=== PATIENT | male | born 1945 | race Caucasian/White ===

== ENCOUNTER 2025-02-17 20:10 | Outpatient (REF) | payer MEDICARE, SELFPAY ==
--- OUTSIDE RECORDS SUMMARY | 2025-02-03 06:12 | XMS_ITS | Encounter Summary ---
Author Organization [facility] [employer] [facility] tem Address [id number] [address] [place] [address] Care Team Providers Care Packer Name Role Phone Alejandrina Rivera MD Primary Care Provider [phone] Reason for Visit * Auth/Cert Specialty Diagnoses / Procedures Referred By Leif graham Referred To Contact Diagnoses Osteomyelitis of right foot, unspecified type ([facility]) Raysa Mann MD [address] , [facility] [address] [place] [address] Phone: tel: fax: Referral ID Status Reason Start Date Expiration Date Visits Re quested Visits Authorized [id number] 1 1 Encounter Details Date Type Department Care Team (Latest Contact Info) Description 02/03/2025 6:12 AM EDT - 02/03/2025 6:30 AM EDT Hospital Encounter [facility] - Surgery [address] [place] [phone] Diego Daniels, [address] [place] [address] Discharge Disposition: Still a Patient Social History Tobacco Use Types Packs/Day Years Used Date Smoking Tobacco: Former Smokeless Tobacco: Never Alcohol Use Standard Drinks/Week Comments No 0 (1 standard drink = 0.6 oz pur e alcohol) [facility] Utilities Answer Date Recorded In the past 12 months has th e electric, gas, oil, or water company threatened to shut off services in your home? No 02/03/2025 PHQ-2 Answer Date Recorded Total Score 0 05/20/2022 PRAPARE - Transportation Answer Date Re corded In the past 12 months, has l ack of transportation kept you from medical appointments or from getting medications? No 01/21 In the past 12 months, has l ack of transportation kept you from meetings, work, or from getting things needed for daily living? No 02/03/2025 Housing Instability Answer Date Recorde d Are you worried or concerned that in the next two months you may not have stable housing that you own, rent or stay in as a part of a household? No 02/03/2025 Childcare Answer Date Recorded Childcare Unknown 12/02/2018 Employment Answer Date Recorded Employment Unknown 12/02/2018 Hunger Screening Answer Date Recorded Within the past 12 months we worried whether our food would run out before we got money to buy more. Never True 02/03/2025 Within the past 12 months th e food we bought just didn't last and we didn't have money to get more. Never True 02/03/2025 Purpose - Life Answer Date Recorded Purpose and direction in life Unknown Sex and Gender Information Value Date Recorded Sex Assigned at Not on file Legal Sex Male 11:54 AM EDT Gender Identity Not on file Sexual Orientation Not on file documented as of this encounter Medications at Time of Discharge allopurinol (ZYLOPRIM) 100 mg tablet Take 1 tablet (100 mg total) by mouth in the morning. aspirin 81 mg chewable tablet Chew 1 tablet (81 mg total) and swallow in the morning. 90 tablet 11/29/2024 atorvastatin (LIPITOR) 20 mg tablet Take 1 tablet (20 mg total) by mouth in the morning. ciprofloxacin HCl (CIPRO) 500 mg tablet Take 1.5 tablets (750 mg total) by mouth every 12 (twelve) hours for 42 days. 126 tablet 02/08/2025 clopidogreL (PLAVIX) 75 mg tablet Take 1 tablet (75 mg total) by mouth in the morning. 90 tablet 11/29/2024 cyanocobalamin (vitamin B-12) 100 MCG tablet Take 10 tablets (1,000 mcg total) by mouth in the morning. docusate sodium (COLACE) 100 mg capsule Take 1 capsule (100 mg total) by mouth in the morning and 1 capsule (100 mg total) before bedtime. doxazosin (CARDURA) 8 mg tablet Take 0.5 tablets (4 mg total) by mouth nightly. finasteride (PROSCAR) 5 mg tablet Take 1 tablet (5 mg total) by mouth in the morning. folic acid (FOLVITE) 1 mg tablet Take 1 tablet (1 mg total) by mouth in the morning. heparin lock flush, porcine, 10 unit/mL injection Infuse 1-5 mL (10-50 Units total) into a venous catheter as needed (line care per nursing agency protocol.). 1 mL 02/08/2025 heparin lock flush, porcine, injection 100 unit/mL solution Infuse 1-5 mL (100-500 Units total) into a venous catheter as needed (line care per nursing agency protocol.). 1 mL 02/08/2025 insulin glargine (LANTUS) 100 unit/mL injectionIndicat ions:type 2 diabetes mellitus Inject 0.1 mL (10 Units total) under the skin in the morning and 0.1 mL (10 Units total) before bedtime. Indications: type 2 diabetes mellitus. 02/08/2025 levothyroxine sodium (TIROSINT) 112 mcg capsule Take 1 capsule (112 mcg total) by mouth in the morning. OZEMPIC 0.25 mg or 0.5 mg(2 mg/1.5 mL) pen injector Inject under the skin once a week. wednesdays sodium chloride injection Infuse 10-20 mL into a venous catheter as needed for line care (line care per nursing agency protocol.). 1 mL 02/08/2025 vancomycin (VANCOCIN) 97184 mg recon soln Infuse 750 mg into a venous catheter daily for 38 days. End Date 03/18/2025 1 each 02/08/2025 insulin glargine (LANTUS) 100 unit/mL injectionIndicat ions:type 2 diabetes mellitus Inject 0.35 mL (35 Units total) under the skin in the morning. Indications: type 2 diabetes mellitus. 10/28/2022 documented as of this encounter Plan of Treatment Upcoming Encounters Date Type Department Care Team (Late st Contact Info) Description 03/08/2025 3:20 PM EDT [facility] [address] [place] [phone] Delfino Lake MD [address] [place] [address] documented as of this encounter Goals Goal Patient Goal Type Associated Problems Recent Progress Patient-Stated? Author SNF General Yes Desire Wilhelm LSW Note: Evaluation of progress towards goal: await surgery, possibly tomorrow documented as of this encounter Procedures Procedure Name Priority Date/Time Associated Diagnosis Comments BEDSIDE GLUCOSE Routine 02/03/2025 6:36 AM EDT BEDSIDE GLUCOSE Routine 02/03/2025 6:24 AM EDT documented in this encounter Results * (ABNORMAL) Bedside Glucose *Place/Obtain serum glucose if >500 per glucometer. (02/03/2025 6:36 AM EDT) Bedside Glucose (POC) 52(LL) 65 - 99 mg/dL 02/03/2025 6:37 AM EDT [facility] arterial/capilla ry 02/03/2025 6:36 AM EDT 02/03/2025 6:37 AM EDT us Diego Daniels DPM POINT OF CARE TEST ORDERABL ES Final Result [facility] [address] [place] [address], * (ABNORMAL) Bedside Glucose *Place/Obtain serum glucose if >500 per glucometer. (02/03/2025 6:24 AM EDT) Bedside Glucose (POC) 50(LL) 65 - 99 mg/dL 02/03/2025 6:26 AM EDT [facility] arterial/capilla ry 02/03/2025 6:24 AM EDT 02/03/2025 6:26 AM EDT us Diego Daniels DPM POINT OF CARE TEST ORDERABL ES Final Result Performing Organization Address City/State/[facility] Co de Phone Number [facility] [address] [place] [address], documented in this encounter Visit Diagnoses Not on filedocumented in this encounter Additional Health Concerns Assessment Noted Time PHQ-9 Depression Total Score: 0 05/20/20 22 9:00 AM EST documented as of this encounter Care Teams Packer Relationship Specialty Start Date End Date Alejandrina Rivera MD [address] [facility] [place] [address] PCP - General Internal Medicine 09/27/24 documented as of this encounter
--- OUTSIDE RECORDS SUMMARY | 2025-02-03 06:45 | XMS_ITS | Encounter Summary ---
Author Organization [employer] tem Address [id number] [address] [place] [address] Care Team Providers Care [employer] Name Role Phone Alejandrina Rivera MD Primary Care Provider [phone] Reason for Referral * Consultation (Routine) - Pending Review Specialty Diagnoses / Procedures Referred By Leif graham Referred To Contact Podiatry Diagnoses Osteomyelitis of right foot, unspecified type ([facility]) Poonam Hobson APRN-CNP [address] [place] [address] Phone: tel: fax: Diego Daniels, DPM [address] [place] [address] Phone: tel: fax: Referral ID Status Reason Start Date Expiration Date Visits Requested Visits Authorized [id number] Pending Review Specialty Services Required 02/08/2025 02/08/2026 1 1 * Misc (Routine) - Pending Review Specialty Diagnoses / Procedures Referred By Leif graham Referred To Contact Procedures Discharge Follow-Up Poonam Hobson APRN-CNP [address] [place] [address] Phone: tel: fax: Referral ID Status Reason Start Date Expiration Date V isits Requested Visits Authorized [id number] Pending Review 02/08/2025 02/08/2026 1 1 * Misc (Routine) - Pending Review Specialty Diagnoses / Procedures Referred By Leif graham Referred To Contact Diagnoses Osteomyelitis of right foot, unspecified type ([facility]) Procedures Follow-up with primary care provider Poonam Hobson APRN-CNP [address] [place] [address] Phone: tel: fax: Referral ID Status Reason Start Date Expiration Date V isits Requested Visits Authorized [id number] Pending Review 02/08/2025 02/08/2026 1 1 Reason for Visit * Reason Comments Low Blood Sugar - No Symptoms Pt reports to ER today with c/o hypoglycemia. Pt was down in pre-op with plans for surgery today. Pt blood sugar was assessed and read as 50. Pt admits to being NPO overnight but still taking his full dose of insulin. * Auth/Cert Specialty Diagnoses / Procedures Referred By Leif graham Referred To Contact Diagnoses Osteomyelitis of right foot, unspecified type ([facility]) Raysa Mann MD [address] , [facility] [address] [place] [address] Phone: tel: fax: Referral ID Status Reason Start Date Expiration Date Visits Re quested Visits Authorized [id number] 1 1 Encounter Details Date Type Department Care Team (Latest Contact Info) Description 02/03/2025 6:45 AM EDT - 02/08/2025 9:00 PM EDT Hospital Encounter [facility] - Acute Care [address] [place] [address] Jerald Pineda T, DO [address] [place] [address] Raysa Mann MD [address] , [address] [place] [address] Sirena Batres MD [address] [facility] , [address] [place], [place] [id number] Osteomyelitis of right foot, unspecified type ([facility]) (Primary Dx); Hypoglycemia; Chronic kidney disease, unspecified CKD stage; Type 2 diabetes mellitus with diabetic polyneuropathy, with long-term current use of insulin ([facility]) Discharge Disposition: [facility] Facility-Medicare Cert Social History Tobacco Use Types Packs/Day Years Used Date Smoking Tobacco: Former Smokeless Tobacco: Never Alcohol Use Standard Drinks/Week Comments No 0 (1 standard drink = 0.6 oz pur e alcohol) [facility] Utilities Answer Date Recorded In the past 12 months has th e [employer], gas, oil, or water [employer] threatened to shut off services in your [...] on file documented as of this encounter Last Filed Vital Signs Vital Sign Reading Time Taken Comments Blood Pressure 124/60 02/08/2025 3:43 PM EDT Pulse 77 02/08/2025 3:43 PM EDT Temperature 36.4 C (97.6 F) 02/08/2025 3:43 PM EDT Respiratory Rate 17 02/08/2025 3:43 PM EDT Oxygen Saturation 98% 02/08/2025 3:43 PM EDT Inhaled Oxygen Concentration - - Weight 64.5 kg (142 lb 4.8 oz) 02/08/2025 5:00 A M EDT Height 172.7 cm (5' 8 ) 02/04/2025 11:13 AM EDT Body Mass Index 21.64 02/04/2025 11:13 AM EDT documented in this encounter Functional Status documented as of this encounter Mental Status * Question Answer Entry Date Author Overall Cognitive Status WFL 02/05/2025 7:37 AM EDT Tanisha Olmos, PT documented in this encounter Discharge Summaries * Sirena Batres MD - 02/08/2025 1:53 PM EDT Images from the original note were not included. [facility] [address] [place] [phone] Hospital Medicine Discharge Summary Patient: Babar Barriga Date of : 1945 Room: [facility] Encounter date: 02/08/25 Hospital Day: 6 DATE OF ADMISSION: 02/03/2025 DATE OF DISCHARGE:02/08/2025 DISCHARGE DIAGNOSES Principal Problem: Osteomyelitis of right foot, unspecified type ([facility]) Active Problems: Peripheral vascular disease ([facility]) Hyperlipidemia Diabetic peripheral neuropathy associated with type 2 diabetes mellitus ([facility]) S/P amputation of foot, left ([facility]) Hypertension CKD (chronic kidney disease) stage 4, GFR 15-29 ml/min (CMS-HCC) Hypoglycemia Anemia of chronic disease Hypothyroidism Iron deficiency anemia [facility] Pod[facility] ID PCP: Alejandrina Rivera MD PROCEDURES none HOSPITAL COURSE SUMMARY Babar Barriga is a 80 y.o. male who presented with hypoglycemia. Scheduled for outpatient right calcanectomy with podiatry this morning, found to be hypoglycemic and sent to the ER. Known osteomyelitis, confirmed on MRI earlier this month. ER workup was relatively noncontributory. Started on cefepime and vancomycin. Podiatry consulted. And admission requested. Hospital course: Right calcaneal osteomyelitis/ right foot wound with exposure of achilles tendon. S/p partial calcanectomy right foot, achilles tendon resection and VAC placement 02/04. Continue vancomycin. VAC. Cultures final. ID following-atb ordered at d/c, PICC line ordered. T2DM, 6.2%, sliding scale insulin and glargine. -hypoglycemic, adjusted lantus Peripheral vascular disease, aspirin and clopidogrel. Hypertension, normotensive, hytrin. Anemia of chronic disease, hemoglobin stable/baseline. Venofer Dyslipidemia, statin. Hypothyroidism, levothyroxine. CKD 4, creatinine stable/baseline, avoid nephrotoxic agents. Monitor daily weight, output. VTE chemoprophylaxis when cleared by podiatry. Pt instructed to follow up with PCP/podiatry in one week. Instructed to seek medical attention if symptoms persist or worsen or if you develop chest pain or shortness of breath. Sepsis suspected, no-not clinically evident at this time. Discharge Day Progress Note 02/08/25 No overnight events and remains hemodynamically stable. Review of Systems Constitutional: Negative for chills, fatigue and fever. Respiratory: Negative for cough, shortness of breath and wheezing. Cardiovascular: Negative for chest pain and leg swelling. Gastrointestinal: Negative for abdominal pain, blood in stool, constipation, diarrhea, nausea and vomiting. Genitourinary: Negative for difficulty urinating. Skin: Positive for wound. Negative for rash. Neurological: Negative for dizziness, weakness and headaches. Psychiatric/Behavioral: Negative for sleep disturbance. BP 108/54 Pulse 82 Temp 37.4 ??C (99.3 ??F) (Oral) Resp 17 Ht 172.7 cm (5' 8 ) Wt 64.5 kg(142 lb 4.8 oz) SpO2 100% BMI 21.64 kg/m?? Temp: [36.6 ??C (97.9 ??F)-37.4 ??C (99.3 ??F)] 37.4 ??C (99.3 ??F) Pulse: [75-82] 82 Resp: [16-18] 17 BP: (106-144)/(48-76) 108/54 SpO2: [99 %-100 %] 100 % O2 Device: None (Room air) Intake/Output Summary (Last 24 hours) at 02/08/2025 1353 Last data filed at 02/08/2025 1110 Gross per 24 hour Intake 989.88 ml Output 850 ml Net 139.88 ml Physical Exam Constitutional: General: He is not in acute distress. Cardiovascular: Rate and Rhythm: Normal rate and regular rhythm. Heart sounds: Heart sounds are distant. Pulmonary: Effort: Pulmonary effort is normal. Breath sounds: Normal breath sounds. No decreased breath sounds, wheezing, rhonchi or rales. Abdominal: General: Abdomen is flat. Palpations: Abdomen is soft. Tenderness: There is no abdominal tenderness. Musculoskeletal: Right lower leg: No edema. Left lower leg: No edema. Skin: General: Skin is warm and dry. Capillary Refill: Capillary refill takes less than 2 seconds. Coloration: Skin is pale. Findings: Wound present. No rash. Neurological: General: No focal deficit present. Mental Status: Mental status is at baseline. Psychiatric: Behavior: Behavior is cooperative. Code Status: Full Code Labs Recent Results (from the past 48 hours) ABO Rh Repeat Collection Time: 02/06/25 1:56 PM Result Value Ref Range ABO B RH Negative Bedside Glucose *Place/Obtain serum glucose if >500 per glucometer. Collection Time: 02/06/25 4:02 PM Result Value Ref Range Bedside Glucose (POC) 190 (H) 65 - 99 mg/dL Bedside Glucose *Place/Obtain serum glucose if >500 per glucometer. Collection Time: 02/06/25 8:36 PM Result Value Ref Range Bedside Glucose (POC) 170 (H) 65 - 99 mg/dL Hemoglobin and hematocrit, blood Collection Time: 02/06/25 8:45 PM Result Value Ref Range Hemoglobin 7.4 (L) 13 - 17 g/dL Hematocrit 22.4 (L) 39 - 50 % Occult blood x 1, stool Collection Time: 02/07/25 2:46 AM Result Value Ref Range FECAL OCCULT BLOOD Negative Negative Comprehensive metabolic panel Collection Time: 02/07/25 4:31 AM Result Value Ref Range SODIUM 134 134 - 146 mmol/L POTASSIUM 4.4 3.5 - 5.0 mmol/L CHLORIDE 104 98 - 109 mmol/L CARBON DIOXIDE 24 22 - 32 mmol/L ANION GAP 6 5 - 15 mmol/L BLOOD UREA NITROGEN 37 (H) 5 - 27 mg/dL CREATININE 1.31 (H) 0.70 - 1.20 mg/dL GLUCOSE 95 65 - 99 mg/dL CALCIUM 8.5 8.5 - 10.5 mg/dL TOTAL PROTEIN 5.7 (L) 6.0 - 8.0 g/dL ALBUMIN 2.1 (L) 3.2 - 5.3 g/dL ALKALINE PHOSPHATASE 69 39 - 130 U/L AST 13 <=41 U/L ALT 13 <=40 U/L BILIRUBIN,TOTAL 0.5 0.3 - 1.2 mg/dL EGFR Non-Race Dependent 55 (L) >=60 ml/min/1.73sq.m Magnesium Collection Time: 02/07/25 4:31 AM Result Value Ref Range MAGNESIUM 1.8 1.8 - 2.6 mg/dL CBC auto differential Collection Time: 02/07/25 4:31 AM Result Value Ref Range WBC 8.8 4 - 11 x10E9/L RBC Count 2.70 (L) 4.1 - 5.7 X10E12/L Hemoglobin 7.0 (L) 13 - 17 g/dL Hematocrit 21.3 (L) 39 - 50 % MCV 79 (L) 80 - 100 fL MCH 26.0 (L) 27 - 34 pg MCHC 32.8 32 - 36 g/dL RDW 19.2 (H) 11.5 - 15 % Platelet Count 232 150 - 450 X10E9/L MPV 7.1 7 - 12 fL Neutrophils % 70.3 % Lymphocytes % 18.6 % Monocytes % 9.1 % Eosinophils % 1.4 % Basophils % 0.6 % Neutrophils Absolute (A) 6.2 1.5 - 6.6 10*3/uL Lymphocytes Absolute 1.6 1.0 - 3.5 10*3/uL Monocytes Absolute 0.8 0.0 - 0.9 10*3/uL Eosinophils Absolute 0.1 0.0 - 0.4 10*3/uL Basophils Absolute 0.1 0.0 - 0.2 10*3/uL Differential Type AUTOMATED DIFFERENTIAL Extra Tubes Collection Time: 02/07/25 4:31 AM Narrative The following orders were created for panel order Extra Tubes. Procedure Abnormality Status --------- ------ Light Blue Top[[id number]] Final result Please view results for these tests on the individual orders. Light Blue Top Collection Time: 02/07/25 4:31 AM Result Value Ref Range Extra Tube Auto Resulted Bedside Glucose *Place/Obtain serum glucose if >500 per glucometer. Collection Time: 02/07/25 11:14 AM Result Value Ref Range Bedside Glucose (POC) 250 (H) 65 - 99 mg/dL Hemoglobin and hematocrit, blood Collection Time: 02/07/25 1:15 PM Result Value Ref Range Hemoglobin 7.0 (L) 13 - 17 g/dL Hematocrit 21.7 (L) 39 - 50 % Bedside Glucose *Place/Obtain serum glucose if >500 per glucometer. Collection Time: 02/07/25 5:07 PM Result Value Ref Range Bedside Glucose (POC) 201 (H) 65 - 99 mg/dL Hemoglobin Collection Time: 02/07/25 6:50 PM Result Value Ref Range Hemoglobin 8.1 (L) 13 - 17 g/dL Hematocrit Collection Time: 02/07/25 6:50 PM Result Value Ref Range Hematocrit 24.9 (L) 39 - 50 % Bedside Glucose *Place/Obtain serum glucose if >500 per glucometer. Collection Time: 02/07/25 8:42 PM Result Value Ref Range Bedside Glucose (POC) 246 (H) 65 - 99 mg/dL Comprehensive metabolic panel Collection Time: 02/08/25 5:44 AM Result Value Ref Range SODIUM 135 134 - 146 mmol/L POTASSIUM 4.5 3.5 - 5.0 mmol/L CHLORIDE 104 98 - 109 mmol/L CARBON DIOXIDE 25 22 - 32 mmol/L ANION GAP 6 5 - 15 mmol/L BLOOD UREA NITROGEN 33 (H) 5 - 27 mg/dL CREATININE 1.16 0.70 - 1.20 mg/dL GLUCOSE 63 (L) 65 - 99 mg/dL CALCIUM 8.8 8.5 - 10.5 mg/dL TOTAL PROTEIN 6.2 6.0 - 8.0 g/dL ALBUMIN 2.4 (L) 3.2 - 5.3 g/dL ALKALINE PHOSPHATASE 78 39 - 130 U/L AST 17 <=41 U/L ALT 16 <=40 U/L BILIRUBIN,TOTAL 0.6 0.3 - 1.2 mg/dL EGFR Non-Race Dependent 64 >=60 ml/min/1.73sq.m Magnesium Collection Time: 02/08/25 5:44 AM Result Value Ref Range MAGNESIUM 1.8 1.8 - 2.6 mg/dL CBC auto differential Collection Time: 02/08/25 5:44 AM Result Value Ref Range WBC 10.6 4 - 11 x10E9/L RBC Count 3.29 (L) 4.1 - 5.7 X10E12/L Hemoglobin 8.8 (L) 13 - 17 g/dL Hematocrit 26.2 (L) 39 - 50 % MCV 80 80 - 100 fL MCH 26.6 (L) 27 - 34 pg MCHC 33.4 32 - 36 g/dL RDW 18.9 (H) 11.5 - 15 % Platelet Count 250 150 - 450 X10E9/L MPV 7.0 7 - 12 fL Neutrophils % 69.0 % Lymphocytes % 22.7 % Monocytes % 7.1 % Eosinophils % 1.0 % Basophils % 0.2 % Neutrophils Absolute (A) 7.3 (H) 1.5 - 6.6 10*3/uL Lymphocytes Absolute 2.4 1.0 - 3.5 10*3/uL Monocytes Absolute 0.7 0.0 - 0.9 10*3/uL Eosinophils Absolute 0.1 0.0 - 0.4 10*3/uL Basophils Absolute 0.0 0.0 - 0.2 10*3/uL Differential Type AUTOMATED DIFFERENTIAL Bedside Glucose *Place/Obtain serum glucose if >500 per glucometer. Collection Time: 02/08/25 7:31 AM Result Value Ref Range Bedside Glucose (POC) 54 (L) 65 - 99 mg/dL Hemoglobin and hematocrit, blood Collection Time: 02/08/25 12:42 PM Result Value Ref Range Hemoglobin 8.0 (L) 13 - 17 g/dL Hematocrit 24.2 (L) 39 - 50 % Radiology X-ray calcaneus right minimum 2 views Result Date: 02/04/2025 Narrative: XR CALCANEOUS RT MIN 2 VWS Clinical history:sugery pain Comparison: None. Impression: Surgical fluoroscopic guidance provided for calcaneal fixation with fluoroscopic guidance. Reference air kerma was 0.3 mGy. Finalized by Edy Valdovinos MD on 02/04/2025 1:57 PM X-ray foot right 2 views Result Date: 02/03/2025 Narrative: EXAM: XR FOOT RT 2 VWS CLINICAL INFORMATION: evaluate for osteomyelitis of calcaneus. COMPARISON: None. FINDINGS: There is osteopenia. There is dorsal soft tissue irregularity and suspected ulceration overlying the calcaneus. There are focal lytic destructive changes of the dorsal calcaneus, compatible with osteomyelitis. There is subtotal absence of the first proximal phalanx, suspected postsurgical. IMPRESSION: 1. Dorsal soft tissue irregularity and ulceration with underlying lyticdestructive changes of osteomyelitis involving the dorsal calcaneus. Finalizedby Asher Jovel MD on 02/03/2025 8:46 PM X-ray foot left minimum 3 views Result Date: 01/25/2025 Narrative: Imaging Result: AP, medial oblique, lateral views are nonweightbearing. Reveals [id number] metatarsal resection. There is a bone fragment consistent with possible remnant of the 5th metatarsal. There has been complete destruction of the naviculocuneiform joint as well as the tarsometata rsal joints. I do not see any significant collapse of the midfoot. There is also significant erosion of the navicular with a almost complete destruction of the lateral and intermediate cuneiforms consistent with Charcot neuroarthropathy. Decreased bone mineralization. Significant degenerative changes of the 1st MTP, interphalangeal joint. Enthesophyte at the insertion of the plantar fascia. MR foot right without contrast Result Date: 01/24/2025 Narrative: EXAM: MR FOOT RIGHT WO IV CONTRAST HISTORY: Chronic ulceration right calcaneus. Exposed bone and Achilles tendon. Osteomyelitis COMPARISON : Foot radiographs October 16, 2022 TECHNIQUE: Multiplanar multisequence MRI of the foot was performed without contrast. FINDINGS: Soft tissue ulcer along the posterior margin of the calcaneus measures approximately 3 cm. Full-thickness tear of distallateral and mid fibers of the Achilles tendon at the level of the attachment of the calcaneus with medial fibers remaining intact (in total full- thickness tear of approximately three fourths of the Achilles tendon). Patchy hyperintense T2 signal is present within the posterior calcaneus to the level of the anterior margin of the posterior subtalar joint with corresponding hypointense T1 signal. The plantar fascia appears intact. Flexor and extensor tendons appear intact. Full-thickness tear of the anterior talofibular ligament hyperintense T2 signal of the musculature of the foot is most likely secondary to chronic denervation. Diffuse subcutaneous soft tissue edema. No soft tissue fluid collection to suggest abscess. Impression: Signal abnormality of the posterior two thirds of the calcaneus most compatible with osteomyelitis. Tear of the distal Achilles tendon as detailed. ELECTRONICALLY SIGNED BY: Sean Frias DO Vascular Invasive Result Date: 01/24/2025 Narrative: Patent SFA stents with a patent posterior tibial artery with adequate right heel wound blush Recommendations: Continue medical therapy. Recommendations per limb preservation board Vas art doppler lwr bilat mult lev/PVR Result Date: 01/20/2025 Narrative: Previous: Previous lower extremity arterial physiological exam performed: 12/23/2024; Highest VALE: Right: VALE is falsely elevated suggesting medial calcinosis; TBI is consistent with mild to moderate arterial disease. Left VALE is falsely elevated suggesting medial calcinosis; TBI is consistent with mild to moderate arterial disease. History of left REMI angioplasty on 10/30/2022. Historyof right SFA angioplasty and stent on 11/29/2024. Right: Mildly abnormal PVR waveform contour at all cuff levels. Calf waveform augmentation noted. PT VALE is CNO DP VALE is CNO. TBI is 0.42. Multiphasicwith diastolic flow reversal common femoral, hyperemic DP and monophasic PT CW Doppler waveforms. Le ft: Mildly abnormal PVR waveform contour at all cuff levels. Calf waveform augmentation noted. PT VALE is CNO DP VALE is CNO. TBI is 0.61. Multiphasic with diastolic flow reversal common femoral, DP and hyperemic PT CW Doppler waveforms. Conclusions: BILATERAL: VALE is falsely elevated suggesting medial calcinosis and non-compressible vessels; TBI is consistent with mild to moderate arterial disease.When compared to previous report no significant changes were noted. Recommendations: Any questions prior to finalization, please call the reading physician during normal business hours at the phone number beside their name. Vas art duplex lwr single right Result Date: 01/20/2025 Narrative: Previous: Previous lower extremity arterial duplex exam performed 12/23/2024 Right No hemodynamically significant stenosis (<50%), lower extremity superficial femoral artery stent. Arterial plaque with no hemodynamically significant stenosis of the lower extremity. History of left ATAangioplasty on 10/30/2022. History of right SFA angioplasty and stenting on 11/29/2024. Right: Plaque and spectral waveforms with diastolic flow reversal noted in the external iliac, common femoral, deep femoral, popliteal anterior tibial, hyperemic posterior tibial and peroneal artery without significant color flow disturbance. Spectral waveforms with diastolic flow reversal noted in the superficial femoral artery stent without significant color flow disturbance. Conclusions: RIGHT: Arterial plaque with no hemodynamically significant stenosis of the lower extremity. No hemodynamically significant stenosis (<50%), lower extremity arterial stent.When compared to previous report no significant changes were noted. Recommendations: Any questions prior to finalization, please call the reading physician during normal business hours at the phone number beside their name. DISCHARGE INSTRUCTION Disposition: group home facility Condition: Stable Activity: activity as tolerated Diet: Adult diet Regular Texture; Consistent Carb 255 grams (2000 kcal); Cardiac Adult nutrition supplements Follow up: Alejandrina Rivera MD within 7-14 days. Podiatry Labs/Imaging/Pathology: bmp weekly while on atb Discharge Medications: Medication List START taking these medications Instructions Last Dose Given Next Dose Due ciprofloxacin HCl 500 mg tablet Commonly known as: CIPRO Take 1.5 tablets (750 mg total) by mouth every 12 (twelve) hours for 42 days. * heparin lock flush (porcine) 10 unit/mL injection Infuse 1-5 mL (10-50 Units total) into a venous catheter as needed (line care per nursing agency protocol.). * heparin lock flush (porcine) injection 100 unit/mL solution Infuse 1-5 mL (100-500 Units total) into a venous catheter as needed (line care per nursing agency protocol.). sodium chloride injection Infuse 10-20 mL into a venous catheter as needed for line care (line care per nursing agency protocol.). vancomycin 36433 mg recon soln Commonly known as: VANCOCIN Infuse 750 mg into a venous catheter daily for 38 days. End Date 03/18/2025 * This list has 2 medication(s) that are the same as other medications prescribed for you. Read thedirections carefully, and ask your doctor or other care provider to review them with you. CHANGE how you take these medications Instructions Last Dose Given Next Dose Due insulin glargine 100 unit/mL injection Commonly known as: LANTUS What changed: how much to take when to take this Inject 0.1 mL (10 Units total) under the skin in the morning and 0.1 mL (10 Units total) before bedtime. Indications: type 2 diabetes mellitus. CONTINUE taking these medications Instructions Last Dose Given Next Dose Due allopurinoL 100 mg tablet Commonly known as: ZYLOPRIM Take 1 tablet (100 mg total) by mouth in the morning. aspirin 81 mg chewable tablet Chew 1 tablet (81 mg total) and swallow in the morning. atorvastatin 20 mg tablet Commonly known as: LIPITOR Take 1 tablet (20 mg total) by mouth in the morning. clopidogreL 75 mg tablet Commonly known as: PLAVIX Take 1 tablet (75 mg total) by mouth in the morning. docusate sodium 100 mg capsule Commonly known as: COLACE Take 1 capsule (100 mg total) by mouth in the morning and 1 capsule (100 mg total) before bedtime. doxazosin 8 mg tablet Commonly known as: CARDURA Take 0.5 tablets (4 mg total) by mouth nightly. finasteride 5 mg tablet Commonly known as: PROSCAR Take 1 tablet (5 mg total) by mouth in the morning. folic acid 1 mg tablet Commonly known as: FOLVITE Take 1 tablet (1 mg total) by mouth in the morning. levothyroxine sodium 112 mcg capsule Commonly known as: TIROSINT Take 1 capsule (112 mcg total) by mouth in the morning. OZEMPIC 0.25 mg or 0.5 mg(2 mg/1.5 mL) pen injector Generic drug: semaglutide Inject under the skin once a week. wednesdays vitamin B-12 100 MCG tablet Generic drug: cyanocobalamin Take 10 tablets (1,000 mcg total) by mouth in the morning. Where to Get Your Medications These medications were sent to [facility] - [place], [place] - [address] [facility] [id number] ciprofloxacin HCl 500 mg tablet heparin lock flush (porcine) 10 unit/mL injection heparin lock flush (porcine) injection 100 unit/mL solution sodium chloride injection You can get these medications from any pharmacy Bring a paper prescription for each of these medications vancomycin 74988 mg recon soln Information about where to get these medications is not yet available Ask your nurse or doctor about these medications insulin glargine 100 unit/mL injection >30 minutes were spent on discharging this patient. MONET Carpenter 02/08/2025 1:53 PM [facility] 7AM-7PM & 7PM-7AM: EpicChat or page through On-[employer]. MONET Carpenter 02/08/25 7017 Physician Attestation I, SIRENA BATRES MD, personally performed a face to face diagnostic evaluation on this patient. I have reviewed the note authored by the advance practice provider including history, review of systems,physical examination,medical decision making and agree with the assessment and plan as written. I have seen and evaluated the patient, I have repeated the zelaya portions of the physical exam and concur with the RHETT findings. I have reviewed all laboratory findings and imaging reports/films. I agree with the plan as noted. documented in this encounter Medications at Time of Discharge [...] agency protocol.). 1 mL 02/08/2025 vancomycin (VANCOCIN) 88373 mg recon soln Infuse 750 mg into a venous catheter daily for 38 days. End Date 03/18/2025 1 each 02/08/2025 documented as of this encounter Progress Notes * Phoenix Blanco RPH - 02/08/2025 1:14 PM EDT [facility] Department of Pharmacy Pharmacist to Physician Communication The dose of Cipro has been changed to 500 mg every 12 hours per the [facility] approved renal dosing guidelines, based on an estimated creatinine clearance is 46.3 mL/min (by C-G formula based on SCr of 1.16 mg/dL). Thank you, Phoenix Blanco RPH * Phoenix Blanco RPH - 02/08/2025 9:12 AM EDT [facility] Department of Pharmacy Pharmacist to Physician Communication The dose of cefepime for Osteoarticular infection has been changed to a 2 gram loading dose infusedover 30 minutes followed by 2 grams infused every 12 hours by extended infusion over 4 hours per the [facility] approved extended-infusion beta- lactam dosing policy, based on an estimated creatinine clearance is 46.3 mL/min (by C-G formula based on SCr of 1.16 mg/dL). Thank you, Phoenix Blanco RPH * Sirena Batres MD - 02/07/2025 1:26 PM EDT Images from the original note were not included. [facility] [address] [id number] Hospital Medicine Progress Note Patient: Babar Barriga Date of : 1945 Room: [facility] PCP: Alejandrina Rivera MD Admission date: 02/03/2025 6:45 AM Encounter date: 02/07/25 Hospital Day: 5 SUBJECTIVE Interval History: Status: stable. POD#3, partial calcanectomy right foot, achilles tendon resection and VAC placement. ID and Podiatry, no changes. pending cultures. Continue vanco. 1 unit prbc today Review of Systems Constitutional: Negative for chills, fatigue and fever. Respiratory: Negative for cough, shortness of breath and wheezing. Cardiovascular: Negative for chest pain and leg swelling. Gastrointestinal: Negative for abdominal pain, blood in stool, constipation, diarrhea, nausea and vomiting. Genitourinary: Negative for difficulty urinating. Skin: Positive for wound. Negative for rash. Neurological: Negative for dizziness, weakness and headaches. Psychiatric/Behavioral: Negative for sleep disturbance. OBJECTIVE BP 95/46 Pulse 98 Temp 36.8 ??C (98.2 ??F) Resp 18 Ht 172.7 cm (5' 8 ) Wt 60.3 kg (133 lb) SpO2 98% BMI 20.22 kg/m?? Temp: [36.7 ??C (98 ??F)-37.3 ??C (99.2 ??F)] 36.8 ??C (98.2 ??F) Pulse: [74-98] 98 Resp: [14-18] 18 BP: (95-111)/(46-52) 95/46 SpO2: [98 %-99 %] 98 % O2 Device: None (Room air) O2 Flow Rate (L/min): [0 L/min] 0 L/min Intake/Output Summary (Last 24 hours) at 02/07/2025 1326 Last data filed at 02/07/2025 1325 Gross per 24 hour Intake 1042.95 ml Output 1425 ml Net -382.05 ml Physical Exam Constitutional: General: He is not in acute distress. Cardiovascular: Rate and Rhythm: Normal rate and regular rhythm. Heart sounds: Heart sounds are distant. Pulmonary: Effort: Pulmonary effort is normal. Breath sounds: Normal breath sounds. No decreased breath sounds, wheezing, rhonchi or rales. Abdominal: General: Abdomen is flat. Palpations: Abdomen is soft. Tenderness: There is no abdominal tenderness. Musculoskeletal: Right lower leg: No edema. Left lower leg: No edema. Skin: General: Skin is warm and dry. Capillary Refill: Capillary refill takes less than 2 seconds. Coloration: Skin is pale. Findings: Wound present. No rash. Neurological: General: No focal deficit present. Mental Status: Mental status is at baseline. Psychiatric: Behavior: Behavior is cooperative. Medications Scheduled: allopurinoL, 100 mg, oral, Daily aspirin, 81 mg, oral, Daily atorvastatin, 20 mg, oral, Daily clopidogreL, 75 mg, oral, Daily docusate sodium, 100 mg, oral, BID finasteride, 5 mg, oral, Daily insulin glargine, 15 Units, subcutaneous, BID insulin lispro, 2-10 Units, subcutaneous, With meals and nightly iron sucrose, 200 mg, intravenous, Every Other Day levothyroxine, 112 mcg, oral, Daily terazosin, 5 mg, oral, Nightly vancomycin, 1,000 mg, intravenous, Q36H Infusions: sodium chloride 0.9 %, 20 mL/hr As Needed: acetaminophen acetaminophen dextrose dextrose 50 % in water (D50W) EPINEPHrine glucagon (human recombinant) magnesium sulfate methylPREDNISolone sod suc(PF) ondansetron oxyCODONE-acetaminophen potassium chloride OR potassium chloride OR potassium chloride IV (Adult) sennosides-docusate sodium sodium chloride sodium chloride sodium chloride 0.9 % Allergies: Penicillins and Lisinopril Code Status: Full Code Labs Recent Results (from the past 24 hours) Bedside Glucose *Place/Obtain serum glucose if >500 per glucometer. Collection Time: 02/06/25 4:02 PM Result Value Ref Range Bedside Glucose (POC) 190 (H) 65 - 99 mg/dL Bedside Glucose *Place/Obtain serum glucose if >500 per glucometer. Collection Time: 02/06/25 8:36 PM Result Value Ref Range Bedside Glucose (POC) 170 (H) 65 - 99 mg/dL Hemoglobin and hematocrit, blood Collection Time: 02/06/25 8:45 PM Result Value Ref Range Hemoglobin 7.4 (L) 13 - 17 g/dL Hematocrit 22.4 (L) 39 - 50 % Occult blood x 1, stool Collection Time: 02/07/25 2:46 AM Result Value Ref Range FECAL OCCULT BLOOD Negative Negative Comprehensive metabolic panel Collection Time: 02/07/25 4:31 AM Result Value Ref Range SODIUM 134 134 - 146 mmol/L POTASSIUM 4.4 3.5 - 5.0 mmol/L CHLORIDE 104 98 - 109 mmol/L CARBON DIOXIDE 24 22 - 32 mmol/L ANION GAP 6 5 - 15 mmol/L BLOOD UREA NITROGEN 37 (H) 5 - 27 mg/dL CREATININE 1.31 (H) 0.70 - 1.20 mg/dL GLUCOSE 95 65 - 99 mg/dL CALCIUM 8.5 8.5 - 10.5 mg/dL TOTAL PROTEIN 5.7 (L) 6.0 - 8.0 g/dL ALBUMIN 2.1 (L) 3.2 - 5.3 g/dL ALKALINE PHOSPHATASE 69 39 - 130 U/L AST 13 <=41 U/L ALT 13 <=40 U/L BILIRUBIN,TOTAL 0.5 0.3 - 1.2 mg/dL EGFR Non-Race Dependent 55 (L) >=60 ml/min/1.73sq.m Magnesium Collection Time: 02/07/25 4:31 AM Result Value Ref Range MAGNESIUM 1.8 1.8 - 2.6 mg/dL CBC auto differential Collection Time: 02/07/25 4:31 AM Result Value Ref Range WBC 8.8 4 - 11 x10E9/L RBC Count 2.70 (L) 4.1 - 5.7 X10E12/L Hemoglobin 7.0 (L) 13 - 17 g/dL Hematocrit 21.3 (L) 39 - 50 % MCV 79 (L) 80 - 100 fL MCH 26.0 (L) 27 - 34 pg MCHC 32.8 32 - 36 g/dL RDW 19.2 (H) 11.5 - 15 % Platelet Count 232 150 - 450 X10E9/L MPV 7.1 7 - 12 fL Neutrophils % 70.3 % Lymphocytes % 18.6 % Monocytes % 9.1 % Eosinophils % 1.4 % Basophils % 0.6 % Neutrophils Absolute (A) 6.2 1.5 - 6.6 10*3/uL Lymphocytes Absolute 1.6 1.0 - 3.5 10*3/uL Monocytes Absolute 0.8 0.0 - 0.9 10*3/uL Eosinophils Absolute 0.1 0.0 - 0.4 10*3/uL Basophils Absolute 0.1 0.0 - 0.2 10*3/uL Differential Type AUTOMATED DIFFERENTIAL Extra Tubes Collection Time: 02/07/25 4:31 AM Narrative The following orders were created for panel order Extra Tubes. Procedure Abnormality Status --------- ------ Light Blue Top[[id number]] Final result Please view results for these tests on the individual orders. Light Blue Top Collection Time: 02/07/25 4:31 AM Result Value Ref Range Extra Tube Auto Resulted Bedside Glucose *Place/Obtain serum glucose if >500 per glucometer. Collection Time: 02/07/25 11:14 AM Result Value Ref Range Bedside Glucose (POC) 250 (H) 65 - 99 mg/dL Radiology No results found. HOSPITAL PROBLEM LIST Principal Problem: Osteomyelitis of right foot, unspecified type ([facility]) Active Problems: Peripheral vascular disease ([facility]) Hyperlipidemia Diabetic peripheral neuropathy associated with type 2 diabetes mellitus ([facility]) S/P amputation of foot, left ([facility]) Hypertension CKD (chronic kidney disease) stage 4, GFR 15-29 ml/min ([facility]) Hypoglycemia Anemia of chronic disease Hypothyroidism Iron deficiency anemia ASSESSMENT & PLAN Right calcaneal osteomyelitis/ right foot wound with exposure of achilles tendon. S/p partial calcanectomy right foot, achilles tendon resection and VAC placement 02/04. Continue vancomycin. VAC. Cultures pending. ID following. T2DM, 6.2%, sliding scale insulin and glargine. Peripheral vascular disease, aspirin and clopidogrel. Hypertension, normotensive, hytrin. Anemia of chronic disease, hemoglobin stable/baseline. 1 unit prbc today. Venofer Dyslipidemia, statin. Hypothyroidism, levothyroxine. CKD 4, creatinine stable/baseline, avoid nephrotoxic agents. Monitor daily weight, output. VTE chemoprophylaxis when cleared by podiatry. DC planning: alf facility pending above and placement. Medically Ready for Discharge: Anticipated 24-48 hours MONET Carpenter 02/07/2025 1:26 PM [facility] 7AM-7PM & 7PM-7AM: EpicChat or page through [employer]. MONET Carpenter 02/07/25 7997 Physician Attestation I, SIRENA BATRES MD, personally performed a face to face diagnostic evaluation on this patient. I have reviewed the note authored by the advance practice provider including history, review of systems,physical examination,medical decision making and agree with the assessment and plan as written. I have seen and evaluated the patient, I have repeated the zelaya portions of the physical exam and concur with the RHETT findings. I have reviewed all laboratory findings and imaging reports/films. I agree with the plan as noted. * Diego Daniels DPM - 02/07/2025 11:53 AM EDT Podiatry Progress Note Code Status : Code Status Information Code Status Full Code Hospital Day: LOS: 4 days Patient is currently admitted for treatment of Osteomyelitis of right foot, unspecified type ([facility]) PCP: Alejandrina Rivera MD Assessment Principal Problem: Osteomyelitis of right foot, unspecified type ([facility]) Active Problems: Peripheral vascular disease ([facility]) Hyperlipidemia Diabetic peripheral neuropathy associated with type 2 diabetes mellitus ([facility]) S/P amputation of foot, left ([facility]) Hypertension CKD (chronic kidney disease) stage 4, GFR 15-29 ml/min ([facility]) Hypoglycemia Anemia of chronic disease Hypothyroidism Iron deficiency anemia Plan -patient 3 days status post partial calcanectomy with Achilles resection right lower extremity. Wound VAC is intact with adequate seal. He is to remain strict nonweightbearing on the right lower extremity at all times. He should continue to wear the Prevalon boot on the left lower extremity when inbed. Appreciate nursing assistance with dressing changes on the left lower extremity. Right foot dressing should remain clean, dry, intact. Closing cultures pending. I will follow up with him while he remains inpatient. Discussed with nursing. If you have any questions regarding my plan for this patient please do not hesitate to contact me at [phone]. Interim History The patient is a 80 y.o. male who is admitted for osteomyelitis. Doing well without any issues overnight. 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 ([facility]) 10/24/2022 Added automatically from request for surgery [id number] Chronic kidney disease Chronic osteomyelitis of left foot ([facility]) 09/27/2024 Dental disease Diabetes mellitus type 2, controlled ([facility]) Hyperlipidemia Hypertension MRSA bacteremia 09/28/2024 Osteomyelitis ([facility]) Shortness of breath Skin cancer melanoma Stage 3b chronic kidney disease ([facility]) 09/27/2024 Urinary incontinence Visual impairment Past Surgical History: Past Surgical History: Procedure Laterality Date AMPUTATION METATARSAL AND TOE Left 09/30/2024 Performed by Diego Daniels DPM at [facility] AMPUTATION METATARSAL AND TOE partial Ray Left 10/25/2022 Performed by Diego Daniels DPM at [facility] CIRCUMCISION LENGTHENING TENDON ACHILLES Left 09/30/2024 Performed by Diego Daniels DPM at [facility] Percutaneous angioplasty/stent femoral-popliteal right Right 11/29/2024 Performed by Delfino Lake MD at [facility] SKIN PLASTY TISSUE REARRANGEMENTn toe flap Left 10/25/2022 Performed by Diego Daniels DPM at [facility] TOE SURGERY Left Vascular Invasive 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 Authorizing Provider allopurinol (ZYLOPRIM) 100 mg tablet Take 1 tablet (100 mg total) by mouth in the morning. Yes Not In System Ref Prov aspirin 81 mg chewable tablet Chew 1 tablet (81 mg total) and swallow in the morning. 11/29/24 Yes Funmi Biswas MD atorvastatin (LIPITOR) 20 mg tablet Take 1 tablet (20 mg total) by mouth in the morning. Yes Not InSystem Ref Prov clopidogreL (PLAVIX) 75 mg tablet Take 1 tablet (75 mg total) by mouth in the morning. 11/29/24 Yes Funmi Biswas MD cyanocobalamin (vitamin B-12) 100 MCG tablet Take 10 tablets (1,000 mcg total) by mouth in the morning. Yes Not In System Ref Prov docusate sodium (COLACE) 100 mg capsule Take 1 capsule (100 mg total) by mouth in the morning and 1capsule (100 mg total) before bedtime. Yes Not In System Ref Prov doxazosin (CARDURA) 8 mg tablet Take 0.5 tablets (4 mg total) by mouth nightly. Yes Not In System Ref Prov doxycycline (VIBRAMYCIN) 100 mg capsule Take 1 capsule (100 mg total) by mouth in the morning and 1capsule (100 mg total) before bedtime. Yes Not In System Ref Prov finasteride (PROSCAR) 5 mg tablet Take 1 tablet (5 mg total) by mouth in the morning. Yes Not In System Ref Prov folic acid (FOLVITE) 1 mg tablet Take 1 tablet (1 mg total) by mouth in the morning. Yes Not In System Ref Prov insulin glargine (LANTUS) 100 unit/mL injection Inject 0.35 mL (35 Units total) under the skin in the morning. Indications: type 2 diabetes mellitus. Patient taking differently: Inject 0.3 mL (30 Units total) under the skin in the morning. Indications: type 2 diabetes mellitus. 10/28/22 Yes Bibi Francis MD levothyroxine sodium (TIROSINT) 112 mcg capsule Take 1 capsule (112 mcg total) by mouth in the morning. Yes Not In System Ref Prov OZEMPIC 0.25 mg or 0.5 mg(2 mg/1.5 mL) pen injector Inject under the skin once a week. wednesdays Not In System Ref Prov Allergies: Social History Socioeconomic History Marital status: Spouse name: Not on file Number of children: Not on file Years of education: Not on file Highest education level: Not on file Occupational History Not on file Tobacco Use Smoking status: Former Smokeless tobacco: Never Vaping Use Vaping status: Never Used Substance and Sexual Activity Alcohol use: No Drug use: No Sexual activity: Defer Other Topics Concern Caffeine Use No Social History Narrative Not on file Social Drivers of Health Financial Resource Strain: Not on file Food Insecurity: No Food Insecurity (02/03/2025) Hunger Screening Food Insecurity - Worry: Never True Food Insecurity - Inability: Never True Transportation Needs: No Transportation Needs (02/03/2025) PRAPARE - Transportation Lack of Transportation (Medical): No Lack of Transportation (Non-Medical): No Physical Activity: Not on file Stress: Not on file Social Connections: Not on file Interpersonal Safety: Not At Risk (02/03/2025) Humiliation, Afraid, Rape, and Kick questionnaire Fear of Current or Ex-Partner: No Emotionally Abused: No Physically Abused: No Sexually Abused: No Housing Instability: Low Risk (02/03/2025) Housing Instability Housing Instability: No Social History: Social History Socioeconomic History Marital status: Spouse name: Not on file Number of children: Not on file Years of education: Not on file Highest education level: Not on file Occupational History Not on file Tobacco Use Smoking status: Former Smokeless tobacco: Never Vaping Use Vaping status: Never Used Substance and Sexual Activity Alcohol use: No Drug use: No Sexual activity: Defer Other Topics Concern Caffeine Use No Social History Narrative Not on file Social Drivers of Health Financial Resource Strain: Not on file Food Insecurity: No Food Insecurity (02/03/2025) Hunger Screening Food Insecurity - Worry: Never True Food Insecurity - Inability: Never True Transportation Needs: No Transportation Needs (02/03/2025) PRAPARE - Transportation Lack of Transportation (Medical): No Lack of Transportation (Non-Medical): No Physical Activity: Not on file Stress: Not on file Social Connections: Not on file Interpersonal Safety: Not At Risk (02/03/2025) Humiliation, Afraid, Rape, and Kick questionnaire Fear of Current or Ex-Partner: No Emotionally Abused: No Physically Abused: No Sexually Abused: No Housing Instability: Low Risk (02/03/2025) Housing Instability Housing Instability: No Family History: Family History Problem Relation Age of Onset Ovarian cancer Mother Diabetes Father Review of Systems Review of Systems Constitutional: Positive for activity change. Respiratory: Negative for chest tightness and shortness of breath. Cardiovascular: Positive for leg swelling. Musculoskeletal: Positive for gait problem. Skin: Positive for color change and wound. Neurological: Positive for weakness and numbness. Hematological: Bruises/bleeds easily. Psychiatric/Behavioral: Negative for behavioral problems. Objective: BP 95/46 Pulse 98 Temp 36.8 ??C (98.2 ??F) Resp 18 Ht 172.7 cm (5' 8 ) Wt 60.3 kg (133 lb) SpO2 98% BMI 20.22 kg/m?? Intake/Output Summary (Last 24 hours) at 02/07/2025 1153 Last data filed at 02/07/2025 1100 Gross per 24 hour Intake 1062.95 ml Output 1425 ml Net -362.05 ml Physical Exam Constitutional: Comments: Chronically ill-appearing. HENT: Head: Atraumatic. Cardiovascular: Comments: DP and PT pulses nonpalpable. Pulmonary: Effort: Pulmonary effort is normal. No respiratory distress. Musculoskeletal: Comments: 5th ray amputation left foot with edema and hypertrophy across the midfoot consistent with Charcot neuroarthropathy. Partial calcanectomy right foot. Skin: Capillary Refill: Capillary refill takes 2 to 3 seconds. Comments: Right foot: Wound VAC in place with adequate seal. AO splint intact without strike through drainage. Left foot: Sinus tract over the lateral foot without surrounding cellulitis or purulence. Neurological: Comments: Absent protective sensation bilaterally. Psychiatric: Mood and Affect: Mood normal. Labs: CBC with Differential: Lab Results Component Value Date WBC 8.8 02/07/2025 HGB 7.0 (L) 02/07/2025 HCT 21.3 (L) 02/07/2025 PLT 232 02/07/2025 MCV 79 (L) 02/07/2025 MCH 26.0 (L) 02/07/2025 MCHC 32.8 02/07/2025 RDW 19.2 (H) 02/07/2025 RDW 13.7 10/01/2024 H/H: Lab Results Component Value Date HGB 7.0 (L) 02/07/2025 HCT 21.3 (L) 02/07/2025 CMP: Lab Results Component Value Date SODIUM 134 02/07/2025 K 4.4 02/07/2025 CL 104 02/07/2025 CL 108 10/01/2024 CO2 24 02/07/2025 BUN 37 (H) 02/07/2025 CREATININE 1.31 (H) 02/07/2025 CREATININE 2.25 (H) 10/01/2024 EGFR 55 (L) 02/07/2025 EGFR 29 (L) 10/01/2024 GLU 250 (H) 02/07/2025 GLU 241 (H) 10/01/2024 GLU 94 10/30/2022 CALCIUM 8.5 02/07/2025 HgBA1c: Lab Results Component Value Date HGBA1C 6.2 (H) 02/03/2025 Hematology:@[id number](WBC:3,HGB:3,HCT:3,MCV:3,PLT:3)@ Chemistry: Lab Results Component Value Date K 4.4 02/07/2025 CL 104 02/07/2025 CO2 24 02/07/2025 BUN 37 (H) 02/07/2025 CREATININE 1.31 (H) 02/07/2025 CALCIUM 8.5 02/07/2025 ALKPHOS 69 02/07/2025 AST 13 02/07/2025 ALT 13 02/07/2025 No results found for: LABPROT No components found for: LABA1C No components found for: EAG Lab Results Component Value Date TSH 0.96 02/03/2025 Magnesium: Lab Results Component Value Date MG 1.8 02/07/2025 Phosphorus: No results found for: PHOS Ionized Calcium: No results found for: CAION Last 3 Blood Glucose: @LABRCNT(GLUCOSE:3)@ PT/INR: Lab Results Component Value Date PROTIME 13.5 (H) 01/28/2025 PROTIME 11.8 10/21/2022 INR 1.2 01/28/2025 INR 1.0 10/21/2022 PTT: No results found for: APTT , PTT Micro: Microbiology Results Procedure Component Value Units Date/Time Anaerobic culture [[id number]] Collected: 02/04/251314 Specimen: Bone from Foot, Right Updated: 02/05/25 1412 CULTURE RESULTS Culture in progress Bone culture [[id number]] Collected: 02/04/251314 Specimen: Bone from Foot, Right Updated: 02/07/25 0954 CULTURE RESULTS Culture in progress Blood culture #1 [[id number]] Collected: 02/03/252024 Specimen: Blood, Venous Updated: 02/07/25 0301 CULTURE RESULTS NO GROWTH 3 DAYS Blood culture #2 [[id number]] Collected: 02/03/252024 Specimen: Blood, Venous Updated: 02/07/25 0301 CULTURE RESULTS NO GROWTH 3 DAYS Imaging: X-ray calcaneus right minimum 2 views XR CALCANEOUS RT MIN 2 VWS Clinical history:sugery pain Comparison: None. Impression: Surgical fluoroscopic guidance provided for calcaneal fixation with fluoroscopic guidance. Reference air kerma was 0.3 mGy. Finalized by Edy Valdovinos MD on 02/04/2025 1:57 PM Diego Daniels DPM 02/07/2025 * Diego Daniels DPM - 02/06/2025 11:56 AM EDT Podiatry Progress Note Code Status : Code Status Information Code Status Full Code Hospital Day: LOS: 3 days Patient is currently admitted for treatment of Osteomyelitis of right foot, unspecified type ([facility]) PCP: Alejandrina Rivera MD Assessment Principal Problem: Osteomyelitis of right foot, unspecified type ([facility]) Active Problems: Peripheral vascular disease ([facility]) Hyperlipidemia Diabetic peripheral neuropathy associated with type 2 diabetes mellitus ([facility]) S/P amputation of foot, left ([facility]) Hypertension CKD (chronic kidney disease) stage 4, GFR 15-29 ml/min ([facility]) Hypoglycemia Anemia of chronic disease Hypothyroidism Plan -patient 2 days status post partial calcanectomy with Achilles resection right lower extremity. Wound VAC is intact with adequate seal. He is to remain strict nonweightbearing on the right lower extremity at all times. He should continue to wear the Prevalon boot on the left lower extremity when inbed. Appreciate nursing assistance with dressing changes on the left lower extremity. Right foot dressing should remain clean, dry, intact. Closing cultures pending. I will follow up with him while he remains inpatient. Discussed with nursing. If you have any questions regarding my plan for this patient please do not hesitate to contact me at [phone]. Interim History The patient is a 80 y.o. male who is admitted for osteomyelitis. Doing well without any issues overnight. 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 ([facility]) 10/24/2022 Added automatically from request for surgery [id number] Chronic kidney disease Chronic osteomyelitis of left foot ([facility]) 09/27/2024 Dental disease Diabetes mellitus type 2, controlled ([facility]) Hyperlipidemia Hypertension MRSA bacteremia 09/28/2024 Osteomyelitis ([facility]) Shortness of breath Skin cancer melanoma Stage 3b chronic kidney disease ([facility]) 09/27/2024 Urinary incontinence Visual impairment Past Surgical History: Past Surgical History: Procedure Laterality Date AMPUTATION METATARSAL AND TOE Left 09/30/2024 Performed by Diego Daniels DPM at [facility] AMPUTATION METATARSAL AND TOE partial Ray Left 10/25/2022 Performed by Diego Daniels DPM at [facility] CIRCUMCISION LENGTHENING TENDON ACHILLES Left 09/30/2024 Performed by Diego Daniels DPM at [facility] Percutaneous angioplasty/stent femoral-popliteal right Right 11/29/2024 Performed by Delfino aLke MD at [facility] SKIN PLASTY TISSUE REARRANGEMENTn toe flap Left 10/25/2022 Performed by Diego Daniels DPM at [facility] TOE SURGERY Left Vascular Invasive 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 Authorizing Provider allopurinol (ZYLOPRIM) 100 mg tablet Take 1 tablet (100 mg total) by mouth in the morning. Yes Not In System Ref Prov aspirin 81 mg chewable tablet Chew 1 tablet (81 mg total) and swallow in the morning. 11/29/24 Yes Funmi Biswas MD atorvastatin (LIPITOR) 20 mg tablet Take 1 tablet (20 mg total) by mouth in the morning. Yes Not InSystem Ref Prov clopidogreL (PLAVIX) 75 mg tablet Take 1 tablet (75 mg total) by mouth in the morning. 11/29/24 Yes Funmi Biswas MD cyanocobalamin (vitamin B-12) 100 MCG tablet Take 10 tablets (1,000 mcg total) by mouth in the morning. Yes Not In System Ref Prov docusate sodium (COLACE) 100 mg capsule Take 1 capsule (100 mg total) by mouth in the morning and 1capsule (100 mg total) before bedtime. Yes Not In System Ref Prov doxazosin (CARDURA) 8 mg tablet Take 0.5 tablets (4 mg total) by mouth nightly. Yes Not In System Ref Prov doxycycline (VIBRAMYCIN) 100 mg capsule Take 1 capsule (100 mg total) by mouth in the morning and 1capsule (100 mg total) before bedtime. Yes Not In System Ref Prov finasteride (PROSCAR) 5 mg tablet Take 1 tablet (5 mg total) by mouth in the morning. Yes Not In System Ref Prov folic acid (FOLVITE) 1 mg tablet Take 1 tablet (1 mg total) by mouth in the morning. Yes Not In System Ref Prov insulin glargine (LANTUS) 100 unit/mL injection Inject 0.35 mL (35 Units total) under the skin in the morning. Indications: type 2 diabetes mellitus. Patient taking differently: Inject 0.3 mL (30 Units total) under the skin in the morning. Indications: type 2 diabetes mellitus. 10/28/22 Yes Bibi Francis MD levothyroxine sodium (TIROSINT) 112 mcg capsule Take 1 capsule (112 mcg total) by mouth in the morning. Yes Not In System Ref Prov OZEMPIC 0.25 mg or 0.5 mg(2 mg/1.5 mL) pen injector Inject under the skin once a week. wednesdays Not In System Ref Prov Allergies: Social History Socioeconomic History Marital status: Spouse name: Not on file Number of children: Not on file Years of education: Not on file Highest education level: Not on file Occupational History Not on file Tobacco Use Smoking status: Former Smokeless tobacco: Never Vaping Use Vaping status: Never Used Substance and Sexual Activity Alcohol use: No Drug use: No Sexual activity: Defer Other Topics Concern Caffeine Use No Social History Narrative Not on file Social Drivers of Health Financial Resource Strain: Not on file Food Insecurity: No Food Insecurity (02/03/2025) Hunger Screening Food Insecurity - Worry: Never True Food Insecurity - Inability: Never True Transportation Needs: No Transportation Needs (02/03/2025) PRAPARE - Transportation Lack of Transportation (Medical): No Lack of Transportation (Non-Medical): No Physical Activity: Not on file Stress: Not on file Social Connections: Not on file Interpersonal Safety: Not At Risk (02/03/2025) Humiliation, Afraid, Rape, and Kick questionnaire Fear of Current or Ex-Partner: No Emotionally Abused: No Physically Abused: No Sexually Abused: No Housing Instability: Low Risk (02/03/2025) Housing Instability Housing Instability: No Social History: Social History Socioeconomic History Marital status: Spouse name: Not on file Number of children: Not on file Years of education: Not on file Highest education level: Not on file Occupational History Not on file Tobacco Use Smoking status: Former Smokeless tobacco: Never Vaping Use Vaping status: Never Used Substance and Sexual Activity Alcohol use: No Drug use: No Sexual activity: Defer Other Topics Concern Caffeine Use No Social History Narrative Not on file Social Drivers of Health Financial Resource Strain: Not on file Food Insecurity: No Food Insecurity (02/03/2025) Hunger Screening Food Insecurity - Worry: Never True Food Insecurity - Inability: Never True Transportation Needs: No Transportation Needs (02/03/2025) PRAPARE - Transportation Lack of Transportation (Medical): No Lack of Transportation (Non-Medical): No Physical Activity: Not on file Stress: Not on file Social Connections: Not on file Interpersonal Safety: Not At Risk (02/03/2025) Humiliation, Afraid, Rape, and Kick questionnaire Fear of Current or Ex-Partner: No Emotionally Abused: No Physically Abused: No Sexually Abused: No Housing Instability: Low Risk (02/03/2025) Housing Instability Housing Instability: No Family History: Family History Problem Relation Age of Onset Ovarian cancer Mother Diabetes Father Review of Systems Review of Systems Constitutional: Positive for activity change. Respiratory: Negative for chest tightness and shortness of breath. Cardiovascular: Positive for leg swelling. Musculoskeletal: Positive for gait problem. Skin: Positive for color change and wound. Neurological: Positive for weakness and numbness. Hematological: Bruises/bleeds easily. Psychiatric/Behavioral: Negative for behavioral problems. Objective: BP (!) 88/47 Comment: woken up from sleep to take blood pressure Pulse 78 Temp 36.5 ??C (97.7 ??F) (Oral) Resp 12 Ht 172.7 cm (5' 8 ) Wt 60.3 kg (133 lb) SpO2 99% BMI 20.22 kg/m?? Intake/Output Summary (Last 24 hours) at 02/06/2025 1156 Last data filed at 02/06/2025 1000 Gross per 24 hour Intake 790.43 ml Output 1050 ml Net -259.57 ml Physical Exam Constitutional: Comments: Chronically ill-appearing. HENT: Head: Atraumatic. Cardiovascular: Comments: DP and PT pulses nonpalpable. Pulmonary: Effort: Pulmonary effort is normal. No respiratory distress. Musculoskeletal: Comments: 5th ray amputation left foot with edema and hypertrophy across the midfoot consistent with Charcot neuroarthropathy. Partial calcanectomy right foot. Skin: Capillary Refill: Capillary refill takes 2 to 3 seconds. Comments: Right foot: Wound VAC in place with adequate seal. AO splint intact without strike through drainage. Left foot: Sinus tract over the lateral foot without surrounding cellulitis or purulence. Neurological: Comments: Absent protective sensation bilaterally. Psychiatric: Mood and Affect: Mood normal. Labs: CBC with Differential: Lab Results Component Value Date WBC 10.0 02/06/2025 HGB 7.3 (L) 02/06/2025 HCT 22.2 (L) 02/06/2025 PLT 250 02/06/2025 MCV 80 02/06/2025 MCH 26.2 (L) 02/06/2025 MCHC 32.9 02/06/2025 RDW 18.7 (H) 02/06/2025 RDW 13.7 10/01/2024 H/H: Lab Results Component Value Date HGB 7.3 (L) 02/06/2025 HCT 22.2 (L) 02/06/2025 CMP: Lab Results Component Value Date SODIUM 133 (L) 02/06/2025 K 4.8 02/06/2025 CL 105 02/06/2025 CL 108 10/01/2024 CO2 25 02/06/2025 BUN 37 (H) 02/06/2025 CREATININE 1.27 (H) 02/06/2025 CREATININE 2.25 (H) 10/01/2024 EGFR 57 (L) 02/06/2025 EGFR 29 (L) 10/01/2024 GLU 156 (H) 02/06/2025 GLU 98 02/06/2025 GLU 241 (H) 10/01/2024 GLU 94 10/30/2022 CALCIUM 8.3 (L) 02/06/2025 HgBA1c: Lab Results Component Value Date HGBA1C 6.2 (H) 02/03/2025 Hematology:@[id number](WBC:3,HGB:3,HCT:3,MCV:3,PLT:3)@ Chemistry: Lab Results Component Value Date K 4.8 02/06/2025 CL 105 02/06/2025 CO2 25 02/06/2025 BUN 37 (H) 02/06/2025 CREATININE 1.27 (H) 02/06/2025 CALCIUM 8.3 (L) 02/06/2025 ALKPHOS 74 02/06/2025 AST 15 02/06/2025 ALT 12 02/06/2025 No results found for: LABPROT No components found for: LABA1C No components found for: EAG Lab Results Component Value Date TSH 0.96 02/03/2025 Magnesium: Lab Results Component Value Date MG 1.9 02/06/2025 Phosphorus: No results found for: PHOS Ionized Calcium: No results found for: CAION Last 3 Blood Glucose: @LABRCNT(GLUCOSE:3)@ PT/INR: Lab Results Component Value Date PROTIME 13.5 (H) 01/28/2025 PROTIME 11.8 10/21/2022 INR 1.2 01/28/2025 INR 1.0 10/21/2022 PTT: No results found for: APTT , PTT Micro: Microbiology Results Procedure Component Value Units Date/Time Anaerobic culture [[id number]] Collected: 02/04/251314 Specimen: Bone from Foot, Right Updated: 02/05/251411 CULTURE RESULTS Culture in progress Bone culture [[id number]] Collected: 02/04/251314 Specimen: Bone from Foot, Right Updated: 02/05/251411 CULTURE RESULTS Culture in progress Blood culture #1 [[id number]] Collected: 02/03/252024 Specimen: Blood, Venous Updated: 02/06/25 030 CULTURE RESULTS NO GROWTH 2 DAYS Blood culture #2 [[id number]] Collected: 02/03/252024 Specimen: Blood, Venous Updated: 02/06/25 030 CULTURE RESULTS NO GROWTH 2 DAYS Imaging: X-ray calcaneus right minimum 2 views XR CALCANEOUS RT MIN 2 VWS Clinical history:sugery pain Comparison: None. Impression: Surgical fluoroscopic guidance provided for calcaneal fixation with fluoroscopic guidance. Reference air kerma was 0.3 mGy. Finalized by Edy Valdovinos MD on 02/04/2025 1:57 PM Diego Daniels DPM 02/06/2025 * Raysa Mann MD - 02/06/2025 10:40 AM EDT Images from the original note were not included. [facility] [address] [facility] [id number] Hospital Medicine Progress Note Patient: Babar Barriga Date of : 1945 Room: [facility] PCP: Alejandrina Rivera MD Admission date: 02/03/2025 6:45 AM Encounter date: 02/06/25 Hospital Day: 4 SUBJECTIVE Interval History: Status: stable. POD#2, partial calcanectomy right foot, achilles tendon resection and VAC placement. Podiatry, no changes.pending cultures. Continue vanco. Review of Systems Constitutional: Negative for chills, fatigue and fever. Respiratory: Negative for cough, shortness of breath and wheezing. Cardiovascular: Negative for chest pain and leg swelling. Gastrointestinal: Negative for abdominal pain, blood in stool, constipation, diarrhea, nausea and vomiting. Genitourinary: Negative for difficulty urinating. Skin: Positive for wound. Negative for rash. Neurological: Negative for dizziness, weakness and headaches. Psychiatric/Behavioral: Negative for sleep disturbance. OBJECTIVE BP (!) 88/47 Comment: woken up from sleep to take blood pressure Pulse 78 Temp 36.5 ??C (97.7 ??F) (Oral) Resp 12 Ht 172.7 cm (5' 8 ) Wt 60.3 kg (133 lb) SpO2 99% BMI 20.22 kg/m?? Temp: [36.5 ??C (97.7 ??F)-37.2 ??C (98.9 ??F)] 36.5 ??C (97.7 ??F) Pulse: [78-83] 78 Resp: [12-18] 12 BP: (88-115)/(47-74) 88/47 SpO2: [98 %-99 %] 99 % O2 Device: Nasal cannula O2 Flow Rate (L/min): [0 L/min] 0 L/min Intake/Output Summary (Last 24 hours) at 02/06/2025 1313 Last data filed at 02/06/2025 1000 Gross per 24 hour Intake 790.43 ml Output 1050 ml Net -259.57 ml Physical Exam Constitutional: General: He is not in acute distress. Cardiovascular: Rate and Rhythm: Normal rate and regular rhythm. Heart sounds: Heart sounds are distant. Pulmonary: Effort: Pulmonary effort is normal. Breath sounds: Normal breath sounds. No decreased breath sounds, wheezing, rhonchi or rales. Abdominal: General: Abdomen is flat. Palpations: Abdomen is soft. Tenderness: There is no abdominal tenderness. Musculoskeletal: Right lower leg: No edema. Left lower leg: No edema. Skin: General: Skin is warm and dry. Capillary Refill: Capillary refill takes less than 2 seconds. Coloration: Skin is pale. Findings: Wound present. No rash. Neurological: General: No focal deficit present. Mental Status: Mental status is at baseline. Psychiatric: Behavior: Behavior is cooperative. Medications Scheduled: allopurinoL, 100 mg, oral, Daily aspirin, 81 mg, oral, Daily atorvastatin, 20 mg, oral, Daily clopidogreL, 75 mg, oral, Daily docusate sodium, 100 mg, oral, BID finasteride, 5 mg, oral, Daily insulin glargine, 15 Units, subcutaneous, BID insulin lispro, 2-10 Units, subcutaneous, With meals and nightly levothyroxine, 112 mcg, oral, Daily terazosin, 5 mg, oral, Nightly [START ON 02/07/2025] vancomycin, 1,000 mg, intravenous, Q36H Infusions: As Needed: acetaminophen acetaminophen dextrose dextrose 50 % in water (D50W) glucagon (human recombinant) magnesium sulfate ondansetron oxyCODONE-acetaminophen potassium chloride OR potassium chloride OR potassium chloride IV (Adult) sennosides-docusate sodium sodium chloride Allergies: Penicillins and Lisinopril Code Status: Full Code Labs Recent Results (from the past 24 hours) Bedside Glucose *Place/Obtain serum glucose if >500 per glucometer. Collection Time: 02/05/25 4:36 PM Result Value Ref Range Bedside Glucose (POC) 133 (H) 65 - 99 mg/dL Bedside Glucose *Place/Obtain serum glucose if >500 per glucometer. Collection Time: 02/05/25 9:34 PM Result Value Ref Range Bedside Glucose (POC) 201 (H) 65 - 99 mg/dL Comprehensive metabolic panel Collection Time: 02/06/25 7:08 AM Result Value Ref Range SODIUM 133 (L) 134 - 146 mmol/L POTASSIUM 4.8 3.5 - 5.0 mmol/L CHLORIDE 105 98 - 109 mmol/L CARBON DIOXIDE 25 22 - 32 mmol/L ANION GAP 3 (L) 5 - 15 mmol/L BLOOD UREA NITROGEN 37 (H) 5 - 27 mg/dL CREATININE 1.27 (H) 0.70 - 1.20 mg/dL GLUCOSE 98 65 - 99 mg/dL CALCIUM 8.3 (L) 8.5 - 10.5 mg/dL TOTAL PROTEIN 6.2 6.0 - 8.0 g/dL ALBUMIN 2.3 (L) 3.2 - 5.3 g/dL ALKALINE PHOSPHATASE 74 39 - 130 U/L AST 15 <=41 U/L ALT 12 <=40 U/L BILIRUBIN,TOTAL 0.3 0.3 - 1.2 mg/dL EGFR Non-Race Dependent 57 (L) >=60 ml/min/1.73sq.m Magnesium Collection Time: 02/06/25 7:08 AM Result Value Ref Range MAGNESIUM 1.9 1.8 - 2.6 mg/dL Vancomycin, trough To be drawn prior to the 4th dose Collection Time: 02/06/25 7:08 AM Result Value Ref Range VANCOMYCIN TROUGH 18.1 5.0 - 20.0 ug/mL CBC auto differential Collection Time: 02/06/25 7:09 AM Result Value Ref Range WBC 10.0 4 - 11 x10E9/L RBC Count 2.78 (L) 4.1 - 5.7 X10E12/L Hemoglobin 7.3 (L) 13 - 17 g/dL Hematocrit 22.2 (L) 39 - 50 % MCV 80 80 - 100 fL MCH 26.2 (L) 27 - 34 pg MCHC 32.9 32 - 36 g/dL RDW 18.7 (H) 11.5 - 15 % Platelet Count 250 150 - 450 X10E9/L MPV 7.1 7 - 12 fL Neutrophils % 67.9 % Lymphocytes % 22.6 % Monocytes % 7.6 % Eosinophils % 1.3 % Basophils % 0.6 % Neutrophils Absolute (A) 6.8 (H) 1.5 - 6.6 10*3/uL Lymphocytes Absolute 2.3 1.0 - 3.5 10*3/uL Monocytes Absolute 0.8 0.0 - 0.9 10*3/uL Eosinophils Absolute 0.1 0.0 - 0.4 10*3/uL Basophils Absolute 0.1 0.0 - 0.2 10*3/uL Differential Type AUTOMATED DIFFERENTIAL Vancomycin, peak Collection Time: 02/06/25 10:48 AM Result Value Ref Range VANCOMYCIN PEAK 30.6 30.0 - 40.0 ug/mL Bedside Glucose *Place/Obtain serum glucose if >500 per glucometer. Collection Time: 02/06/25 10:52 AM Result Value Ref Range Bedside Glucose (POC) 156 (H) 65 - 99 mg/dL Radiology No results found. HOSPITAL PROBLEM LIST Principal Problem: Osteomyelitis of right foot, unspecified type ([facility]) Active Problems: Peripheral vascular disease ([facility]) Hyperlipidemia Diabetic peripheral neuropathy associated with type 2 diabetes mellitus ([facility]) S/P amputation of foot, left ([facility]) Hypertension CKD (chronic kidney disease) stage 4, GFR 15-29 ml/min ([facility]) Hypoglycemia Anemia of chronic disease Hypothyroidism ASSESSMENT & PLAN Right calcaneal osteomyelitis/ right foot wound with exposure of achilles tendon. S/p partial calcanectomy right foot, achilles tendon resection and VAC placement 02/04. Continue vancomycin. VAC. Cultures pending. ID following. T2DM, 6.2%, sliding scale insulin and glargine. Peripheral vascular disease, aspirin and clopidogrel. Hypertension, normotensive, hytrin. Anemia of chronic disease, hemoglobin stable/baseline. Dyslipidemia, statin. Hypothyroidism, levothyroxine. CKD 4, creatinine stable/baseline, avoid nephrotoxic agents. Monitor daily weight, output. VTE chemoprophylaxis when cleared by podiatry. DC planning: alf facility pending above and placement. Medically Ready for Discharge: Anticipated 24-48 hours MONET Carpenter 02/06/2025 1:13 PM [facility] Medicine 7AM-7PM & 7PM-7AM: EpicChat or page through On-Call [employer]. MONET Carpenter 02/06/25 1043 Physician Attestation I, Raysa Mann MD, personally performed a face to face diagnostic evaluation on this patient. I have reviewed the note authored by the advance practice provider including history, review of systems,physical examination,medical decision making and agree with the assessment and plan as written. I have seen and evaluated the patient, I have repeated the zelaya portions of the physical exam and concur with the RHETT findings. I have reviewed all laboratory findings and imaging reports/films. I agree with the plan as noted. Patient is on IV antibiotics for right foot osteomyelitis wound VAC in place. Hemoglobin 7.3 creatinine 1.27. Blood sugars are stable. IV Venofer for iron deficiency anemia check FOBT monitor H&Hevery 8 hours. Patient is on aspirin and Plavix no pharmacological DVT prophylaxis. * Raysa Mann MD - 02/05/2025 10:18 AM EDT Images from the original note were not included. [facility] [address] [place] [id number] Hospital Medicine Progress Note Patient: Babar Barriga Date of : 1945 Room: [facility] PCP: Alejandrina Rivera MD Admission date: 02/03/2025 6:45 AM Encounter date: 02/05/25 Hospital Day: 3 SUBJECTIVE Interval History: Status: stable. POD#1, partial calcanectomy right foot, achilles tendon resection and VAC placement. Podiatry, no changes. Review of Systems Constitutional: Negative for chills, fatigue and fever. Respiratory: Negative for cough, shortness of breath and wheezing. Cardiovascular: Negative for chest pain and leg swelling. Gastrointestinal: Negative for abdominal pain, blood in stool, constipation, diarrhea, nausea and vomiting. Genitourinary: Negative for difficulty urinating. Skin: Positive for wound. Negative for rash. Neurological: Negative for dizziness, weakness and headaches. Psychiatric/Behavioral: Negative for sleep disturbance. OBJECTIVE BP 90/52 Pulse 80 Temp 36.7 ??C (98 ??F) (Oral) Resp 20 Ht 172.7 cm (5' 8 ) Wt 60.3 kg (133 lb) SpO2 98% BMI 20.22 kg/m?? Temp: [36.1 ??C (97 ??F)-36.7 ??C (98 ??F)] 36.7 ??C (98 ??F) Pulse: [67-82] 80 Resp: [10-20] 20 BP: (90-151)/(50-72) 90/52 SpO2: [97 %-100 %] 98 % O2 Device: None (Room air) Intake/Output Summary (Last 24 hours) at 02/05/2025 1401 Last data filed at 02/05/2025 1020 Gross per 24 hour Intake 978.82 ml Output 1000 ml Net -21.18 ml Physical Exam Constitutional: General: He is not in acute distress. Cardiovascular: Rate and Rhythm: Normal rate and regular rhythm. Heart sounds: Heart sounds are distant. Pulmonary: Effort: Pulmonary effort is normal. Breath sounds: Normal breath sounds. No decreased breath sounds, wheezing, rhonchi or rales. Abdominal: General: Abdomen is flat. Palpations: Abdomen is soft. Tenderness: There is no abdominal tenderness. Musculoskeletal: Right lower leg: No edema. Left lower leg: No edema. Skin: General: Skin is warm and dry. Capillary Refill: Capillary refill takes less than 2 seconds. Coloration: Skin is pale. Findings: Wound present. No rash. Neurological: General: No focal deficit present. Mental Status: Mental status is at baseline. Psychiatric: Behavior: Behavior is cooperative. Medications Scheduled: allopurinoL, 100 mg, oral, Daily [START ON 02/06/2025] aspirin, 81 mg, oral, Daily atorvastatin, 20 mg, oral, Daily [START ON 02/06/2025] clopidogreL, 75 mg, oral, Daily docusate sodium, 100 mg, oral, BID finasteride, 5 mg, oral, Daily insulin glargine, 15 Units, subcutaneous, BID insulin lispro, 2-10 Units, subcutaneous, With meals and nightly levothyroxine, 112 mcg, oral, Daily terazosin, 5 mg, oral, Nightly vancomycin, 750 mg, intravenous, Q24H Infusions: As Needed: acetaminophen acetaminophen dextrose dextrose 50 % in water (D50W) glucagon (human recombinant) magnesium sulfate ondansetron oxyCODONE-acetaminophen potassium chloride OR potassium chloride OR potassium chloride IV (Adult) sennosides-docusate sodium sodium chloride Allergies: Penicillins and Lisinopril Code Status: Full Code Labs Recent Results (from the past 24 hours) Bedside Glucose *Place/Obtain serum glucose if >500 per glucometer. Collection Time: 02/04/25 9:06 PM Result Value Ref Range Bedside Glucose (POC) 319 (H) 65 - 99 mg/dL Comprehensive metabolic panel Collection Time: 02/05/25 5:24 AM Result Value Ref Range SODIUM 135 134 - 146 mmol/L POTASSIUM 5.0 3.5 - 5.0 mmol/L CHLORIDE 103 98 - 109 mmol/L CARBON DIOXIDE 25 22 - 32 mmol/L ANION GAP 7 5 - 15 mmol/L BLOOD UREA NITROGEN 38 (H) 5 - 27 mg/dL CREATININE 1.56 (H) 0.70 - 1.20 mg/dL GLUCOSE 173 (H) 65 - 99 mg/dL CALCIUM 8.6 8.5 - 10.5 mg/dL TOTAL PROTEIN 6.3 6.0 - 8.0 g/dL ALBUMIN 2.3 (L) 3.2 - 5.3 g/dL ALKALINE PHOSPHATASE 85 39 - 130 U/L AST 15 <=41 U/L ALT 15 <=40 U/L BILIRUBIN,TOTAL 0.4 0.3 - 1.2 mg/dL EGFR Non-Race Dependent 45 (L) >=60 ml/min/1.73sq.m Magnesium Collection Time: 02/05/25 5:24 AM Result Value Ref Range MAGNESIUM 1.9 1.8 - 2.6 mg/dL CBC auto differential Collection Time: 02/05/25 5:24 AM Result Value Ref Range WBC 11.3 (H) 4 - 11 x10E9/L RBC Count 3.01 (L) 4.1 - 5.7 X10E12/L Hemoglobin 7.7 (L) 13 - 17 g/dL Hematocrit 24.1 (L) 39 - 50 % MCV 80 80 - 100 fL MCH 25.7 (L) 27 - 34 pg MCHC 32.1 32 - 36 g/dL RDW 18.6 (H) 11.5 - 15 % Platelet Count 295 150 - 450 X10E9/L MPV 7.0 7 - 12 fL Neutrophils % 71.7 % Lymphocytes % 20.2 % Monocytes % 7.1 % Eosinophils % 0.6 % Basophils % 0.4 % Neutrophils Absolute (A) 8.1 (H) 1.5 - 6.6 10*3/uL Lymphocytes Absolute 2.3 1.0 - 3.5 10*3/uL Monocytes Absolute 0.8 0.0 - 0.9 10*3/uL Eosinophils Absolute 0.1 0.0 - 0.4 10*3/uL Basophils Absolute 0.0 0.0 - 0.2 10*3/uL Differential Type AUTOMATED DIFFERENTIAL Extra Tubes Collection Time: 02/05/25 5:24 AM Narrative The following orders were created for panel order Extra Tubes. Procedure Abnormality Status --------- ------ Light Blue Top[[id number]] Final result SST TOP[[id number]] Final result Please view results for these tests on the individual orders. Light Blue Top Collection Time: 02/05/25 5:24 AM Result Value Ref Range Extra Tube Auto Resulted SST TOP Collection Time: 02/05/25 5:24 AM Result Value Ref Range Extra Tube Auto Resulted Bedside Glucose *Place/Obtain serum glucose if >500 per glucometer. Collection Time: 02/05/25 11:31 AM Result Value Ref Range Bedside Glucose (POC) 170 (H) 65 - 99 mg/dL Radiology No results found. HOSPITAL PROBLEM LIST Principal Problem: Osteomyelitis of right foot, unspecified type ([facility]) Active Problems: Peripheral vascular disease ([facility]) Hyperlipidemia Diabetic peripheral neuropathy associated with type 2 diabetes mellitus ([facility]) S/P amputation of foot, left ([facility]) Hypertension CKD (chronic kidney disease) stage 4, GFR 15-29 ml/min ([facility]) Hypoglycemia Anemia of chronic disease Hypothyroidism ASSESSMENT & PLAN Right calcaneal osteomyelitis/ right foot wound with exposure of achilles tendon. S/p partial calcanectomy right foot, achilles tendon resection and VAC placement 02/04. Continue vancomycin. VAC. T2DM, 6.2%, sliding scale insulin and glargine. Peripheral vascular disease, aspirin and clopidogrel. Hypertension, normotensive, hytrin. Anemia of chronic disease, hemoglobin stable/baseline. Dyslipidemia, statin. Hypothyroidism, levothyroxine. CKD 4, creatinine stable/baseline, 1.8-2. VTE chemoprophylaxis when cleared by podiatry. DC planning: alf facility pending above and placement. Medically Ready for Discharge: Anticipated 24-48 hours MONET WELCH 02/05/2025 2:01 PM [facility] Internal Medicine 7AM-7PM & 7PM-7AM: EpicChat or page through On[employer]. MONET Welch 02/05/25 1029 Physician Attestation I, Raysa Mann MD, personally performed a face to face diagnostic evaluation on this patient. I have reviewed the note authored by the advance practice provider including history, review of systems,physical examination,medical decision making and agree with the assessment and plan as written. I have seen and evaluated the patient, I have repeated the zelaya portions of the physical exam and concur with the RHETT findings. I have reviewed all laboratory findings and imaging reports/films. I agree with the plan as noted. Patient's foot pain is well controlled on IV vancomycin creatinine 1.73 blood sugar readings are stable on Lantus 15 units subQ twice daily. Monitor CBC, BMP * Diego Daniels DPM - 02/05/2025 7:41 AM EDT Podiatry Progress Note Code Status : Code Status Information Code Status Full Code Hospital Day: LOS: 2 days Patient is currently admitted for treatment of Osteomyelitis of right foot, unspecified type ([facility]) PCP: Alejandrina Rivera MD Assessment Principal Problem: Osteomyelitis of right foot, unspecified type ([facility]) Active Problems: Peripheral vascular disease ([facility]) Hyperlipidemia Diabetic peripheral neuropathy associated with type 2 diabetes mellitus ([facility]) S/P amputation of foot, left ([facility]) Hypertension CKD (chronic kidney disease) stage 4, GFR 15-29 ml/min ([facility]) Hypoglycemia Anemia of chronic disease Hypothyroidism Plan -patient 1 day status post partial calcanectomy with Achilles resection right lower extremity. Wound VAC is intact with adequate seal. He is to remain strict nonweightbearing on the right lower extremity at all times. He should continue to wear the Prevalon boot on the left lower extremity. Appreciate nursing assistance with dressing changes on the left lower extremity. Right foot dressing shouldremain clean, dry, intact. I will follow closing cultures of the calcaneus. I will follow up with him while he remains inpatient. If you have any questions regarding my plan for this patient please do not hesitate to contact me at [phone]. Interim History The patient is a 80 y.o. male who is admitted for osteomyelitis of the right calcaneus. Status postpartial calcanectomy and Achilles resection. Admits to some pain in the heel but otherwise doing well. 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 ([facility]) 10/24/2022 Added automatically from request for surgery [id number] Chronic kidney disease Chronic osteomyelitis of left foot ([facility]) 09/27/2024 Dental disease Diabetes mellitus type 2, controlled ([facility]) Hyperlipidemia Hypertension MRSA bacteremia 09/28/2024 Osteomyelitis ([facility]) Shortness of breath Skin cancer melanoma Stage 3b chronic kidney disease ([facility]) 09/27/2024 Urinary incontinence Visual impairment Past Surgical History: Past Surgical History: Procedure Laterality Date AMPUTATION METATARSAL AND TOE Left 09/30/2024 Performed by Diego Daniels DPM at [facility] AMPUTATION METATARSAL AND TOE partial Ray Left 10/25/2022 Performed by Diego Daniels DPM at [facility] CIRCUMCISION LENGTHENING TENDON ACHILLES Left 09/30/2024 Performed by Diego Daniels DPM at [facility] Percutaneous angioplasty/stent femoral-popliteal right Right 11/29/2024 Performed by Delfino Lake MD at [facility] SKIN PLASTY TISSUE REARRANGEMENTn toe flap Left 10/25/2022 Performed by Diego Daniels DPM at [facility] TOE SURGERY Left Vascular Invasive 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 Authorizing Provider allopurinol (ZYLOPRIM) 100 mg tablet Take 1 tablet (100 mg total) by mouth in the morning. Yes Not In System Ref Prov aspirin 81 mg chewable tablet Chew 1 tablet (81 mg total) and swallow in the morning. 11/29/24 Yes Funmi Biswas MD atorvastatin (LIPITOR) 20 mg tablet Take 1 tablet (20 mg total) by mouth in the morning. Yes Not InSystem Ref Prov clopidogreL (PLAVIX) 75 mg tablet Take 1 tablet (75 mg total) by mouth in the morning. 11/29/24 Yes Funmi Biswas MD cyanocobalamin (vitamin B-12) 100 MCG tablet Take 10 tablets (1,000 mcg total) by mouth in the morning. Yes Not In System Ref Prov docusate sodium (COLACE) 100 mg capsule Take 1 capsule (100 mg total) by mouth in the morning and 1capsule (100 mg total) before bedtime. Yes Not In System Ref Prov doxazosin (CARDURA) 8 mg tablet Take 0.5 tablets (4 mg total) by mouth nightly. Yes Not In System Ref Prov doxycycline (VIBRAMYCIN) 100 mg capsule Take 1 capsule (100 mg total) by mouth in the morning and 1capsule (100 mg total) before bedtime. Yes Not In System Ref Prov finasteride (PROSCAR) 5 mg tablet Take 1 tablet (5 mg total) by mouth in the morning. Yes Not In System Ref Prov folic acid (FOLVITE) 1 mg tablet Take 1 tablet (1 mg total) by mouth in the morning. Yes Not In System Ref Prov insulin glargine (LANTUS) 100 unit/mL injection Inject 0.35 mL (35 Units total) under the skin in the morning. Indications: type 2 diabetes mellitus. Patient taking differently: Inject 0.3 mL (30 Units total) under the skin in the morning. Indications: type 2 diabetes mellitus. 10/28/22 Yes Bibi Francis MD levothyroxine sodium (TIROSINT) 112 mcg capsule Take 1 capsule (112 mcg total) by mouth in the morning. Yes Not In System Ref Prov OZEMPIC 0.25 mg or 0.5 mg(2 mg/1.5 mL) pen injector Inject under the skin once a week. wednesdays Not In System Ref Prov Allergies: Social History Socioeconomic History Marital status: Spouse name: Not on file Number of children: Not on file Years of education: Not on file Highest education level: Not on file Occupational History Not on file Tobacco Use Smoking status: Former Smokeless tobacco: Never Vaping Use Vaping status: Never Used Substance and Sexual Activity Alcohol use: No Drug use: No Sexual activity: Defer Other Topics Concern Caffeine Use No Social History Narrative Not on file Social Drivers of Health Financial Resource Strain: Not on file Food Insecurity: No Food Insecurity (02/03/2025) Hunger Screening Food Insecurity - Worry: Never True Food Insecurity - Inability: Never True Transportation Needs: No Transportation Needs (02/03/2025) PRAPARE - Transportation Lack of Transportation (Medical): No Lack of Transportation (Non-Medical): No Physical Activity: Not on file Stress: Not on file Social Connections: Not on file Interpersonal Safety: Not At Risk (02/03/2025) Humiliation, Afraid, Rape, and Kick questionnaire Fear of Current or Ex-Partner: No Emotionally Abused: No Physically Abused: No Sexually Abused: No Housing Instability: Low Risk (02/03/2025) Housing Instability Housing Instability: No Social History: Social History Socioeconomic History Marital status: Spouse name: Not on file Number of children: Not on file Years of education: Not on file Highest education level: Not on file Occupational History Not on file Tobacco Use Smoking status: Former Smokeless tobacco: Never Vaping Use Vaping status: Never Used Substance and Sexual Activity Alcohol use: No Drug use: No Sexual activity: Defer Other Topics Concern Caffeine Use No Social History Narrative Not on file Social Drivers of Health Financial Resource Strain: Not on file Food Insecurity: No Food Insecurity (02/03/2025) Hunger Screening Food Insecurity - Worry: Never True Food Insecurity - Inability: Never True Transportation Needs: No Transportation Needs (02/03/2025) PRAPARE - Transportation Lack of Transportation (Medical): No Lack of Transportation (Non-Medical): No Physical Activity: Not on file Stress: Not on file Social Connections: Not on file Interpersonal Safety: Not At Risk (02/03/2025) Humiliation, Afraid, Rape, and Kick questionnaire Fear of Current or Ex-Partner: No Emotionally Abused: No Physically Abused: No Sexually Abused: No Housing Instability: Low Risk (02/03/2025) Housing Instability Housing Instability: No Family History: Family History Problem Relation Age of Onset Ovarian cancer Mother Diabetes Father Review of Systems Review of Systems Constitutional: Positive for activity change. Respiratory: Negative for chest tightness and shortness of breath. Cardiovascular: Positive for leg swelling. Musculoskeletal: Positive for gait problem. Skin: Positive for color change and wound. Neurological: Positive for weakness and numbness. Hematological: Bruises/bleeds easily. Psychiatric/Behavioral: Negative for behavioral problems. Objective: BP 101/63 Pulse 76 Temp 36.5 ??C (97.7 ??F) (Oral) Resp 18 Ht 172.7 cm (5' 8 ) Wt 60.3 kg(133 lb) SpO2 99% BMI 20.22 kg/m?? Intake/Output Summary (Last 24 hours) at 02/05/2025 0741 Last data filed at 02/05/2025 0422 Gross per 24 hour Intake 240 ml Output 800 ml Net -560 ml Physical Exam Constitutional: Comments: Chronically ill-appearing. HENT: Head: Atraumatic. Cardiovascular: Comments: DP and PT pulses nonpalpable. Pulmonary: Effort: Pulmonary effort is normal. No respiratory distress. Musculoskeletal: Comments: 5th ray amputation left foot with edema and hypertrophy across the midfoot consistent with Charcot neuroarthropathy. Partial calcanectomy right foot. Skin: Capillary Refill: Capillary refill takes 2 to 3 seconds. Comments: Right foot: Wound VAC in place with adequate seal. AO splint intact without strike through drainage. Left foot: Sinus tract over the lateral foot without surrounding cellulitis or purulence. Neurological: Comments: Absent protective sensation bilaterally. Psychiatric: Mood and Affect: Mood normal. Labs: CBC with Differential: Lab Results Component Value Date WBC 11.3 (H) 02/05/2025 HGB 7.7 (L) 02/05/2025 HCT 24.1 (L) 02/05/2025 PLT 295 02/05/2025 MCV 80 02/05/2025 MCH 25.7 (L) 02/05/2025 MCHC 32.1 02/05/2025 RDW 18.6 (H) 02/05/2025 RDW 13.7 10/01/2024 H/H: Lab Results Component Value Date HGB 7.7 (L) 02/05/2025 HCT 24.1 (L) 02/05/2025 CMP: Lab Results Component Value Date SODIUM 135 02/05/2025 K 5.0 02/05/2025 CL 103 02/05/2025 CL 108 10/01/2024 CO2 25 02/05/2025 BUN 38 (H) 02/05/2025 CREATININE 1.56 (H) 02/05/2025 CREATININE 2.25 (H) 10/01/2024 EGFR 45 (L) 02/05/2025 EGFR 29 (L) 10/01/2024 GLU 173 (H) 02/05/2025 GLU 319 (H) 02/04/2025 GLU 241 (H) 10/01/2024 GLU 94 10/30/2022 CALCIUM 8.6 02/05/2025 HgBA1c: Lab Results Component Value Date HGBA1C 6.2 (H) 02/03/2025 Hematology:@[id number](WBC:3,HGB:3,HCT:3,MCV:3,PLT:3)@ Chemistry: Lab Results Component Value Date K 5.0 02/05/2025 CL 103 02/05/2025 CO2 25 02/05/2025 BUN 38 (H) 02/05/2025 CREATININE 1.56 (H) 02/05/2025 CALCIUM 8.6 02/05/2025 ALKPHOS 85 02/05/2025 AST 15 02/05/2025 ALT 15 02/05/2025 No results found for: LABPROT No components found for: LABA1C No components found for: EAG Lab Results Component Value Date TSH 0.96 02/03/2025 Magnesium: Lab Results Component Value Date MG 1.9 02/05/2025 Phosphorus: No results found for: PHOS Ionized Calcium: No results found for: CAION Last 3 Blood Glucose: @LABRCNT(GLUCOSE:3)@ PT/INR: Lab Results Component Value Date PROTIME 13.5 (H) 01/28/2025 PROTIME 11.8 10/21/2022 INR 1.2 01/28/2025 INR 1.0 10/21/2022 PTT: No results found for: APTT , PTT Micro: Microbiology Results Procedure Component Value Units Date/Time Anaerobic culture [[id number]] Collected: 02/04/251314 Specimen: Bone from Foot, Right Updated: 02/04/251508 Bone culture [[id number]] Collected: 02/04/251314 Specimen: Bone from Foot, Right Updated: 02/04/251508 Blood culture #1 [[id number]] Collected: 02/03/252024 Specimen: Blood, Venous Updated: 02/05/25 030 CULTURE RESULTS NO GROWTH 1 DAY Blood culture #2 [[id number]] Collected: 02/03/252024 Specimen: Blood, Venous Updated: 02/05/25300 CULTURE RESULTS NO GROWTH 1 DAY Imaging: X-ray calcaneus right minimum 2 views XR CALCANEOUS RT MIN 2 VWS Clinical history:sugery pain Comparison: None. Impression: Surgical fluoroscopic guidance provided for calcaneal fixation with fluoroscopic guidance. Reference air kerma was 0.3 mGy. 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 Hospital Occurrences: Pt admitted with osteomyelitis of the right foot, hx of PVD, Type 2 diabetes,CKD stage 4, anemia,s/p amputation of foot Admit Diagnosis: Patient Active Problem List Diagnosis Peripheral vascular disease ([facility]) Diabetes mellitus ([facility]) Hyperlipidemia Diabetic peripheral neuropathy associated with type 2 diabetes mellitus ([facility]) Difficulty walking Neurologic disorder associated with diabetes mellitus ([facility]) Acquired hammer toe of right foot Constipation, unspecified constipation type S/P amputation of foot, left ([facility]) Hypertension CKD (chronic kidney disease) stage 4, GFR 15-29 ml/min ([facility]) Chronic ischemic heart disease Exposure to Agent Dickson Type 2 diabetes mellitus with mild nonproliferative diabetic retinopathy without macular edema, unspecified eye ([facility]) Sepsis ([facility]) Ulcer of left foot with bone involvement without evidence of necrosis ([facility]) Osteomyelitis of right foot, unspecified type ([facility]) Hypoglycemia Anemia of chronic disease Hypothyroidism 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 ([facility]) 10/24/2022 Added automatically from request for surgery [id number] Chronic kidney disease Chronic osteomyelitis of left foot ([facility]) 09/27/2024 Dental disease Diabetes mellitus type 2, controlled ([facility]) Hyperlipidemia Hypertension MRSA bacteremia 09/28/2024 Osteomyelitis ([facility]) Shortness of breath Skin cancer melanoma Stage 3b chronic kidney disease ([facility]) 09/27/2024 Urinary incontinence Visual impairment Past Surgical History: Past Surgical History: Procedure Laterality Date AMPUTATION METATARSAL AND TOE Left 09/30/2024 Performed by Diego Daniels DPM at [facility] AMPUTATION METATARSAL AND TOE partial Ray Left 10/25/2022 Performed by Diego Daniels DPM at [facility] CIRCUMCISION LENGTHENING TENDON ACHILLES Left 09/30/2024 Performed by Diego Daniels DPM at [facility] Percutaneous angioplasty/stent femoral-popliteal right Right 11/29/2024 Performed by Delfino Lake MD at [facility] SKIN PLASTY TISSUE REARRANGEMENTn toe flap Left 10/25/2022 Performed by Diego Daniels DPM at [facility] TOE SURGERY Left Vascular Invasive 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 10/30/2022 Performed by Delfino Lake MD at [facility] Vascular Invasive- lower extremity angiogram with possible intervention with CO2 Right 11/29/2024 Performed by Delfino Lake MD at [facility] Vascular Invasive- Right Lower Extremity Angiogram with possible intervention Right 01/24/2025 Performed by Delfino Lake MD at [facility] Diet History: pt reports a good appetite Allergies: Allergies Allergen Reactions Penicillins As a child Lisinopril Other (See Comments) Unsure of reaction Nutrition Focused Physical Findings-- No evidence of muscle wasting/malnutrition. As per nutrition flow sheet- Skin: Skin Color: Gerald (02/04/25 1428) Skin Temp: Warm, Dry (02/04/25 142) Wound: Wound 02/04/25 Incision Foot Right-Site Assessment: Unable to assess (02/04/25 142) Wound 02/03/25 Diabetic Ulcer Achilles Right-Site Assessment: Unable to assess (02/04/25 142) Wound 02/03/25 Foot Left;Lateral-Site Assessment: Dry, Pale, Yellow (02/04/25 0500) Gastrointestinal: Edema: Labs: Results from last 3 days Lab Units 02/04/25 0531 02/03/25 0703 SODIUM mmol/L 133* 133* POTASSIUM mmol/L 4.9 4.9 CHLORIDE mmol/L 102 105 CO2 mmol/L 24 22 BUN mg/dL 36* 50* CREATININE mg/dL 1.31* 1.67* CALCIUM mg/dL 8.5 8.9 ALBUMIN g/dL 2.3* -- ALK PHOS U/L 81 -- ALT U/L 14 -- AST U/L 16 -- Results from last 7 days Lab Units 02/04/25 0531 02/04/25 0206 02/04/25 0033 02/04/25 0014 02/04/25 0000 02/03/25 2142 02/03/25 1733 BEDSIDE GLUCOSE mg/dL -- 136* 193* 54* 51* 152* 156* GLUCOSE mg/dL 108* -- -- -- -- -- -- Results from last 3 days Lab Units 02/04/25 0531 MAGNESIUM mg/dL 1.9 No data from last 3 days. Results from last 3 days Lab Units 02/04/25 0531 02/03/25 0703 WBC x10E9/L 7.9 9.5 HEMOGLOBIN g/dL 7.5* 8.2* HEMATOCRIT % 22.9* 24.9* PLATELETS X10E9/L 283 317 MCV fL 80 80 No results found for: [id number] No results found for: FOLATE No results found for: IRON , TIBC , FERRITIN No results found for: IRONSAT Lab Results Component Value Date HGBA1C 6.2 (H) 02/03/2025 No results found for: CHOL No results found for: HDL , LDL No results found for: LIPIDPROF No results found for: VIDHYDROX Medications/ Parenteral: Medications Prior to Admission Medication Sig Dispense Refill Last Dose/Taking allopurinol (ZYLOPRIM) 100 mg tablet Take 1 tablet (100 mg total) by mouth in the morning. 02/02/2025 Morning aspirin 81 mg chewable tablet Chew 1 tablet (81 mg total) and swallow in the morning. 90 tablet 0 02/02/2025 Morning atorvastatin (LIPITOR) 20 mg tablet Take 1 tablet (20 mg total) by mouth in the morning. 02/02/2025 Bedtime clopidogreL (PLAVIX) 75 mg tablet Take 1 tablet (75 mg total) by mouth in the morning. 90 tablet 0 Past Week cyanocobalamin (vitamin B-12) 100 MCG tablet Take 10 tablets (1,000 mcg total) by mouth in the morning. 02/02/2025 Bedtime docusate sodium (COLACE) 100 mg capsule Take 1 capsule (100 mg total) by mouth in the morning and 1capsule (100 mg total) before bedtime. 02/02/2025 Morning doxazosin (CARDURA) 8 mg tablet Take 0.5 tablets (4 mg total) by mouth nightly. 02/02/2025 Bedtime doxycycline (VIBRAMYCIN) 100 mg capsule Take 1 capsule (100 mg total) by mouth in the morning and 1capsule (100 mg total) before bedtime. 02/03/2025 Morning finasteride (PROSCAR) 5 mg tablet Take 1 tablet (5 mg total) by mouth in the morning. 02/02/2025 Morning folic acid (FOLVITE) 1 mg tablet Take 1 tablet (1 mg total) by mouth in the morning. 02/02/2025 Morning insulin glargine (LANTUS) 100 unit/mL injection Inject 0.35 mL (35 Units total) under the skin in the morning. Indications: type 2 diabetes mellitus. (Patient taking differently: Inject 0.3 mL (30 Units total) under the skin in the morning. Indications: type 2 diabetes mellitus.) 02/02/2025 Morning levothyroxine sodium (TIROSINT) 112 mcg capsule Take 1 capsule (112 mcg total) by mouth in the morning. 02/02/2025 Morning OZEMPIC 0.25 mg or 0.5 mg(2 mg/1.5 mL) pen injector Inject under the skin once a week. wednesdays Current Facility-Administered Medications Medication Dose Route Frequency Provider Last Rate Last Admin acetaminophen (TYLENOL EXTRA STRENGTH) tablet 1,000 mg 1,000 mg oral Q6H PRMONET Boggs acetaminophen (TYLENOL EXTRA STRENGTH) tablet 500 mg 500 mg oral Q6H PRN MONET Welch dextrose (GLUTOSE) 40 % gel 15 g 15 g oral PRN MONET Welch dextrose 5 % (D5W) infusion 75 mL/hr intravenous Continuous Kaylee MONET Mckeon 75 mL/hrat 02/04/25 0040 75 mL/hr at 02/04/25 0040 dextrose 50 % in water (D50W) 50% solution 25 mL 25 mL intravenous PRN MONET Welch 25 mL at 02/04/25 0025 glucagon HCL injection 1 mg 1 mg intramuscular PRN MONET Welch insulin lispro (HumaLOG) injection 2-10 Units 2-10 Units subcutaneous With meals and nightly MONET Yarbrough 2 Units at 02/03/25 2144 magnesium sulfate IVPB 2000 mg/50 mL in iso-osmotic water (40 mg/mL premix) 2,000 mg intravenous PRN MONET Welch ondansetron (PF) (ZOFRAN) injection 4 mg 4 mg intravenous Q4H PRN MONET Welch oxyCODONE-acetaminophen (PERCOCET) 5-325 mg per tablet 1 tablet 1 tablet oral Q6H PRMONET Boggs potassium chloride (KLOR-CON M 20) CR tablet 20-40 mEq 20-40 mEq oral PRN MONET Welch Or potassium chloride (KAYCIEL) 20 mEq/15 mL solution 20-40 mEq 20-40 mEq oral PRMONET Boggs Or potassium chloride IVPB 10 mEq/100 mL in water (0.1 mEq/mL premix) 10 mEq intravenous PRN MONET Welch sennosides-docusate sodium (SENOKOT-S) 8.6-50 mg 1 tablet 1 tablet oral Q12H PRN Mukul Flores, EL TEACHER-NAVAL ARCHITECT SPECIALIST sodium chloride 0.9 % flush 3 mL 3 mL intravenous PRN Jerald Pineda DO vancomycin (VANCOCIN) 750 mg in sodium chloride 0.9 % 250 mL IVPB W/ADAPTER 750 mg intravenous [id number] Pineda DO Stopped at 02/04/25 0854 Facility-Administered Medications Ordered in Other Encounters Medication Dose Route Frequency Provider Last Rate Last Admin dexAMETHasone (DECADRON) injection intravenous PRN Miles S Drown, EL TEACHER-FLOATER OPERATOR 4 mg at 02/04/25 1235 fentaNYL (SUBLIMAZE) injection intravenous PRN Miles S Drown, EL TEACHER-FLOATER OPERATOR 100 mcg at 02/04/25 1212 lidocaine PF (XYLOCAINE) 20 mg/mL (2 %) injection intravenous PRN Miles S Drown, EL TEACHER-FLOATER OPERATOR 100 mgat 02/04/25 1215 midazolam (VERSED) injection intravenous PRN Miles S Drown, EL TEACHER-FLOATER OPERATOR 2 mg at 02/04/25 1204 ondansetron (PF) (ZOFRAN) injection intravenous PRN Miles S Drown, EL TEACHER-FLOATER OPERATOR 4 mg at 02/04/25 1235 propofoL (DIPRIVAN) infusion intravenous PRN Miles S Drown, EL TEACHER-FLOATER OPERATOR 120 mg at 02/04/25 1215 Nutrition Findings/Summary: noted some recent wt loss Anthropometrics: Ht Readings from Last 1 Encounters: 02/04/25 172.7 cm (5' 8 ) Wt Readings from Last 10 Encounters: 02/04/25 59.4 kg (131 lb) 02/02/25 63.5 kg (139 lb 15.9 oz) 01/28/25 63.5 kg (140 lb) 01/24/25 68 kg (150 lb) 01/18/25 74.8 kg (165 lb) 11/29/24 70.3 kg (155 lb) 11/09/24 73 kg (161 lb) 09/30/24 69 kg (152 lb 1.9 oz) 06/08/24 69.4 kg (153 lb) 12/16/23 70.8 kg (156 lb) [place] Body Weight: 69.6 kg Percent [place] Body Weight: 85 % Body Mass Index: Body mass index is 19.92 kg/m??. BMI Category: Normal range (18.50- 24.99) Diet/ Nutrition Order Review: Dietary Orders (From admission, onward) Start Ordered 02/04/25 1440 Adult diet Regular Texture; Consistent Carb 255 grams (2000 kcal); Cardiac Diet effective now Question Answer Comment Diet Type: Regular Texture Carbohydrate Modifiers: Consistent Carb 255 grams (2000 kcal) Other Modifiers: Cardiac 02/04/25 1439 Diet Intakes: Percent Meals Eaten (%): 100 (02/03/25 1900) 100 % [] 75-100% [] 50-75% [] 25-50% [] <25% [] NPO [] Unable to assess Intake/ Output Last 24 hrs: Intake/Output Summary (Last 24 hours) at 02/04/2025 1443 Last data filed at 02/04/2025 0538 Gross per 24 hour Intake 900.16 ml Output 400 ml Net 500.16 ml Oral Supplemental Intake/ Acceptance: just started [] 75-100% [] 50-75% [] 25-50% [] <25% [] NPO [] Unable to assess [place] Body Weight (69.6 kg) used to estimate nutrition needs Estimated Energy Needs: ~4445-4877 kcals daily. Method and weight used: 25-30 kcal/kg IBW Estimated Protein Needs: ~83-139 grams daily. Method and weight used: 1.2-2.0 gm/kg IBW Estimated Fluid Needs: ~4331-7572 ml daily. Method Used: 1 ml/kcal Malnutrition Status: Malnutrition Present: No NUTRITION DIAGNOSIS: Intake Diagnosis: Increased nutrient needs Protein (NI 5.1) related to healing as evidenced by delayed wound healing . NUTRITION INTERVENTIONS: Coordination of nutrition care: spoke with RN Supplements (medical food, vitamin or mineral): will send BID wound care supplement GOALS: Patient to meet calorie and protein needs to heal wounds RECOMMENDATIONS: Started David BID to provide for each packet/drink HMB, 90 calories, 7g L-Arginineand 7g L-Glutamine amino acids and 2.5g protein (collagen). NUTRITION MONITORING AND EVALUATION: Will monitor PO intakes, supplement acceptance, Weights, Nutrition Related Labs, POC & Follow. [x] Progressing toward goal [] Not progressing [] Progress toward goal declining [] Goal achieved Cyndy Chapa RD.,LD. Clinical Dietitian [facility] [phone] 02/04/25 * Raysa Mann MD - 02/04/2025 10:51 AM EDT Images from the original note were not included. [facility] INTERNAL MEDICINE [facility] - SURGERY [address] [facility] [phone] Hospital Medicine Progress Note Patient: Babar Barriga Date of : 1945 [place] PCP: Alejandrina Rivera MD Admission date: 02/03/2025 6:45 AM Encounter date: 02/04/25 Hospital Day: 2 SUBJECTIVE Interval History: Status: stable. ID, adjusted to vancomycin. Cardiology, perioperative risk high-non prohibitive. Review of Systems Constitutional: Negative for chills, fatigue and fever. Respiratory: Negative for cough, shortness of breath and wheezing. Cardiovascular: Negative for chest pain and leg swelling. Gastrointestinal: Negative for abdominal pain, blood in stool, constipation, diarrhea, nausea and vomiting. Genitourinary: Negative for difficulty urinating. Skin: Positive for wound. Negative for rash. Neurological: Negative for dizziness, weakness and headaches. Psychiatric/Behavioral: Negative for sleep disturbance. OBJECTIVE BP 143/68 Pulse 69 Temp 36.1 ??C (97 ??F) (Temporal) Resp 10 Ht 172.7 cm (5' 8 ) Wt 59.4 kg (131 lb) SpO2 99% BMI 19.92 kg/m?? Temp: [36.1 ??C (97 ??F)-36.6 ??C (97.9 ??F)] 36.1 ??C (97 ??F) Pulse: [67-82] 69 Resp: [10-18] 10 BP: (102-143)/(46-73) 143/68 SpO2: [98 %-100 %] 99 % O2 Device: None (Room air) O2 Flow Rate (L/min): [0 L/min] 0 L/min Intake/Output Summary (Last 24 hours) at 02/04/2025 1422 Last data filed at 02/04/2025 0538 Gross per 24 hour Intake 900.16 ml Output 400 ml Net 500.16 ml Physical Exam Constitutional: General: He is not in acute distress. Cardiovascular: Rate and Rhythm: Normal rate and regular rhythm. Heart sounds: Heart sounds are distant. Pulmonary: Effort: Pulmonary effort is normal. Breath sounds: Normal breath sounds. No decreased breath sounds, wheezing, rhonchi or rales. Abdominal: General: Abdomen is flat. Palpations: Abdomen is soft. Tenderness: There is no abdominal tenderness. Musculoskeletal: Right lower leg: No edema. Left lower leg: No edema. Skin: General: Skin is warm and dry. Capillary Refill: Capillary refill takes less than 2 seconds. Coloration: Skin is pale. Findings: Wound present. No rash. Neurological: General: No focal deficit present. Mental Status: Mental status is at baseline. Psychiatric: Behavior: Behavior is cooperative. Medications Scheduled: [Transfer Hold] insulin lispro, 2-10 Units, subcutaneous, With meals and nightly oxyCODONE, 5 mg, oral, Once OR oxyCODONE, 10 mg, oral, Once [Transfer Hold] vancomycin, 750 mg, intravenous, Q24H Infusions: [Transfer Hold] dextrose 5 % in water, 75 mL/hr, Last Rate: 75 mL/hr (02/04/25 0040) As Needed: [Transfer Hold] acetaminophen [Transfer Hold] acetaminophen [Transfer Hold] dextrose [Transfer Hold] dextrose 50 % in water (D50W) fentaNYL [Transfer Hold] glucagon (human recombinant) HYDROmorphone [Transfer Hold] magnesium sulfate meperidine naloxone [Transfer Hold] ondansetron ondansetron [Transfer Hold] oxyCODONE-acetaminophen [Transfer Hold] potassium chloride OR [Transfer Hold] potassium chloride OR [Transfer Hold]potassium chloride IV (Adult) [Transfer Hold] sennosides-docusate sodium [Transfer Hold] sodium chloride Allergies: Penicillins and Lisinopril Code Status: Full Code Labs Recent Results (from the past 24 hours) Bedside Glucose *Place/Obtain serum glucose if >500 per glucometer. Collection Time: 02/03/25 5:33 PM Result Value Ref Range Bedside Glucose (POC) 156 (H) 65 - 99 mg/dL Bedside Glucose *Place/Obtain serum glucose if >500 per glucometer. Collection Time: 02/03/25 9:42 PM Result Value Ref Range Bedside Glucose (POC) 152 (H) 65 - 99 mg/dL Bedside Glucose *Place/Obtain serum glucose if >500 per glucometer. Collection Time: 02/04/25 12:00 AM Result Value Ref Range Bedside Glucose (POC) 51 (LL) 65 - 99 mg/dL Bedside Glucose *Place/Obtain serum glucose if >500 per glucometer. Collection Time: 02/04/25 12:14 AM Result Value Ref Range Bedside Glucose (POC) 54 (L) 65 - 99 mg/dL Bedside Glucose *Place/Obtain serum glucose if >500 per glucometer. Collection Time: 02/04/25 12:33 AM Result Value Ref Range Bedside Glucose (POC) 193 (H) 65 - 99 mg/dL Bedside Glucose *Place/Obtain serum glucose if >500 per glucometer. Collection Time: 02/04/25 2:06 AM Result Value Ref Range Bedside Glucose (POC) 136 (H) 65 - 99 mg/dL Comprehensive metabolic panel Collection Time: 02/04/25 5:31 AM Result Value Ref Range SODIUM 133 (L) 134 - 146 mmol/L POTASSIUM 4.9 3.5 - 5.0 mmol/L CHLORIDE 102 98 - 109 mmol/L CARBON DIOXIDE 24 22 - 32 mmol/L ANION GAP 7 5 - 15 mmol/L BLOOD UREA NITROGEN 36 (H) 5 - 27 mg/dL CREATININE 1.31 (H) 0.70 - 1.20 mg/dL GLUCOSE 108 (H) 65 - 99 mg/dL CALCIUM 8.5 8.5 - 10.5 mg/dL TOTAL PROTEIN 6.1 6.0 - 8.0 g/dL ALBUMIN 2.3 (L) 3.2 - 5.3 g/dL ALKALINE PHOSPHATASE 81 39 - 130 U/L AST 16 <=41 U/L ALT 14 <=40 U/L BILIRUBIN,TOTAL 0.4 0.3 - 1.2 mg/dL EGFR Non-Race Dependent 55 (L) >=60 ml/min/1.73sq.m Magnesium Collection Time: 02/04/25 5:31 AM Result Value Ref Range MAGNESIUM 1.9 1.8 - 2.6 mg/dL CBC auto differential Collection Time: 02/04/25 5:31 AM Result Value Ref Range WBC 7.9 4 - 11 x10E9/L RBC Count 2.88 (L) 4.1 - 5.7 X10E12/L Hemoglobin 7.5 (L) 13 - 17 g/dL Hematocrit 22.9 (L) 39 - 50 % MCV 80 80 - 100 fL MCH 25.9 (L) 27 - 34 pg MCHC 32.6 32 - 36 g/dL RDW 18.6 (H) 11.5 - 15 % Platelet Count 283 150 - 450 X10E9/L MPV 7.0 7 - 12 fL Neutrophils % 67.0 % Lymphocytes % 23.1 % Monocytes % 7.1 % Eosinophils % 1.8 % Basophils % 1.0 % Neutrophils Absolute (A) 5.3 1.5 - 6.6 10*3/uL Lymphocytes Absolute 1.8 1.0 - 3.5 10*3/uL Monocytes Absolute 0.6 0.0 - 0.9 10*3/uL Eosinophils Absolute 0.1 0.0 - 0.4 10*3/uL Basophils Absolute 0.1 0.0 - 0.2 10*3/uL Differential Type AUTOMATED DIFFERENTIAL Extra Tubes Collection Time: 02/04/25 5:31 AM Narrative The following orders were created for panel order Extra Tubes. Procedure Abnormality Status --------- ------ Light Blue Top[[id number]] Final result Please view results for these tests on the individual orders. Light Blue Top Collection Time: 02/04/25 5:31 AM Result Value Ref Range Extra Tube Auto Resulted Radiology X-ray calcaneus right minimum 2 views Result Date: 02/04/2025 XR CALCANEOUS RT MIN 2 VWS Clinical history:sugery pain Comparison: None. Impression: Surgical fluoroscopic guidance provided for calcaneal fixation with fluoroscopic guidance. Reference air kerma was 0.3 mGy. Finalized by Edy Valdovinos MD on 02/04/2025 1:57 PM X-ray foot right 2 views Result Date: 02/03/2025 EXAM: XR FOOT RT 2 VWS CLINICAL INFORMATION: evaluate for osteomyelitis of calcaneus. COMPARISON: None. FINDINGS: There is osteopenia. There is dorsal soft tissue irregularity and suspected ulceration overlying the calcaneus. There are focal lytic destructive changes of the dorsal calcaneus, compatible with osteomyelitis. There is subtotal absence of the first proximal phalanx, suspected postsurgical. IMPRESSION: 1. Dorsal soft tissue irregularity and ulceration with underlying lytic destructive changes of osteomyelitis involving the dorsal calcaneus. Finalized by Asher Jovel MD on 02/03/2025 8:46 PM HOSPITAL PROBLEM LIST Principal Problem: Osteomyelitis of right foot, unspecified type ([facility]) Active Problems: Peripheral vascular disease ([facility]) Hyperlipidemia Diabetic peripheral neuropathy associated with type 2 diabetes mellitus ([facility]) S/P amputation of foot, left ([facility]) Hypertension CKD (chronic kidney disease) stage 4, GFR 15-29 ml/min ([facility]) Hypoglycemia Anemia of chronic disease Hypothyroidism ASSESSMENT & PLAN Right calcaneal osteomyelitis/ right foot wound with exposure of achilles tendon. Confirmed on MRI,01/24. No leukocytosis, however CRP and ESR are elevated. Afebrile and hemodynamically stable. Podiatry & ID. OR today. Continue vancomycin. Perioperative risk, 2.4%, moderate/high however nonprohibitive. T2DM, 6.2%, sliding scale insulin when taking po. Peripheral vascular disease, patent SFA stents, angiogram 01/24, holding aspirin and clopidogrel. Hypertension, normotensive. Anemia of chronic disease, hemoglobin stable/baseline. Dyslipidemia, statin. Hypothyroidism, levothyroxine. DC planning: alf facility pending above. Medically Ready for Discharge: Anticipated Tomorrow MUKUL FLORES APRN-JAMEL 02/04/2025 2:22 PM [facility] Internal Medicine 7AM-7PM & 7PM-7AM: EpicChat or page through On-Call Finder. Mukul Flores APRN-JAMEL 02/04/25 1053 Physician Attestation I, Raysa Mann MD, personally performed a face to face diagnostic evaluation on this patient. I have reviewed the note authored by the advance practice provider including history, review of systems,physical examination,medical decision making and agree with the assessment and plan as written. I have seen and evaluated the patient, I have repeated the zelaya portions of the physical exam and concur with the RHETT findings. I have reviewed all laboratory findings and imaging reports/films. I agree with the plan as noted. Patient is scheduled for right partial calcanectomy due to osteomyelitis per podiatry today ID on board patient has moderate risk for orthopedic surgery. * Hubert Pedro, [facility] - 02/03/2025 12:05 PM EDT Pharmacokinetic Consult - Vancomycin Dosing Babar Barriga is a 80 y.o. male for whom pharmacy has been consulted for vancomycin dosing for osteomyelitis. Today is day 1 of vancomycin therapy. Relevant clinical data and objective history reviewed: Allergies: Penicillins and Lisinopril Results from last 3 days Lab Units 02/03/25 0703 CREATININE mg/dL 1.67* BUN mg/dL 50* WBC x10E9/L 9.5 HEMOGLOBIN g/dL 8.2* HEMATOCRIT % 24.9* MCV fL 80 Temp Readings from Last 3 Encounters: 02/03/25 36.4 ??C (97.5 ??F) (Oral) 01/24/25 36.9 ??C (98.4 ??F) (Oral) 11/29/24 37.2 ??C (98.9 ??F) (Oral) Renal Parameters: No intake/output data recorded. Calculated CrCl (IBW): 29 ml/min Culture Data: Microbiology Results No results found for the last 168 hours. Concurrent Antibiotics: Anti-infectives (From admission, onward) Start Dose/Rate Route Frequency Ordered Stop 02/04/25 0800 vancomycin (VANCOCIN) 750 mg in sodium chloride 0.9 % 250 mL IVPB W/ADAPTER 750 mg 250 mL/hr over 60 Minutes intravenous Every 24 hours 02/03/25 1137 02/03/25 1900 cefEPime (MAXIPIME) IVPB 1000 mg/50 mL in dextrose 5% duplex (20 mg/mL premix) 1,000 mg 12.5 mL/hr over 4 Hours intravenous Every 12 hours 02/03/25 1108 Recent Vancomycin Serum Concentrations: Indication: osteomyelitis Goal Vancomycin Range: AUC 400-600 mcg*hr/mL Assessment . Patient is being initiated on vancomycin therapy ?? Renal function assessment: Chronic Kidney Disease ?? No vancomycin level as been collected for this patient ?? Patient-specific risk-factors for nephrotoxicity include: pre-existing renal impairment and advanced age. Plan ?? Patient received a vancomycin loading dose of 1250 mg x1 in the ER. Patient will start a 750 mg dose every 24 hours on 02/04/2025. A peak & trough level will be drawn prior to the 4th dose at 800 on 02/06/2025. ?? Pharmacy Dosing Service to follow serum concentrations and adjust as needed based on the patient's clinical status. Thank you for consulting. * Miriam Silver RPH - 02/03/2025 11:09 AM EDT [facility] Department of Pharmacy Pharmacist to Physician Communication The dose of cefepime for osteomyelitis has been changed to 1 gram infused every 12 hours by extended infusion over 4 hours per the [facility] approved extended- infusion beta-lactam dosing policy, based on an estimated creatinine clearance is 29 mL/min (A) (by C-G formula based on SCr of 1.67 mg/dL (H)). Thank you, Miriam Silver RPH documented in this encounter H&P Notes * Diego Daniels DPM - 02/04/2025 12:02 PM EDT HISTORY AND PHYSICAL INTERVAL NOTE: Babar Barriga 1945 [id number] H&P reviewed. The patient was examined and there are no changes to the H&P. Diego Daniels DPM Source Note - Diego Daniels DPM - 02/03/2025 9:11 AM EDT Podiatry Consultation Note Admit Date: 02/03/2025 Bed/Room No. @ROOMBEDREFRESH@ Admitting Physician : @ATTENDING@ Code Status :Full Code Hospital Day: LOS: 0 days Patient is currently admitted for treatment of Osteomyelitis of right foot, unspecified type ([facility]) Reason for Consult: Osteomyelitis right foot Requesting Physician: @ATTENDINGREFRESH@ PCP: Alejandrina Rivera MD HPI: The patient is a 80 y.o. male who is admitted for osteomyelitis of the right foot. This patient is well-known to me. I have performed multiple surgeries and amputations on him trying to prevent majorlimb loss. He was scheduled for partial calcanectomy of the right heel this morning. During admission he was noted to be hypoglycemic. He did take his full dose of insulin yesterday when he was supposed to only take half of his dose due to being NPO last night. He was transferred to the emergency department. He is being admitted for further management. 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 ([facility]) 10/24/2022 Added automatically from request for surgery [id number] Chronic kidney disease Chronic osteomyelitis of left foot ([facility]) 09/27/2024 Dental disease Diabetes mellitus type 2, controlled ([facility]) Hyperlipidemia Hypertension MRSA bacteremia 09/28/2024 Osteomyelitis ([facility]) Shortness of breath Skin cancer melanoma Stage 3b chronic kidney disease ([facility]) 09/27/2024 Urinary incontinence Visual impairment Past Surgical History: Past Surgical History: Procedure Laterality Date AMPUTATION METATARSAL AND TOE Left 09/30/2024 Performed by Diego Daniels DPM at [facility] AMPUTATION METATARSAL AND TOE partial Ray Left 10/25/2022 Performed by Diego Daniels DPM at [facility] CIRCUMCISION LENGTHENING TENDON ACHILLES Left 09/30/2024 Performed by Diego Daniels DPM at [facility] Percutaneous angioplasty/stent femoral-popliteal right Right 11/29/2024 Performed by Deflino Lake MD at [facility] SKIN PLASTY TISSUE REARRANGEMENTn toe flap Left 10/25/2022 Performed by Diego Daniels DPM at [facility] TOE SURGERY Left Vascular Invasive 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 Authorizing Provider allopurinol (ZYLOPRIM) 100 mg tablet Take 1 tablet (100 mg total) by mouth in the morning. Not In System Ref Prov aspirin 81 mg chewable tablet Chew 1 tablet (81 mg total) and swallow in the morning. 11/29/24 MD Tulio atorvastatin (LIPITOR) 20 mg tablet Take 1 tablet (20 mg total) by mouth in the morning. Not In System Ref Prov clopidogreL (PLAVIX) 75 mg tablet Take 1 tablet (75 mg total) by mouth in the morning. 11/29/24 Funmi Biswas MD cyanocobalamin (vitamin B-12) 100 MCG tablet Take 10 tablets (1,000 mcg total) by mouth in the morning. Not In System Ref Prov docusate sodium (COLACE) 100 mg capsule Take 1 capsule (100 mg total) by mouth in the morning and 1capsule (100 mg total) before bedtime. Not In System Ref Prov doxazosin (CARDURA) 8 mg tablet Take 0.5 tablets (4 mg total) by mouth nightly. Not In System Ref Prov finasteride (PROSCAR) 5 mg tablet Take 1 tablet (5 mg total) by mouth in the morning. Not In SystemRef Prov folic acid (FOLVITE) 1 mg tablet Take 1 tablet (1 mg total) by mouth in the morning. Not In System Ref Prov insulin glargine (LANTUS) 100 unit/mL injection Inject 0.35 mL (35 Units total) under the skin in the morning. Indications: type 2 diabetes mellitus. Patient taking differently: Inject 0.3 mL (30 Units total) under the skin in the morning. Indications: type 2 diabetes mellitus. 10/28/22 Bibi Francis MD levothyroxine sodium (TIROSINT) 112 mcg capsule Take 1 capsule (112 mcg total) by mouth in the morning. Not In System Ref Prov OZEMPIC 0.25 mg or 0.5 mg(2 mg/1.5 mL) pen injector Inject under the skin once a week. wednesdays Not In System Ref Prov Allergies: Penicillins Lisinopril Social History: Social History Socioeconomic History Marital status: Spouse name: Not on file Number of children: Not on file Years of education: Not on file Highest education level: Not on file Occupational History Not on file Tobacco Use Smoking status: Former Smokeless tobacco: Never Vaping Use Vaping status: Never Used Substance and Sexual Activity Alcohol use: No Drug use: No Sexual activity: Defer Other Topics Concern Caffeine Use No Social History Narrative Not on file Social Drivers of Health Financial Resource Strain: Not on file Food Insecurity: No Food Insecurity (02/03/2025) Hunger Screening Food Insecurity - Worry: Never True Food Insecurity - Inability: Never True Transportation Needs: No Transportation Needs (09/27/2024) PRAPARE - Transportation Lack of Transportation (Medical): No Lack of Transportation (Non-Medical): No Physical Activity: Not on file Stress: Not on file Social Connections: Not on file Interpersonal Safety: Not At Risk (09/27/2024) Humiliation, Afraid, Rape, and Kick questionnaire Fear of Current or Ex-Partner: No Emotionally Abused: No Physically Abused: No Sexually Abused: No Housing Instability: Low Risk (09/27/2024) Housing Instability Housing Instability: No Family History: Family History Problem Relation Age of Onset Ovarian cancer Mother Diabetes Father Review of Systems Constitutional: Positive for activity change. Respiratory: Negative for chest tightness and shortness of breath. Cardiovascular: Positive for leg swelling. Musculoskeletal: Positive for gait problem. Skin: Positive for color change and wound. Neurological: Positive for weakness and numbness. Hematological: Bruises/bleeds easily. Psychiatric/Behavioral: Negative for behavioral problems. Objective: BP 121/56 Pulse 88 Temp 36.4 ??C (97.5 ??F) (Oral) Resp 16 Ht 172.7 cm (5' 8 ) Wt 58.1 kg(128 lb) SpO2 100% BMI 19.46 kg/m?? Intake/Output Summary (Last 24 hours) at 02/03/2025 0912 Last data filed at 02/03/2025 0741 Gross per 24 hour Intake 44.49 ml Output -- Net 44.49 ml Physical Exam Constitutional: Comments: Chronically ill-appearing. HENT: Head: Atraumatic. Cardiovascular: Comments: DP and PT pulses nonpalpable. Pulmonary: Effort: Pulmonary effort is normal. No respiratory distress. Musculoskeletal: Comments: 5th ray amputation left foot with edema and hypertrophy across the midfoot consistent with Charcot neuroarthropathy. Skin: Capillary Refill: Capillary refill takes 2 to 3 seconds. Comments: Right foot: Large ulceration on the posterior calcaneus with exposed bone and Achilles tendon. Bone is probed very easily. Periwound erythema. No purulence. No foul odor. Left foot: Sinus tract over the lateral foot without surrounding cellulitis or purulence. Neurological: Comments: Absent protective sensation bilaterally. Psychiatric: Mood and Affect: Mood normal. Labs: CBC with Differential: Lab Results Component Value Date WBC 9.5 02/03/2025 HGB 8.2 (L) 02/03/2025 HCT 24.9 (L) 02/03/2025 PLT 317 02/03/2025 MCV 80 02/03/2025 MCH 26.3 (L) 02/03/2025 MCHC 33.1 02/03/2025 RDW 18.6 (H) 02/03/2025 RDW 13.7 10/01/2024 H/H: Lab Results Component Value Date HGB 8.2 (L) 02/03/2025 HCT 24.9 (L) 02/03/2025 Last 3 Troponin: No components found for: TROPONINI;3 U/A: Lab Results Component Value Date UROBILINOGEN 0.2 10/22/2022 HgBA1c: Lab Results Component Value Date HGBA1C 8.3 (H) 10/25/2022 Hematology:@[id number](WBC:3,HGB:3,HCT:3,MCV:3,PLT:3)@ Chemistry: Lab Results Component Value Date K 4.9 02/03/2025 CL 105 02/03/2025 CO2 22 02/03/2025 BUN 50 (H) 02/03/2025 CREATININE 1.67 (H) 02/03/2025 CALCIUM 8.9 02/03/2025 ALKPHOS 61 10/01/2024 AST 15 10/01/2024 ALT 19 10/01/2024 No results found for: LABPROT No components found for: LABA1C No components found for: EAG No results found for: TSH Magnesium: Lab Results Component Value Date MG 2.1 10/01/2024 Phosphorus: No results found for: PHOS Ionized Calcium: No results found for: CAION Last 3 Blood Glucose: @LABRCNT(GLUCOSE:3)@ PT/INR: Lab Results Component Value Date PROTIME 13.5 (H) 01/28/2025 PROTIME 11.8 10/21/2022 INR 1.2 01/28/2025 INR 1.0 10/21/2022 PTT: No results found for: APTT , PTT Micro: Microbiology Results No results found for the last 168 hours. Imaging: Vascular Invasive Patent SFA stents with a patent posterior tibial artery with adequate right heel wound blush Recommendations: Continue medical therapy. Recommendations per limb preservation board Assessment Principal Problem: Osteomyelitis of right foot, unspecified type ([facility]) Active Problems: Peripheral vascular disease ([facility]) Hyperlipidemia Diabetic peripheral neuropathy associated with type 2 diabetes mellitus ([facility]) S/P amputation of foot, left ([facility]) Hypertension CKD (chronic kidney disease) stage 4, GFR 15-29 ml/min ([facility]) Hypoglycemia Anemia of chronic disease Plan -patient examined and evaluated. He has known osteomyelitis of the right calcaneus with exposure ofthe Achilles tendon as well. He was scheduled for partial calcanectomy today. I will move his surgery to tomorrow anticipate surgery time 12:00 p.m. for partial calcanectomy and Achilles resection ofthe right lower extremity. He will likely require alf upon discharge as he may require a wound VAC as well. I discussed all of this with patient and his family at bedside today. -he also has a sinus tract on the left foot with known Charcot neuroarthropathy. We will continue wound care efforts on this side.. Appreciate nursing assistance with this. -I will follow-up with him while he remains inpatient. Thank you for allowing me to participate in care of this patient. If you have any questions regarding my plan for this patient please do not hesitate to contact me at [phone]. Diego Daniels DPM 02/03/2025 * Raysa Mann MD - 02/03/2025 10:59 AM EDT Images from the original note were not included. [facility] Jody S PATRICIA DASH [facility] [id number] Hospital Medicine History & Physical Patient: Babar Barriga Date of : 1945 Room: [facility] PCP: Alejandrina Rivera MD Admission date: 02/03/2025 6:45 AM Encounter date: 02/03/25 Hospital Day: 1 SUBJECTIVE Babar Barriga is a 80 y.o. male who presents with hypoglycemia. Scheduled for outpatient right calcanectomy with podiatry this morning, found to be hypoglycemic and sent to the ER. Known osteomyelitis, confirmed on MRI earlier this month. ER workup was relatively noncontributory. Started on cefepime and vancomycin. Podiatry consulted. And admission requested. Allergies: Penicillins and Lisinopril Prior to Admission medications Medication Sig Start Date End Date Taking? Authorizing Provider allopurinol (ZYLOPRIM) 100 mg tablet Take 1 tablet (100 mg total) by mouth in the morning. Not In System Ref Prov aspirin 81 mg chewable tablet Chew 1 tablet (81 mg total) and swallow in the morning. 11/29/24 MD Tulio atorvastatin (LIPITOR) 20 mg tablet Take 1 tablet (20 mg total) by mouth in the morning. Not In System Ref Prov clopidogreL (PLAVIX) 75 mg tablet Take 1 tablet (75 mg total) by mouth in the morning. 11/29/24 Funmi Biswas MD cyanocobalamin (vitamin B-12) 100 MCG tablet Take 10 tablets (1,000 mcg total) by mouth in the morning. Not In System Ref Prov docusate sodium (COLACE) 100 mg capsule Take 1 capsule (100 mg total) by mouth in the morning and 1capsule (100 mg total) before bedtime. Not In System Ref Prov doxazosin (CARDURA) 8 mg tablet Take 0.5 tablets (4 mg total) by mouth nightly. Not In System Ref Prov finasteride (PROSCAR) 5 mg tablet Take 1 tablet (5 mg total) by mouth in the morning. Not In SystemRef Prov folic acid (FOLVITE) 1 mg tablet Take 1 tablet (1 mg total) by mouth in the morning. Not In System Ref Prov insulin glargine (LANTUS) 100 unit/mL injection Inject 0.35 mL (35 Units total) under the skin in the morning. Indications: type 2 diabetes mellitus. Patient taking differently: Inject 0.3 mL (30 Units total) under the skin in the morning. Indications: type 2 diabetes mellitus. 10/28/22 Bibi Francis MD levothyroxine sodium (TIROSINT) 112 mcg capsule Take 1 capsule (112 mcg total) by mouth in the morning. Not In System Ref Prov OZEMPIC 0.25 mg or 0.5 mg(2 mg/1.5 mL) pen injector Inject under the skin once a week. 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 Past Surgical History: Patient has a past surgical history that includes Toe Surgery (Left); Circumcision; Foot surgery (Left, 10/25/2022); Foot surgery (Left, 10/25/2022); Achilles tendon surgery (Left, 09/30/2024); Foot surgery (Left, 09/30/2024); and Popliteal artery stent (Right, 11/29/2024). Family History: Patient's family history includes Diabetes in his father; Ovarian cancer in his mother. Social History: Patient reports that he has quit smoking. He has never used smokeless tobacco. He reports that he does not drink alcohol and does not use drugs. Review of Systems Constitutional: Negative for activity change, appetite change, chills, fatigue, fever and unexpected weight change. HENT: Negative for congestion, dental problem, hearing loss, rhinorrhea, sore throat, trouble swallowing and voice change. Eyes: Negative for visual disturbance. Respiratory: Negative for cough, shortness of breath and wheezing. Cardiovascular: Negative for chest pain, palpitations and leg swelling. Gastrointestinal: Negative for abdominal pain, blood in stool, constipation, diarrhea, nausea and vomiting. Genitourinary: Negative for difficulty urinating, dysuria, enuresis, frequency and hematuria. Musculoskeletal: Negative for arthralgias, joint swelling and myalgias. Skin: Positive for wound. Negative for color change and rash. Neurological: Negative for dizziness, seizures, syncope, speech difficulty, weakness, numbness and headaches. Hematological: Negative for adenopathy. Does not bruise/bleed easily. Psychiatric/Behavioral: Negative for dysphoric mood and sleep disturbance. The patient is not nervous/anxious. OBJECTIVE BP 135/49 Pulse 86 Temp 36.6 ??C (97.9 ??F) (Oral) Resp 16 Ht 172.7 cm (5' 8 ) Wt 59.1 kg(130 lb 6.4 oz) SpO2 100% BMI 19.83 kg/m?? Temp: [36.4 ??C (97.5 ??F)-36.6 ??C (97.9 ??F)] 36.6 ??C (97.9 ??F) Pulse: [78-88] 86 Resp: [16-18] 16 BP: (121-135)/(49-70) 135/49 SpO2: [100 %] 100 % O2 Device: None (Room air) Intake/Output Summary (Last 24 hours) at 02/03/2025 1414 Last data filed at 02/03/2025 0949 Gross per 24 hour Intake 294.9 ml Output -- Net 294.9 ml Physical Exam Constitutional: General: He is not in acute distress. Appearance: Normal appearance. He is well-developed. HENT: Head: Normocephalic and atraumatic. Right Ear: External ear normal. Left Ear: External ear normal. Nose: Nose normal. Mouth/Throat: Lips: Gerald. Mouth: Mucous membranes are moist. Pharynx: Oropharynx is clear. Eyes: General: No scleral icterus. Pupils: Pupils are equal, round, and reactive to light. Neck: Vascular: No JVD. Cardiovascular: Rate and Rhythm: Normal rate and regular rhythm. Pulses: Radial pulses are 2+ on the right side and 2+ on the left side. Heart sounds: S1 normal and S2 normal. Heart sounds are distant. No murmur heard. No friction rub. No gallop. Pulmonary: Effort: Pulmonary effort is normal. Breath sounds: Normal breath sounds. No decreased breath sounds, wheezing, rhonchi or rales. Abdominal: General: Bowel sounds are normal. Palpations: Abdomen is soft. Tenderness: There is no abdominal tenderness. Musculoskeletal: Right lower leg: No edema. Left lower leg: No edema. Comments: Right foot swelling with erythema with fat layer exposed ,see image Skin: General: Skin is warm and dry. Capillary Refill: Capillary refill takes less than 2 seconds. Coloration: Skin is pale. Findings: No erythema, rash or wound. Neurological: General: No focal deficit present. Mental Status: He is alert and oriented to person, place, and time. Psychiatric: Attention and Perception: Attention normal. Mood and Affect: Mood and affect normal. Behavior: Behavior normal. Behavior is cooperative. Medications Scheduled: cefepime (MAXIPIME) IV, 1,000 mg, intravenous, Q12H insulin lispro, 2-10 Units, subcutaneous, With meals and nightly [START ON 02/04/2025] vancomycin, 750 mg, intravenous, Q24H Infusions: dextrose 5 % in water, 100 mL/hr [START ON 02/04/2025] sodium chloride 0.9 %, 75 mL/hr As Needed: acetaminophen acetaminophen dextrose dextrose 5 % in water dextrose 50 % in water (D50W) glucagon (human recombinant) magnesium sulfate ondansetron oxyCODONE-acetaminophen potassium chloride OR potassium chloride OR potassium chloride IV (Adult) sennosides-docusate sodium sodium chloride Allergies: Penicillins and Lisinopril Labs Recent Results (from the past 24 hours) Bedside Glucose *Place/Obtain serum glucose if >500 per glucometer. Collection Time: 02/03/25 6:24 AM Result Value Ref Range Bedside Glucose (POC) 50 (LL) 65 - 99 mg/dL Bedside Glucose *Place/Obtain serum glucose if >500 per glucometer. Collection Time: 02/03/25 6:36 AM Result Value Ref Range Bedside Glucose (POC) 52 (LL) 65 - 99 mg/dL CBC auto differential Collection Time: 02/03/25 7:03 AM Result Value Ref Range WBC 9.5 4 - 11 x10E9/L RBC Count 3.13 (L) 4.1 - 5.7 X10E12/L Hemoglobin 8.2 (L) 13 - 17 g/dL Hematocrit 24.9 (L) 39 - 50 % MCV 80 80 - 100 fL MCH 26.3 (L) 27 - 34 pg MCHC 33.1 32 - 36 g/dL RDW 18.6 (H) 11.5 - 15 % Platelet Count 317 150 - 450 X10E9/L MPV 6.8 (L) 7 - 12 fL Neutrophils % 78.5 % Lymphocytes % 13.8 % Monocytes % 6.4 % Eosinophils % 0.7 % Basophils % 0.6 % Neutrophils Absolute (A) 7.5 (H) 1.5 - 6.6 10*3/uL Lymphocytes Absolute 1.3 1.0 - 3.5 10*3/uL Monocytes Absolute 0.6 0.0 - 0.9 10*3/uL Eosinophils Absolute 0.1 0.0 - 0.4 10*3/uL Basophils Absolute 0.1 0.0 - 0.2 10*3/uL Differential Type AUTOMATED DIFFERENTIAL Basic Metabolic Panel Collection Time: 02/03/25 7:03 AM Result Value Ref Range SODIUM 133 (L) 134 - 146 mmol/L POTASSIUM 4.9 3.5 - 5.0 mmol/L CHLORIDE 105 98 - 109 mmol/L CARBON DIOXIDE 22 22 - 32 mmol/L ANION GAP 6 5 - 15 mmol/L BLOOD UREA NITROGEN 50 (H) 5 - 27 mg/dL CREATININE 1.67 (H) 0.70 - 1.20 mg/dL GLUCOSE 92 65 - 99 mg/dL CALCIUM 8.9 8.5 - 10.5 mg/dL EGFR Non-Race Dependent 41 (L) >=60 ml/min/1.73sq.m C-reactive protein Collection Time: 02/03/25 7:03 AM Result Value Ref Range C REACTIVE PROTEIN 4.7 (H) <=0.7 mg/dL Erythrocyte Sedimentation Rate (ESR) Collection Time: 02/03/25 7:03 AM Result Value Ref Range ESR, Erythrocyte Sedimentation Rate 94 (H) 0 - 20 mm/h Extra Tubes Collection Time: 02/03/25 7:03 AM Narrative The following orders were created for panel order Extra Tubes. Procedure Abnormality Status --------- ------ Light Blue Top[[id number]] Final result Please view results for these tests on the individual orders. Light Blue Top Collection Time: 02/03/25 7:03 AM Result Value Ref Range Extra Tube Auto Resulted Bedside Glucose *Place/Obtain serum glucose if >500 per glucometer. Collection Time: 02/03/25 8:50 AM Result Value Ref Range Bedside Glucose (POC) 153 (H) 65 - 99 mg/dL Bedside Glucose *Place/Obtain serum glucose if >500 per glucometer. Collection Time: 02/03/25 12:30 PM Result Value Ref Range Bedside Glucose (POC) 237 (H) 65 - 99 mg/dL Radiology X-ray foot left minimum 3 views Result Date: 01/25/2025 Narrative: Imaging Result: AP, medial oblique, lateral views are nonweightbearing. Reveals [id number] metatarsal resection. There is a bone fragment consistent with possible remnant of the 5th metatarsal. There has been complete destruction of the naviculocuneiform joint as well as the tarsometata rsal joints. I do not see any significant collapse of the midfoot. There is also significant erosion of the navicular with a almost complete destruction of the lateral and intermediate cuneiforms consistent with Charcot neuroarthropathy. Decreased bone mineralization. Significant degenerative changes of the 1st MTP, interphalangeal joint. Enthesophyte at the insertion of the plantar fascia. MR foot right without contrast Result Date: 01/24/2025 Narrative: EXAM: MR FOOT RIGHT WO IV CONTRAST HISTORY: Chronic ulceration right calcaneus. Exposed bone and Achilles tendon. Osteomyelitis COMPARISON : Foot radiographs October 16, 2022 TECHNIQUE: Multiplanar multisequence MRI of the foot was performed without contrast. FINDINGS: Soft tissue ulcer along the posterior margin of the calcaneus measures approximately 3 cm. Full-thickness tear of distallateral and mid fibers of the Achilles tendon at the level of the attachment of the calcaneus with medial fibers remaining intact (in total full- thickness tear of approximately three fourths of the Achilles tendon). Patchy hyperintense T2 signal is present within the posterior calcaneus to the level of the anterior margin of the posterior subtalar joint with corresponding hypointense T1 signal. The plantar fascia appears intact. Flexor and extensor tendons appear intact. Full-thickness tear of the anterior talofibular ligament hyperintense T2 signal of the musculature of the foot is most likely secondary to chronic denervation. Diffuse subcutaneous soft tissue edema. No soft tissue fluid collection to suggest abscess. Impression: Signal abnormality of the posterior two thirds of the calcaneus most compatible with osteomyelitis. Tear of the distal Achilles tendon as detailed. ELECTRONICALLY SIGNED BY: Sean Frias DO Vascular Invasive Result Date: 01/24/2025 Narrative: Patent SFA stents with a patent posterior tibial artery with adequate right heel wound blush Recommendations: Continue medical therapy. Recommendations per limb preservation board Vas art doppler lwr bilat mult lev/PVR Result Date: 01/20/2025 Narrative: Previous: Previous lower extremity arterial physiological exam performed: 12/23/2024; Highest VALE: Right: VALE is falsely elevated suggesting medial calcinosis; TBI is consistent with mild to moderate arterial disease. Left VALE is falsely elevated suggesting medial calcinosis; TBI is consistent with mild to moderate arterial disease. History of left REMI angioplasty on 10/30/2022. Historyof right SFA angioplasty and stent on 11/29/2024. Right: Mildly abnormal PVR waveform contour at all cuff levels. Calf waveform augmentation noted. PT VALE is CNO DP VALE is CNO. TBI is 0.42. Multiphasicwith diastolic flow reversal common femoral, hyperemic DP and monophasic PT CW Doppler waveforms. Le ft: Mildly abnormal PVR waveform contour at all cuff levels. Calf waveform augmentation noted. PT VALE is CNO DP VALE is CNO. TBI is 0.61. Multiphasic with diastolic flow reversal common femoral, DP and hyperemic PT CW Doppler waveforms. Conclusions: BILATERAL: VALE is falsely elevated suggesting medial calcinosis and non-compressible vessels; TBI is consistent with mild to moderate arterial disease.When compared to previous report no significant changes were noted. Recommendations: Any questions prior to finalization, please call the reading physician during normal business hours at the phone number beside their name. Vas art duplex lwr single right Result Date: 01/20/2025 Narrative: Previous: Previous lower extremity arterial duplex exam performed 12/23/2024 Right No hemodynamically significant stenosis (<50%), lower extremity superficial femoral artery stent. Arterial plaque with no hemodynamically significant stenosis of the lower extremity. History of left ATAangioplasty on 10/30/2022. History of right SFA angioplasty and stenting on 11/29/2024. Right: Plaque and spectral waveforms with diastolic flow reversal noted in the external iliac, common femoral, deep femoral, popliteal anterior tibial, hyperemic posterior tibial and peroneal artery without significant color flow disturbance. Spectral waveforms with diastolic flow reversal noted in the superficial femoral artery stent without significant color flow disturbance. Conclusions: RIGHT: Arterial plaque with no hemodynamically significant stenosis of the lower extremity. No hemodynamically significant stenosis (<50%), lower extremity arterial stent.When compared to previous report no significant changes were noted. Recommendations: Any questions prior to finalization, please call the readingphysician during normal business hours at the phone number beside their name. HOSPITAL PROBLEM LIST Principal Problem: Osteomyelitis of right foot, unspecified type ([facility]) Active Problems: Peripheral vascular disease ([facility]) Hyperlipidemia Diabetic peripheral neuropathy associated with type 2 diabetes mellitus ([facility]) S/P amputation of foot, left ([facility]) Hypertension CKD (chronic kidney disease) stage 4, GFR 15-29 ml/min ([facility]) Hypoglycemia Anemia of chronic disease Hypothyroidism ASSESSMENT & PLAN Right calcaneal osteomyelitis/ right foot wound with exposure of achilles tendon. Confirmed on MRI,01/24. No leukocytosis, however CRP and ESR are elevated. Afebrile and hemodynamically stable. Podiatry, OR tomorrow. Consult ID and wound care. Continue empiric cefepime and vancomycin for now. Perioperative risk, 2.4%, moderate however nonprohibitive. T2DM, no recurrent hypoglycemia, A1C in process, last semaglutide 01/26-hold. Sliding scale insulin while admitted. Peripheral vascular disease, patent SFA stents, angiogram 01/24, holding aspirin and clopidogrel. Hypertension, normotensive. Anemia of chronic disease, hemoglobin stable/baseline. Dyslipidemia, statin. Hypothyroidism, levothyroxine. Sepsis suspected, no-not clinically evident at this time. Chart reviewed. Admission orders placed. Home medications pending verification. DVT/VTE prophylaxis: SCD and no pharmacologic prophylaxis due to pending surgery. GI prophylaxis: not indicated. PT/OT to evaluate and treat. DC planning: from home. Medically Ready for Discharge: Anticipated in 2-4 Days MUKULMONET GORMAN 02/03/2025 2:14 PM [facility] 7AM-7PM & 7PM-7AM: EpicChat or page through On-Call F[employer]. MONET Welch 02/03/25 1113 Physician Attestation I, Raysa Mann MD, personally performed a face to face diagnostic evaluation on this patient. I have reviewed the note authored by the advance practice provider including history, review of systems,physical examination,medical decision making and agree with the assessment and plan as written. I have seen and evaluated the patient, I have repeated the zelaya portions of the physical exam and concur with the RHETT findings. I have reviewed all laboratory findings and imaging reports/films. I agree with the plan as noted. Patient is being admitted with right foot osteomyelitis on IV vancomycin IV cefepime Podiatry and ID on board documented in this encounter Procedure Notes * Karli Hinojosa RN - 02/08/2025 4:16 PM EDT Images from the original note were not included. PICC line placement note: Dynamic senior software engineer: CALI Gu Prescribed IV therapy: dual therapy with vancomycin to ensure adequate coverage. End of therapy is March 22, 2025. History / Labs / Allergies were reviewed prior to insertion Any contraindications/considerations prior to placement: NA Approvals required before insertion: Jonh Cline MD with ID Bedside time out performed with nurse Soni utilizing two identifiers Consent completed by Patient and is located in the chart. PICC: Product type: 4 fr SL Bard PowerPICC inserted into the right brachial vein Ref: [id number] Lot: [id number] Exp: 12/20/2025 Trimmed at 36 cm with 1 cm external Number of attempts: 1 CVR: 15% Dressed per protocol with statlock and CHG tegaderm Lidocaine used during procedure: intradermal administration conc 1% approximately 1mL Lot #: [id number] Exp: 08/21/2026 Following successful completion of procedure, all PICC kit components including sharps were accounted for, intact, and disposed of properly. Nae LEIVA aware PICC placed with ECG technology and is confirmed in the distal 1/3 SVC. PICC is immediately released for use. RN aware new IV tubing is required. documented in this encounter Consult Notes * Marie Zarate [facility] - 02/06/2025 12:57 PM EDT Pharmacokinetic Consult - Vancomycin Dosing Babar Barriga is a 80 y.o. male for whom pharmacy has been consulted for vancomycin dosing for osteomyelitis. Today is day 4 of vancomycin therapy. Relevant clinical data and objective history reviewed: Allergies: Penicillins and Lisinopril Results from last 3 days Lab Units 02/06/25 0709 02/06/25 0708 02/05/25 0524 02/04/25 0531 CREATININE mg/dL -- 1.27* 1.56* 1.31* BUN mg/dL -- 37* 38* 36* WBC x10E9/L 10.0 -- 11.3* 7.9 HEMOGLOBIN g/dL 7.3* -- 7.7* 7.5* HEMATOCRIT % 22.2* -- 24.1* 22.9* MCV fL 80 -- 80 80 Calculated CrCl (TBW): 39.6 nl/min Culture Data: Microbiology Results Procedure Component Value Units Date/Time Anaerobic culture [[id number]] Collected: 02/04/25 131 Specimen: Bone from Foot, Right Updated: 02/05/25 1412 CULTURE RESULTS Culture in progress Bone culture [[id number]] Collected: 02/04/25 131 Specimen: Bone from Foot, Right Updated: 02/06/25 1207 CULTURE RESULTS Culture in progress Blood culture #1 [[id number]] Collected: 02/03/252024 Specimen: Blood, Venous Updated: 02/06/25 0301 CULTURE RESULTS NO GROWTH 2 DAYS Blood culture #2 [[id number]] Collected: 02/03/252024 Specimen: Blood, Venous Updated: 02/06/25 0301 CULTURE RESULTS NO GROWTH 2 DAYS Recent Vancomycin Serum Concentrations: Results from last 7 days Lab Units 02/06/25 1048 02/06/25 0708 VANCOMYCIN PEAK ug/mL 30.6 -- VANCOMYCIN TROUGH ug/mL -- 18.1 Indication: Osteomyelitis Goal Vancomycin Range: AUC 400-600 mcg*hr/mL Assessment Patient is currently ordered vancomycin 750 mg IV with a dosing interval of q24h. Today is day 4 oftherapy. Renal function assessment: Chronic Kidney Disease Per the above vancomycin levels, AUC is 568, but may not be to steady state. Patient-specific risk-factors for nephrotoxicity include: pre-existing renal impairment and advanced age. Plan Will adjust vancomycin to 1000mg Q36 hours, which calculates to an AUC of 505, therapeutic. The next vancomycin trough and peak for AUC monitoring will be ordered for 02/09, unless clinically indicated sooner. * Carlos Sinclair MD - 02/04/2025 7:33 AM EDTAssociated Order(s): IP CONSULT TO CARDIOLOGY Images from the original note were not included. [facility] [address] [place] [address] CONSULTATION PATIENT NAME: Babar Barriga : 1945 AGE: 80 y.o. Date of Admission: 02/03/2025 Date of Consultation: 02/04/2025 SUBJECTIVE REASON FOR CONSULT: Preoperative cardiovascular evaluation CHIEF COMPLAINT: Hypoglycemia HISTORY OF PRESENT ILLNESS: 80-year-old male scheduled for outpatient right calcanectomy with podiatry found to be hypoglycemic and sent to the ER he has known osteomyelitis confirmed on MRI. Started on broad pressor spectrum antibiotic and cardiology consulted for preoperative cardiovascular evaluation He has been on a wheelchair since September of this year. 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 ([facility]) 10/24/2022 Added automatically from request for surgery [id number] Chronic kidney disease Chronic osteomyelitis of left foot ([facility]) 09/27/2024 Dental disease Diabetes mellitus type 2, controlled ([facility]) Hyperlipidemia Hypertension MRSA bacteremia 09/28/2024 Osteomyelitis ([facility]) Shortness of breath Skin cancer melanoma Stage 3b chronic kidney disease ([facility]) 09/27/2024 Urinary incontinence Visual impairment SURGICAL HISTORY has a past surgical history that includes Toe Surgery (Left); Circumcision; Foot surgery (Left, 10/25/2022); Foot surgery (Left, 10/25/2022); Achilles tendon surgery (Left, 09/30/2024); Foot surgery (Left, 09/30/2024); and Popliteal artery stent (Right, 11/29/2024). SOCIAL HISTORY Social History Socioeconomic History Marital status: Spouse name: Not on file Number of children: Not on file Years of education: Not on file Highest education level: Not on file Occupational History Not on file Tobacco Use Smoking status: Former Smokeless tobacco: Never Vaping Use Vaping status: Never Used Substance and Sexual Activity Alcohol use: No Drug use: No Sexual activity: Defer Other Topics Concern Caffeine Use No Social History Narrative Not on file Social Drivers of Health Financial Resource Strain: Not on file Food Insecurity: No Food Insecurity (02/03/2025) Hunger Screening Food Insecurity - Worry: Never True Food Insecurity - Inability: Never True Transportation Needs: No Transportation Needs (02/03/2025) PRAPARE - Transportation Lack of Transportation (Medical): No Lack of Transportation (Non-Medical): No Physical Activity: Not on file Stress: Not on file Social Connections: Not on file Interpersonal Safety: Not At Risk (02/03/2025) Humiliation, Afraid, Rape, and Kick questionnaire Fear of Current or Ex-Partner: No Emotionally Abused: No Physically Abused: No Sexually Abused: No Housing Instability: Low Risk (02/03/2025) Housing Instability Housing Instability: No FAMILY HISTORY family history includes Diabetes in his father; Ovarian cancer in his mother. MEDICATIONS Prior to Admission medications Medication Sig Start Date End Date Taking? Authorizing Provider allopurinol (ZYLOPRIM) 100 mg tablet Take 1 tablet (100 mg total) by mouth in the morning. Yes Not In System Ref Prov aspirin 81 mg chewable tablet Chew 1 tablet (81 mg total) and swallow in the morning. 11/29/24 Yes Funmi Biswas MD atorvastatin (LIPITOR) 20 mg tablet Take 1 tablet (20 mg total) by mouth in the morning. Yes Not InSystem Ref Prov clopidogreL (PLAVIX) 75 mg tablet Take 1 tablet (75 mg total) by mouth in the morning. 11/29/24 Yes Funmi Biswas MD cyanocobalamin (vitamin B-12) 100 MCG tablet Take 10 tablets (1,000 mcg total) by mouth in the morning. Yes Not In System Ref Prov docusate sodium (COLACE) 100 mg capsule Take 1 capsule (100 mg total) by mouth in the morning and 1capsule (100 mg total) before bedtime. Yes Not In System Ref Prov doxazosin (CARDURA) 8 mg tablet Take 0.5 tablets (4 mg total) by mouth nightly. Yes Not In System Ref Prov doxycycline (VIBRAMYCIN) 100 mg capsule Take 1 capsule (100 mg total) by mouth in the morning and 1capsule (100 mg total) before bedtime. Yes Not In System Ref Prov finasteride (PROSCAR) 5 mg tablet Take 1 tablet (5 mg total) by mouth in the morning. Yes Not In System Ref Prov folic acid (FOLVITE) 1 mg tablet Take 1 tablet (1 mg total) by mouth in the morning. Yes Not In System Ref Prov insulin glargine (LANTUS) 100 unit/mL injection Inject 0.35 mL (35 Units total) under the skin in the morning. Indications: type 2 diabetes mellitus. Patient taking differently: Inject 0.3 mL (30 Units total) under the skin in the morning. Indications: type 2 diabetes mellitus. 10/28/22 Yes Bibi Francis MD levothyroxine sodium (TIROSINT) 112 mcg capsule Take 1 capsule (112 mcg total) by mouth in the morning. Yes Not In System Ref Prov OZEMPIC 0.25 mg or 0.5 mg(2 mg/1.5 mL) pen injector Inject under the skin once a week. wednesdays Not In System Ref Prov ALLERGIES Penicillins and Lisinopril REVIEW OF SYSTEMS Constitutional: No fevers or chills, no recent weight gain or weight loss or fatigue Eyes: No visual changes or diplopia ENT: No headaches, hearing loss or vertigo Cardiovascular: Per HPI Respiratory: No cough or wheezing, no sputum production, no hematemesis Gastrointestinal: No abdominal pain, no nausea, vomiting, constipation, diarrhea Genitourinary: No dysuria, or hematuria Musculoskeletal: No gait disturbance, weakness or joint complaints Integumentary: No rash or pruritis Neurological: No headache, no prior CVA/TIA Psychiatric: No anxiety, or depression Endocrine: No temperature intolerance Hematologic/Lymphatic: No abnormal bruising or bleeding OBJECTIVE VITAL SIGNS: BP 102/46 Pulse 82 Temp 36.5 ??C (97.7 ??F) (Oral) Resp 18 Ht 172.7 cm (5' 8 ) Wt 59.5 kg (131 lb 1.6 oz) SpO2 100% BMI 19.93 kg/m?? O2 Flow Rate (L/min): 0 L/min ADMIT WEIGHT: 58.1 kg (128 lb) BMI: Body mass index is 19.93 kg/m??. Admission Weight: 58.1 kg (128 lb) PHYSICAL EXAM General appearance: Awake, alert, cooperative Head: Normocephalic, without obvious abnormality, atraumatic Eyes: Conjunctivae/corneas clear, EOMs intact Neck: no adenopathy, no carotid bruit, no JVD, and thyroid: not enlarged Lungs: clear to auscultation bilaterally and no rhonchi or crackles , ' symmetric Heart: regular rate and rhythm, S1, S2 normal, no murmur, click, rub or gallop Abdomen: Soft, non-tender, bowel sounds normal, no organomegaly Extremities: edema decreased pulses bilaterally throughout and bilateral lower extremities wrapped Skin: Skin color, turgor normal, no rashes or lesions Neurologic: Grossly normal CBC: Results from last 7 days Lab Units 02/04/2553002/03/25 0701/28/25 1302 WBC x10E9/L 7.9 9.5 8.5 HEMOGLOBIN g/dL 7.5* 8.2* 8.2* HEMATOCRIT % 22.9* 24.9* 25.7* MCV fL 80 80 81 PLATELETS X10E9/L 283 317 351 BMP: Results from last 7 days Lab Units 02/04/25 0531 02/03/25 0703 01/28/25 1302 SODIUM mmol/L 133* 133* 138 POTASSIUM mmol/L 4.9 4.9 4.5 CHLORIDE mmol/L 102 105 104 CO2 mmol/L 24 22 26 BUN mg/dL 36* 50* 47* CREATININE mg/dL 1.31* 1.67* 1.66* CALCIUM mg/dL 8.5 8.9 9.8 MAGNESIUM mg/dL 1.9 -- -- PT/INR: Results from last 7 days Lab Units 01/28/25 1302 PROTIME sec 13.5* INR 1.2 APTT: MAG: Results from last 7 days Lab Units 02/04/25 0531 MAGNESIUM mg/dL 1.9 D Dimer: Troponin I ProBNP Lipid Panel: No results found for: CHOL , TRIG , HDL , CHOLHDLR CURRENT MEDICATIONS: insulin lispro, 2-10 Units, subcutaneous, With meals and nightly vancomycin, 750 mg, intravenous, Q24H CONTINUOUS INFUSIONS: dextrose 5 % in water, 75 mL/hr, Last Rate: 75 mL/hr (02/04/25 0040) sodium chloride 0.9 %, 75 mL/hr, Last Rate: Stopped (02/03/25 0198) CV HISTORY: ECHO: Echo complete W/ contrast Result Date: 09/30/2024 Left Ventricle: Left ventricle appears normal in size. Wall thickness is normal. Systolic function is normal with an ejection fraction of 55-60%. The quantitative EF by 2D [place] biplane is 58%. No significant valvular stenosis or regurgitation. No obvious valvular vegetations seen on this imagingmodality. STRESS: No results found. HOLTER: No results found. CARDIAC CATH: No results found. CAROTID: No results found. CXR: @CXR24@ EKG: None available prior EKG from September demonstrated anteroseptal infarct pattern TELEMETRY: Normal sinus rhythm ASSEMMENT Preoperative cardiovascular evaluation Abnormal EKG Essential hypertension Preserved LV ejection fraction Right foot osteomyelitis Severe peripheral vascular disease status post angioplasty of an tired lately occluded left anterior tibial artery 11/2024 Essential hypertension Diabetes mellitus type 2 with peripheral neuropathy Chronic kidney disease Anemia of chronic disease Hypothyroidism Debility wheelchair-bound PLAN Patient wheelchair-bound with severe peripheral vascular disease and significant coronary artery disease risk factors. He probably have stable multivessel coronary artery disease however despite his low functional capacity I do not think that stress testing is beneficial perioperatively. He has no symptoms at rest and he is well compensated h he has normal LVEF and no significant valvular disease He has high, non prohibitive cardiac preoperative risk and can proceed without further testing. Continue aspirin, Plavix, and increase Lipitor to 40 mg postoperatively CARLOS SINCLAIR MD This note was completed using a voice nephrologist system. Every effort was made to ensure accuracy. However, inadvertent computerized nephrologist errors may be present. * Diego Daniels DPM - 02/03/2025 9:11 AM EDTAssociated Order(s): IP CONSULT TO PODIATRY Podiatry Consultation Note Admit Date: 02/03/2025 Bed/Room No. @ROOMBEDREFRESH@ Admitting Physician : @ATTENDING@ Code Status :Full Code Hospital Day: LOS: 0 days Patient is currently admitted for treatment of Osteomyelitis of right foot, unspecified type ([facility]) Reason for Consult: Osteomyelitis right foot Requesting Physician: @ATTENDINGREFRESH@ PCP: Alejandrina Rivera MD HPI: The patient is a 80 y.o. male who is admitted for osteomyelitis of the right foot. This patient is well-known to me. I have performed multiple surgeries and amputations on him trying to prevent majorlimb loss. He was scheduled for partial calcanectomy of the right heel this morning. During admission he was noted to be hypoglycemic. He did take his full dose of insulin yesterday when he was supposed to only take half of his dose due to being NPO last night. He was transferred to the emergency department. He is being admitted for further management. 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 ([facility]) 10/24/2022 Added automatically from request for surgery [id number] Chronic kidney disease Chronic osteomyelitis of left foot ([facility]) 09/27/2024 Dental disease Diabetes mellitus type 2, controlled ([facility]) Hyperlipidemia Hypertension MRSA bacteremia 09/28/2024 Osteomyelitis ([facility]) Shortness of breath Skin cancer melanoma Stage 3b chronic kidney disease ([facility]) 09/27/2024 Urinary incontinence Visual impairment Past Surgical History: Past Surgical History: Procedure Laterality Date AMPUTATION METATARSAL AND TOE Left 09/30/2024 Performed by Diego Daniels DPM at [facility] AMPUTATION METATARSAL AND TOE partial Ray Left 10/25/2022 Performed by Diego Daniels DPM at [facility] CIRCUMCISION LENGTHENING TENDON ACHILLES Left 09/30/2024 Performed by Diego Daniels DPM at [facility] Percutaneous angioplasty/stent femoral-popliteal right Right 11/29/2024 Performed by Delfino Lake MD at [facility] SKIN PLASTY TISSUE REARRANGEMENTn toe flap Left 10/25/2022 Performed by Diego Daniels DPM at [facility] TOE SURGERY Left Vascular Invasive 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 Authorizing Provider allopurinol (ZYLOPRIM) 100 mg tablet Take 1 tablet (100 mg total) by mouth in the morning. Not In System Ref Prov aspirin 81 mg chewable tablet Chew 1 tablet (81 mg total) and swallow in the morning. 11/29/24 MD Tulio atorvastatin (LIPITOR) 20 mg tablet Take 1 tablet (20 mg total) by mouth in the morning. Not In System Ref Prov clopidogreL (PLAVIX) 75 mg tablet Take 1 tablet (75 mg total) by mouth in the morning. 11/29/24 Funmi Biswas MD cyanocobalamin (vitamin B-12) 100 MCG tablet Take 10 tablets (1,000 mcg total) by mouth in the morning. Not In System Ref Prov docusate sodium (COLACE) 100 mg capsule Take 1 capsule (100 mg total) by mouth in the morning and 1capsule (100 mg total) before bedtime. Not In System Ref Prov doxazosin (CARDURA) 8 mg tablet Take 0.5 tablets (4 mg total) by mouth nightly. Not In System Ref Prov finasteride (PROSCAR) 5 mg tablet Take 1 tablet (5 mg total) by mouth in the morning. Not In SystemRef Prov folic acid (FOLVITE) 1 mg tablet Take 1 tablet (1 mg total) by mouth in the morning. Not In System Ref Prov insulin glargine (LANTUS) 100 unit/mL injection Inject 0.35 mL (35 Units total) under the skin in the morning. Indications: type 2 diabetes mellitus. Patient taking differently: Inject 0.3 mL (30 Units total) under the skin in the morning. Indications: type 2 diabetes mellitus. 10/28/22 Bibi Francis MD levothyroxine sodium (TIROSINT) 112 mcg capsule Take 1 capsule (112 mcg total) by mouth in the morning. Not In System Ref Prov OZEMPIC 0.25 mg or 0.5 mg(2 mg/1.5 mL) pen injector Inject under the skin once a week. wednesdays Not In System Ref Prov Allergies: Penicillins Lisinopril Social History: Social History Socioeconomic History Marital status: Spouse name: Not on file Number of children: Not on file Years of education: Not on file Highest education level: Not on file Occupational History Not on file Tobacco Use Smoking status: Former Smokeless tobacco: Never Vaping Use Vaping status: Never Used Substance and Sexual Activity Alcohol use: No Drug use: No Sexual activity: Defer Other Topics Concern Caffeine Use No Social History Narrative Not on file Social Drivers of Health Financial Resource Strain: Not on file Food Insecurity: No Food Insecurity (02/03/2025) Hunger Screening Food Insecurity - Worry: Never True Food Insecurity - Inability: Never True Transportation Needs: No Transportation Needs (09/27/2024) PRAPARE - Transportation Lack of Transportation (Medical): No Lack of Transportation (Non-Medical): No Physical Activity: Not on file Stress: Not on file Social Connections: Not on file Interpersonal Safety: Not At Risk (09/27/2024) Humiliation, Afraid, Rape, and Kick questionnaire Fear of Current or Ex-Partner: No Emotionally Abused: No Physically Abused: No Sexually Abused: No Housing Instability: Low Risk (09/27/2024) Housing Instability Housing Instability: No Family History: Family History Problem Relation Age of Onset Ovarian cancer Mother Diabetes Father Review of Systems Constitutional: Positive for activity change. Respiratory: Negative for chest tightness and shortness of breath. Cardiovascular: Positive for leg swelling. Musculoskeletal: Positive for gait problem. Skin: Positive for color change and wound. Neurological: Positive for weakness and numbness. Hematological: Bruises/bleeds easily. Psychiatric/Behavioral: Negative for behavioral problems. Objective: BP 121/56 Pulse 88 Temp 36.4 ??C (97.5 ??F) (Oral) Resp 16 Ht 172.7 cm (5' 8 ) Wt 58.1 kg(128 lb) SpO2 100% BMI 19.46 kg/m?? Intake/Output Summary (Last 24 hours) at 02/03/2025 0912 Last data filed at 02/03/2025 0741 Gross per 24 hour Intake 44.49 ml Output -- Net 44.49 ml Physical Exam Constitutional: Comments: Chronically ill-appearing. HENT: Head: Atraumatic. Cardiovascular: Comments: DP and PT pulses nonpalpable. Pulmonary: Effort: Pulmonary effort is normal. No respiratory distress. Musculoskeletal: Comments: 5th ray amputation left foot with edema and hypertrophy across the midfoot consistent with Charcot neuroarthropathy. Skin: Capillary Refill: Capillary refill takes 2 to 3 seconds. Comments: Right foot: Large ulceration on the posterior calcaneus with exposed bone and Achilles tendon. Bone is probed very easily. Periwound erythema. No purulence. No foul odor. Left foot: Sinus tract over the lateral foot without surrounding cellulitis or purulence. Neurological: Comments: Absent protective sensation bilaterally. Psychiatric: Mood and Affect: Mood normal. Labs: CBC with Differential: Lab Results Component Value Date WBC 9.5 02/03/2025 HGB 8.2 (L) 02/03/2025 HCT 24.9 (L) 02/03/2025 PLT 317 02/03/2025 MCV 80 02/03/2025 MCH 26.3 (L) 02/03/2025 MCHC 33.1 02/03/2025 RDW 18.6 (H) 02/03/2025 RDW 13.7 10/01/2024 H/H: Lab Results Component Value Date HGB 8.2 (L) 02/03/2025 HCT 24.9 (L) 02/03/2025 Last 3 Troponin: No components found for: TROPONINI;3 U/A: Lab Results Component Value Date UROBILINOGEN 0.2 10/22/2022 HgBA1c: Lab Results Component Value Date HGBA1C 8.3 (H) 10/25/2022 Hematology:@[id number](WBC:3,HGB:3,HCT:3,MCV:3,PLT:3)@ Chemistry: Lab Results Component Value Date K 4.9 02/03/2025 CL 105 02/03/2025 CO2 22 02/03/2025 BUN 50 (H) 02/03/2025 CREATININE 1.67 (H) 02/03/2025 CALCIUM 8.9 02/03/2025 ALKPHOS 61 10/01/2024 AST 15 10/01/2024 ALT 19 10/01/2024 No results found for: LABPROT No components found for: LABA1C No components found for: EAG No results found for: TSH Magnesium: Lab Results Component Value Date MG 2.1 10/01/2024 Phosphorus: No results found for: PHOS Ionized Calcium: No results found for: CAION Last 3 Blood Glucose: @LABRCNT(GLUCOSE:3)@ PT/INR: Lab Results Component Value Date PROTIME 13.5 (H) 01/28/2025 PROTIME 11.8 10/21/2022 INR 1.2 01/28/2025 INR 1.0 10/21/2022 PTT: No results found for: APTT , PTT Micro: Microbiology Results No results found for the last 168 hours. Imaging: Vascular Invasive Patent SFA stents with a patent posterior tibial artery with adequate right heel wound blush Recommendations: Continue medical therapy. Recommendations per limb preservation board Assessment Principal Problem: Osteomyelitis of right foot, unspecified type ([facility]) Active Problems: Peripheral vascular disease ([facility]) Hyperlipidemia Diabetic peripheral neuropathy associated with type 2 diabetes mellitus ([facility]) S/P amputation of foot, left ([facility]) Hypertension CKD (chronic kidney disease) stage 4, GFR 15-29 ml/min ([facility]) Hypoglycemia Anemia of chronic disease Plan -patient examined and evaluated. He has known osteomyelitis of the right calcaneus with exposure ofthe Achilles tendon as well. He was scheduled for partial calcanectomy today. I will move his surgery to tomorrow anticipate surgery time 12:00 p.m. for partial calcanectomy and Achilles resection ofthe right lower extremity. He will likely require alf upon discharge as he may require a wound VAC as well. I discussed all of this with patient and his family at bedside today. -he also has a sinus tract on the left foot with known Charcot neuroarthropathy. We will continue wound care efforts on this side.. Appreciate nursing assistance with this. -I will follow-up with him while he remains inpatient. Thank you for allowing me to participate in care of this patient. If you have any questions regarding my plan for this patient please do not hesitate to contact me at [phone]. Diego Daniels DPM 02/03/2025 documented in this encounter Nursing Notes * Nae Najera RN - 02/08/2025 6:16 PM EDT Report called to [place], given to Leigh LEIVA. Updated on discharge time, at 2000 after dose ofVanco. All questions answered. documented in this encounter ED Notes * Jerald Pineda DO - 02/03/2025 6:47 AM EDT Images from the original note were not included. [facility] - EMERGENCY Pt Name: Babar Barriga Birthdate: 1945 Chief Complaint: Chief Complaint Patient presents with Low Blood Sugar - No Symptoms Pt reports to ER today with c/o hypoglycemia. Pt was down in pre-op with plans for surgery today. Pt blood sugar was assessed and read as 50. Pt admits to being NPO overnight but still taking his full dose of insulin. History of Present Illness: 80-year-old male with history of CKD, dental disease, diabetes, hypertension, hypertension, osteomyelitis, shortness of breath, melanoma, urinary incontinence presenting to the emergency department with reports of hypoglycemia. Patient was supposed to have surgery on his right foot for osteomyelitis, reports that he is not ate anything since about 2200 last night. Patient reports that he did takehis long-acting insulin yesterday morning. Patient currently is asymptomatic other than concerns about his right foot. Patient denies any chest pain, shortness of breath, lightheadedness/dizziness, vision/hearing change, or any other symptoms at this time. Past Medical History: Past Medical History: Diagnosis Date Chronic kidney disease Dental disease Diabetes mellitus type 2, controlled ([facility]) Hyperlipidemia Hypertension Osteomyelitis ([facility]) Shortness of breath Skin cancer melanoma Urinary incontinence Visual impairment Past Surgical History: Past Surgical History: Procedure Laterality Date AMPUTATION METATARSAL AND TOE Left 09/30/2024 Performed by Diego Daniels DPM at [facility] AMPUTATION METATARSAL AND TOE partial Ray Left 10/25/2022 Performed by Diego Daniels DPM at [facility] CIRCUMCISION LENGTHENING TENDON ACHILLES Left 09/30/2024 Performed by Diego Daniels DPM at [facility] Percutaneous angioplasty/stent femoral-popliteal right Right 11/29/2024 Performed by Delfino Lake MD at [facility] SKIN PLASTY TISSUE REARRANGEMENTn toe flap Left 10/25/2022 Performed by Diego Daniels DPM at [facility] TOE SURGERY Left Vascular Invasive 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 10/30/2022 Performed by Delfino Lake MD at [facility] Vascular Invasive- lower extremity angiogram with possible intervention with CO2 Right 11/29/2024 Performed by Delfino Lake MD at [facility] Vascular Invasive- Right Lower Extremity Angiogram with possible intervention Right 01/24/2025 Performed by Delfino Lake MD at [facility] Family History: Family History Problem Relation Age of Onset Ovarian cancer Mother Diabetes Father Social History: Social History Socioeconomic History Marital status: Tobacco Use Smoking status: Former Smokeless tobacco: Never Vaping Use Vaping status: Never Used Substance and Sexual Activity Alcohol use: No Drug use: No Sexual activity: Defer Other Topics Concern Caffeine Use No Social Drivers of Health Food Insecurity: No Food Insecurity (02/03/2025) Hunger Screening Food Insecurity - Worry: Never True Food Insecurity - Inability: Never True Transportation Needs: No Transportation Needs (09/27/2024) PRAPARE - Transportation Lack of Transportation (Medical): No Lack of Transportation (Non-Medical): No Interpersonal Safety: Not At Risk (09/27/2024) Humiliation, Afraid, Rape, and Kick questionnaire Fear of Current or Ex-Partner: No Emotionally Abused: No Physically Abused: No Sexually Abused: No Housing Instability: Low Risk (09/27/2024) Housing Instability Housing Instability: No Review of Systems: Review of Systems Physical Exam: ED Triage Vitals Temp Pulse Resp BP SpO2 -- -- -- -- -- Temp src Heart Rate Source Patient Position BP Location FiO2 (%) -- -- -- -- -- Vitals: 02/03/25 0701 BP: 121/56 Temp: 36.4 ??C (97.5 ??F) TempSrc: Oral Pulse: 88 Resp: 16 SpO2: 100% Height: 172.7 cm (5' 8 ) Weight: 58.1 kg (128 lb) Physical Exam Vitals and nursing note reviewed. Constitutional: General: He is not in acute distress. Appearance: Normal appearance. He is well-developed. He is ill-appearing (Chronically ill-appearing). He is not diaphoretic. HENT: Head: Normocephalic and atraumatic. Right Ear: External ear normal. Left Ear: External ear normal. Nose: Nose normal. No nasal deformity or rhinorrhea. Mouth/Throat: Pharynx: Uvula midline. No oropharyngeal exudate. Eyes: General: Lids are normal. No scleral icterus. Right eye: No discharge. Left eye: No discharge. Conjunctiva/sclera: Conjunctivae normal. Pupils: Pupils are equal, round, and reactive to light. Neck: Vascular: No JVD. Trachea: Trachea and phonation normal. No tracheal deviation. Cardiovascular: Rate and Rhythm: Normal rate and regular rhythm. Pulses: Normal pulses. Heart sounds: Normal heart sounds. No murmur heard. Pulmonary: Effort: Pulmonary effort is normal. No respiratory distress. Breath sounds: Normal breath sounds. No wheezing or rales. Chest: Chest wall: No tenderness. Abdominal: General: Bowel sounds are normal. There is no distension. Palpations: Abdomen is soft. There is no mass. Tenderness: There is no abdominal tenderness. There is no guarding. Musculoskeletal: General: No tenderness or deformity. Normal range of motion. Cervical back: Normal range of motion and neck supple. Feet: Right foot: Skin integrity: Skin breakdown and erythema present. Comments: Right foot pain, wrapped. Previous surgeries to left foot with amputations noted. Lymphadenopathy: Cervical: No cervical adenopathy. Skin: General: Skin is warm and dry. Findings: No erythema or rash. Neurological: Mental Status: He is alert and oriented to person, place, and time. Sensory: No sensory deficit. Coordination: Coordination normal. Deep Tendon Reflexes: Reflexes are normal and symmetric. Psychiatric: Speech: Speech normal. Behavior: Behavior normal. Behavior is cooperative. Thought Content: Thought content normal. Judgment: Judgment normal. Procedure: Procedures Re-evaluation: Re-Evaluation Medical Decision Making Problems Addressed: Chronic kidney disease, unspecified CKD stage: chronic illness or injury Hypoglycemia: complicated acute illness or injury Osteomyelitis of right foot, unspecified type ([facility] complicated acute illness or injury with systemic symptoms that poses a threat to life or bodily functions Details: 80-year-old male presenting to the emergency department with reports of hypoglycemia. Patient was supposed to have his surgery performed on his right foot for osteomyelitis, had to be canceled due to hypoglycemia. Patient reports that he took his long-acting insulin yesterday morning, did not eat after 2200 last night. Monitor shows sinus rhythm 80 beats per minute, respirations 16, [id number] on room air. Patient's white count is 9.5, CRP is 4.7. Sodium is 133. Potassium 4.9. BUN and creatinine show elevation of BUN at 50, creatinine 1.67. Patient's hemoglobin is chronically low at 8.2 normocytic anemia likely secondary to chronic kidney disease. Patient was started on cefepime andvanco for coverage of osteomyelitis. Patient was given food and blood sugar improved from 50s to 90. 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 Amount and/or Complexity of Data Reviewed Independent Historian: Details: Son at bedside External Data Reviewed: notes. Details: 01/25/2025 office visit podiatry ulcer of right heel and midfoot with necrosis of bone 01/24/2025 admission peripheral vascular disease 01/18/2025 office visit vascular surgery arthrosclerosis of belkofski artery of right lower extremity Labs: ordered. Decision-making details documented in ED Course. Details: See MDM Risk OTC drugs. Prescription drug management. Decision regarding hospitalization. ED Course: ED Course as of 02/03/25 0745 Darlene Feb 03, 2025 0733 Hemoglobin(!): 8.2 Chronic normocytic anemia, previous 8.2 [JW] 0740 Glucose: 92 [JW] ED Course User Index [JW] Jerald Pineda DO Clinical Impressions as of 02/03/25 0745 Osteomyelitis of right foot, unspecified type ([facility]) Hypoglycemia Chronic kidney disease, unspecified CKD stage . ED Disposition ED Disposition Admit Date/Time [facility] Feb 03, 2025 7:43 AM Comment At this time, the patient has objective evidence of an acute process that will likely require hospitalization for greater than 2 midnights. The patient will be admitted. . Please note that portions of this note were completed with a voice recognition program. Efforts were made to edit the dictations but occasionally words are mis-transcribed. Jerald Pineda DO 02/03/25 0746 documented in this encounter Miscellaneous Notes * Discharge Planning Note - My Varela RN - 02/08/2025 3:13 PM EDT DISCHARGE PLANNING NOTE Preadmission Screening & Resident Review (PASSR) PASSR completed via the [employer] Electronic Notification System) [employer] 2070 (short form) completed and submitted? yes Is a Level II Evaluation required? no SNF [facility]SR completion. yes CRF sent via [employer] yes Daughter is transporting patient (per private vehicle) after 2000 dose of IV Vancomycin. Claudia at [facility] notified via telephone. Picc line is to be placed around approximately 1615 per Ad Najera RN. Discharge Plan: Discharge to alf care at [facility] (accepted), and insurance authorization is received. Plan of Care: [facility] (SNF) [phone] Fax CRF at Discharge - My Varela RN 02/08/25 3:14 PM * PT/OT/RN IMMUNOLOGY - Mary Caro PT - 02/08/2025 11:40 AM EDT Physical Therapy Treatment Discharge Recommendations for Safe Patient Transition OT Discharge Disposition Recommendation: Post acute - moderate OT Post Acute Moderate Rehab Needs: Recommend moderate intensity rehab, Tolerate 1-2 hrs of therapy3-5 days/wk, Subacute or chronic functional impairment Current Impairments Informing Therapy Recommendation: Ambulation status/safety, Fall risk, ADL status, Endurance level Book Retailer Support for-: Mobility Deficits, ADL Deficits 6 Clicks: Basic Mobility Turning from your back to your side while in a flat bed without using bed rails?: A little Moving from lying on your back to sitting on side of flat bed without using bed rails?: A little Moving to and from bed to a chair (including w/c)?: A little Standing up from a chair using your arms (e.g. w/c or bedside chair)?: A little To walk in hospital room?: A lot Climbing 3-5 steps with a railing?: A lot Scoring 6 Clicks: Basic Mobility Raw Score: 16 CMS G Code Modifier: CK Therapy Plan Need for skilled Physical Therapy to address deficits in functional mobility due to a status decline resulting from osteomyelitis R foot; s/p R calcanectomy, wound vac. PT Treatment/Interventions: ADL retraining, Bed mobility, Functional transfer training, Functional activities, Gait training, Patient/family training, Equipment eval/education, Balance, LE strengthening/ROM PT Frequency: 5-6days/week PT Duration: 2 weeks Assessment Patient Assessment Therapy Problem List: Decreased LE strength, Decreased mobility, Decreased balance, Decreased self-care trans, Decreased ADL status, Decreased endurance, Decreased high-level ADLs, Decreased safe judgement during ADL, Decreased UE strength Patient Response to Treatment: Slow progress, medical status limitations Mood/Affect: Appropriate for circumstances Rehab Prognosis: Good, With continued PT status post acute discharge Visit RN Communication: Yes Medical Record Reviewed: Yes PT Type of Visit: Treatment Precautions Activity: early mobility pass, OK to treat per Nae LEIVA Equipment: nonskid sock, gait belt, walker, wheelchair, wound vac, off loading boots on bilteral LE Weight Bearing Status: NWB R LE Telemetry/Wire Brush Maker: No Other: fall risk, Bilteral LE wounds satus post partial calcanectomy with Achilles resection right lower extremity. Subjective Physical Therapy Comments: Pt asleep upon arrival to room. Woke easily and is agreeable to PT treatment but does not want to get up to wheelchair at this time. Pain Assessment Pain Assessment: No/denies pain Hearing / Speech / Vision Hearing: Within Functional Limits Speech: Within Functional Limits Current Vision: Wears glasses only for reading Cognition Orientation Level: Oriented X4 Bed Mobility Supine to Sit: Stand by assist Sit to Supine: Stand by assist Transfers Sit to Stand: Unable to assess (pt requests to not get OOB at this time) 02/08/25 1111 LE Supine LE supine exercises performed? No Gluteal sets 10x seated LE Seated LE seated exercises performed? Yes Ankle pumps x10 Long arc quads x20 Seated marching x20 Hip abduction/adduction x20 (pillow squeeze 3 hold) Other Pt completed BLE exercises seated at edge of bed for LE ROM and strengthening to increase ease with transfers. Balance Sitting Balance: Static: Good Sitting Balance: Dynamic: Good Activity Tolerance Endurance: Tolerates <30 minutes activity WITHOUT vital sign changes Plan Physical Therapy Care Plan Physical Therapy Care Plan (Active) Template: PT - Physical Therapy Problem: Bed Mobility Dates: Start: 02/05/25 Disciplines: PT Goal: Patient will perform bed mobility with Stand By Assist Dates: Start: 02/05/25 Expected End: 02/19/25 Disciplines: PT Outcomes Date/Time User Outcome 02/08/25 1137 Mary Caro, PT Progressing 02/07/25 1436 Latanya Aparicio, PT Progressing 02/06/25 0902 Tanisha Olmos, PT Progressing Goal Note filed on 02/08/25 1137 by Mary Caro, PT Evaluation of progress towards goal: SBA sup <>sit Problem: Gait Dates: Start: 02/05/25 Disciplines: PT Goal: Patient will perform gait with Minimum Assist Dates: Start: 02/05/25 Expected End: 02/19/25 Description: With use of walker and keeping NWB R LE for 5-10 feet safely on level surfaces Disciplines: PT Outcomes Date/Time User Outcome 02/06/25 0902 Tanisha Olmos, PT Progressing Goal Note filed on 02/06/25 09 by Tanisha Olmos, PT Evaluation of progress towards goal: pt was able to ambulate 3 steps keeping NWB R LE with walker to get to his wheelchair. Problem: Standing Balance Dates: Start: 02/05/25 Disciplines: PT Goal: Other sitting and standing balance goal (customize) Dates: Start: 02/05/25 Expected End: 02/19/25 Description: Goal Description:improve standing balance to fair plus for safety with transfers Disciplines: PT Problem: Strength Dates: Start: 02/05/25 Disciplines: PT Goal: Improve strength Dates: Start: 02/05/25 Expected End: 02/19/25 Description: Of extremity/ location:Improve strength to fair plus for safety of transfers Disciplines: PT Outcomes Date/Time User Outcome 02/08/25 1137 Mary Caro, PT Progressing Goal Note filed on 02/08/25 1137 by Mary Caro PT Evaluation of progress towards goal: Pt was able to increase repetitions of LE seated exercises forstrengthening Problem: Transfers Dates: Start: 02/05/25 Disciplines: PT Goal: Patient will perform transfers with Contact Guard Dates: Start: 02/05/25 Expected End: 02/19/25 Disciplines: PT Outcomes Date/Time User Outcome 02/07/25 1436 Latanya Aparicio, PT Progressing 02/06/25 0902 Tanisha Olmos, SAMMIE Progressing Goal Note filed on 02/07/25 1436 by Latanya Aparicio PT Evaluation of progress towards goal: MIN/CGA with use of RW. Physical Therapy Care Plan (Resolved) There are no resolved problems. Principal Problem: Osteomyelitis of right foot, unspecified type ([facility]) Active Problems: Peripheral vascular disease ([facility]) Hyperlipidemia Diabetic peripheral neuropathy associated with type 2 diabetes mellitus ([facility]) S/P amputation of foot, left ([facility]) Hypertension CKD (chronic kidney disease) stage 4, GFR 15-29 ml/min ([facility]) Hypoglycemia Anemia of chronic disease Hypothyroidism Iron deficiency anemia * Plan of Care - Nae Najera RN - 02/08/2025 10:02 AM EDT Problem: Knowledge Deficit Goal: Patient/patient in store representative demonstrates understanding of disease process, treatment plan,medications, and discharge instructions Description: INTERVENTIONS 1. Complete learning assessment and assess knowledge base 2. Provide teaching at level of understanding 3. Provide teaching via preferred learning method(s) Outcome: Progressing Note: Evaluation of progress towards goal: pt educated on the treatment plan, will continue to update pt prn. All questions answered at this time. * Telehealth Note - Jonh Cline MD - 02/08/2025 9:04 AM EDT Images from the original note were not included. Tele-Infectious DiseaseTelemedicine Consult Note Consent Statement: I discussed risks, benefits, and alternatives of a real-time synchronous audiovisual consultation with the patient (and any accompanying persons) including the risks that the patient's personal health details and medical records will be discussed over real-time, synchronous, interactive video/audio/telecommunication technology, the visit will not be recorded without the express consent of both the provider and the patient, and that there are some limitations compared to [id number] evaluations. We elected to proceed. [facility] Infectious Diseases - Progress Note [facility] - TeleMedicine During Business Hours: Please use N(i)² for communication. 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 Chronic infection confirmed by destructive lytic changes on imaging. The patient is status post partial calcanectomy and Achilles tendon resection on 02/04/2025. Bone biopsy cultures from 02/04/2025 grew both MRSA and Pseudomonas aeruginosa. Ivonne sol is currently receiving intravenous vancomycin with goal trough 15-20 mcg/mL for MRSA coverage. End of therapy is March 18, 2025. Given susceptibility results, Pseudomonas can be treated with oral ciprofloxacin 750 mg PO every 12hours for six weeks has been added for dual therapy with vancomycin to ensure adequate coverage. End of therapy is March 22, 2025. Monitor BMP and vancomycin trough as an outpatient. 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 Chronic ulceration previously associated with Charcot deformity, now healed. Ongoing offloading and preventive measures are necessary to reduce risk of recurrence. Type 2 diabetes mellitus. Glycemic control will be optimized in coordination with the primary team to support surgical recovery and reduce risk of further complications. Subjective Interval History:: Feels well. No fevers or chills. No nausea or vomiting. No chest pain or shortness of breath. No headache. No pain. Objective Physical Examination : BP 108/54 Pulse 82 Temp 37.4 ??C (99.3 ??F) (Oral) Resp 17 Ht 172.7 cm (5' 8 ) Wt 64.5 kg(142 lb 4.8 oz) SpO2 100% BMI 21.64 kg/m?? Temperature Range: Temp: 37.4 ??C (99.3 ??F) Temp Av.8 ??C (98.3 ??F) Min: 36.6 ??C (97.9 ??F)Max: 37.4 ??C (99.3 ??F) Visit was conducted via the [employer] of [employer]. My impressions are as follows: Constitutional: Awake, alert, and in no apparent distress. Eyes: Sclera anicteric, conjunctivae pink. ENT/Mouth: hearing is appropriate. No hearing aids. Neck: no limitations to range in motion. No bounding pulsations. Skin: no new bruises, rashes, lacerations, psoriasis plaques, or swelling. Neurologic: no pronator drift. No tremor. Psychiatric: Appropriate affect, alert and oriented to person, place and time. Laboratory data: I have independently reviewed the following labs: Results from last 7 days Lab Units 02/08/25 1242 02/08/25 0544 02/07/25 1850 02/07/25 1315 02/07/25 0431 02/06/25 2045 02/06/25 0709 WBC x10E9/L -- 10.6 -- -- 8.8 -- 10.0 HEMOGLOBIN g/dL 8.0* 8.8* 8.1* < > 7.0* < > 7.3* HEMATOCRIT % 24.2* 26.2* 24.9* < > 21.3* < > 22.2* MCV fL -- 80 -- -- 79* -- 80 PLATELETS X10E9/L -- 250 -- -- 232 -- 250 NEUTROS ABS 10*3/uL -- 7.3* -- -- 6.2 -- 6.8* LYMPHS ABS AUTO 10*3/uL -- 2.4 -- -- 1.6 -- 2.3 MONOS ABS AUTO 10*3/uL -- 0.7 -- -- 0.8 -- 0.8 EOS ABS AUTO 10*3/uL -- 0.1 -- -- 0.1 -- 0.1 BASOS ABS AUTO 10*3/uL -- 0.0 -- -- 0.1 -- 0.1 < > = values in this interval not displayed. Results from last 7 days Lab Units 02/08/25 0544 02/07/25 0431 02/06/25 0708 SODIUM mmol/L 135 134 133* POTASSIUM mmol/L 4.5 4.4 4.8 CHLORIDE mmol/L 104 104 105 CO2 mmol/L 25 24 25 BUN mg/dL 33* 37* 37* CREATININE mg/dL 1.16 1.31* 1.27* CALCIUM mg/dL 8.8 8.5 8.3* ALBUMIN g/dL 2.4* 2.1* 2.3* ALK PHOS U/L 78 69 74 ALT U/L 16 13 12 AST U/L 17 13 15 Results from last 7 days Lab Units 02/06/25 1326 02/03/25 0703 SED RATE mm/h -- 94* CRP mg/dL -- 4.7* FERRITIN ng/mL 204 -- Results from last 7 days Lab Units 02/03/25 0703 HEMOGLOBIN A1C % 6.2* Cultures: Microbiology Results Procedure Component Value Units Date/Time Anaerobic culture [[id number]] Collected: 02/04/251314 Specimen: Bone from Foot, Right Updated: 02/08/25 0818 CULTURE RESULTS NO ANAEROBES ISOLATED AT 48 HOURS Bone culture [[id number]] (Abnormal) (Susceptibility) Collected: 02/04/251314 Specimen: Bone from Foot, Right Updated: 02/08/25 1202 CULTURE RESULTS Pseudomonas aeruginosa Methicillin-Resistant Staphylococcus aureus Susceptibility Pseudomonas aeruginosa Not Specified Cefepime 2.0 Susceptible Ciprofloxacin =0.25 Susceptible Levofloxacin 1.0 Susceptible Meropenem <=0.25 Susceptible PIPERACIL/TAZOBACTAM 8.0 Susceptible Tobramycin <=1.0 Susceptible Susceptibility Methicillin-Resistant Staphylococcus aureus Not Specified Cefazolin Resistant (deduced) Clindamycin 0.25 Susceptible [1] Daptomycin 0.5 Susceptible Doxycycline 4.0 Susceptible Oxacillin >=4.0 Resistant Trimethoprim + Sulfamethoxazole <=0.5 Susceptible Vancomycin <=0.5 Susceptible [1] Inducible resistance to Clindamycin NOT detected Blood culture #1 [[id number]] Collected: 02/03/252024 Specimen: Blood, Venous Updated: 02/08/25301 CULTURE RESULTS NO GROWTH 4 DAYS Blood culture #2 [[id number]] Collected: 02/03/252024 Specimen: Blood, Venous Updated: 02/08/25301 CULTURE RESULTS NO GROWTH 4 DAYS Medications: allopurinoL, 100 mg, oral, Daily aspirin, 81 mg, oral, Daily atorvastatin, 20 mg, oral, Daily ciprofloxacin HCl, 750 mg, oral, Q12H REILLY clopidogreL, 75 mg, oral, Daily docusate sodium, 100 mg, oral, BID finasteride, 5 mg, oral, Daily insulin glargine, 10 Units, subcutaneous, BID insulin lispro, 2-10 Units, subcutaneous, With meals and nightly iron sucrose, 200 mg, intravenous, Every Other Day levothyroxine, 112 mcg, oral, Daily terazosin, 5 mg, oral, Nightly vancomycin, 1,000 mg, intravenous, Q36H Thank you for allowing us to participate in the care of this patient. Please call with questions. Jonh Cline MD, MPH, FACP, FIDSA During Business Hours: Please use N(i)² for communication. Pager (After Hours): General ID Clinic: Musculoskeletal ID Clinic: * PT/OT/RN IMMUNOLOGY - MARINA Sifuentes/Farhat - 02/08/2025 8:49 AM EDT Occupational Therapy Treatment Discharge Recommendations for Safe Patient Transition OT Discharge Disposition Recommendation: Post acute - moderate OT Post Acute Moderate Rehab Needs: Recommend moderate intensity rehab, Tolerate 1-2 hrs of therapy3-5 days/wk, Subacute or chronic functional impairment Current Impairments Informing Therapy Recommendation: Ambulation status/safety, Cognition, Fall risk, Endurance level Book Retailer Support for-: Mobility Deficits, ADL Deficits 6 Clicks: Daily Activity Putting on and taking off regular lower body clothing?: A lot Bathing (including washing, rinsing, drying)?: A lot Toileting, which includes using toilet, bedpan or urinal?: A lot Putting on and taking off regular upper body clothing?: A little Taking care of personal grooming such as brushing teeth?: A little Eating meals?: None Scoring Daily Activity Raw Score: 16 CMS G Code Modifier: CK Therapy Plan Need for skilled Occupational Therapy to address deficits in ADL independence and functional mobility due to a status decline resulting from rom osteomyelitis of R foot status post partial calcanectomy with Achilles resection right lower extremity . OT Treatment/Interventions: ADL retraining, Functional transfer training, UE strengthening/ROM, Endurance training, Patient/family training, Equipment eval/education, Balance, Home management, Compensatory technique education, Functional activities OT Frequency: 4-5days/week OT Duration: 10 days Assessment Patient Assessment Therapy Problem List: Decreased LE strength, Decreased mobility, Decreased balance, Decreased self-care trans, Decreased ADL status, Decreased endurance, Decreased high-level ADLs, Decreased safe judgement during ADL, Decreased UE strength Patient Response to Treatment: Slow progress, medical status limitations Mood/Affect: Appropriate for circumstances Rehab Prognosis: Good, With continued OT status post acute discharge Visit RN Communication: Yes Medical Record Reviewed: Yes OT Type of Visit: Treatment Precautions Activity: early mobility pass, OK to treat per Nae LEIVA Equipment: nonskid sock, gait belt, walker, wheelchair, wound vac, off loading boots on bilteral LE Weight Bearing Status: NWB R LE Telemetry/Wire Brush Maker: No Oxygen Used: room air Other: fall risk, Bilteral LE wounds satus post partial calcanectomy with Achilles resection right lower extremity. Subjective Occupational Therapy Comments: I am afarid to fall on this foot ( R foot), I don't want to get up Pain Assessment Pain Assessment: No/denies pain (reports that he recieved meds prior to arrival , does not rate) ADL / IADL Other: attempted to have patient to transfer to wheelchair to sit at sink in bathroom and complete sponge bath from wheelchair level. pt refuses reports that he is afarid to fall, ed provided on safety, stand pivot transfers, imoprtance of OOB. patient contnues to decline and requests sponge bath to completed at bed level. patient completes upper body sponge bath while long sitting in bed with SBA/setup, assist to wash back . min assist to clean don/dof gown. completes oral care with mouth washonly and SBA while long sitting in bed. pt declines further ADLs Home Management - IADL Other: attempted to have patient to transfer to wheelchair to sit at sink in bathroom and complete sponge bath from wheelchair level. pt refuses reports that he is afarid to fall, ed provided on safety, stand pivot transfers, imoprtance of OOB. patient contnues to decline and requests sponge bath to completed at bed level. patient completes upper body sponge bath while long sitting in bed with SBA/setup, assist to wash back . min assist to clean don/dof gown. completes oral care with mouth washonly and SBA while long sitting in bed. pt declines further ADLs Hearing / Speech / Vision Hearing: Within Functional Limits Speech: Within Functional Limits Current Vision: Wears glasses only for reading Cognition Orientation Level: Oriented X4 Bed Mobility Other: refuses OOB. long sitting in bed during ADL tasks supervision/ independent to achieve several times during session Transfers Sit to Stand: Unable to assess (refuses OOB) Balance Sitting Balance: Static: Good Sitting Balance: Dynamic: Good Activity Tolerance Endurance: Tolerates <30 minutes activity WITHOUT vital sign changes Plan Occupational Therapy Care Plan Occupational Therapy Care Plan (Active) Template: OT - Occupational Therapy Problem: Activity Tolerance Dates: Start: 02/07/25 Disciplines: OT Goal: Tolerate > 30 minutes of activity WITH rest breaks Dates: Start: 02/07/25 Expected End: 02/16/25 Description: Goal Description:patient to engage in activities of choice with out changes in vitals in order to promote return to prior level of function Disciplines: OT Outcomes Date/Time User Outcome 02/08/25847 Patrica Dunn OTR/L Not Progressing Goal Note filed on 02/08/25847 by Patrica Dunn OTR/L Evaluation of progress towards goal: refuses OOB Problem: Other (Customize) Dates: Start: 02/07/25 Disciplines: OT Goal: Improve Dates: Start: 02/07/25 Expected End: 02/16/25 Description: Goal Description:Patient to increase IND in ADls to supervision while adhering to WB status including toileting tasks in order to promote return to prior level of function Disciplines: OT Outcomes Date/Time User Outcome 02/08/25847 MARINA Sifuentes/Farhat Progressing Goal Note filed on 02/08/25847 by Patrica Dunn OTR/Farhat Evaluation of progress towards goal: refer to flow sheet Problem: Standing Balance Dates: Start: 02/07/25 Disciplines: OT Goal: Improve balance to good Dates: Start: 02/07/25 Expected End: 02/16/25 Description: Patient to increase standing balance to good in order to increase IND in ADLS and lower body dressing tasks Disciplines: OT Outcomes Date/Time User Outcome 02/08/25847 MARINA Sifuentes/Farhat Not Progressing Goal Note filed on 02/08/25847 by Patrica Dunn OTR/Farhat Evaluation of progress towards goal: refuses OOB Problem: Strength Dates: Start: 02/07/25 Disciplines: OT Goal: Improve strength Dates: Start: 02/07/25 Expected End: 02/16/25 Description: Of extremity/ location:pt to increase BUE strength to 4+/5 to assist with increased independence in ADL tasks and to assist with WB status To facilitate: Disciplines: OT Occupational Therapy Care Plan (Resolved) There are no resolved problems. Principal Problem: Osteomyelitis of right foot, unspecified type ([facility]) Active Problems: Peripheral vascular disease ([facility]) Hyperlipidemia Diabetic peripheral neuropathy associated with type 2 diabetes mellitus ([facility]) S/P amputation of foot, left ([facility]) Hypertension CKD (chronic kidney disease) stage 4, GFR 15-29 ml/min ([facility]) Hypoglycemia Anemia of chronic disease Hypothyroidism Iron deficiency anemia * Plan of Care - Mercedes Vieyra RN - 02/07/2025 8:20 PM EDT Problem: Pain Goal: Patient goal is pain score less than 4, able to rest, and participant in treatment plan as appropriate Description: INTERVENTIONS: 1. Encourage patient or legal in store representative to report early pain and ask for pain medicine when needed 2. Assess pain using appropriate pain scale and include the scale used when documenting 3. Administer analgesics based on type and severity of pain and evaluate response within appropriate time frame 4. Implement non-pharmacological measures as appropriate and evaluate response 5. Consider cultural and social influences on pain and pain management 6. Notify LIP if interventions ineffective or patient reports new pain 7. Monitor vital signs including pulse ox, end-tidal CO2 based on pain intervention 8. Reassess pain per policy 9. Teach patient or legal in store representative interventions for comforting Outcome: Progressing Note: Evaluation of progress towards goal: meds as needed, position for comfort Problem: Infection Goal: Absence of infection during hospitalization Description: INTERVENTIONS 1. Assess and monitor for signs and symptoms of infection. 2. Monitor lab/diagnostic results. 3. Monitor all insertion sites i.e., indwelling lines, tubes and drains. 4. Monitor endotracheal (as able) and nasal secretions for changes in amount and color. 5. Administer medications as ordered. 6. Instruct and encourage patient and family to use good hand hygiene technique. 7. Identify and instruct patient/patient in store representative in use of appropriate isolation precautionsfor identified infection/symptoms. 8. Provide and discuss with patient/patient in store representative on educational MDRO sheet. 9. Encourage and monitor nutritional status daily and consult naval engineer if indicated. 10. Implement neutropenic guidelines as needed. Outcome: Progressing Note: Evaluation of progress towards goal: monitor labs and vitals atb as ordered Problem: Discharge Planning Goal: Discharge to post-acute care, other facility, or home with appropriate resources Description: Patient's goal is: INTERVENTIONS 1. Conduct assessment to determine patient/family and health care team treatment goals, and need for post-acute services based on payer coverage, community resources, and patient preferences, and barriers to discharge 2. Coordinate with Social work, Care Navigation, and Utilization Review to arrange appropriate level of services according to patient's needs based on patient preference and payer coverage in collaboration with the physician and health care team 3. Address psychosocial, clinical, and financial barriers to discharge as identified in assessment in conjunction with the patient/family and health care team 4. Consult appropriate ancillary services (i.e.. PT/OT/ST, etc) as needed 5. Communicate with and update the patient/family, physician, and health care team regarding progress on the discharge plan 6. Identify discharge learning needs (meds, wound care, etc). 7. Arrange for needed discharge transportation as appropriate Outcome: Progressing Note: Evaluation of progress towards goal: plan to d/c to snf when accepted * Telehealth Note - Jonh Cline MD - 02/07/2025 12:19 PM EDT Tele-Infectious DiseaseTelemedicine Consult Note Consent Statement: I discussed risks, benefits, and alternatives of a real-time synchronous audiovisual consultation with the patient (and any accompanying persons) including the risks that the patient's personal health details and medical records will be discussed over real-time, synchronous, interactive video/audio/telecommunication technology, the visit will not be recorded without the express consent of both the provider and the patient, and that there are some limitations compared to [id number] evaluations. We elected to proceed. [facility] Infectious Diseases - Progress Note [facility] - TeleMedicine During Business Hours: Please use N(i)² for communication. 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 Chronic infection confirmed by radiographic destructive lytic changes. The patient is status post partial calcanectomy and Achilles tendon resection on 02/04/2025. Prior bone cultures from the left foot in September grew MRSA and Enterococcus faecalis, both susceptible to vancomycin, and while those cultures were from the contralateral side, these pathogens remain potential culprits in the current infection. He is receiving vancomycin with goal trough 15-20 mcg/mL. Bone biopsy cultures from 02/04/2025 are in progress and will guide definitive therapy. Blood cultures remain negative. Wound VAC is intact with adequate seal; right foot dressing should remain clean, dry, and intact. He is to remain strictly nonweightbearing on the right lower extremity, and nursing assistance with dressing changes is appreciated. Left foot sinus tract in the setting of Charcot neuroarthropathy. Chronic ulceration related to underlying deformity, with prior cultures yielding MRSA and Enterococcus faecalis. The site is overall healed with only a small draining spot at present. Continued monitoring and offloading with use of the Prevalon boot on the left lower extremity while in bed are recommended. Type 2 diabetes mellitus. Remains a major risk factor for recurrent infection and impaired wound healing. Glycemic optimization is critical to support postoperative recovery and reduce complications. Chronic kidney disease. Patient is at increased risk for nephrotoxicity with vancomycin therapy. Renal function will be monitored closely, with vancomycin dosing adjusted to maintain therapeutic trough levels while minimizing toxicity. Subjective Interval History:: Doing well overall. No fevers or chills. No nausea or vomiting. No chest pain or shortness of breath. Objective Physical Examination : BP 95/46 Pulse 98 Temp 36.8 ??C (98.2 ??F) Resp 18 Ht 172.7 cm (5' 8 ) Wt 60.3 kg (133 lb) SpO2 98% BMI 20.22 kg/m?? Temperature Range: Temp: 36.8 ??C (98.2 ??F) Temp Av.9 ??C (98.4 ??F) Min: 36.7 ??C (98 ??F) Max: 37.3 ??C (99.2 ??F) Visit was conducted via the [employer] of [employer]. My impressions are as follows: Constitutional: Awake, alert, and in no apparent distress. Eyes: Sclera anicteric, conjunctivae pink. ENT/Mouth: hearing is appropriate. No hearing aids. Neck: no limitations to range in motion. No bounding pulsations. Skin: no new bruises, rashes, lacerations, psoriasis plaques, or swelling. Neurologic: no pronator drift. No tremor. Psychiatric: Appropriate affect, alert and oriented to person, place and time. Laboratory data: I have independently reviewed the following labs: Results from last 7 days Lab Units 02/07/25 0431 02/06/25 2045 02/06/25 0709 02/05/25 0524 WBC x10E9/L 8.8 -- 10.0 11.3* HEMOGLOBIN g/dL 7.0* 7.4* 7.3* 7.7* HEMATOCRIT % 21.3* 22.4* 22.2* 24.1* MCV fL 79* -- 80 80 PLATELETS X10E9/L 232 -- 250 295 NEUTROS ABS 10*3/uL 6.2 -- 6.8* 8.1* LYMPHS ABS AUTO 10*3/uL 1.6 -- 2.3 2.3 MONOS ABS AUTO 10*3/uL 0.8 -- 0.8 0.8 EOS ABS AUTO 10*3/uL 0.1 -- 0.1 0.1 BASOS ABS AUTO 10*3/uL 0.1 -- 0.1 0.0 Results from last 7 days Lab Units 02/07/25 0431 02/06/25 0708 02/05/25 0524 SODIUM mmol/L 134 133* 135 POTASSIUM mmol/L 4.4 4.8 5.0 CHLORIDE mmol/L 104 105 103 CO2 mmol/L 24 25 BUN mg/dL 37* 37* 38* CREATININE mg/dL 1.31* 1.27* 1.56* CALCIUM mg/dL 8.5 8.3* 8.6 ALBUMIN g/dL 2.1* 2.3* 2.3* ALK PHOS U/L 69 74 85 ALT U/L 13 12 15 AST U/L 13 15 15 Results from last 7 days Lab Units 02/06/25 1326 02/03/25 0703 SED RATE mm/h -- 94* CRP mg/dL -- 4.7* FERRITIN ng/mL 204 -- Results from last 7 days Lab Units 02/03/25 0703 HEMOGLOBIN A1C % 6.2* Cultures: Microbiology Results Procedure Component Value Units Date/Time Anaerobic culture [[id number]] Collected: 02/04/251314 Specimen: Bone from Foot, Right Updated: 02/05/25 1412 CULTURE RESULTS Culture in progress Bone culture [[id number]] Collected: 02/04/251314 Specimen: Bone from Foot, Right Updated: 02/07/25 0954 CULTURE RESULTS Culture in progress Blood culture #1 [[id number]] Collected: 02/03/252024 Specimen: Blood, Venous Updated: 02/07/25 030 CULTURE RESULTS NO GROWTH 3 DAYS Blood culture #2 [[id number]] Collected: 02/03/252024 Specimen: Blood, Venous Updated: 02/07/25300 CULTURE RESULTS NO GROWTH 3 DAYS Medications: allopurinoL, 100 mg, oral, Daily aspirin, 81 mg, oral, Daily atorvastatin, 20 mg, oral, Daily clopidogreL, 75 mg, oral, Daily docusate sodium, 100 mg, oral, BID finasteride, 5 mg, oral, Daily insulin glargine, 15 Units, subcutaneous, BID insulin lispro, 2-10 Units, subcutaneous, With meals and nightly iron sucrose, 200 mg, intravenous, Every Other Day levothyroxine, 112 mcg, oral, Daily terazosin, 5 mg, oral, Nightly vancomycin, 1,000 mg, intravenous, Q36H Thank you for allowing us to participate in the care of this patient. Please call with questions. Jonh Cline MD, MPH, FACP, FIDSA During Business Hours: Please use N(i)² for communication. Pager (After Hours): General ID Clinic: Musculoskeletal ID Clinic: * PT/OT/RN IMMUNOLOGY - Latanya Apraicio, PT - 02/07/2025 11:31 AM EDT Physical Therapy Evaluation Discharge Recommendations for Safe Patient Transition PT Discharge Disposition Recommendation: Post acute - moderate PT Post Acute Moderate Rehab Needs: Recommend moderate intensity rehab, Tolerate 1-2 hrs of therapy3-5 days/wk, Subacute or chronic functional impairment Current Impairments Informing Therapy Recommendation: Ambulation status/safety, Fall risk, ADL status, Endurance level Book Retailer Support for-: Mobility Deficits, ADL Deficits 6 Clicks: Basic Mobility Turning from your back to your side while in a flat bed without using bed rails?: A little Moving from lying on your back to sitting on side of flat bed without using bed rails?: A little Moving to and from bed to a chair (including w/c)?: A little Standing up from a chair using your arms (e.g. w/c or bedside chair)?: A little To walk in hospital room?: A lot Climbing 3-5 steps with a railing?: A lot Scoring 6 Clicks: Basic Mobility Raw Score: 16 CMS G Code Modifier: CK Therapy Plan Need for skilled Physical Therapy to address deficits in functional mobility due to a status decline resulting from osteomyelitis of R. Foot requiring calcanectomy. NWB R. LE. Wound vac. PT Treatment/Interventions: ADL retraining, Bed mobility, Functional transfer training, Functional activities, Gait training, Patient/family training, Equipment eval/education, Balance, LE strengthening/ROM PT Frequency: 5-6days/week PT Duration: 2 weeks Assessment Patient Assessment Therapy Problem List: Decreased LE strength, Decreased mobility, Decreased balance, Decreased self-care trans, Decreased ADL status, Decreased endurance, Decreased high-level ADLs, Decreased safe judgement during ADL, Decreased UE strength Patient Response to Treatment: Slow progress, medical status limitations Mood/Affect: Appropriate for circumstances Rehab Prognosis: Good, With continued PT status post acute discharge, 24 hour supervision recommended Visit RN Communication: Yes Medical Record Reviewed: Yes PT Type of Visit: Evaluation Precautions Activity: early mobility pass, OK to eval per Lila LEIVA Equipment: nonskid sock, gait belt, walker, wheelchair, wound vac, off loading boots on bilteral LE Weight Bearing Status: NWB R LE Telemetry/Wire Brush Maker: No Oxygen Used: room air Other: fall risk, Bilteral LE wounds satus post partial calcanectomy with Achilles resection right lower extremity. Subjective Physical Therapy Comments: I'm doing pretty well. I guess the plan os for me to go to the [facility] for 20 more days. Pain Assessment Pain Assessment: 0-10 Pain Score: 4 Pain Location: Foot Pain Orientation: Right Pain Descriptors: (Reports the percocet helped. 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 Able to maintain NWB to R. foot throughout. Transfers Sit to Stand: Contact guard assist, Verbal cues Stand to Sit: Contact guard assist, Verbal cues Other: Cues for safe hand placement with walker and NWB R. foot with transfers. Good return demonstration. Gait Other: Patient able to maintain NWB R. LE and hop two steps forward, 2 steps backward. LOB with retro hopping requiring MOD A for eccentric control to sit back down on the bed. Balance Sitting Balance: Static: Good Sitting Balance: Dynamic: Good Standing Balance: Static: Fair Standing Balance: Dynamic: Fair 02/07/25 1131 LE Seated LE seated exercises performed? Yes Ankle pumps x 10 Long arc quads x 15 Seated marching x 15 Hip abduction/adduction x 15 with 3 hold for pillow squeeze. Other Performs bilateral LE ther ex at edge of bed to maintain joint ROM and to maintain strength for increased ease of transfers with maintenance of NWB R. LE. Activity Tolerance Endurance: Tolerates <30 minutes activity WITHOUT vital sign changes Plan Physical Therapy Care Plan Physical Therapy Care Plan (Active) Template: PT - Physical Therapy Problem: Bed Mobility Dates: Start: 02/05/25 Disciplines: PT Goal: Patient will perform bed mobility with Stand By Assist Dates: Start: 02/05/25 Expected End: 02/19/25 Disciplines: PT Outcomes Date/Time User Outcome 02/07/25 1436 Latanya Aparicio, PT Progressing 02/06/25901 Tanisha Olmos, PT Progressing Goal Note filed on 02/07/25 143 by Latanya Aparicio, PT Evaluation of progress towards goal: SBA with head of bed elevated 30 degrees. Problem: Gait Dates: Start: 02/05/25 Disciplines: PT Goal: Patient will perform gait with Minimum Assist Dates: Start: 02/05/25 Expected End: 02/19/25 Description: With use of walker and keeping NWB R LE for 5-10 feet safely on level surfaces Disciplines: PT Outcomes Date/Time User Outcome 02/06/25 09 Tanisha Olmos, PT Progressing Goal Note filed on 02/06/25901 by Tanisha Olmos, PT Evaluation of progress towards goal: pt was able to ambulate 3 steps keeping NWB R LE with walker to get to his wheelchair. Problem: Standing Balance Dates: Start: 02/05/25 Disciplines: PT Goal: Other sitting and standing balance goal (customize) Dates: Start: 02/05/25 Expected End: 02/19/25 Description: Goal Description:improve standing balance to fair plus for safety with transfers Disciplines: PT Problem: Strength Dates: Start: 02/05/25 Disciplines: PT Goal: Improve strength Dates: Start: 02/05/25 Expected End: 02/19/25 Description: Of extremity/ location:Improve strength to fair plus for safety of transfers Disciplines: PT Problem: Transfers Dates: Start: 02/05/25 Disciplines: PT Goal: Patient will perform transfers with Contact Guard Dates: Start: 02/05/25 Expected End: 02/19/25 Disciplines: PT Outcomes Date/Time User Outcome 02/07/25 1436 Latanya Aparicio, PT Progressing 02/06/25 0902 Tanisha Olmos, SAMMIE Progressing Goal Note filed on 02/07/25 1436 by Latanya Aparicio PT Evaluation of progress towards goal: MIN/CGA with use of RW. Physical Therapy Care Plan (Resolved) There are no resolved problems. Principal Problem: Osteomyelitis of right foot, unspecified type ([facility]) Active Problems: Peripheral vascular disease ([facility]) Hyperlipidemia Diabetic peripheral neuropathy associated with type 2 diabetes mellitus ([facility]) S/P amputation of foot, left ([facility]) Hypertension CKD (chronic kidney disease) stage 4, GFR 15-29 ml/min ([facility]) Hypoglycemia Anemia of chronic disease Hypothyroidism Iron deficiency anemia * Plan of Care - Hubert Pedro RPH - 02/07/2025 10:49 AM EDT Problem: Medication Description: If medication is necessary, use low-risk medication that does not interfere with what matters to the older adult patient, mobility, or mentation across settings of care. Goal: Patient will be screened for high-risk medications once per stay Description: Interventions: 1. Pharmacist to perform medication review to screen for high-risk medications 2. Pharmacist to identify high-risk medications in the Plan of Care note 3. Pharmacist to make recommendations for follow-up in the Plan of Care note, if warranted Outcome: Completed Note: Medications individually and in combination may interfere with What Matters, Mentation, and safe Mobility because of the increased risk of confusion, delirium, unsteadiness and falls. Profile review indicates this patients has active orders for no high risk medications. Chart review also shows no change in renal function. * Plan of Care - Lila Larson RN - 02/07/2025 9:27 AM EDT Problem: Pain Goal: Patient goal is pain score less than 4, able to rest, and participant in treatment plan as appropriate Description: INTERVENTIONS: 1. Encourage patient or legal in store representative to report early pain and ask for pain medicine when needed 2. Assess pain using appropriate pain scale and include the scale used when documenting 3. Administer analgesics based on type and severity of pain and evaluate response within appropriate time frame 4. Implement non-pharmacological measures as appropriate and evaluate response 5. Consider cultural and social influences on pain and pain management 6. Notify LIP if interventions ineffective or patient reports new pain 7. Monitor vital signs including pulse ox, end-tidal CO2 based on pain intervention 8. Reassess pain per policy 9. Teach patient or legal in store representative interventions for comforting Outcome: Progressing Note: Evaluation of progress towards goal: Continue to assess for pain and address accordingly * Discharge Planning Note - Rizwana Streeter - 02/07/2025 9:13 AM EDT DISCHARGE PLANNING NOTE Prior Auth approved for admission to : [facility]/ [place], [place] (P# ; F# ) Approval # [id number] Valid for Dates: 02/07/2025 - 02/14/2025 * Discharge Planning Note - My Varela RN - 02/07/2025 8:46 AM EDT DISCHARGE PLANNING NOTE Babar Barriga Per chart review, patient is anticipated discharge today or tomorrow. He has been accepted at [facility] and he is required insurance approval to discharge to SNF. Wound and bone cultures are pending. Tasked prior authorization team to submit for insurance authorization. Discharge Plan: Discharge to alf care at [facility] (accepted), he is pending insurance authorization. Plan of Care: [facility] (SNF) [phone] Fax CRF at Discharge My Varela RN 02/07/25 8:49 AM Insurance authorization received. Provider notified. Discharge Plan: Discharge to alf care at [facility] (accepted), and insurance authorization is received. Plan of Care: [facility] ([facility]) [phone] Fax CRF at Discharge - My Varela RN 02/07/25 9:19 AM * PT/OT/RN IMMUNOLOGY - Patrica Dunn OTR/Farhat - 02/07/2025 7:55 AM EDT Occupational Therapy Evaluation Discharge Recommendations for Safe Patient Transition OT Discharge Disposition Recommendation: Post acute - moderate OT Post Acute Moderate Rehab Needs: Recommend moderate intensity rehab, Tolerate 1-2 hrs of therapy3-5 days/wk, Subacute or chronic functional impairment Current Impairments Informing Therapy Recommendation: Ambulation status/safety, Fall risk, ADL status, Endurance level Book Retailer Support for-: Mobility Deficits, ADL Deficits 6 Clicks: Daily Activity Putting on and taking off regular lower body clothing?: A lot Bathing (including washing, rinsing, drying)?: A lot Toileting, which includes using toilet, bedpan or urinal?: A lot Putting on and taking off regular upper body clothing?: A little Taking care of personal grooming such as brushing teeth?: A little Eating meals?: None Scoring Daily Activity Raw Score: 16 CMS G Code Modifier: CK Therapy Plan/HPI/occupational profile throughout Need for skilled Occupational Therapy to address deficits in ADL independence and functional mobility due to a status decline resulting from osteomyelitis of R foot status post partial calcanectomy with Achilles resection right lower extremity. A moderate complex eval was completed. Past Surgical History: Procedure Laterality Date AMPUTATION METATARSAL AND TOE Left 09/30/2024 Performed by Diego Daniels DPM at [facility] AMPUTATION METATARSAL AND TOE partial Ray Left 10/25/2022 Performed by Diego Daniels DPM at [facility] CIRCUMCISION LENGTHENING TENDON ACHILLES Left 09/30/2024 Performed by Diego Daniels DPM at [facility] Percutaneous angioplasty/stent femoral-popliteal right Right 11/29/2024 Performed by Delfino Lake MD at [facility] SKIN PLASTY TISSUE REARRANGEMENTn toe flap Left 10/25/2022 Performed by Diego Daniels DPM at [facility] TOE SURGERY Left Vascular Invasive 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 10/30/2022 Performed by Delfino Lake MD at [facility] Vascular Invasive- lower extremity angiogram with possible intervention with CO2 Right 11/29/2024 Performed by Delfino Lake MD at [facility] Vascular Invasive- Right Lower Extremity Angiogram with possible intervention Right 01/24/2025 Performed by Delfino Lake MD at [facility] 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 ([facility]) 10/24/2022 Added automatically from request for surgery [id number] Chronic kidney disease Chronic osteomyelitis of left foot ([facility]) 09/27/2024 Dental disease Diabetes mellitus type 2, controlled ([facility]) Hyperlipidemia Hypertension MRSA bacteremia 09/28/2024 Osteomyelitis ([facility]) Shortness of breath Skin cancer melanoma Stage 3b chronic kidney disease ([facility]) 09/27/2024 Urinary incontinence Visual impairment OT Treatment/Interventions: ADL retraining, Functional transfer training, UE strengthening/ROM, Endurance training, Patient/family training, Equipment eval/education, Balance, Home management, Compensatory technique education, Functional activities OT Frequency: 4-5days/week OT Duration: 10 days Assessment Patient Assessment Therapy Problem List: Decreased LE strength, Decreased mobility, Decreased balance, Decreased self-care trans, Decreased ADL status, Decreased endurance, Decreased high-level ADLs, Decreased safe judgement during ADL, Decreased UE strength Patient Response to Treatment: Tolerated evaluation without adverse reaction Mood/Affect: Appropriate for circumstances Rehab Prognosis: Good, With continued OT status post acute discharge Visit RN Communication: Yes Medical Record Reviewed: Yes OT Type of Visit: Evaluation Precautions Activity: early mobility pass, OK to eval per Lila LEIVA Equipment: nonskid sock, gait belt, walker, wheelchair, wound vac, off loading boots on bilteral LE Weight Bearing Status: NWB R LE Telemetry/Wire Brush Maker: No Oxygen Used: room air Other: fall risk, Bilteral LE wounds satus post partial calcanectomy with Achilles resection right lower extremity. Subjective Occupational Therapy Comments: I am getting good care here Pain Assessment Pain Assessment: 0-10 Pain Score: 4 Pain Location: Foot Pain Orientation: Right Pain Descriptors: ( smahing it with a hammer ) Home Living Type of Home: House Home Layout: One level, Ramped entrance, Stairs to enter with rails (no basement) Stairs to Enter: 4 steps to enter with ZACHARY rais, but also has a ramp Bathroom Shower/Tub: Tub/shower unit Bathroom Toilet: Standard Bathroom Equipment: Shower chair, Grab bars around toilet Bathroom Accessibility: Accessible via wheelchair Home Equipment: Rolling walker, Standard walker, 4 Wheeled walker, Wheelchair- manual, Electric scooter, [employer], Sock aid, Long-handled shoehorn (sleeps in a recliner.) Prior Function Lives With: Alone Receives Help From: Family (son and daugther in law- all with 1/2 mile of patient. does not have 24/7 only PRN assist) Level of Mobility: Independent with ADLs and functional transfers or gait (using wheelchair prior to admit . could pivot independently) Homemaking Assistance: Needs assistance ( reports that he mangaes most of it . has not driven sinceapril 4- family provides transportation, and getting groceries.) ADL / IADL Hand Dominance: Left Eating Assistance: Independent Grooming Assistance: Setup (while seated) Bathing/Showering Assistance: Mod assist Bathing/Showering Deficit: Left lower leg including foot, Right lower leg including foot, Left upper leg, Right upper leg, Buttocks, Perineal area Toilet/Commode Assistance: Mod assist Toilet/Commode Deficit: Clothing management down, Clothing management up, Perineal hygiene, Steadying, Verbal cueing, Supervison/safety, Bedside commode UE Dressing Assistance: Standby assist LE Dressing Assistance: Mod assist LE Dressing Deficit: Thread RLE into pants, Thread LLE into pants, Pull up over right hip, Pull up over left hip, Increased time to complete, Supervision/safety, Requires assistive device for steadying, Steadying Footwear Assistance: Unable to assess (bilteral LE / feet wrapped, R LE in post op dressing. did not assess) Other: report writer introduced self role and goals. pt is agreeable to session. sponge bath completed while seated on eddge of bed. reports using wheelchair to go to the bathroom wiht stand pivot transfers. further ADL assessment is based on clinical judgement and observation of pt's ability to complete ROM, strength, and endurance, sit and stand balance and functional mobility status Home Management - IADL Other: report writer introduced self role and goals. pt is agreeable to session. sponge bath completed while seated on eddge of bed. reports using wheelchair to go to the bathroom wiht stand pivot transfers. further ADL assessment is based on clinical judgement and observation of pt's ability to complete ROM, strength, and endurance, sit and stand balance and functional mobility status Hearing / Speech / Vision Hearing: Within Functional Limits Speech: Within Functional Limits Current Vision: Wears glasses only for reading Cognition Orientation Level: Oriented X4 Bed Mobility Supine to Sit: Stand by assist (head of bed elevated, use of bed rail) Sit to Supine: Stand by assist (returne dto supine at end of session, declines to sit in chair) Transfers Sit to Stand: Contact guard assist, Verbal cues Stand to Sit: Contact guard assist, Verbal cues Other: cues for hand placeent and use of walker Balance Sitting Balance: Static: Good Sitting Balance: Dynamic: Good Standing Balance: Static: Fair Standing Balance: Dynamic: Fair RUE Assessment: (4-/5) LUE Assessment: (4-/5) Activity Tolerance Endurance: Tolerates <30 minutes activity WITHOUT vital sign changes Plan Occupational Therapy Care Plan Occupational Therapy Care Plan (Active) Template: OT - Occupational Therapy Problem: Activity Tolerance Dates: Start: 02/07/25 Disciplines: OT Goal: Tolerate > 30 minutes of activity WITH rest breaks Dates: Start: 02/07/25 Expected End: 02/16/25 Description: Goal Description:patient to engage in activities of choice with out changes in vitals in order to promote return to prior level of function Disciplines: OT Problem: Other (Customize) Dates: Start: 02/07/25 Disciplines: OT Goal: Improve Dates: Start: 02/07/25 Expected End: 02/16/25 Description: Goal Description:Patient to increase IND in ADls to supervision while adhering to WB status including toileting tasks in order to promote return to prior level of function Disciplines: OT Problem: Standing Balance Dates: Start: 02/07/25 Disciplines: OT Goal: Improve balance to good Dates: Start: 02/07/25 Expected End: 02/16/25 Description: Patient to increase standing balance to good in order to increase IND in ADLS and lower body dressing tasks Disciplines: OT Problem: Strength Dates: Start: 02/07/25 Disciplines: OT Goal: Improve strength Dates: Start: 02/07/25 Expected End: 02/16/25 Description: Of extremity/ location:pt to increase BUE strength to 4+/5 to assist with increased independence in ADL tasks and to assist with WB status To facilitate: Disciplines: OT Occupational Therapy Care Plan (Resolved) There are no resolved problems. Principal Problem: Osteomyelitis of right foot, unspecified type ([facility]) Active Problems: Peripheral vascular disease ([facility]) Hyperlipidemia Diabetic peripheral neuropathy associated with type 2 diabetes mellitus ([facility]) S/P amputation of foot, left ([facility]) Hypertension CKD (chronic kidney disease) stage 4, GFR 15-29 ml/min ([facility]) Hypoglycemia Anemia of chronic disease Hypothyroidism Iron deficiency anemia * Plan of Care - aJne Mohamud RN - 02/07/2025 3:04 AM EDT Problem: Pain Goal: Patient goal is pain score less than 4, able to rest, and participant in treatment plan as appropriate Description: INTERVENTIONS: 1. Encourage patient or legal in store representative to report early pain and ask for pain medicine when needed 2. Assess pain using appropriate pain scale and include the scale used when documenting 3. Administer analgesics based on type and severity of pain and evaluate response within appropriate time frame 4. Implement non-pharmacological measures as appropriate and evaluate response 5. Consider cultural and social influences on pain and pain management 6. Notify LIP if interventions ineffective or patient reports new pain 7. Monitor vital signs including pulse ox, end-tidal CO2 based on pain intervention 8. Reassess pain per policy 9. Teach patient or legal in store representative interventions for comforting Outcome: Progressing Note: Evaluation of progress towards goal: Pt able to report pain according to 0/10 pain scale. Medicating patient for pain per orders. * Plan of Care - Lennie Acosta RN - 02/06/2025 10:46 AM EDT Problem: Pain Goal: Patient goal is pain score less than 4, able to rest, and participant in treatment plan as appropriate Description: INTERVENTIONS: 1. Encourage patient or legal in store representative to report early pain and ask for pain medicine when needed 2. Assess pain using appropriate pain scale and include the scale used when documenting 3. Administer analgesics based on type and severity of pain and evaluate response within appropriate time frame 4. Implement non-pharmacological measures as appropriate and evaluate response 5. Consider cultural and social influences on pain and pain management 6. Notify LIP if interventions ineffective or patient reports new pain 7. Monitor vital signs including pulse ox, end-tidal CO2 based on pain intervention 8. Reassess pain per policy 9. Teach patient or legal in store representative interventions for comforting Outcome: Progressing Note: Evaluation of progress towards goal: Pt able to report pain according to 0/10 pain scale. Medicating patient for pain per orders. Problem: Safety Goal: Patient will be injury free during hospitalization Description: INTERVENTIONS: 1. Assess patient's risk for falls and implement fall prevention plan of care per policy 2. Provide and maintain a safe environment 3. Proper use of double Identifiers 4. Medication administration using the 5 rights 5. Hand hygiene 6. Specimens are labeled at the bedside 7. Instruct patient/ patient in store representative about use of safety devices 8. Include patient/ patient in store representative in decisions related to safety Outcome: Progressing Note: Evaluation of progress towards goal: Safety measures initiated/maintained. Pt remains safe from harm/injury/falls Problem: Infection Goal: Absence of infection during hospitalization Description: INTERVENTIONS 1. Assess and monitor for signs and symptoms of infection. 2. Monitor lab/diagnostic results. 3. Monitor all insertion sites i.e., indwelling lines, tubes and drains. 4. Monitor endotracheal (as able) and nasal secretions for changes in amount and color. 5. Administer medications as ordered. 6. Instruct and encourage patient and family to use good hand hygiene technique. 7. Identify and instruct patient/patient in store representative in use of appropriate isolation precautionsfor identified infection/symptoms. 8. Provide and discuss with patient/patient in store representative on educational MDRO sheet. 9. Encourage and monitor nutritional status daily and consult naval engineer if indicated. 10. Implement neutropenic guidelines as needed. Outcome: Progressing Note: Evaluation of progress towards goal: Pt afebrile at this time, continue to monitor for signs infection Problem: Knowledge Deficit Goal: Patient/patient in store representative demonstrates understanding of disease process, treatment plan,medications, and discharge instructions Description: INTERVENTIONS 1. Complete learning assessment and assess knowledge base 2. Provide teaching at level of understanding 3. Provide teaching via preferred learning method(s) Outcome: Progressing Note: Evaluation of progress towards goal: Evaluate, educate, reinforce learning needs and gaps t/oshift. Problem: Discharge Planning Goal: Discharge to post-acute care, other facility, or home with appropriate resources Description: Patient's goal is: INTERVENTIONS 1. Conduct assessment to determine patient/family and health care team treatment goals, and need for post-acute services based on payer coverage, community resources, and patient preferences, and barriers to discharge 2. Coordinate with Social work, Care Navigation, and Utilization Review to arrange appropriate level of services according to patient's needs based on patient preference and payer coverage in collaboration with the physician and health care team 3. Address psychosocial, clinical, and financial barriers to discharge as identified in assessment in conjunction with the patient/family and health care team 4. Consult appropriate ancillary services (i.e.. PT/OT/ST, etc) as needed 5. Communicate with and update the patient/family, physician, and health care team regarding progress on the discharge plan 6. Identify discharge learning needs (meds, wound care, etc). 7. Arrange for needed discharge transportation as appropriate Outcome: Progressing Note: Evaluation of progress towards goal: Continue to monitor t/o shift to assess for discharge needs. Problem: Moderate - High Risk Fall Score Description: Esquivel Fall Score of =/> 25 or indicated by [facility] Assessment Goal: Patient should be free from fall Description: Interventions: 1. [place] to environment 2. Hourly rounds addressing the 4 P's (Pain, Positioning, Possessions, Potty) 3. Clear area of hazards (spills, clutter, electrical cords, unnecessary equipment) 4. Place equipment (bed & TV controls, call light, phone, urinal) within reach 5. Encourage patient to wear glasses and hearing aides as appropriate 6. Maintain bed in lowest position 7. Lock wheels on bed/wheelchair 8. Provide adequate lighting, including night light 9. Assess need for additional bedding, food/fluids, pain med's prior to sleep/routinely 10. Provide gripper slippers or personal non-skid footwear 11. Teach patient and patient in store representative to maintain environment for safety and engage in all aspects of fall prevention program 12. Remind patient to call for help before getting out of bed 13. Initiate bed/chair/exit alarms supportive devices as appropriate, (chair wedge, no-skid floor mat, raised edge mattress, hip protectors) 14. Locate patient bed assignment for optimal visualization 15. Evaluate and identify Safe Patient Handling Equipment needs 16. Provide supervision when out of bed or chair 17. Utilize gait belt as needed to assist with ambulation 18. Place adaptive equipment (cane, walker) within reach 19. Request patient in store representative bring adaptive equipment/mobility aids from home or obtain and provide as needed 20. Consult pharmacy regarding effects of med's affecting mobility, cognition, and alternatives 21. Obtain physician order for PT if risk factors associated with mobility are present 22. Obtain physician order for OT as appropriate 23. Utilize diversional activities 24. Educate patient and patient in store representative how to maintain a safe environment during visitationtimes (notify nurse prior to leaving bedside) 25. Consider appropriateness of medical or non-medical photographer 26. Set up voiding schedule as appropriate (every 2 hours) Outcome: Progressing Note: Evaluation of progress towards goal: Pt remains free from falls or accidental injury during stay. Fall prevention measures in place. Hourly rounding per RN and maintained. Problem: Potential for Compromised Skin Integrity Goal: Skin integrity is maintained or improved Description: Patient's goal is: INTERVENTIONS 1. Perform initial skin assessment on admission and as needed 2. Turn patient every 2 hours and PRN 3. Relieve pressure to bony prominences 4. Avoid shearing 5. Keep skin clean and dry 6. Alternate a full bath with partial baths for elderly 7. Apply lotion/moisturizer on skin 8. Monitor patient's hygiene practices 9. Float heels 10. Collaborate with interdisciplinary team and initiate plans and interventions as needed Outcome: Progressing Note: Evaluation of progress towards goal: Maintain skin integrity and tissue integrity Goal: Patient's nutritional intake is adequate Description: Patient's goal is: INTERVENTIONS 1. Assess and monitor food intake and supplements, patient food preferences, nausea, vomiting, labs, oral cavity (gums, teeth, tongue, mucosa), proper denture fit, and cultural beliefs 2. Monitor for signs of hypoglycemia and hyperglycemia 3. Collaborate with interdisciplinary team and initiate plan and interventions as ordered 4. Monitor patient's weight 5. Assist patient with meals/food selection 6. Assist patient with eating 7. Allow adequate time for meals 8. Provide pleasant environment during mealtime 9. Increase social contact during mealtimes 10. Plan activities to conserve energy 11. Encourage/perform oral hygiene as appropriate 12. Encourage patient to take dietary supplement as ordered 13. Collaborate with clinical naval engineer 14. Include patient/ patient's in store representative in decisions related to nutrition Outcome: Progressing Note: Evaluation of progress towards goal: Patient understands the importance of proper nutrition to aid in healing. Problem: Urinary Incontinence Goal: Perineal skin integrity is maintained or improved Description: INTERVENTIONS 1. Assess genitourinary system, perineal skin, labs (urinalysis), and history of incontinence to include past management, aggravating, and alleviating factors 2. Keep skin clean and dry 3. Apply skin protectant 4. Develop skin care regimen 5. Provide privacy when changing patients incontinence device to maintain their dignity 6. Consider placing an indwelling catheter 7. Collaborate with interdisciplinary team and initiate plans and interventions as needed Outcome: Progressing Note: Evaluation of progress towards goal: Perineal skin kept clean and dry, privacy provided as needed, skin protectant applied as needed, labs monitored. * Plan of Care - Lennie Acosta RN - 02/06/2025 10:45 AM EDT Problem: Pain Goal: Patient goal is pain score less than 4, able to rest, and participant in treatment plan as appropriate Description: INTERVENTIONS: 1. Encourage patient or legal in store representative to report early pain and ask for pain medicine when needed 2. Assess pain using appropriate pain scale and include the scale used when documenting 3. Administer analgesics based on type and severity of pain and evaluate response within appropriate time frame 4. Implement non-pharmacological measures as appropriate and evaluate response 5. Consider cultural and social influences on pain and pain management 6. Notify LIP if interventions ineffective or patient reports new pain 7. Monitor vital signs including pulse ox, end-tidal CO2 based on pain intervention 8. Reassess pain per policy 9. Teach patient or legal in store representative interventions for comforting Outcome: Progressing Note: Evaluation of progress towards goal: Pt able to report pain according to 0/10 pain scale. Medicating patient for pain per orders. Problem: Safety Goal: Patient will be injury free during hospitalization Description: INTERVENTIONS: 1. Assess patient's risk for falls and implement fall prevention plan of care per policy 2. Provide and maintain a safe environment 3. Proper use of double Identifiers 4. Medication administration using the 5 rights 5. Hand hygiene 6. Specimens are labeled at the bedside 7. Instruct patient/ patient in store representative about use of safety devices 8. Include patient/ patient in store representative in decisions related to safety Outcome: Progressing Note: Evaluation of progress towards goal: Safety measures initiated/maintained. Pt remains safe from harm/injury/falls Problem: Infection Goal: Absence of infection during hospitalization Description: INTERVENTIONS 1. Assess and monitor for signs and symptoms of infection. 2. Monitor lab/diagnostic results. 3. Monitor all insertion sites i.e., indwelling lines, tubes and drains. 4. Monitor endotracheal (as able) and nasal secretions for changes in amount and color. 5. Administer medications as ordered. 6. Instruct and encourage patient and family to use good hand hygiene technique. 7. Identify and instruct patient/patient in store representative in use of appropriate isolation precautionsfor identified infection/symptoms. 8. Provide and discuss with patient/patient in store representative on educational MDRO sheet. 9. Encourage and monitor nutritional status daily and consult naval engineer if indicated. 10. Implement neutropenic guidelines as needed. Outcome: Progressing Note: Evaluation of progress towards goal: Pt afebrile at this time, continue to monitor for signs infection Problem: Knowledge Deficit Goal: Patient/patient in store representative demonstrates understanding of disease process, treatment plan,medications, and discharge instructions Description: INTERVENTIONS 1. Complete learning assessment and assess knowledge base 2. Provide teaching at level of understanding 3. Provide teaching via preferred learning method(s) Outcome: Progressing Note: Evaluation of progress towards goal: Evaluate, educate, reinforce learning needs and gaps t/oshift. Problem: Discharge Planning Goal: Discharge to post-acute care, other facility, or home with appropriate resources Description: Patient's goal is: INTERVENTIONS 1. Conduct assessment to determine patient/family and health care team treatment goals, and need for post-acute services based on payer coverage, community resources, and patient preferences, and barriers to discharge 2. Coordinate with Social work, Care Navigation, and Utilization Review to arrange appropriate level of services according to patient's needs based on patient preference and payer coverage in collaboration with the physician and health care team 3. Address psychosocial, clinical, and financial barriers to discharge as identified in assessment in conjunction with the patient/family and health care team 4. Consult appropriate ancillary services (i.e.. PT/OT/ST, etc) as needed 5. Communicate with and update the patient/family, physician, and health care team regarding progress on the discharge plan 6. Identify discharge learning needs (meds, wound care, etc). 7. Arrange for needed discharge transportation as appropriate Outcome: Progressing Note: Evaluation of progress towards goal: Continue to monitor t/o shift to assess for discharge needs. Problem: Moderate - High Risk Fall Score Description: Esquivel Fall Score of =/> 25 or indicated by [facility] Assessment Goal: Patient should be free from fall Description: Interventions: 1. [place] to environment 2. Hourly rounds addressing the 4 P's (Pain, Positioning, Possessions, Potty) 3. Clear area of hazards (spills, clutter, electrical cords, unnecessary equipment) 4. Place equipment (bed & TV controls, call light, phone, urinal) within reach 5. Encourage patient to wear glasses and hearing aides as appropriate 6. Maintain bed in lowest position 7. Lock wheels on bed/wheelchair 8. Provide adequate lighting, including night light 9. Assess need for additional bedding, food/fluids, pain med's prior to sleep/routinely 10. Provide gripper slippers or personal non-skid footwear 11. Teach patient and patient in store representative to maintain environment for safety and engage in all aspects of fall prevention program 12. Remind patient to call for help before getting out of bed 13. Initiate bed/chair/exit alarms supportive devices as appropriate, (chair wedge, no-skid floor mat, raised edge mattress, hip protectors) 14. Locate patient bed assignment for optimal visualization 15. Evaluate and identify Safe Patient Handling Equipment needs 16. Provide supervision when out of bed or chair 17. Utilize gait belt as needed to assist with ambulation 18. Place adaptive equipment (cane, walker) within reach 19. Request patient in store representative bring adaptive equipment/mobility aids from home or obtain and provide as needed 20. Consult pharmacy regarding effects of med's affecting mobility, cognition, and alternatives 21. Obtain physician order for PT if risk factors associated with mobility are present 22. Obtain physician order for OT as appropriate 23. Utilize diversional activities 24. Educate patient and patient in store representative how to maintain a safe environment during visitationtimes (notify nurse prior to leaving bedside) 25. Consider appropriateness of medical or non-medical photographer 26. Set up voiding schedule as appropriate (every 2 hours) Outcome: Progressing Note: Evaluation of progress towards goal: Pt remains free from falls or accidental injury during stay. Fall prevention measures in place. Hourly rounding per RN and maintained. Problem: Potential for Compromised Skin Integrity Goal: Skin integrity is maintained or improved Description: Patient's goal is: INTERVENTIONS 1. Perform initial skin assessment on admission and as needed 2. Turn patient every 2 hours and PRN 3. Relieve pressure to bony prominences 4. Avoid shearing 5. Keep skin clean and dry 6. Alternate a full bath with partial baths for elderly 7. Apply lotion/moisturizer on skin 8. Monitor patient's hygiene practices 9. Float heels 10. Collaborate with interdisciplinary team and initiate plans and interventions as needed Outcome: Progressing Note: Evaluation of progress towards goal: Maintain skin integrity and tissue integrity Goal: Patient's nutritional intake is adequate Description: Patient's goal is: INTERVENTIONS 1. Assess and monitor food intake and supplements, patient food preferences, nausea, vomiting, labs, oral cavity (gums, teeth, tongue, mucosa), proper denture fit, and cultural beliefs 2. Monitor for signs of hypoglycemia and hyperglycemia 3. Collaborate with interdisciplinary team and initiate plan and interventions as ordered 4. Monitor patient's weight 5. Assist patient with meals/food selection 6. Assist patient with eating 7. Allow adequate time for meals 8. Provide pleasant environment during mealtime 9. Increase social contact during mealtimes 10. Plan activities to conserve energy 11. Encourage/perform oral hygiene as appropriate 12. Encourage patient to take dietary supplement as ordered 13. Collaborate with clinical naval engineer 14. Include patient/ patient's in store representative in decisions related to nutrition Outcome: Progressing Note: Evaluation of progress towards goal: Patient understands the importance of proper nutrition to aid in healing. Problem: Urinary Incontinence Goal: Perineal skin integrity is maintained or improved Description: INTERVENTIONS 1. Assess genitourinary system, perineal skin, labs (urinalysis), and history of incontinence to include past management, aggravating, and alleviating factors 2. Keep skin clean and dry 3. Apply skin protectant 4. Develop skin care regimen 5. Provide privacy when changing patients incontinence device to maintain their dignity 6. Consider placing an indwelling catheter 7. Collaborate with interdisciplinary team and initiate plans and interventions as needed Outcome: Progressing Note: Evaluation of progress towards goal: Perineal skin kept clean and dry, privacy provided as needed, skin protectant applied as needed, labs monitored. * PT/OT/RN IMMUNOLOGY - Tanisha Olmos PT - 02/06/2025 9:03 AM EDT Physical Therapy Treatment Discharge Recommendations for Safe Patient Transition PT Discharge Disposition Recommendation: Post acute - moderate PT Post Acute Moderate Rehab Needs: Tolerate 1-2 hrs of therapy 3-5 days/wk 6 Clicks: Basic Mobility Turning from your back to your side while in a flat bed without using bed rails?: A little Moving from lying on your back to sitting on side of flat bed without using bed rails?: A little Moving to and from bed to a chair (including w/c)?: A little Standing up from a chair using your arms (e.g. w/c or bedside chair)?: A little To walk in hospital room?: A lot Climbing 3-5 steps with a railing?: Total Scoring 6 Clicks: Basic Mobility Raw Score: 15 CMS G Code Modifier: CK Therapy Plan Need for skilled Physical Therapy to address deficits in functional mobility due to a status decline resulting from recent medical condition. Pt resting In bed and agreed to PT. Pt performed exercises in sitting and in supine today keeping NWB on R LE throughout session. Pt was able to perform bed mobility with CGA. Pt was able to stand with CGA. Pt with min A to keep NWB R LE and ambulate 3 steps to wheelchair and then 3 steps back. Pt back resting in bed for breakfast and call light within reach and all needs met upon departure. 02/06/25 0811 LE Supine LE supine exercises performed? Yes Ankle pumps 10x Gluteal sets 10x Quad sets 10x Other to improve circumlation for ease of transfers LE Seated LE seated exercises performed? Yes Ankle pumps 10x Long arc quads 20x Seated marching 20x Other to improve mobility/strength for ease of transfers Assessment Patient Assessment Patient Response to Treatment: Improving as expected, Progressing toward goals Mood/Affect: Appropriate for circumstances Rehab Prognosis: Good, With continued PT status post acute discharge Visit RN Communication: Yes Medical Record Reviewed: Yes PT Type of Visit: Treatment Precautions Activity: as tolerated Equipment: nonskid sock, gait belt, walker, wheelchair, wound vac, soft splint, Weight Bearing Status: NWB R LE Oxygen Order : room air Subjective Physical Therapy Comments: pt states he is not doing too bad today. Pain Assessment Pain Assessment: 0-10 Pain Score: 4 Pain Location: Foot Pain Orientation: Right Bed Mobility Rolling: Stand by assist Supine to Sit: Stand by assist Sit to Supine: Stand by assist Transfers Sit to Stand: Standby assist, Contact guard assist, Verbal cues Stand to Sit: Standby assist, Contact guard assist, Verbal cues Bed to Chair: Contact guard assist, Min assist, Verbal cues Other: cues for hand placement with transfers Gait Gait Assistance: Min assist, Verbal cues Assistive Device: Standard walker Gait Distance: 3 steps Limiting Factors to Gait: Fatigue, Other (comment) (NWB R LE) Other: pt was able to keep NWB in R LE with session. Balance Sitting Balance: Static: Good Sitting Balance: Dynamic: Good Standing Balance: Static: Fair Standing Balance: Dynamic: Fair Other: with use of walker Activity Tolerance Endurance: Tolerates <30 minutes activity WITHOUT vital sign changes Plan Physical Therapy Care Plan Physical Therapy Care Plan (Active) Template: PT - Physical Therapy Problem: Bed Mobility Dates: Start: 02/05/25 Disciplines: PT Goal: Patient will perform bed mobility with Stand By Assist Dates: Start: 02/05/25 Expected End: 02/19/25 Disciplines: PT Outcomes Date/Time User Outcome 02/06/25901 Tanisha Olmos, PT Progressing Goal Note filed on 02/06/25901 by Tanisha Olmos PT Evaluation of progress towards goal: SBA Problem: Gait Dates: Start: 02/05/25 Disciplines: PT Goal: Patient will perform gait with Minimum Assist Dates: Start: 02/05/25 Expected End: 02/19/25 Description: With use of walker and keeping NWB R LE for 5-10 feet safely on level surfaces Disciplines: PT Outcomes Date/Time User Outcome 02/06/25901 Tanisha Olmos, SAMMIE Progressing Goal Note filed on 02/06/25901 by Tanisha Olmos, PT Evaluation of progress towards goal: pt was able to ambulate 3 steps keeping NWB R LE with walker to get to his wheelchair. Problem: Standing Balance Dates: Start: 02/05/25 Disciplines: PT Goal: Other sitting and standing balance goal (customize) Dates: Start: 02/05/25 Expected End: 02/19/25 Description: Goal Description:improve standing balance to fair plus for safety with transfers Disciplines: PT Problem: Strength Dates: Start: 02/05/25 Disciplines: PT Goal: Improve strength Dates: Start: 02/05/25 Expected End: 02/19/25 Description: Of extremity/ location:Improve strength to fair plus for safety of transfers Disciplines: PT Problem: Transfers Dates: Start: 02/05/25 Disciplines: PT Goal: Patient will perform transfers with Contact Guard Dates: Start: 02/05/25 Expected End: 02/19/25 Disciplines: PT Outcomes Date/Time User Outcome 02/06/25 0902 Tanisha Olmos PT Progressing Goal Note filed on 02/06/25901 by Tanisha Olmos PT Evaluation of progress towards goal: CGA for [facility] Physical Therapy Care Plan (Resolved) There are no resolved problems. Principal Problem: Osteomyelitis of right foot, unspecified type ([facility]) Active Problems: Peripheral vascular disease ([facility]) Hyperlipidemia Diabetic peripheral neuropathy associated with type 2 diabetes mellitus ([facility]) S/P amputation of foot, left ([facility]) Hypertension CKD (chronic kidney disease) stage 4, GFR 15-29 ml/min ([facility]) Hypoglycemia Anemia of chronic disease Hypothyroidism * Plan of Care - Jane Mohamud RN - 02/06/2025 1:01 AM EDT Problem: Pain Goal: Patient goal is pain score less than 4, able to rest, and participant in treatment plan as appropriate Description: INTERVENTIONS: 1. Encourage patient or legal in store representative to report early pain and ask for pain medicine when needed 2. Assess pain using appropriate pain scale and include the scale used when documenting 3. Administer analgesics based on type and severity of pain and evaluate response within appropriate time frame 4. Implement non-pharmacological measures as appropriate and evaluate response 5. Consider cultural and social influences on pain and pain management 6. Notify LIP if interventions ineffective or patient reports new pain 7. Monitor vital signs including pulse ox, end-tidal CO2 based on pain intervention 8. Reassess pain per policy 9. Teach patient or legal in store representative interventions for comforting Outcome: Progressing Note: Evaluation of progress towards goal: Pt able to report pain according to 0/10 pain scale. Medicating patient for pain per orders. * Telehealth Note - Jonh Cline MD - 02/05/2025 3:04 PM EDT Tele-Infectious DiseaseTelemedicine Consult Note Consent Statement: I discussed risks, benefits, and alternatives of a real-time synchronous audiovisual consultation with the patient (and any accompanying persons) including the risks that the patient's personal health details and medical records will be discussed over real-time, synchronous, interactive video/audio/telecommunication technology, the visit will not be recorded without the express consent of both the provider and the patient, and that there are some limitations compared to [id number] evaluations. We elected to proceed. [facility] Infectious Diseases - Progress Note [facility] - TeleMedicine During Business Hours: Please use N(i)² for communication. 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 Chronic infection with radiographic evidence of destructive lytic changes on right foot X-ray, consistent with osteomyelitis. The patient is status post partial calcanectomy and Achilles tendon resection on 02/04/2025. Prior bone cultures from September 30 grew MRSA and Enterococcus faecalis, both susceptible to vancomycin, and these organisms are likely to remain causative. Currently receiving vancomycin with goal trough 15-20 mcg/mL. Bone biopsy cultures from 02/04/2025 are in progress and will guide definitive therapy. Blood cultures are negative to date. 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 Chronic ulceration associated with structural deformity, noted during recent vascular evaluation. Type 2 diabetes mellitus. Patient remains at high risk for recurrent infection and impaired wound healing. Glycemic optimization is critical to support surgical recovery and prevent further infectious complications. Chronic kidney disease. Renal function will be closely monitored with adjustment of vancomycin dosing to maintain therapeutic trough levels while avoiding toxicity. Subjective Interval History:: No fevers or chills. No nausea or vomiting. No chest pain or shortness of breath. Heel without erythema, warmth, and tenderness. Objective Physical Examination : BP 90/52 Pulse 80 Temp 36.7 ??C (98 ??F) (Oral) Resp 20 Ht 172.7 cm (5' 8 ) Wt 60.3 kg (133 lb) SpO2 98% BMI 20.22 kg/m?? Temperature Range: Temp: 36.7 ??C (98 ??F) Temp Av.6 ??C (97.8 ??F) Min: 36.5 ??C (97.7 ??F) Max: 36.7 ??C (98 ??F) Visit was conducted via the [facility] of [facility]. My impressions are as follows: Constitutional: Awake, alert, and in no apparent distress. Eyes: Sclera anicteric, conjunctivae pink. ENT/Mouth: hearing is appropriate. No hearing aids. Neck: no limitations to range in motion. No bounding pulsations. Skin: no new bruises, rashes, lacerations, psoriasis plaques, or swelling. Neurologic: no pronator drift. No tremor. Psychiatric: Appropriate affect, alert and oriented to person, place and time. Laboratory data: I have independently reviewed the following labs: Results from last 7 days Lab Units 02/05/2552302/04/25 0531 02/03/25 0703 WBC x10E9/L 11.3* 7.9 9.5 HEMOGLOBIN g/dL 7.7* 7.5* 8.2* HEMATOCRIT % 24.1* 22.9* 24.9* MCV fL 80 80 80 PLATELETS X10E9/L 295 283 317 NEUTROS ABS 10*3/uL 8.1* 5.3 7.5* LYMPHS ABS AUTO 10*3/uL 2.3 1.8 1.3 MONOS ABS AUTO 10*3/uL 0.8 0.6 0.6 EOS ABS AUTO 10*3/uL 0.1 0.1 0.1 BASOS ABS AUTO 10*3/uL 0.0 0.1 0.1 Results from last 7 days Lab Units 02/05/25 0524 02/04/25 0531 02/03/25 0703 SODIUM mmol/L 135 133* 133* POTASSIUM mmol/L 5.0 4.9 4.9 CHLORIDE mmol/L 103 102 105 CO2 mmol/L 25 24 22 BUN mg/dL 38* 36* 50* CREATININE mg/dL 1.56* 1.31* 1.67* CALCIUM mg/dL 8.6 8.5 8.9 ALBUMIN g/dL 2.3* 2.3* -- ALK PHOS U/L 85 81 -- ALT U/L 15 14 -- AST U/L 15 16 -- Results from last 7 days Lab Units 02/03/25 0703 SED RATE mm/h 94* CRP mg/dL 4.7* Results from last 7 days Lab Units 02/03/25 0703 HEMOGLOBIN A1C % 6.2* Imaging Studies: Right foot X-ray: Dorsal soft tissue irregularity and ulceration with underlying lytic destructive changes of osteomyelitis involving the dorsal calcaneus. I have personally reviewed this study. Cultures: Microbiology Results Procedure Component Value Units Date/Time Anaerobic culture [[id number]] Collected: 02/04/251314 Specimen: Bone from Foot, Right Updated: 02/05/251411 CULTURE RESULTS Culture in progress Bone culture [[id number]] Collected: 02/04/251314 Specimen: Bone from Foot, Right Updated: 02/05/25 141 CULTURE RESULTS Culture in progress Blood culture #1 [[id number]] Collected: 02/03/252024 Specimen: Blood, Venous Updated: 02/05/25 1501 CULTURE RESULTS NO GROWTH AT 36 HOURS Blood culture #2 [[id number]] Collected: 02/03/252024 Specimen: Blood, Venous Updated: 02/05/25 1501 CULTURE RESULTS NO GROWTH AT 36 HOURS Medications: allopurinoL, 100 mg, oral, Daily [START ON 02/06/2025] aspirin, 81 mg, oral, Daily atorvastatin, 20 mg, oral, Daily [START ON 02/06/2025] clopidogreL, 75 mg, oral, Daily docusate sodium, 100 mg, oral, BID finasteride, 5 mg, oral, Daily insulin glargine, 15 Units, subcutaneous, BID insulin lispro, 2-10 Units, subcutaneous, With meals and nightly levothyroxine, 112 mcg, oral, Daily terazosin, 5 mg, oral, Nightly vancomycin, 750 mg, intravenous, Q24H Thank you for allowing us to participate in the care of this patient. Please call with questions. Jonh Cline MD, MPH, [facility], [facility] During Business Hours: Please use N(i)² for communication. Pager (After Hours): [facility]: * Plan of Care - S. Yany Acosta RN - 02/05/2025 1:31 PM EDT Problem: Pain Goal: Patient goal is pain score less than 4, able to rest, and participant in treatment plan as appropriate Description: INTERVENTIONS: 1. Encourage patient or legal in store representative to report early pain and ask for pain medicine when needed 2. Assess pain using appropriate pain scale and include the scale used when documenting 3. Administer analgesics based on type and severity of pain and evaluate response within appropriate time frame 4. Implement non-pharmacological measures as appropriate and evaluate response 5. Consider cultural and social influences on pain and pain management 6. Notify LIP if interventions ineffective or patient reports new pain 7. Monitor vital signs including pulse ox, end-tidal CO2 based on pain intervention 8. Reassess pain per policy 9. Teach patient or legal in store representative interventions for comforting Outcome: Progressing Note: Evaluation of progress towards goal: Pt able to report pain according to 0/10 pain scale. Medicating patient for pain per orders. Problem: Safety Goal: Patient will be injury free during hospitalization Description: INTERVENTIONS: 1. Assess patient's risk for falls and implement fall prevention plan of care per policy 2. Provide and maintain a safe environment 3. Proper use of double Identifiers 4. Medication administration using the 5 rights 5. Hand hygiene 6. Specimens are labeled at the bedside 7. Instruct patient/ patient in store representative about use of safety devices 8. Include patient/ patient in store representative in decisions related to safety Outcome: Progressing Note: Evaluation of progress towards goal: Safety measures initiated/maintained. Pt remains safe from harm/injury/falls Problem: Infection Goal: Absence of infection during hospitalization Description: INTERVENTIONS 1. Assess and monitor for signs and symptoms of infection. 2. Monitor lab/diagnostic results. 3. Monitor all insertion sites i.e., indwelling lines, tubes and drains. 4. Monitor endotracheal (as able) and nasal secretions for changes in amount and color. 5. Administer medications as ordered. 6. Instruct and encourage patient and family to use good hand hygiene technique. 7. Identify and instruct patient/patient in store representative in use of appropriate isolation precautionsfor identified infection/symptoms. 8. Provide and discuss with patient/patient in store representative on educational MDRO sheet. 9. Encourage and monitor nutritional status daily and consult naval engineer if indicated. 10. Implement neutropenic guidelines as needed. Outcome: Progressing Note: Evaluation of progress towards goal: Patient VS WNL, remains afebrile for shift. Continue to monitor. Problem: Knowledge Deficit Goal: Patient/patient in store representative demonstrates understanding of disease process, treatment plan,medications, and discharge instructions Description: INTERVENTIONS 1. Complete learning assessment and assess knowledge base 2. Provide teaching at level of understanding 3. Provide teaching via preferred learning method(s) Outcome: Progressing Note: Evaluation of progress towards goal: Evaluate, educate, reinforce learning needs and gaps t/oshift. Problem: Discharge Planning Goal: Discharge to post-acute care, other facility, or home with appropriate resources Description: Patient's goal is: INTERVENTIONS 1. Conduct assessment to determine patient/family and health care team treatment goals, and need for post-acute services based on payer coverage, community resources, and patient preferences, and barriers to discharge 2. Coordinate with Social work, Care Navigation, and Utilization Review to arrange appropriate level of services according to patient's needs based on patient preference and payer coverage in collaboration with the physician and health care team 3. Address psychosocial, clinical, and financial barriers to discharge as identified in assessment in conjunction with the patient/family and health care team 4. Consult appropriate ancillary services (i.e.. PT/OT/ST, etc) as needed 5. Communicate with and update the patient/family, physician, and health care team regarding progress on the discharge plan 6. Identify discharge learning needs (meds, wound care, etc). 7. Arrange for needed discharge transportation as appropriate Outcome: Progressing Note: Evaluation of progress towards goal: Continue to monitor t/o shift to assess for discharge needs. Problem: Moderate - High Risk Fall Score Description: Esquivel Fall Score of =/> 25 or indicated by [facility] Re[facility] Assessment Goal: Patient should be free from fall Description: Interventions: 1. [place] to environment 2. Hourly rounds addressing the 4 P's (Pain, Positioning, Possessions, Potty) 3. Clear area of hazards (spills, clutter, electrical cords, unnecessary equipment) 4. Place equipment (bed & TV controls, call light, phone, urinal) within reach 5. Encourage patient to wear glasses and hearing aides as appropriate 6. Maintain bed in lowest position 7. Lock wheels on bed/wheelchair 8. Provide adequate lighting, including night light 9. Assess need for additional bedding, food/fluids, pain med's prior to sleep/routinely 10. Provide gripper slippers or personal non-skid footwear 11. Teach patient and patient in store representative to maintain environment for safety and engage in all aspects of fall prevention program 12. Remind patient to call for help before getting out of bed 13. Initiate bed/chair/exit alarms supportive devices as appropriate, (chair wedge, no-skid floor mat, raised edge mattress, hip protectors) 14. Locate patient bed assignment for optimal visualization 15. Evaluate and identify Safe Patient Handling Equipment needs 16. Provide supervision when out of bed or chair 17. Utilize gait belt as needed to assist with ambulation 18. Place adaptive equipment (cane, walker) within reach 19. Request patient in store representative bring adaptive equipment/mobility aids from home or obtain and provide as needed 20. Consult pharmacy regarding effects of med's affecting mobility, cognition, and alternatives 21. Obtain physician order for PT if risk factors associated with mobility are present 22. Obtain physician order for OT as appropriate 23. Utilize diversional activities 24. Educate patient and patient in store representative how to maintain a safe environment during visitationtimes (notify nurse prior to leaving bedside) 25. Consider appropriateness of medical or non-medical photographer 26. Set up voiding schedule as appropriate (every 2 hours) Outcome: Progressing Note: Evaluation of progress towards goal: Pt remains free from falls or accidental injury during stay. Fall prevention measures in place. Hourly rounding per RN and maintained. Problem: Potential for Compromised Skin Integrity Goal: Skin integrity is maintained or improved Description: Patient's goal is: INTERVENTIONS 1. Perform initial skin assessment on admission and as needed 2. Turn patient every 2 hours and PRN 3. Relieve pressure to bony prominences 4. Avoid shearing 5. Keep skin clean and dry 6. Alternate a full bath with partial baths for elderly 7. Apply lotion/moisturizer on skin 8. Monitor patient's hygiene practices 9. Float heels 10. Collaborate with interdisciplinary team and initiate plans and interventions as needed Outcome: Progressing Note: Evaluation of progress towards goal: Maintain skin integrity and tissue integrity Goal: Patient's nutritional intake is adequate Description: Patient's goal is: INTERVENTIONS 1. Assess and monitor food intake and supplements, patient food preferences, nausea, vomiting, labs, oral cavity (gums, teeth, tongue, mucosa), proper denture fit, and cultural beliefs 2. Monitor for signs of hypoglycemia and hyperglycemia 3. Collaborate with interdisciplinary team and initiate plan and interventions as ordered 4. Monitor patient's weight 5. Assist patient with meals/food selection 6. Assist patient with eating 7. Allow adequate time for meals 8. Provide pleasant environment during mealtime 9. Increase social contact during mealtimes 10. Plan activities to conserve energy 11. Encourage/perform oral hygiene as appropriate 12. Encourage patient to take dietary supplement as ordered 13. Collaborate with clinical naval engineer 14. Include patient/ patient's in store representative in decisions related to nutrition Outcome: Progressing Note: Evaluation of progress towards goal: Patient understands the importance of proper nutrition to aid in healing. Problem: Urinary Incontinence Goal: Perineal skin integrity is maintained or improved Description: INTERVENTIONS 1. Assess genitourinary system, perineal skin, labs (urinalysis), and history of incontinence to include past management, aggravating, and alleviating factors 2. Keep skin clean and dry 3. Apply skin protectant 4. Develop skin care regimen 5. Provide privacy when changing patients incontinence device to maintain their dignity 6. Consider placing an indwelling catheter 7. Collaborate with interdisciplinary team and initiate plans and interventions as needed Outcome: Progressing Note: Evaluation of progress towards goal: Perineal skin kept clean and dry, privacy provided as needed, skin protectant applied as needed, labs monitored. * Plan of Care - Lennie Acosta RN - 02/05/2025 12:56 PM EDT Problem: Pain Goal: Patient goal is pain score less than 4, able to rest, and participant in treatment plan as appropriate Description: INTERVENTIONS: 1. Encourage patient or legal in store representative to report early pain and ask for pain medicine when needed 2. Assess pain using appropriate pain scale and include the scale used when documenting 3. Administer analgesics based on type and severity of pain and evaluate response within appropriate time frame 4. Implement non-pharmacological measures as appropriate and evaluate response 5. Consider cultural and social influences on pain and pain management 6. Notify LIP if interventions ineffective or patient reports new pain 7. Monitor vital signs including pulse ox, end-tidal CO2 based on pain intervention 8. Reassess pain per policy 9. Teach patient or legal in store representative interventions for comforting Outcome: Progressing Note: Evaluation of progress towards goal: Pt able to report pain according to 0/10 pain scale. Medicating patient for pain per orders. Problem: Safety Goal: Patient will be injury free during hospitalization Description: INTERVENTIONS: 1. Assess patient's risk for falls and implement fall prevention plan of care per policy 2. Provide and maintain a safe environment 3. Proper use of double Identifiers 4. Medication administration using the 5 rights 5. Hand hygiene 6. Specimens are labeled at the bedside 7. Instruct patient/ patient in store representative about use of safety devices 8. Include patient/ patient in store representative in decisions related to safety Outcome: Progressing Note: Evaluation of progress towards goal: Safety measures initiated/maintained. Pt remains safe from harm/injury/falls Problem: Infection Goal: Absence of infection during hospitalization Description: INTERVENTIONS 1. Assess and monitor for signs and symptoms of infection. 2. Monitor lab/diagnostic results. 3. Monitor all insertion sites i.e., indwelling lines, tubes and drains. 4. Monitor endotracheal (as able) and nasal secretions for changes in amount and color. 5. Administer medications as ordered. 6. Instruct and encourage patient and family to use good hand hygiene technique. 7. Identify and instruct patient/patient in store representative in use of appropriate isolation precautionsfor identified infection/symptoms. 8. Provide and discuss with patient/patient in store representative on educational MDRO sheet. 9. Encourage and monitor nutritional status daily and consult naval engineer if indicated. 10. Implement neutropenic guidelines as needed. Outcome: Progressing Note: Evaluation of progress towards goal: Patient VS WNL, remains afebrile for shift. Continue to monitor. Problem: Knowledge Deficit Goal: Patient/patient in store representative demonstrates understanding of disease process, treatment plan,medications, and discharge instructions Description: INTERVENTIONS 1. Complete learning assessment and assess knowledge base 2. Provide teaching at level of understanding 3. Provide teaching via preferred learning method(s) Outcome: Progressing Note: Evaluation of progress towards goal: Evaluate, educate, reinforce learning needs and gaps t/oshift. Problem: Discharge Planning Goal: Discharge to post-acute care, other facility, or home with appropriate resources Description: Patient's goal is: INTERVENTIONS 1. Conduct assessment to determine patient/family and health care team treatment goals, and need for post-acute services based on payer coverage, community resources, and patient preferences, and barriers to discharge 2. Coordinate with Social work, Care Navigation, and Utilization Review to arrange appropriate level of services according to patient's needs based on patient preference and payer coverage in collaboration with the physician and health care team 3. Address psychosocial, clinical, and financial barriers to discharge as identified in assessment in conjunction with the patient/family and health care team 4. Consult appropriate ancillary services (i.e.. PT/OT/ST, etc) as needed 5. Communicate with and update the patient/family, physician, and health care team regarding progress on the discharge plan 6. Identify discharge learning needs (meds, wound care, etc). 7. Arrange for needed discharge transportation as appropriate Outcome: Progressing Note: Evaluation of progress towards goal: Continue to monitor t/o shift to assess for discharge needs. Problem: Moderate - High Risk Fall Score Description: Esquivel Fall Score of =/> 25 or indicated by [facility] Assessment Goal: Patient should be free from fall Description: Interventions: 1. [place] to environment 2. Hourly rounds addressing the 4 P's (Pain, Positioning, Possessions, Potty) 3. Clear area of hazards (spills, clutter, electrical cords, unnecessary equipment) 4. Place equipment (bed & TV controls, call light, phone, urinal) within reach 5. Encourage patient to wear glasses and hearing aides as appropriate 6. Maintain bed in lowest position 7. Lock wheels on bed/wheelchair 8. Provide adequate lighting, including night light 9. Assess need for additional bedding, food/fluids, pain med's prior to sleep/routinely 10. Provide gripper slippers or personal non-skid footwear 11. Teach patient and patient in store representative to maintain environment for safety and engage in all aspects of fall prevention program 12. Remind patient to call for help before getting out of bed 13. Initiate bed/chair/exit alarms supportive devices as appropriate, (chair wedge, no-skid floor mat, raised edge mattress, hip protectors) 14. Locate patient bed assignment for optimal visualization 15. Evaluate and identify Safe Patient Handling Equipment needs 16. Provide supervision when out of bed or chair 17. Utilize gait belt as needed to assist with ambulation 18. Place adaptive equipment (cane, walker) within reach 19. Request patient in store representative bring adaptive equipment/mobility aids from home or obtain and provide as needed 20. Consult pharmacy regarding effects of med's affecting mobility, cognition, and alternatives 21. Obtain physician order for PT if risk factors associated with mobility are present 22. Obtain physician order for OT as appropriate 23. Utilize diversional activities 24. Educate patient and patient in store representative how to maintain a safe environment during visitationtimes (notify nurse prior to leaving bedside) 25. Consider appropriateness of medical or non-medical photographer 26. Set up voiding schedule as appropriate (every 2 hours) Outcome: Progressing Note: Evaluation of progress towards goal: Pt remains free from falls or accidental injury during stay. Fall prevention measures in place. Hourly rounding per RN and maintained. Problem: Potential for Compromised Skin Integrity Goal: Skin integrity is maintained or improved Description: Patient's goal is: INTERVENTIONS 1. Perform initial skin assessment on admission and as needed 2. Turn patient every 2 hours and PRN 3. Relieve pressure to bony prominences 4. Avoid shearing 5. Keep skin clean and dry 6. Alternate a full bath with partial baths for elderly 7. Apply lotion/moisturizer on skin 8. Monitor patient's hygiene practices 9. Float heels 10. Collaborate with interdisciplinary team and initiate plans and interventions as needed Outcome: Progressing Note: Evaluation of progress towards goal: Maintain skin integrity and tissue integrity Goal: Patient's nutritional intake is adequate Description: Patient's goal is: INTERVENTIONS 1. Assess and monitor food intake and supplements, patient food preferences, nausea, vomiting, labs, oral cavity (gums, teeth, tongue, mucosa), proper denture fit, and cultural beliefs 2. Monitor for signs of hypoglycemia and hyperglycemia 3. Collaborate with interdisciplinary team and initiate plan and interventions as ordered 4. Monitor patient's weight 5. Assist patient with meals/food selection 6. Assist patient with eating 7. Allow adequate time for meals 8. Provide pleasant environment during mealtime 9. Increase social contact during mealtimes 10. Plan activities to conserve energy 11. Encourage/perform oral hygiene as appropriate 12. Encourage patient to take dietary supplement as ordered 13. Collaborate with clinical naval engineer 14. Include patient/ patient's in store representative in decisions related to nutrition Outcome: Progressing Note: Evaluation of progress towards goal: Patient understands the importance of proper nutrition to aid in healing. Problem: Urinary Incontinence Goal: Perineal skin integrity is maintained or improved Description: INTERVENTIONS 1. Assess genitourinary system, perineal skin, labs (urinalysis), and history of incontinence to include past management, aggravating, and alleviating factors 2. Keep skin clean and dry 3. Apply skin protectant 4. Develop skin care regimen 5. Provide privacy when changing patients incontinence device to maintain their dignity 6. Consider placing an indwelling catheter 7. Collaborate with interdisciplinary team and initiate plans and interventions as needed Outcome: Progressing Note: Evaluation of progress towards goal: Perineal skin kept clean and dry, privacy provided as needed, skin protectant applied as needed, labs monitored. * PT/OT/RN IMMUNOLOGY - Tanisha Olmos, PT - 02/05/2025 9:59 AM EDT Physical Therapy Evaluation Discharge Recommendations for Safe Patient Transition PT Discharge Disposition Recommendation: Post acute - moderate PT Post Acute Moderate Rehab Needs: Tolerate 1-2 hrs of therapy 3-5 days/wk 6 Clicks: Basic Mobility Turning from your back to your side while in a flat bed without using bed rails?: A little Moving from lying on your back to sitting on side of flat bed without using bed rails?: A little Moving to and from bed to a chair (including w/c)?: A little Standing up from a chair using your arms (e.g. w/c or bedside chair)?: A little To walk in hospital room?: A lot Climbing 3-5 steps with a railing?: Total Scoring 6 Clicks: Basic Mobility Raw Score: 15 CMS G Code Modifier: CK Therapy Plan Need for skilled Physical Therapy to address deficits in functional mobility due to a status decline resulting from recent medical condition. Pt resting in bed and agreed to PT. Pt with CGA for most mobility, but min A for transfers and slight gait to wheelchair. NWB R LE throughout session today. Pt did well keeping NWB on R LE with transfers. Pt back resting in bed and call light within reach and all needs met upon departure. 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 ([facility]) 10/24/2022 Added automatically from request for surgery [id number] Chronic kidney disease Chronic osteomyelitis of left foot ([facility]) 09/27/2024 Dental disease Diabetes mellitus type 2, controlled ([facility]) Hyperlipidemia Hypertension MRSA bacteremia 09/28/2024 Osteomyelitis ([facility]) Shortness of breath Skin cancer melanoma Stage 3b chronic kidney disease ([facility]) 09/27/2024 Urinary incontinence Visual impairment Past Surgical History: Procedure Laterality Date AMPUTATION METATARSAL AND TOE Left 09/30/2024 Performed by Diego Daniels DPM at [facility] AMPUTATION METATARSAL AND TOE partial Ray Left 10/25/2022 Performed by Diego Daniels DPM at [facility] CIRCUMCISION LENGTHENING TENDON ACHILLES Left 09/30/2024 Performed by Diego Daniels DPM at [facility] Percutaneous angioplasty/stent femoral-popliteal right Right 11/29/2024 Performed by Delfino Lake MD at [facility] SKIN PLASTY TISSUE REARRANGEMENTn toe flap Left 10/25/2022 Performed by Diego Daniels DPM at [facility] TOE SURGERY Left Vascular Invasive 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 10/30/2022 Performed by Delfino Lake MD at [facility] Vascular Invasive- lower extremity angiogram with possible intervention with CO2 Right 11/29/2024 Performed by Deflino Lake MD at [facility] Vascular Invasive- Right Lower Extremity Angiogram with possible intervention Right 01/24/2025 Performed by Delfino Lake MD at [facility] PT Treatment/Interventions: ADL retraining, Bed mobility, Functional transfer training, Functional activities, Gait training, Patient/family training, Equipment eval/education, Balance, LE strengthening/ROM PT Frequency: 5-6days/week PT Duration: 2 weeks Assessment Patient Assessment Therapy Problem List: Decreased LE strength, Decreased mobility, Decreased balance, Decreased self-care trans Patient Response to Treatment: Tolerated evaluation without adverse reaction Mood/Affect: Appropriate for circumstances Rehab Prognosis: Good, With continued PT status post acute discharge Visit RN Communication: Yes Medical Record Reviewed: Yes PT Type of Visit: Evaluation Precautions Activity: as tolerated Equipment: nonskid sock L LE, wound vac Weight Bearing Status: NWB R LE Telemetry/Wire Brush Maker: Yes Subjective Physical Therapy Comments: pt states he has a spot on his L foot but that is wrapped up. Pain Assessment Pain Assessment: 0-10 Pain Score: 3 Pain Location: Foot Pain Orientation: Right Home Living Type of Home: House Home Layout: One level, Ramped entrance, Stairs to enter with rails Stairs to Enter: 4 steps to enter with ZACHARY rais, but also has a ramp Bathroom Shower/Tub: Tub/shower unit Bathroom Toilet: Standard Bathroom Equipment: Shower chair, Grab bars around toilet Bathroom Accessibility: Accessible Home Equipment: Rolling walker, Standard walker, 4 Wheeled walker, Wheelchair- manual, Electric scooter Prior Function Lives With: Alone Receives Help From: Family Level of Mobility: Independent with ADLs and functional transfers or gait Other: pt states he was independent with mobility in wheelchair and ramp enterance and could get inand out of shower and son and family would help with yard and housework as needed. Hearing / Speech / Vision Hearing: Within Functional Limits Speech: Within Functional Limits Cognition Overall Cognitive Status: Within Functional Limits Sensation Overall Sensation Status: (pt states he has neuropathy) Bed Mobility Rolling: Contact guard assist Supine to Sit: Contact guard assist Sit to Supine: Contact guard assist Transfers Sit to Stand: Contact guard assist, Min assist Stand to Sit: Contact guard assist, Min assist Other: cues for hand placement. Gait Gait Assistance: Min assist Assistive Device: Standard walker Gait Distance: 2 hops to wheelchair Other: NWB R LE with all of session Balance Sitting Balance: Static: Good Sitting Balance: Dynamic: Good Standing Balance: Static: Fair Standing Balance: Dynamic: Fair Other: with use of walker Activity Tolerance Endurance: Tolerates <30 minutes activity WITHOUT vital sign changes Plan Physical Therapy Care Plan Physical Therapy Care Plan (Active) Template: PT - Physical Therapy Problem: Bed Mobility Dates: Start: 02/05/25 Disciplines: PT Goal: Patient will perform bed mobility with Stand By Assist Dates: Start: 02/05/25 Expected End: 02/19/25 Disciplines: PT Problem: Gait Dates: Start: 02/05/25 Disciplines: PT Goal: Patient will perform gait with Minimum Assist Dates: Start: 02/05/25 Expected End: 02/19/25 Description: With use of walker and keeping NWB R LE for 5-10 feet safely on level surfaces Disciplines: PT Problem: Standing Balance Dates: Start: 02/05/25 Disciplines: PT Goal: Other sitting and standing balance goal (customize) Dates: Start: 02/05/25 Expected End: 02/19/25 Description: Goal Description:improve standing balance to fair plus for safety with transfers Disciplines: PT Problem: Strength Dates: Start: 02/05/25 Disciplines: PT Goal: Improve strength Dates: Start: 02/05/25 Expected End: 02/19/25 Description: Of extremity/ location:Improve strength to fair plus for safety of transfers Disciplines: PT Problem: Transfers Dates: Start: 02/05/25 Disciplines: PT Goal: Patient will perform transfers with Contact Guard Dates: Start: 02/05/25 Expected End: 02/19/25 Disciplines: PT Physical Therapy Care Plan (Resolved) There are no resolved problems. Principal Problem: Osteomyelitis of right foot, unspecified type ([facility]) Active Problems: Peripheral vascular disease ([facility]) Hyperlipidemia Diabetic peripheral neuropathy associated with type 2 diabetes mellitus ([facility]) S/P amputation of foot, left ([facility]) Hypertension CKD (chronic kidney disease) stage 4, GFR 15-29 ml/min ([facility]) Hypoglycemia Anemia of chronic disease Hypothyroidism * Plan of Care - Anupama Burnett RN - 02/04/2025 8:24 PM EDT Problem: Pain Goal: Patient goal is pain score less than 4, able to rest, and participant in treatment plan as appropriate Description: INTERVENTIONS: 1. Encourage patient or legal in store representative to report early pain and ask for pain medicine when needed 2. Assess pain using appropriate pain scale and include the scale used when documenting 3. Administer analgesics based on type and severity of pain and evaluate response within appropriate time frame 4. Implement non-pharmacological measures as appropriate and evaluate response 5. Consider cultural and social influences on pain and pain management 6. Notify LIP if interventions ineffective or patient reports new pain 7. Monitor vital signs including pulse ox, end-tidal CO2 based on pain intervention 8. Reassess pain per policy 9. Teach patient or legal in store representative interventions for comforting Outcome: Progressing Note: Evaluation of progress towards goal: monitor and treat pain as needed. Problem: Safety Goal: Patient will be injury free during hospitalization Description: INTERVENTIONS: 1. Assess patient's risk for falls and implement fall prevention plan of care per policy 2. Provide and maintain a safe environment 3. Proper use of double Identifiers 4. Medication administration using the 5 rights 5. Hand hygiene 6. Specimens are labeled at the bedside 7. Instruct patient/ patient in store representative about use of safety devices 8. Include patient/ patient in store representative in decisions related to safety Outcome: Progressing Note: Evaluation of progress towards goal: patient remains free from falls/injuries. * Discharge Planning Note - EDIN Gallardo - 02/04/2025 3:41 PM EDT Images from the original note were not included. Ongoing Assessment for Discharge Needs Reviewed discharge milestones and patient needs related to discharge plan. Current estimated discharge date of Feb 09, 2025 has been reviewed by treatment team. Pt back from Surgery. Per [facility] can accept at [place] upon insurance approval. Will need PT/OT evaluations in order to submit for insurance approval. Slag Worker met with pt & son Babar, informed on acceptance at [facility] upon insurance approval; explained insurance approval process, informed will be submitted to insurance provider on Friday. opportunity provided to ask questions, pt nor son do not endorse any at this time. Operation report sent to [facility]. Will need to submit for insurance approval on Friday; will need insurance approval to [place] to [facility] along with completed . Sticky note on chart regarding DC plan. Ongoing Assessment for Discharge Needs Flowsheet Row Most Recent Value Referral To Community Referrals / Resources Provided Denies needs Services Requested Patient expects to be discharged to: SNF Does the patient wish to have family/friend/caregiver involved in their discharge planning? Yes Does the patient plan to return home to a community setting? No, patient to discharge to facility-based provider. See Discharge Disposition Discharge Disposition [facility] Name [facility] SNF Accepted? Yes Patient choice offered Patient declined List Provided Patient declined Patient Declined Other (must state reason) [patient said his daughter in law works at [employer] & she is checking into arrangements, pt said he was at [employer] previously] DC Planning Complete Discharge Milestones Yes * Op Note - Diego Daniels DPM - 02/04/2025 12:09 PM EDT Surgeon: Diego Daniels DPM Assist: Exercise Scientist Primary: Karime Oliva RN Pharmacy Sales Representative: Gm Rodriguez Scrub Person: Bobbi Caldwell Laundry Worker: Phoenix Noel Procedure: Partial calcanectomy right foot- CPT 63526 Achilles tendon resection - CPT 03978 Intraoperative fluoroscopy use and interpretation-CPT 45647 Preop diagnosis: Osteomyelitis right foot Tenosynovitis, right Achilles Postop diagnosis: Same as above Anesthesia Provider: Anesthesiologist: Rosendo Medellin MD FLOATER OPERATOR: HUSAM MonteiroFLOATER OPERATOR; LAURA Stone Anesthesia type: general Hemostasis: pneumatic thigh tourniquet set at 250 mmHg for a total of 24 minutes EBL: less than 5 mL Materials: 1 g of vancomycin powder Prevena incisional wound VAC Almita guard Injectables: none Complications: None noted Indications for procedure: this is a patient who is well known to me. I have performed multiple procedures on him bilaterally with multiple amputations on the left side. Unfortunately he developed a decubitus ulceration on the right calcaneus. Eventually this eroded all the way to bone and MRI confirmed osteomyelitis. After discussing the risks and benefits of surgical intervention he elected to proceed. Procedure in detail: Patient was brought into the operating suite and placed on the operating tablein the super man position. Following induction of IV anesthesia the lower extremity was scrubbed prepped and draped in usual aseptic manner. A time-out was performed to verify the correct patient andside. An Esmarch bandage was utilized to exsanguinate the lower extremity and the pneumatic thigh tourniquet was inflated. Attention was directed to the posterior heel where a full-thickness ulceration was noted directly down to bone with exposed Achilles tendon. An incision was made starting proximal along the distal aspect of the Achilles tendon and progressed distally and laterally along the posterior calcaneus. The wound was excised in its entirety directly down to bone to try and achieve healthy margins. The distal portion of the Achilles tendon was noted to be completely necrotic and all of this nonviable tendon was resected. There was no purulence tracking along the Achilles tendon proximally. There was minimal purulence noted at the ulcerative site and most of the tissue was fibro necrotic debris. A ten otomy was performed of the Achilles tendon proximal to the skin incision to remove all the nonviable aspect of the tendon. The calcaneal tuber was exposed and care was taken to retract the medial neurovascular bundle to prevent iatrogenic damage. Once complete exposure was obtained intraoperative fl uoroscopy was utilized to plan the amputation site. This was done just posterior to the subtalar joint posterior facet. The amputation was beveled anteriorly to reduce any prominence along the plantar posterior aspect of the calcaneus to reduce the risk of ray ulceration. The calcaneal tuber was amputated at this level and passed from the surgical site. A reciprocating rasp was utilized to smoothall edges and create a round contour of the calcaneus to try and prevent prominent areas postoperatively. Intraoperative fluoroscopy confirmed excellent contour of the remaining calcaneus. At this time the surgical site was flushed with 3000 cc of normal saline utilizing gravity dilution pressure. The tourniquet was deflated. There was a sluggish response of capillary fill time. There was minimalbleeding encountered at the surgical site and minimal electrocautery had to be performed. Additionally I must note at this time that the flexor hallucis longus muscle belly seem to have a very atrophied appearance with significant fatty infiltration of the tissue consistent with chronic peripheral neuropathy and vascular disease. A clean curette was utilized to take a closing sample of the calcaneus that remained. This was sent for aerobic, anaerobic culture and Gram stain. There was some tension on the incision however I felt that with the use of almita guard I would be able to get primary closure. Four almita guard packs were utilized and I was able to get primary closure with minimal tensionon the incision Utilizing a combination of 2-0, 3-0 and 4-0 nylon. To prevent the risk of postoperative hematoma and to provide even further relief at the incision site I decided to use a Prevena wound VAC. This was applied in standard fashion with excellent seal obtained. A clean, minimally compressive dressing was then applied to the surgical foot. A well-padded AO splint was applied to the right lower extremity. The patient tolerated the procedure well and was transferred from the operating suite with his vital signs stable. After a period of monitoring in the PACU he will be discharged Back to the floor. I will monitor the closing cultures. He may require IV antibiotics upon discharge. He should be strictnonweightbearing on the right lower extremity at all times. I will follow-up with him while he remains inpatient. This operative note was dictated utilizing voice to text dictation software. It was reviewed for accuracy but there still may be some errors which were missed. * Plan of Care - Toni Loredo RN - 02/04/2025 10:07 AM EDT Problem: Pain Goal: Patient goal is pain score less than 4, able to rest, and participant in treatment plan as appropriate Description: INTERVENTIONS: 1. Encourage patient or legal in store representative to report early pain and ask for pain medicine when needed 2. Assess pain using appropriate pain scale and include the scale used when documenting 3. Administer analgesics based on type and severity of pain and evaluate response within appropriate time frame 4. Implement non-pharmacological measures as appropriate and evaluate response 5. Consider cultural and social influences on pain and pain management 6. Notify LIP if interventions ineffective or patient reports new pain 7. Monitor vital signs including pulse ox, end-tidal CO2 based on pain intervention 8. Reassess pain per policy 9. Teach patient or legal in store representative interventions for comforting Outcome: Progressing Note: Evaluation of progress towards goal: Pain assessed using appropriate pain scale and include the scale used when documenting. Administered analgesics based on type and severity of pain and evaluate response within appropriate time frame. Implemented non-pharmacological measures as appropriate and evaluate response. Problem: Safety Goal: Patient will be injury free during hospitalization Description: INTERVENTIONS: 1. Assess patient's risk for falls and implement fall prevention plan of care per policy 2. Provide and maintain a safe environment 3. Proper use of double Identifiers 4. Medication administration using the 5 rights 5. Hand hygiene 6. Specimens are labeled at the bedside 7. Instruct patient/ patient in store representative about use of safety devices 8. Include patient/ patient in store representative in decisions related to safety Outcome: Progressing Note: Evaluation of progress towards goal: Assessed patient's risk for falls and implemented fall prevention plan of care per protocol. Provided and maintained a safe environment. Used proper use of double Identifiers Problem: Infection Goal: Absence of infection during hospitalization Description: INTERVENTIONS 1. Assess and monitor for signs and symptoms of infection. 2. Monitor lab/diagnostic results. 3. Monitor all insertion sites i.e., indwelling lines, tubes and drains. 4. Monitor endotracheal (as able) and nasal secretions for changes in amount and color. 5. Administer medications as ordered. 6. Instruct and encourage patient and family to use good hand hygiene technique. 7. Identify and instruct patient/patient in store representative in use of appropriate isolation precautionsfor identified infection/symptoms. 8. Provide and discuss with patient/patient in store representative on educational MDRO sheet. 9. Encourage and monitor nutritional status daily and consult naval engineer if indicated. 10. Implement neutropenic guidelines as needed. Outcome: Progressing Note: Evaluation of progress towards goal: Isolation precautions followed per protocol. Equipment cleaned between patients. Handwashing protocol followed. Problem: Knowledge Deficit Goal: Patient/patient in store representative demonstrates understanding of disease process, treatment plan,medications, and discharge instructions Description: INTERVENTIONS 1. Complete learning assessment and assess knowledge base 2. Provide teaching at level of understanding 3. Provide teaching via preferred learning method(s) Outcome: Progressing Note: Evaluation of progress towards goal: Plan of care discussed with pt throughout shift. Updatedon all orders and changes. Verbalizes understanding and all questions/concerns addressed. Problem: Discharge Planning Goal: Discharge to post-acute care, other facility, or home with appropriate resources Description: Patient's goal is: INTERVENTIONS 1. Conduct assessment to determine patient/family and health care team treatment goals, and need for post-acute services based on payer coverage, community resources, and patient preferences, and barriers to discharge 2. Coordinate with Social work, Care Navigation, and Utilization Review to arrange appropriate level of services according to patient's needs based on patient preference and payer coverage in collaboration with the physician and health care team 3. Address psychosocial, clinical, and financial barriers to discharge as identified in assessment in conjunction with the patient/family and health care team 4. Consult appropriate ancillary services (i.e.. PT/OT/ST, etc) as needed 5. Communicate with and update the patient/family, physician, and health care team regarding progress on the discharge plan 6. Identify discharge learning needs (meds, wound care, etc). 7. Arrange for needed discharge transportation as appropriate Outcome: Progressing Note: Evaluation of progress towards goal: Conducted assessment to determine patient/family and health care team treatment goals, and need for post-acute services based on payer coverage, community resources, and patient preferences, and barriers to discharge. Problem: Moderate - High Risk Fall Score Description: Esquivel Fall Score of =/> 25 or indicated by [facility] Assessment Goal: Patient should be free from fall Description: Interventions: 1. Harrison to environment 2. Hourly rounds addressing the 4 P's (Pain, Positioning, Possessions, Potty) 3. Clear area of hazards (spills, clutter, electrical cords, unnecessary equipment) 4. Place equipment (bed & TV controls, call light, phone, urinal) within reach 5. Encourage patient to wear glasses and hearing aides as appropriate 6. Maintain bed in lowest position 7. Lock wheels on bed/wheelchair 8. Provide adequate lighting, including night light 9. Assess need for additional bedding, food/fluids, pain med's prior to sleep/routinely 10. Provide gripper slippers or personal non-skid footwear 11. Teach patient and patient in store representative to maintain environment for safety and engage in all aspects of fall prevention program 12. Remind patient to call for help before getting out of bed 13. Initiate bed/chair/exit alarms supportive devices as appropriate, (chair wedge, no-skid floor mat, raised edge mattress, hip protectors) 14. Locate patient bed assignment for optimal visualization 15. Evaluate and identify Safe Patient Handling Equipment needs 16. Provide supervision when out of bed or chair 17. Utilize gait belt as needed to assist with ambulation 18. Place adaptive equipment (cane, walker) within reach 19. Request patient in store representative bring adaptive equipment/mobility aids from home or obtain and provide as needed 20. Consult pharmacy regarding effects of med's affecting mobility, cognition, and alternatives 21. Obtain physician order for PT if risk factors associated with mobility are present 22. Obtain physician order for OT as appropriate 23. Utilize diversional activities 24. Educate patient and patient in store representative how to maintain a safe environment during visitationtimes (notify nurse prior to leaving bedside) 25. Consider appropriateness of medical or non-medical photographer 26. Set up voiding schedule as appropriate (every 2 hours) Outcome: Progressing Note: Evaluation of progress towards goal: Preformed hourly rounds addressing the 4 P's (Pain, Positioning, Possessions, Potty). Cleared area of hazards (spills, clutter, electrical cords, unnecessary equipment). * PT/OT/RN IMMUNOLOGY - Latanya Aparicio PT - 02/04/2025 9:55 AM EDT Physical Therapy PT Type of Visit: Medical deferral Reason For Medical Deferral: Medical procedure ongoing Medical Procedure Ongoing: (Scheduled for calcanectomy today with Dr. Daniels.) Provider Input Needed: (Will need updated weightbearing status and precautions post-op) * PT/OT/RN IMMUNOLOGY - MARINA Sifuentes/Farhat - 02/04/2025 9:43 AM EDT Occupational Therapy OT Type of Visit: Medical deferral Reason For Medical Deferral: Medical procedure ongoing Medical Procedure Ongoing: (Scheduled for calcanectomy today with Dr. Daniels.) Provider Input Needed: (Will need updated weightbearing status and precautions post-op) * Plan of Care - Anupama Burnett RN - 02/03/2025 7:54 PM EDT Problem: Pain Goal: Patient goal is pain score less than 4, able to rest, and participant in treatment plan as appropriate Description: INTERVENTIONS: 1. Encourage patient or legal in store representative to report early pain and ask for pain medicine when needed 2. Assess pain using appropriate pain scale and include the scale used when documenting 3. Administer analgesics based on type and severity of pain and evaluate response within appropriate time frame 4. Implement non-pharmacological measures as appropriate and evaluate response 5. Consider cultural and social influences on pain and pain management 6. Notify LIP if interventions ineffective or patient reports new pain 7. Monitor vital signs including pulse ox, end-tidal CO2 based on pain intervention 8. Reassess pain per policy 9. Teach patient or legal in store representative interventions for comforting Outcome: Progressing Note: Evaluation of progress towards goal: monitor and treat pain as ordered. Problem: Safety Goal: Patient will be injury free during hospitalization Description: INTERVENTIONS: 1. Assess patient's risk for falls and implement fall prevention plan of care per policy 2. Provide and maintain a safe environment 3. Proper use of double Identifiers 4. Medication administration using the 5 rights 5. Hand hygiene 6. Specimens are labeled at the bedside 7. Instruct patient/ patient in store representative about use of safety devices 8. Include patient/ patient in store representative in decisions related to safety Outcome: Progressing Note: Evaluation of progress towards goal: patient remains free from falls/injuries. * Discharge Planning Note - Dameon Guevara - 02/03/2025 3:56 PM EDT DISCHARGE PLANNING NOTE Referral sent to. [facility]/ [place], [place] (P# ; F# ) * Plan of Care - Toni Loredo RN - 02/03/2025 3:25 PM EDT Problem: Pain Goal: Patient goal is pain score less than 4, able to rest, and participant in treatment plan as appropriate Description: INTERVENTIONS: 1. Encourage patient or legal in store representative to report early pain and ask for pain medicine when needed 2. Assess pain using appropriate pain scale and include the scale used when documenting 3. Administer analgesics based on type and severity of pain and evaluate response within appropriate time frame 4. Implement non-pharmacological measures as appropriate and evaluate response 5. Consider cultural and social influences on pain and pain management 6. Notify LIP if interventions ineffective or patient reports new pain 7. Monitor vital signs including pulse ox, end-tidal CO2 based on pain intervention 8. Reassess pain per policy 9. Teach patient or legal in store representative interventions for comforting Outcome: Progressing Note: Evaluation of progress towards goal: Pain assessed using appropriate pain scale and include the scale used when documenting. Administered analgesics based on type and severity of pain and evaluate response within appropriate time frame. Implemented non-pharmacological measures as appropriate and evaluate response. Problem: Safety Goal: Patient will be injury free during hospitalization Description: INTERVENTIONS: 1. Assess patient's risk for falls and implement fall prevention plan of care per policy 2. Provide and maintain a safe environment 3. Proper use of double Identifiers 4. Medication administration using the 5 rights 5. Hand hygiene 6. Specimens are labeled at the bedside 7. Instruct patient/ patient in store representative about use of safety devices 8. Include patient/ patient in store representative in decisions related to safety Outcome: Progressing Note: Evaluation of progress towards goal: Assessed patient's risk for falls and implemented fall prevention plan of care per protocol. Provided and maintained a safe environment. Used proper use of double Identifiers Problem: Infection Goal: Absence of infection during hospitalization Description: INTERVENTIONS 1. Assess and monitor for signs and symptoms of infection. 2. Monitor lab/diagnostic results. 3. Monitor all insertion sites i.e., indwelling lines, tubes and drains. 4. Monitor endotracheal (as able) and nasal secretions for changes in amount and color. 5. Administer medications as ordered. 6. Instruct and encourage patient and family to use good hand hygiene technique. 7. Identify and instruct patient/patient in store representative in use of appropriate isolation precautionsfor identified infection/symptoms. 8. Provide and discuss with patient/patient in store representative on educational MDRO sheet. 9. Encourage and monitor nutritional status daily and consult naval engineer if indicated. 10. Implement neutropenic guidelines as needed. Outcome: Progressing Note: Evaluation of progress towards goal: Isolation precautions followed per protocol. Equipment cleaned between patients. Handwashing protocol followed. Problem: Knowledge Deficit Goal: Patient/patient in store representative demonstrates understanding of disease process, treatment plan,medications, and discharge instructions Description: INTERVENTIONS 1. Complete learning assessment and assess knowledge base 2. Provide teaching at level of understanding 3. Provide teaching via preferred learning method(s) Outcome: Progressing Note: Evaluation of progress towards goal: Plan of care discussed with pt throughout shift. Updatedon all orders and changes. Verbalizes understanding and all questions/concerns addressed. Problem: Discharge Planning Goal: Discharge to post-acute care, other facility, or home with appropriate resources Description: Patient's goal is: INTERVENTIONS 1. Conduct assessment to determine patient/family and health care team treatment goals, and need for post-acute services based on payer coverage, community resources, and patient preferences, and barriers to discharge 2. Coordinate with Social work, Care Navigation, and Utilization Review to arrange appropriate level of services according to patient's needs based on patient preference and payer coverage in collaboration with the physician and health care team 3. Address psychosocial, clinical, and financial barriers to discharge as identified in assessment in conjunction with the patient/family and health care team 4. Consult appropriate ancillary services (i.e.. PT/OT/ST, etc) as needed 5. Communicate with and update the patient/family, physician, and health care team regarding progress on the discharge plan 6. Identify discharge learning needs (meds, wound care, etc). 7. Arrange for needed discharge transportation as appropriate Outcome: Progressing Note: Evaluation of progress towards goal: Conducted assessment to determine patient/family and health care team treatment goals, and need for post-acute services based on payer coverage, community resources, and patient preferences, and barriers to discharge. Problem: Moderate - High Risk Fall Score Description: Esquivel Fall Score of =/> 25 or indicated by [facility] Assessment Goal: Patient should be free from fall Description: Interventions: 1. Harrison to environment 2. Hourly rounds addressing the 4 P's (Pain, Positioning, Possessions, Potty) 3. Clear area of hazards (spills, clutter, electrical cords, unnecessary equipment) 4. Place equipment (bed & TV controls, call light, phone, urinal) within reach 5. Encourage patient to wear glasses and hearing aides as appropriate 6. Maintain bed in lowest position 7. Lock wheels on bed/wheelchair 8. Provide adequate lighting, including night light 9. Assess need for additional bedding, food/fluids, pain med's prior to sleep/routinely 10. Provide gripper slippers or personal non-skid footwear 11. Teach patient and patient in store representative to maintain environment for safety and engage in all aspects of fall prevention program 12. Remind patient to call for help before getting out of bed 13. Initiate bed/chair/exit alarms supportive devices as appropriate, (chair wedge, no-skid floor mat, raised edge mattress, hip protectors) 14. Locate patient bed assignment for optimal visualization 15. Evaluate and identify Safe Patient Handling Equipment needs 16. Provide supervision when out of bed or chair 17. Utilize gait belt as needed to assist with ambulation 18. Place adaptive equipment (cane, walker) within reach 19. Request patient in store representative bring adaptive equipment/mobility aids from home or obtain and provide as needed 20. Consult pharmacy regarding effects of med's affecting mobility, cognition, and alternatives 21. Obtain physician order for PT if risk factors associated with mobility are present 22. Obtain physician order for OT as appropriate 23. Utilize diversional activities 24. Educate patient and patient in store representative how to maintain a safe environment during visitationtimes (notify nurse prior to leaving bedside) 25. Consider appropriateness of medical or non-medical photographer 26. Set up voiding schedule as appropriate (every 2 hours) Outcome: Progressing Note: Evaluation of progress towards goal: Preformed hourly rounds addressing the 4 P's (Pain, Positioning, Possessions, Potty). Cleared area of hazards (spills, clutter, electrical cords, unnecessary equipment). * Discharge Planning Note - EDIN Gallardo - 02/03/2025 3:16 PM EDT Images from the original note were not included. Initial Assessment Initial Assessment Flowsheet Row Most Recent Value Patient Information Primary Caregiver Self Support System Children [2 son's & a daughter & their families] Discharge Planning Living Arrangements Alone Assistance Needed boot on foot Type of Residence Private residence Private Residence 1 story Can patient reside on one level? Yes Residence Accessibility Steps into home Home Care Services No Community Agencies Currently Utilized [facility] Community Referrals / Resources Provided Denies needs [facility] [Mail order pharmacy & clinic] Does The Patient Have Existing Home DME? No Will the patient need DME at discharge? No, the patient has no home DME needs currently Stressors Type of stressor -- [does not endorse] Income Information Income Information Retired/Pension/Social Security IP Hunger/Food Insecurity Screening Within the past 12 months we worried whether our food would run out before we got money to buy more. Never True Within the past 12 months the food we bought just didn't last and we didn't have money to get more.Never True Hunger Screening Complete? Yes Pt. Eligible for Food / Voucher No If Eligible: Received Food Box Not Offered to Patient Warm Handoff Complete Caregiver/Family Member Caregiver/Family Member patient said his family is aware of situation Caregiver/Support System Limitations Patient/Caregiver Goals Patient/Caregiver Goals [facility]illed [facility] Skilled Care (Short Term) Community Provider Referral Services Requested Patient expects to be discharged to: SNF Does the patient wish to have family/friend/caregiver involved in their discharge planning? Yes Does the patient plan to return home to a community setting? No, patient to discharge to facility-based provider. See Discharge Disposition Discharge Disposition SNF Patient choice offered Patient declined List Provided Patient declined Patient Declined Other (must state reason) [patient said his daughter in law works at [employer] & she is checking into arrangements, pt said he was at [facility] previously] DC Planning Complete Discharge Milestones Yes Services Requested: Services Requested Patient expects to be discharged to:: SNF Does the patient wish to have family/friend/caregiver involved in their discharge planning?: Yes Does the patient plan to return home to a community setting?: No, patient to discharge to facility-based provider. See Discharge Disposition Discharge Disposition: SNF Patient choice offered: Patient declined List Provided: Patient declined Patient Declined: Other (must state reason) (patient said his daughter in law works at [facility] [employer] & she is checking into arrangements; pt said he was at [facility] previously) DC Planning Complete Discharge Milestones: Yes Patient Goals: Patient/Caregiver Goals Patient/Caregiver Goals: [facility] Care Skilled [facility] Care: Skilled Care (Short Term) Goals: Goals SNF (pt-stated) Evaluation of progress towards goal: await surgery, possibly tomorrow Additional Comments (If Applicable) Chart reviewed. Introduced self & role of SW, pt agreeable to conversation; assessment/goals as above. Pt does not endorse alcohol/substance use. Pt does not endorse food insecurity or financial stressors. Pt is able to afford home medications. Pt has functioning water, heat, cooling & electric inthe home. Negative [place] screen. Pt family has been providing transportation since September due to pt foot. Pt is independent in/out ofthe home, performs own household tasks, meal preparation Pt relayed his children & family provide natural supports. Patient's preferred pharmacy is [facility] mail order or [facility]. PCP verified as [facility]. Educated pt on available community resources including meals on wheels & on benefits of Home Health Care. Pt said plan will be to likely DC to [facility] or one of the [facility] SNF's if [facility] does not have a bed available. Pt said his daughter in law works at [facility] [employer] & is checkinginto beds. Informed pt that SNF will need referral from hospital to review. Offered [facility] SNF list, pt declined. Pt agreeable to report writer sending referral to [facility]. Pt said he would be in hospital until Friday. Pt does not endorse any current DC needs. Opportunity provided to ask questions, pt does not endorse any at this time. Tasked Transition Center to send referral to [facility]; await acceptance. Plan to prevent readmission is for pt to likely DC to SNF, follow DC instructions including medication compliance and to reach out to health care team as needed. Care Navigation will continue to follow patient progress to determine appropriate safe care transition needs. * Telehealth Consult - Jonh Cline MD - 02/03/2025 12:34 PM EDTAssociated Order(s): Consult Infectious Disease Telehealth Consult Infectious Disease Telehealth Consult performed by: Jonh Cline MD Consult ordered by: Mukul Flores APRN-[facility] Reason for consult: diabetic foot ulcer. Tele-Infectious Disease Telemedicine Consult Note Consent Statement: I discussed risks, benefits, and alternatives of a real-time synchronous audiovisual consultation with the patient (and any accompanying persons) including the risks that the patient's personal health details and medical records will be discussed over real-time, synchronous, interactive video/audio/telecommunication technology, the visit will not be recorded without the express consent of both the provider and the patient, andthat there are some limitations compared to [id number] evaluations. We elected to proceed. [facility] Infectious Diseases - Initial Consult Note [facility] - TeleMedicine During Business Hours: Please use N(i)² for communication. 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 Chronic infection confirmed by MRI, with prior bone cultures (September 30) yielding MRSA and Enterococcus faecalis, both susceptible to vancomycin; likely the same pathogens are present currently. Scheduled for partial calcanectomy and Achilles tendon resection tomorrow, with anticipated need for wound VAC postoperatively and probable alf facility placement for wound care. Currently receiving vancomycin and cefepime; will continue vancomycin with target trough 15-20 mcg/mL. Discontinue cefepime given lack of Gram-negative coverage need based on prior culture data. Bone biopsy at time of surgery will be obtained for updated culture and susceptibility information to guide definitive antimicrobial therapy. Will check right foot X-ray to assess for further osseous changes. Given history of MRSA bacteremia in September, will obtain repeat blood cultures ??2, although patient is afebrile and without systemic signs of infection. 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 Chronic ulceration noted at vascular appointment, with known underlying structural deformity. Type 2 diabetes mellitus. At risk for poor wound healing and recurrent infection. Glycemic optimization essential. Chronic kidney disease. Will monitor renal function closely while on vancomycin, adjusting dosing as needed to maintain therapeutic trough levels without nephrotoxicity. 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 History of Present Illness We appreciate the opportunity to consult on Babar Barriga, a 80 y.o.-year-old male who was initially admitted on 02/03/2025. This is an 80-year-old male with a history of chronic kidney disease, diabetes mellitus, hypertension, osteomyelitis, shortness of breath, melanoma, urinary incontinence, and significant dental disease, who presents for planned right foot surgery for osteomyelitis involving the posterior heel. The operative plan includes removal of the calcaneus, with concern for involvement of the Achilles tendon. He reports right heel pain and nonhealing ulceration for the past threemonths, initially developing as a blood blister while in the [facility]. At a wound care clinic visit one week ago, he was noted to have a chronic posterior heel ulcer on the right foot as well as a newly identified ulceration on the left foot, discovered the prior day during a vascular appointment for angiography. He has undergone MRI of the right foot, confirming osteomyelitis. On the day of presentation, the patient was transferred from the nursing facility to the emergency department for evaluation of hypoglycemia prior to surgery. He reports not eating since 2200 the previous evening, but did take his long-acting insulin yesterday morning. He is currently asymptomatic aside from concerns about his right foot. He denies chest pain, shortness of breath, lightheadedness, dizziness, visual or hearing changes, fever, or chills. 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 ([facility]) 10/24/2022 Added automatically from request for surgery [id number] Chronic kidney disease Chronic osteomyelitis of left foot ([facility]) 09/27/2024 Dental disease Diabetes mellitus type 2, controlled ([facility]) Hyperlipidemia Hypertension MRSA bacteremia 09/28/2024 Osteomyelitis ([facility]) Shortness of breath Skin cancer melanoma Stage 3b chronic kidney disease ([facility]) 09/27/2024 Urinary incontinence Visual impairment Past Surgical History: Past Surgical History: Procedure Laterality Date AMPUTATION METATARSAL AND TOE Left 09/30/2024 Performed by Diego Daniels DPM at [facility] AMPUTATION METATARSAL AND TOE partial Ray Left 10/25/2022 Performed by Diego Daniels DPM at [facility] CIRCUMCISION LENGTHENING TENDON ACHILLES Left 09/30/2024 Performed by Diego Daniels DPM at [facility] Percutaneous angioplasty/stent femoral-popliteal right Right 11/29/2024 Performed by Delfino Lake MD at [facility] SKIN PLASTY TISSUE REARRANGEMENTn toe flap Left 10/25/2022 Performed by Diego Daniels DPM at [facility] TOE SURGERY Left Vascular Invasive 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 10/30/2022 Performed by Delfino Lake MD at [facility] Vascular Invasive- lower extremity angiogram with possible intervention with CO2 Right 11/29/2024 Performed by Delfino Lake MD at [facility] Vascular Invasive- Right Lower Extremity Angiogram with possible intervention Right 01/24/2025 Performed by Delfino Lake MD at [facility] Medications: cefepime (MAXIPIME) IV, 1,000 mg, intravenous, Q12H insulin lispro, 2-10 Units, subcutaneous, With meals and nightly [START ON 02/04/2025] vancomycin, 750 mg, intravenous, Q24H Social History: Social History Socioeconomic History Marital status: Tobacco Use Smoking status: Former Smokeless tobacco: Never Vaping Use Vaping status: Never Used Substance and Sexual Activity Alcohol use: No Drug use: No Sexual activity: Defer Other Topics Concern Caffeine Use No Social Drivers of Health Food Insecurity: No Food Insecurity (02/03/2025) Hunger Screening Food Insecurity - Worry: Never True Food Insecurity - Inability: Never True Transportation Needs: No Transportation Needs (02/03/2025) PRAPARE - Transportation Lack of Transportation (Medical): No Lack of Transportation (Non-Medical): No Interpersonal Safety: Not At Risk (02/03/2025) Humiliation, Afraid, Rape, and Kick questionnaire Fear of Current or Ex-Partner: No Emotionally Abused: No Physically Abused: No Sexually Abused: No Housing Instability: Low Risk (02/03/2025) Housing Instability Housing Instability: No Family History: Family History Problem Relation Age of Onset Ovarian cancer Mother Diabetes Father Immunization History: Immunization History Administered Date(s) Administered COVID-19, mRNA, LNP-S, PF, 100mcg/0.5mL Dose 07/14/2020, 08/11/2020, 07/04/2021 Covid-19, Mrna, Lnp-s, Pf,gwendolyn-sucrose,30 Mcg/0.3ml Seasonal 06/13/2023, 03/29/2024 Influenza High Dose Preservative Free IM 05/15/2021 Influenza, Injectable, quadrivalent (PF) 07/15/2018, 03/23/2020 Pneumococcal Conjugate 13-Valent 05/11/2019 Pneumococcal Polysaccharide 05/15/2021 Allergies: Allergies Allergen Reactions Penicillins As a child Lisinopril Other (See Comments) Unsure of reaction Review of Systems: Constitutional: Negative for fever, chills, malaise, or fatigue. HEENT: Negative for congestion, sore throat, or vision changes; has significant dental disease. Cardiovascular: Negative for chest pain, palpitations, or leg swelling. Respiratory: Negative for cough or shortness of breath at rest. Gastrointestinal: Negative for abdominal pain, nausea, vomiting, or diarrhea. Genitourinary: Positive for urinary incontinence; negative for dysuria or hematuria. Musculoskeletal: Positive for chronic right heel pain; negative for new joint pain or swelling elsewhere. Neurological: Negative for dizziness, syncope, focal weakness, or numbness. Skin: Positive for chronic right heel ulceration and newly identified left foot ulcer; negative forrash. Endocrine: History of diabetes with recent hypoglycemia; negative for polydipsia or polyuria. Objective Physical Examination: BP 135/49 Pulse 86 Temp 36.6 ??C (97.9 ??F) (Oral) Resp 16 Ht 172.7 cm (5' 8 ) Wt 59.1 kg(130 lb 6.4 oz) SpO2 100% BMI 19.83 kg/m?? Temperature Range: Temp: 36.6 ??C (97.9 ??F) Temp Av.5 ??C (97.7 ??F) Min: 36.4 ??C (97.5 ??F)Max: 36.6 ??C (97.9 ??F) Visit was conducted via the [employer] of [employer]. My impressions are as follows: Constitutional: Awake, alert, and in no apparent distress. Eyes: Sclera anicteric, conjunctivae pink. ENT/Mouth: hearing is appropriate. No hearing aids. Neck: no limitations to range in motion. No bounding pulsations. Skin: no new bruises, rashes, lacerations, psoriasis plaques, or swelling. Neurologic: no pronator drift. No tremor. Psychiatric: Appropriate affect, alert and oriented to person, place and time. Labs: I have reviewed the following labs personally: Results from last 7 days Lab Units 02/03/25 0703 01/28/25 1302 WBC x10E9/L 9.5 8.5 HEMOGLOBIN g/dL 8.2* 8.2* HEMATOCRIT % 24.9* 25.7* MCV fL 80 81 PLATELETS X10E9/L 317 351 NEUTROS ABS 10*3/uL 7.5* 6.2 LYMPHS ABS AUTO 10*3/uL 1.3 1.7 MONOS ABS AUTO 10*3/uL 0.6 0.5 EOS ABS AUTO 10*3/uL 0.1 0.1 BASOS ABS AUTO 10*3/uL 0.1 0.1 Results from last 7 days Lab Units 02/03/25 1230 02/03/25 0850 02/03/25 0703 02/03/25 0624 01/28/25 1302 SODIUM mmol/L -- -- 133* -- 138 POTASSIUM mmol/L -- -- 4.9 -- 4.5 CHLORIDE mmol/L -- -- 105 -- 104 CO2 mmol/L -- -- 22 -- 26 BUN mg/dL -- -- 50* -- 47* CREATININE mg/dL -- -- 1.67* -- 1.66* BEDSIDE GLUCOSE mg/dL 237* 153* -- < > -- GLUCOSE mg/dL -- -- 92 -- 116* CALCIUM mg/dL -- -- 8.9 -- 9.8 < > = values in this interval not displayed. Results from last 7 days Lab Units 02/03/25 0703 SED RATE mm/h 94* CRP mg/dL 4.7* Imaging Studies: Right foot X-ray ordered. Cultures: Microbiology Results No results found for the last 168 hours. Telemedicine Statement: Tele-Infectious Disease Telemedicine Consult Note Consent Statement: I discussed risks, benefits, and alternatives of a real-time synchronous audiovisual consultation with the patient (and any accompanying persons) including the risks that the patient's personal health details and medical records will be discussed over real-time, synchronous, interactive video/audio/telecommunication technology, the visit will not be recorded without the express consent of both the provider and the patient, andthat there are some limitations compared to [id number] evaluations. We elected to proceed. Thank you for allowing us to participate in the care of this patient. Please call with questions. Jonh Cline MD, MPH, FACP, FIDSA * PT/OT/RN IMMUNOLOGY - Patrica Dunn OTR/L - 02/03/2025 10:36 AM EDT Occupational Therapy OT Type of Visit: Medical deferral Reason For Medical Deferral: Medical procedure ongoing Medical Procedure Ongoing: (Scheduled for podiatry procedure tomorrow with Dr. Daniels. Cancelled today do to hypoglycemia.) * PT/OT/RN IMMUNOLOGY - Latanya Aparicio, PT - 02/03/2025 10:17 AM EDT Physical Therapy PT Type of Visit: Medical deferral Reason For Medical Deferral: Medical procedure ongoing, Provider input needed Medical Procedure Ongoing: (Scheduled for podiatry procedure tomorrow with Dr. Daniels. Cancelled today do to hypoglycemia.) Provider Input Needed: (Will need updated weightbearing status and precautions post-op (surgery scheduled 02/04/25) for safe gait training and optimal healing.) documented in this encounter Plan of Treatment Upcoming Encounters Date Type Department Care Team (Late st Contact Info) Description 03/08/2025 3:20 PM EDT Office Visit [facility] [address] [place] [address] Delfino Lake MD [address] [place] [address] Scheduled Orders Name Type Priority Associated Diagnoses Orde r Schedule Vancomycin, trough Lab Routine Chronic kidney disease, unspecified CKD stage Once a week for 5 Occurrences starting 02/08/2025 until 02/08/2026 Basic Metabolic Panel Lab Routine Chronic kidney disease, unspecified CKD stage Once a week for 5 Occurrences starting 02/08/2025 until 02/08/2026 Scheduled Referrals Name Type Priority Associated Diagnoses Order Schedule [facility] [place], [place] Outpatient Referral Routine Osteomyelitis of right foot, unspecified type ([facility]) 1 Occurrences starting 02/08/2025 until 02/08/2026 documented as of this encounter Goals Goal Patient Goal Type Associated Problems Recent Progress Patient-Stated? Author [facility] General Yes Desire Wilhelm LSW Note: Evaluation of progress towards goal: await surgery, possibly tomorrow documented as of this encounter Procedures Procedure Name Priority Date/Time Associated Diagnosis Comments BEDSIDE GLUCOSE Routine 02/08/2025 4:15 PM EDT BEDSIDE GLUCOSE Routine 02/08/2025 3:42 PM EDT HEMOGLOBIN AND HEMATOCRIT, BLOOD Routine 02/08/2025 12:42 PM EDT BEDSIDE GLUCOSE Routine 02/08/2025 12:18 PM EDT BEDSIDE GLUCOSE Routine 02/08/2025 8:51 AM EDT BEDSIDE GLUCOSE Routine 02/08/2025 7:31 AM EDT CBC WITH AUTO DIFFERENTIAL Routine 02/08/2025 5:44 AM EDT MAGNESIUM Routine 02/08/2025 5:44 AM EDT COMPREHENSIVE METABOLIC PANEL Routine 02/08/2025 5:44 AM EDT BEDSIDE GLUCOSE Routine 02/07/2025 8:42 PM EDT HEMOGLOBIN Routine 02/07/2025 6:50 PM EDT HEMATOCRIT Routine 02/07/2025 6:50 PM EDT BEDSIDE GLUCOSE Routine 02/07/2025 5:07 PM EDT TRANSFUSE RED BLOOD CELLS Routine 02/07/2025 3:37 PM EDT HEMOGLOBIN AND HEMATOCRIT, BLOOD Routine 02/07/2025 1:15 PM EDT BEDSIDE GLUCOSE Routine 02/07/2025 11:14 AM EDT EXTRA TUBES BLUE TOP Routine 02/07/2025 4:31 AM EDT EXTRA TUBES Routine 02/07/2025 4:31 AM EDT CBC WITH AUTO DIFFERENTIAL Routine 02/07/2025 4:31 AM EDT MAGNESIUM Routine 02/07/2025 4:31 AM EDT COMPREHENSIVE METABOLIC PANEL Routine 02/07/2025 4:31 AM EDT OCCULT BLOOD X 1, STOOL Routine 02/07/2025 2:46 AM EDT HEMOGLOBIN AND HEMATOCRIT, BLOOD Routine 02/06/2025 8:45 PM EDT BEDSIDE GLUCOSE Routine 02/06/2025 8:36 PM EDT BEDSIDE GLUCOSE Routine 02/06/2025 4:02 PM EDT REPEATED ABORH Routine 02/06/2025 1:56 PM EDT IRON AND TIBC Add-On 02/06/2025 1:26 PM EDT TYPE AND SCREEN Routine 02/06/2025 1:26 PM EDT FERRITIN Add-On 02/06/2025 1:26 PM EDT CROSSMATCH RBC Routine 02/06/2025 1:00 PM EDT BEDSIDE GLUCOSE Routine 02/06/2025 10:52 AM EDT VANCOMYCIN, PEAK Routine 02/06/2025 10:4 8 AM EDT CBC WITH AUTO DIFFERENTIAL Routine 02/06/2025 7:09 AM EDT MAGNESIUM Routine 02/06/2025 7:08 AM EDT VANCOMYCIN, TROUGH Routine 02/06/2025 7: 08 AM EDT COMPREHENSIVE METABOLIC PANEL Routine 02/06/2025 7:08 AM EDT BEDSIDE GLUCOSE Routine 02/05/2025 9:34 PM EDT BEDSIDE GLUCOSE Routine 02/05/2025 4:36 PM EDT BEDSIDE GLUCOSE Routine 02/05/2025 11:31 AM EDT EXTRA TUBES SST TOP Routine 02/05/2025 5 :24 AM EDT EXTRA TUBES BLUE TOP Routine 02/05/2025 5:24 AM EDT EXTRA TUBES Routine 02/05/2025 5:24 AM EDT CBC WITH AUTO DIFFERENTIAL Routine 02/05/2025 5:24 AM EDT MAGNESIUM Routine 02/05/2025 5:24 AM EDT COMPREHENSIVE METABOLIC PANEL Routine 02/05/2025 5:24 AM EDT BEDSIDE GLUCOSE Routine 02/04/2025 9:06 PM EDT BEDSIDE GLUCOSE Routine 02/04/2025 5:28 PM EDT XR CALCANEUS RT MIN 2 VWS Routine 02/04/2025 1:36 PM EDT BONE CULTURE Routine 02/04/2025 1:15 PM EDT ANAEROBIC CULTURE Routine 02/04/2025 1:1 5 PM EDT IN PART REMV TALUS OR CALCANEUS 02/04/2025 12:09 PM EDT Ulcer of right heel, 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], Osteomyelitis of ankle or foot, acute, 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], Tenosynovitis of right foot [M65.971] ECG 12-LEAD STAT 02/04/2025 9:37 AM EDT EXTRA TUBES BLUE TOP Routine 02/04/2025 5:31 AM EDT EXTRA TUBES Routine 02/04/2025 5:31 AM EDT CBC WITH AUTO DIFFERENTIAL Routine 02/04/2025 5:31 AM EDT MAGNESIUM Routine 02/04/2025 5:31 AM EDT COMPREHENSIVE METABOLIC PANEL Routine 02/04/2025 5:31 AM EDT BEDSIDE GLUCOSE Routine 02/04/2025 2:06 AM EDT BEDSIDE GLUCOSE Routine 02/04/2025 12:33 AM EDT BEDSIDE GLUCOSE Routine 02/04/2025 12:14 AM EDT BEDSIDE GLUCOSE Routine 02/04/2025 12:00 AM EDT BEDSIDE GLUCOSE Routine 02/03/2025 9:42 PM EDT XR FOOT RT 2 VWS Routine 02/03/2025 8:35 PM EDT BLOOD CULTURE STAT 02/03/2025 8:25 PM EDT BLOOD CULTURE STAT 02/03/2025 8:25 PM EDT BEDSIDE GLUCOSE Routine 02/03/2025 5:33 PM EDT BEDSIDE GLUCOSE Routine 02/03/2025 12:30 PM EDT BEDSIDE GLUCOSE Routine 02/03/2025 8:50 AM EDT EXTRA TUBES BLUE TOP Routine 02/03/2025 7:03 AM EDT ERYTHROCYTE SEDIMENTATION RATE (ESR) STAT 02/03/2025 7:03 AM EDT THYROID PROFILE INCLUDES TSH FT4 Add-On 02/03/2025 7:03 AM EDT EXTRA TUBES Routine 02/03/2025 7:03 AM EDT CBC WITH AUTO DIFFERENTIAL STAT 02/03/2025 7:03 AM EDT C-REACTIVE PROTEIN STAT 02/03/2025 7: 03 AM EDT HEMOGLOBIN A1C Add-On 02/03/2025 7:03 AM EDT BASIC METABOLIC PANEL STAT 02/03/2025 7:03 AM EDT documented in this encounter Results * (ABNORMAL) Bedside Glucose *Place/Obtain serum glucose if >500 per glucometer. (02/08/2025 4:15 PM EDT) Bedside Glucose (POC) 213(H) 65 - 99 mg/dL 02/08/2025 4:28 PM EDT [facility] arterial/capilla ry 02/08/2025 4:15 PM EDT 02/08/2025 4:28 PM EDT us Sirena Batres MD POINT OF CARE TEST ORDERABLES Final Result Performing Organization Address City/[facility]/ZIP Co de Phone Number [address] [place] [address], [place] * (ABNORMAL) Bedside Glucose *Place/Obtain serum glucose if >500 per glucometer. (02/08/2025 3:42 PM EDT) Bedside Glucose (POC) 191(H) 65 - 99 mg/dL 02/08/2025 4:22 PM EDT [facility] arterial/capilla ry 02/08/2025 3:42 PM EDT 02/08/2025 4:22 PM EDT us Sirena Batres MD POINT OF CARE TEST ORDERABLES Final Result Performing Organization Address City/[facility]/ZIP Co de Phone Number [address] [place] [address], [place] * (ABNORMAL) Hemoglobin and hematocrit, blood (02/08/2025 12:42 PM EDT) Hemoglobin 8.0(L) 13 - 17 g/dL 02/08/2025 1:03 PM EDT [facility] Hematocrit 24.2(L) 39 - 50 % 02/08/2025 1:03 PM EDT [facility] Blood Venous blood / Unknown Venipuncture / Unknown 02/08/2025 12:42 PM EDT 02/08/2025 12:45 PM EDT us Raysa Mann MD LAB BLOOD ORDERABLES Final Result [address] [place] [address], [place] * (ABNORMAL) Bedside Glucose *Place/Obtain serum glucose if >500 per glucometer. (02/08/2025 12:18PM EDT) Bedside Glucose (POC) 242(H) 65 - 99 mg/dL 02/08/2025 4:22 PM EDT [facility] arterial/capilla ry 02/08/2025 12:18 PM EDT 02/08/2025 4:22 PM EDT us Sirena Batres MD POINT OF CARE TEST ORDERABLES Final Result [address] [place] [address], [place] * (ABNORMAL) Bedside Glucose *Place/Obtain serum glucose if >500 per glucometer. (02/08/2025 8:51 AM EDT) Bedside Glucose (POC) 108(H) 65 - 99 mg/dL 02/08/2025 4:22 PM EDT [facility] arterial/capilla ry 02/08/2025 8:51 AM EDT 02/08/2025 4:22 PM EDT Sirena Batres MD POINT OF CARE TEST ORDERABLES Final Result [address] [place] [address], [place] * (ABNORMAL) Bedside Glucose *Place/Obtain serum glucose if >500 per glucometer. (02/08/2025 7:31 AM EDT) Pathologist [facility] Bedside Glucose (POC) 54(L) 65 - 99 mg/dL 02/08/2025 7:36 AM EDT [facility] arterial/capilla ry 02/08/2025 7:31 AM EDT 02/08/2025 7:36 AM EDT Sirena Batres MD POINT OF CARE TEST ORDERABLES Final Result Performing Organization Address City/[facility] Co de Phone Number [address] [place] [address], [place] * (ABNORMAL) CBC auto differential (02/08/2025 5:44 AM EDT) [facility] WBC 10.6 4 - 11 x10E9/L 02/08/2025 7:06 AM EDT [facility] RBC Count 3.29(L) 4.1 - 5.7 X10E12/L 02/08/2025 7:06 AM EDT [facility] Hemoglobin 8.8(L) 13 - 17 g/dL 02/08/2025 7:06 AM EDT [facility] Hematocrit 26.2(L) 39 - 50 % 02/08/2025 7:06 AM EDT [facility] MCV 80 80 - 100 fL 02/08/2025 7:06 AM EDT [facility] MCH 26.6(L) 27 - 34 pg 02/08/2025 7:06 AM EDT [facility] MCHC 33.4 32 - 36 g/dL 02/08/2025 7:06 AM EDT [facility] RDW 18.9(H) 11.5 - 15 % 02/08/2025 7:06 AM EDT [facility] Platelet Count 250 150 - 450 X10E9/L 02/08/2025 7:06 AM EDT [facility] MPV 7.0 7 - 12 fL 02/08/2025 7:06 AM EDT [facility] Neutrophils % 69.0 % 02/08/2025 7:06 AM EDT [facility] Lymphocytes % 22.7 % 02/08/2025 7:06 AM EDT [facility] Monocytes % 7.1 % 02/08/2025 7:06 AM EDT [facility] Eosinophils % 1.0 % 02/08/2025 7:06 AM EDT [facility] Basophils % 0.2 % 02/08/2025 7:06 AM EDT [facility] Neutrophils Absolute (A) 7.3(H) 1.5 - 6.6 10*3/uL 02/08/2025 7:06 AM EDT [facility] Lymphocytes Absolute 2.4 1.0 - 3.5 10*3/uL 02/08/2025 7:06 AM EDT [facility] Monocytes Absolute 0.7 0.0 - 0.9 10*3/uL 02/08/2025 7:06 AM EDT [facility] Eosinophils Absolute 0.1 0.0 - 0.4 10*3/uL 02/08/2025 7:06 AM EDT [facility] Basophils Absolute 0.0 0.0 - 0.2 10*3/uL 02/08/2025 7:06 AM EDT [facility] Differential Type AUTOMATED DIFFERENTIAL 02/08/2025 7:06 AM EDT [facility] Blood Venous blood / Unknown Venipuncture / Unknown 02/08/2025 5:44 AM EDT 02/08/2025 6:02 AM EDT us Diego S Jeremiah DPM LAB BLOOD ORDERABLES Final Result Performing Organization Address City/[facility]/ZIP Co de Phone Number [address] [place] [address], [place] * Magnesium (02/08/2025 5:44 AM EDT) MAGNESIUM 1.8 1.8 - 2.6 mg/dL 02/08/2025 6:57 AM EDT [facility] Blood Venous blood / Unknown Venipuncture / Unknown 02/08/2025 5:44 AM EDT 02/08/2025 6:02 AM EDT Diego Daniels DPM LAB BLOOD ORDERABLES Final Result Performing Organization Address [facility] Co de Phone Number [address] [place] [address], [place] * (ABNORMAL) Comprehensive metabolic panel (02/08/2025 5:44 AM EDT) SODIUM 135 134 - 146 mmol/L 02/08/2025 6:57 AM EDT [facility] POTASSIUM 4.5 3.5 - 5.0 mmol/L 02/08/2025 6:57 AM EDT [facility] CHLORIDE 104 98 - 109 mmol/L 02/08/2025 6:57 AM EDT [facility] CARBON DIOXIDE 25 22 - 32 mmol/L 02/08/2025 6:57 AM EDT [facility] ANION GAP 6 5 - 15 mmol/L 02/08/2025 6:57 AM EDT [facility] BLOOD UREA NITROGEN 33(H) 5 - 27 mg/dL 02/08/2025 6:57 AM EDT [facility] CREATININE 1.16 0.70 - 1.20 mg/dL 02/08/2025 6:57 AM EDT [facility] Comment:METHOD TRACEABLE TO IDMS STANDARD GLUCOSE 63(L) 65 - 99 mg/dL 02/08/2025 6:57 AM EDT [facility] CALCIUM 8.8 8.5 - 10.5 mg/dL 02/08/2025 6:57 AM EDT [facility] TOTAL PROTEIN 6.2 6.0 - 8.0 g/dL 02/08/2025 6:57 AM EDT [facility] ALBUMIN 2.4(L) 3.2 - 5.3 g/dL 02/08/2025 6:57 AM EDT [facility] ALKALINE PHOSPHATASE 78 39 - 130 U/L 02/08/2025 6:57 AM EDT [facility] AST 17 <=41 U/L 02/08/2025 6:57 AM EDT [facility] ALT 16 <=40 U/L 02/08/2025 6:57 AM EDT [facility] BILIRUBIN,TOTAL 0.6 0.3 - 1.2 mg/dL 02/08/2025 6:57 AM EDT [facility] EGFR Non-Race Dependent 64 >=60 ml/min/1.7 3sq.m 02/08/2025 6:57 AM EDT [facility] Comment: eGFR not reported due to non-numeric value for Creatinine. Reported eGFR is based on the CKD-EPI 2020 equation that does not use a race coefficient. Blood Venous blood / Unknown Venipuncture / Unknown 02/08/2025 5:44 AM EDT 02/08/2025 6:02 AM EDT us Diego Daniels DP LAB BLOOD ORDERABLES Final Result [facility] [address] [place] [address], * (ABNORMAL) Bedside Glucose *Place/Obtain serum glucose if >500 per glucometer. (02/07/2025 8:42 PM EDT) Bedside Glucose (POC) 246(H) 65 - 99 mg/dL 02/07/2025 8:50 PM EDT [facility] arterial/capilla ry 02/07/2025 8:42 PM EDT 02/07/2025 8:50 PM EDT us Sirena Batres MD POINT OF CARE TEST ORDERABLES Final Result Performing Organization Address City/[facility]/ZIP Co de Phone Number [address] [place] [address], [place] * (ABNORMAL) Hematocrit (02/07/2025 6:50 PM EDT) Hematocrit 24.9(L) 39 - 50 % 02/07/2025 8:16 PM EDT [facility] Blood Venous blood / Unknown Venipuncture / Unknown 02/07/2025 6:50 PM EDT 02/07/2025 6:58 PM EDT us Sirena Batres MD LAB BLOOD ORDERABLES Final Re sult Performing Organization Address City/[facility] Co de Phone Number [address] [place] [address], [place] * (ABNORMAL) Hemoglobin (02/07/2025 6:50 PM EDT) Hemoglobin 8.1(L) 13 - 17 g/dL 02/07/2025 7:11 PM EDT [facility] Blood Venous blood / Unknown Venipuncture / Unknown 02/07/2025 6:50 PM EDT 02/07/2025 6:58 PM EDT us Poonam Hobson [employer]CHIT[employer]IST LAB BLOOD ORDERABLES [place] l Result [address] [place] [address], [place] * Transfuse RBC:1 Unit (02/07/2025 5:44 PM EDT) us Poonam Hobson [employer] TE[employer] ARCHITECT SPECIALIST BLOOD TRANSFUSION ORDERAB LES Final Result * Transfuse RBC:1 Unit (02/07/2025 5:44 PM EDT) Poonam Hobson [employer] TE[employer] ARCHITECT SPECIALIST BLOOD TRANSFUSION ORDERAB LES Final Result * (ABNORMAL) Bedside Glucose *Place/Obtain serum glucose if >500 per glucometer. (02/07/2025 5:07PM EDT) Bedside Glucose (POC) 201(H) 65 - 99 mg/dL 02/07/2025 5:12 PM EDT [facility] arterial/capilla ry 02/07/2025 5:07 PM EDT 02/07/2025 5:12 PM EDT Sirena Batres MD POINT OF CARE TEST ORDERABLES Final Result Performing Organization Address City/[facility]/ZIP Co de Phone Number [address] [place] [address], [place] * (ABNORMAL) Hemoglobin and hematocrit, blood (02/07/2025 1:15 PM EDT) Hemoglobin 7.0(L) 13 - 17 g/dL 02/07/2025 1:30 PM EDT [facility] Hematocrit 21.7(L) 39 - 50 % 02/07/2025 1:30 PM EDT [facility] Blood Venous blood / Unknown Venipuncture / Unknown 02/07/2025 1:15 PM EDT 02/07/2025 1:18 PM EDT Raysa Mann MD LAB BLOOD ORDERABLES Final Result [address] [place] [address], [place] * (ABNORMAL) Bedside Glucose *Place/Obtain serum glucose if >500 per glucometer. (02/07/2025 11:14AM EDT) Bedside Glucose (POC) 250(H) 65 - 99 mg/dL 02/07/2025 11:19 AM EDT [facility] arterial/capilla ry 02/07/2025 11:14 AM EDT 02/07/2025 11:19 AM EDT us Sirena Batres MD POINT OF CARE TEST ORDERABLES Final Result [address] [place] [address], [place] * Light Blue Top (02/07/2025 4:31 AM EDT) Extra Tube Auto Resulted 02/07/2025 6:03 AM EDT [facility] Blood Venous blood / Unknown 02/07/2025 4:31 AM EDT 02/07/2025 5:38 AM EDT us Raysa Mann MD LAB BLOOD ORDERABLES Final Result Performing Organization Address City/[facility]/ZIP Co de Phone Number [address] [place] [address], [place] * (ABNORMAL) CBC auto differential (02/07/2025 4:31 AM EDT) WBC 8.8 4 - 11 x10E9/L 02/07/2025 5:06 AM EDT [facility] RBC Count 2.70(L) 4.1 - 5.7 X10E12/L 02/07/2025 5:06 AM EDT [facility] Hemoglobin 7.0(L) 13 - 17 g/dL 02/07/2025 5:06 AM EDT [facility] Hematocrit 21.3(L) 39 - 50 % 02/07/2025 5:06 AM EDT [facility] MCV 79(L) 80 - 100 fL 02/07/2025 5:06 AM EDT [facility] MCH 26.0(L) 27 - 34 pg 02/07/2025 5:06 AM EDT [facility] MCHC 32.8 32 - 36 g/dL 02/07/2025 5:06 AM EDT [facility] RDW 19.2(H) 11.5 - 15 % 02/07/2025 5:06 AM EDT [facility] Platelet Count 232 150 - 450 X10E9/L 02/07/2025 5:06 AM EDT [facility] MPV 7.1 7 - 12 fL 02/07/2025 5:06 AM EDT [facility] Neutrophils % 70.3 % 02/07/2025 5:06 AM EDT [facility] Lymphocytes % 18.6 % 02/07/2025 5:06 AM EDT [facility] Monocytes % 9.1 % 02/07/2025 5:06 AM EDT [facility] Eosinophils % 1.4 % 02/07/2025 5:06 AM EDT [facility] Basophils % 0.6 % 02/07/2025 5:06 AM EDT [facility] Neutrophils Absolute (A) 6.2 1.5 - 6.6 10*3/uL 02/07/2025 5:06 AM EDT [facility] Lymphocytes Absolute 1.6 1.0 - 3.5 10*3/uL 02/07/2025 5:06 AM EDT [facility] Monocytes Absolute 0.8 0.0 - 0.9 10*3/uL 02/07/2025 5:06 AM EDT [facility] Eosinophils Absolute 0.1 0.0 - 0.4 10*3/uL 02/07/2025 5:06 AM EDT [facility] Basophils Absolute 0.1 0.0 - 0.2 10*3/uL 02/07/2025 5:06 AM EDT [facility] Differential Type AUTOMATED DIFFERENTIAL 02/07/2025 5:06 AM EDT [facility] Blood Venous blood / Unknown Venipuncture / Unknown 02/07/2025 4:31 AM EDT 02/07/2025 4:38 AM EDT Diego Daniels DP LAB BLOOD ORDERABLES Final Result Performing Organization Address City/[facility]/ZIP Co de Phone Number [address] [place] [address], [place] * Magnesium (02/07/2025 4:31 AM EDT) MAGNESIUM 1.8 1.8 - 2.6 mg/dL 02/07/2025 5:03 AM EDT [facility] Blood Venous blood / Unknown Venipuncture / Unknown 02/07/2025 4:31 AM EDT 02/07/2025 4:38 AM EDT Diego Daniels [facility] LAB BLOOD ORDERABLES Final Result Performing Organization Address City/[facility] Co de Phone Number [address] [place] [address], [place] * (ABNORMAL) Comprehensive metabolic panel (02/07/2025 4:31 AM EDT) SODIUM 134 134 - 146 mmol/L 02/07/2025 5:03 AM EDT [facility] POTASSIUM 4.4 3.5 - 5.0 mmol/L 02/07/2025 5:03 AM EDT [facility] CHLORIDE 104 98 - 109 mmol/L 02/07/2025 5:03 AM EDT [facility] CARBON DIOXIDE 24 22 - 32 mmol/L 02/07/2025 5:03 AM EDT [facility] ANION GAP 6 5 - 15 mmol/L 02/07/2025 5:03 AM EDT [facility] BLOOD UREA NITROGEN 37(H) 5 - 27 mg/dL 02/07/2025 5:03 AM EDT [facility] CREATININE 1.31(H) 0.70 - 1.20 mg/dL 02/07/2025 5:03 AM EDT [facility] Comment:METHOD TRACEABLE TO IDCO STANDARD GLUCOSE 95 65 - 99 mg/dL 02/07/2025 5:03 AM EDT [facility] CALCIUM 8.5 8.5 - 10.5 mg/dL 02/07/2025 5:03 AM EDT [facility] TOTAL PROTEIN 5.7(L) 6.0 - 8.0 g/dL 02/07/2025 5:03 AM EDT [facility] ALBUMIN 2.1(L) 3.2 - 5.3 g/dL 02/07/2025 5:03 AM EDT [facility] ALKALINE PHOSPHATASE 69 39 - 130 U/L 02/07/2025 5:03 AM EDT [facility] AST 13 <=41 U/L 02/07/2025 5:03 AM EDT [facility] ALT 13 <=40 U/L 02/07/2025 5:03 AM EDT [facility] BILIRUBIN,TOTAL 0.5 0.3 - 1.2 mg/dL 02/07/2025 5:03 AM EDT [facility] EGFR Non-Race Dependent 55(L) >=60 ml/min/1.7 3sq.m 02/07/2025 5:03 AM EDT [facility] Comment: eGFR not reported due to non-numeric value for Creatinine. Reported eGFR is based on the CKD-EPI 2020 equation that does not use a race coefficient. Blood Venous blood / Unknown Venipuncture / Unknown 02/07/2025 4:31 AM EDT 02/07/2025 4:38 AM EDT us Diego Daniels DPM LAB BLOOD ORDERABLES Final Result [facility] [address] [place] [address], [place] * Occult blood x 1, stool (02/07/2025 2:46 AM EDT) FECAL OCCULT BLOOD Negative Negative 02/07/2025 3:33 AM EDT [facility] Stool Feces / Unknown 02/07/2025 2 :46 AM EDT 02/07/2025 3:18 AM EDT us Raysa Mann MD BODY FLUIDS AND STOOLS ORD ERABLES Final Result Performing Organization Address City/[facility]/ZIP Co de Phone Number [address] [place] [address], [place] * (ABNORMAL) Hemoglobin and hematocrit, blood (02/06/2025 8:45 PM EDT) Hemoglobin 7.4(L) 13 - 17 g/dL 02/06/2025 9:00 PM EDT [facility] Hematocrit 22.4(L) 39 - 50 % 02/06/2025 9:00 PM EDT [facility] Blood Venous blood / Unknown Venipuncture / Unknown 02/06/2025 8:45 PM EDT 02/06/2025 8:50 PM EDT us Raysa Mann MD LAB BLOOD ORDERABLES Final Result Performing Organization Address City/[facility] Co de Phone Number [address] [place] [address], [place] * (ABNORMAL) Bedside Glucose *Place/Obtain serum glucose if >500 per glucometer. (02/06/2025 8:36 PM EDT) Bedside Glucose (POC) 170(H) 65 - 99 mg/dL 02/07/2025 12:49 AM EDT [facility] arterial/capilla ry 02/06/2025 8:36 PM EDT 02/07/2025 12:49 AM EDT us Raysa Mann MD POINT OF CARE TEST ORDERAB LES Final Result [address] [place] [address], [place] * (ABNORMAL) Bedside Glucose *Place/Obtain serum glucose if >500 per glucometer. (02/06/2025 4:02 PM EDT) Bedside Glucose (POC) 190(H) 65 - 99 mg/dL 02/06/2025 4:11 PM EDT [facility] arterial/capilla ry 02/06/2025 4:02 PM EDT 02/06/2025 4:11 PM EDT Raysa Mann MD POINT OF CARE TEST ORDERAB LES Final Result Performing Organization Address City/[facility]/ZIP Co de Phone Number [address] [place] [address], [place] * ABO Rh Repeat (02/06/2025 1:56 PM EDT) ABO B 02/06/2025 2:28 PM EDT [facility] RH Negative 02/06/2025 2:28 PM EDT [facility] Blood Venous blood / Unknown Venipuncture / Unknown 02/06/2025 1:56 PM EDT 02/06/2025 1:57 PM EDT Raysa Mann MD BLOOD BANK TEST ORDERABLES Final Result [address] [place] [address], [address] [place] [address], [place] * Type and screen (02/06/2025 1:26 PM EDT) ABO B 02/06/2025 2:28 PM EDT [facility] RH Negative 02/06/2025 2:28 PM EDT [facility] Antibody Screen Negative 02/06/2025 2:28 PM EDT [facility] Blood Venous blood / Unknown Venipuncture / Unknown 02/06/2025 1:26 PM EDT 02/06/2025 1:29 PM EDT us Raysa Mann MD BLOOD BANK TEST ORDERABLES Edited Result - Final [facility] [address] [place] [address], [facility] [address] [place] [address], * Ferritin (02/06/2025 1:26 PM EDT) FERRITIN 204 24 - 336 ng/mL 02/06/2025 10:03 PM EDT [facility] Blood Venous blood / Unknown Venipuncture / Unknown 02/06/2025 1:26 PM EDT 02/06/2025 1:29 PM EDT us Raysa Mann MD LAB BLOOD ORDERABLES Final Result [facility] [address] [place] [address], * (ABNORMAL) Iron and TIBC (02/06/2025 1:26 PM EDT) IRON <10(L) 50 - 212 ug/dL 02/06/2025 10:03 PM EDT [facility] TRANSFERRIN 90(L) 168 - 336 mg/dL 02/06/2025 10:03 PM EDT [facility] IRON BINDING 126(L) 250 - 425 ug/dL 02/06/2025 10:03 PM EDT [facility] IRON SATURATION <8(L) 20 - 50 % SATURATION 02/06/2025 10:03 PM EDT [facility] Blood Venous blood / Unknown Venipuncture / Unknown 02/06/2025 1:26 PM EDT 02/06/2025 1:29 PM EDT us Raysa Mann MD LAB BLOOD ORDERABLES Final Result [facility] [address] [place] [address], [place] [phone] * Crossmatch RBC:Number of Units: 1 (02/06/2025 1:00 PM EDT) Pathologist [facility] Blood component type [id number] [facility] Unit number [id number] IN [facility] Unit ABO O [facility] Unit RH NEG [facility] Crossmatch Compatible [facility] Status of unit TRANSFUSED [facility]OM [facility] Expiration Date [id number] [facility] BB Type Barcode 9500 [facility] Blood Venous blood / Unknown 02/06/2025 1:00 PM EDT 02/06/2025 1:38 PM EDT us Poonam Hobson [employer]IST BLOOD BANK PRODUCT ORDERA BLES Edited Result - Final [facility] [address] [place] [address], [place] * (ABNORMAL) Bedside Glucose *Place/Obtain serum glucose if >500 per glucometer. (02/06/2025 10:52AM EDT) Bedside Glucose (POC) 156(H) 65 - 99 mg/dL 02/06/2025 10:58 AM EDT [facility] arterial/capilla ry 02/06/2025 10:52 AM EDT 02/06/2025 10:58 AM EDT Raysa Mann MD POINT OF CARE TEST ORDERAB LES Final Result Performing Organization Address City/[facility]/ZIP Co de Phone Number [address] [place] [address], [place] * Vancomycin, peak (02/06/2025 10:48 AM EDT) Pathologist [facility] VANCOMYCIN PEAK 30.6 30.0 - 40.0 ug/mL 02/06/2025 11:46 AM EDT [facility] Blood Venous blood / Unknown Venipuncture / Unknown 02/06/2025 10:48 AM EDT 02/06/2025 10:55 AM EDT Raysa Mann MD LAB BLOOD ORDERABLES Final Result Performing Organization Address [facility] Co de Phone Number [address] [place] [address], [place] * (ABNORMAL) CBC auto differential (02/06/2025 7:09 AM EDT) [facility] WBC 10.0 4 - 11 x10E9/L 02/06/2025 7:30 AM EDT [facility] RBC Count 2.78(L) 4.1 - 5.7 X10E12/L 02/06/2025 7:30 AM EDT [facility] Hemoglobin 7.3(L) 13 - 17 g/dL 02/06/2025 7:30 AM EDT [facility] Hematocrit 22.2(L) 39 - 50 % 02/06/2025 7:30 AM EDT [facility] MCV 80 80 - 100 fL 02/06/2025 7:30 AM EDT [facility] MCH 26.2(L) 27 - 34 pg 02/06/2025 7:30 AM EDT [facility] MCHC 32.9 32 - 36 g/dL 02/06/2025 7:30 AM EDT [facility] RDW 18.7(H) 11.5 - 15 % 02/06/2025 7:30 AM EDT [facility] Platelet Count 250 150 - 450 X10E9/L 02/06/2025 7:30 AM EDT [facility] MPV 7.1 7 - 12 fL 02/06/2025 7:30 AM EDT [facility] Neutrophils % 67.9 % 02/06/2025 7:30 AM EDT [facility] Lymphocytes % 22.6 % 02/06/2025 7:30 AM EDT [facility] Monocytes % 7.6 % 02/06/2025 7:30 AM EDT [facility] Eosinophils % 1.3 % 02/06/2025 7:30 AM EDT [facility] Basophils % 0.6 % 02/06/2025 7:30 AM EDT [facility] Neutrophils Absolute (A) 6.8(H) 1.5 - 6.6 10*3/uL 02/06/2025 7:30 AM EDT [facility] Lymphocytes Absolute 2.3 1.0 - 3.5 10*3/uL 02/06/2025 7:30 AM EDT [facility] Monocytes Absolute 0.8 0.0 - 0.9 10*3/uL 02/06/2025 7:30 AM EDT [facility] Eosinophils Absolute 0.1 0.0 - 0.4 10*3/uL 02/06/2025 7:30 AM EDT [facility] Basophils Absolute 0.1 0.0 - 0.2 10*3/uL 02/06/2025 7:30 AM EDT [facility] Differential Type AUTOMATED DIFFERENTIAL 02/06/2025 7:30 AM EDT [facility] Blood Venous blood / Unknown Venipuncture / Unknown 02/06/2025 7:09 AM EDT 02/06/2025 7:21 AM EDT us Diego Katharine Jeremiah DPM LAB BLOOD ORDERABLES Final Result Performing Organization Address City/[facility]/ZIP Co de Phone Number [address] [place] [address], [place] * Magnesium (02/06/2025 7:08 AM EDT) MAGNESIUM 1.9 1.8 - 2.6 mg/dL 02/06/2025 8:03 AM EDT [facility] Blood Venous blood / Unknown Venipuncture / Unknown 02/06/2025 7:08 AM EDT 02/06/2025 7:21 AM EDT Diego Daniels DPM LAB BLOOD ORDERABLES Final Result Performing Organization Address [facility] Co de Phone Number [address] [place] [address], [place] * (ABNORMAL) Comprehensive metabolic panel (02/06/2025 7:08 AM EDT) SODIUM 133(L) 134 - 146 mmol/L 02/06/2025 8:03 AM EDT [facility] POTASSIUM 4.8 3.5 - 5.0 mmol/L 02/06/2025 8:03 AM EDT [facility] CHLORIDE 105 98 - 109 mmol/L 02/06/2025 8:03 AM EDT [facility] CARBON DIOXIDE 25 22 - 32 mmol/L 02/06/2025 8:03 AM EDT [facility] ANION GAP 3(L) 5 - 15 mmol/L 02/06/2025 8:03 AM EDT [facility] BLOOD UREA NITROGEN 37(H) 5 - 27 mg/dL 02/06/2025 8:03 AM EDT [facility] CREATININE 1.27(H) 0.70 - 1.20 mg/dL 02/06/2025 8:03 AM EDT [facility] Comment:METHOD TRACEABLE TO IDMS STANDARD GLUCOSE 98 65 - 99 mg/dL 02/06/2025 8:03 AM EDT [facility] CALCIUM 8.3(L) 8.5 - 10.5 mg/dL 02/06/2025 8:03 AM EDT [facility] TOTAL PROTEIN 6.2 6.0 - 8.0 g/dL 02/06/2025 8:03 AM EDT [facility] ALBUMIN 2.3(L) 3.2 - 5.3 g/dL 02/06/2025 8:03 AM EDT [facility] ALKALINE PHOSPHATASE 74 39 - 130 U/L 02/06/2025 8:03 AM EDT [facility] AST 15 <=41 U/L 02/06/2025 8:03 AM EDT [facility] ALT 12 <=40 U/L 02/06/2025 8:03 AM EDT [facility] BILIRUBIN,TOTAL 0.3 0.3 - 1.2 mg/dL 02/06/2025 8:03 AM EDT [facility] EGFR Non-Race Dependent 57(L) >=60 ml/min/1.7 3sq.m 02/06/2025 8:03 AM EDT [facility] Comment: Reported eGFR is based on the CKD-EPI 2020 equation that does not use a race coefficient. Blood Venous blood / Unknown Venipuncture / Unknown 02/06/2025 7:08 AM EDT 02/06/2025 7:21 AM EDT us Diego Daniels DP LAB BLOOD ORDERABLES Final Result [facility] [address] [place] [address], * Vancomycin, trough To be drawn prior to the 4th dose (02/06/2025 7:08 AM EDT) VANCOMYCIN TROUGH 18.1 5.0 - 20.0 ug/mL 02/06/2025 8:03 AM EDT [facility] Blood Venous blood / Unknown Venipuncture / Unknown 02/06/2025 7:08 AM EDT 02/06/2025 7:21 AM EDT Raysa Mann MD LAB BLOOD ORDERABLES Final Result Performing Organization Address City/[facility]/ZIP Co de Phone Number [address] [place] [address], [place] * (ABNORMAL) Bedside Glucose *Place/Obtain serum glucose if >500 per glucometer. (02/05/2025 9:34 PM EDT) Bedside Glucose (POC) 201(H) 65 - 99 mg/dL 02/05/2025 9:45 PM EDT [facility] arterial/capilla ry 02/05/2025 9:34 PM EDT 02/05/2025 9:45 PM EDT us Raysa Mann MD POINT OF CARE TEST ORDERAB LES Final Result Performing Organization Address [facility] Co de Phone Number [address] [place] [address], [place] * (ABNORMAL) Bedside Glucose *Place/Obtain serum glucose if >500 per glucometer. (02/05/2025 4:36 PM EDT) Bedside Glucose (POC) 133(H) 65 - 99 mg/dL 02/05/2025 4:43 PM EDT [facility] arterial/capilla ry 02/05/2025 4:36 PM EDT 02/05/2025 4:43 PM EDT us Raysa Mann MD POINT OF CARE TEST ORDERAB LES Final Result Performing Organization Address City/[facility]/ZIP Co de Phone Number [address] [place] [address], [place] * (ABNORMAL) Bedside Glucose *Place/Obtain serum glucose if >500 per glucometer. (02/05/2025 11:31AM EDT) Bedside Glucose (POC) 170(H) 65 - 99 mg/dL 02/05/2025 11:37 AM EDT [facility] arterial/capilla ry 02/05/2025 11:31 AM EDT 02/05/2025 11:36 AM EDT us Raysa Mann MD POINT OF CARE TEST ORDERAB LES Final Result [address] [place] [address], [place] * SST TOP (02/05/2025 5:24 AM EDT) Extra Tube Auto Resulted 02/05/2025 7:01 AM EDT [facility] Blood Venous blood / Unknown 02/05/2025 5:24 AM EDT 02/05/2025 5:38 AM EDT us Raysa Mann MD LAB BLOOD ORDERABLES Final Result Performing Organization Address City/[facility]/ZIP Co de Phone Number [address] [place] [address], [place] * Light Blue Top (02/05/2025 5:24 AM EDT) Extra Tube Auto Resulted 02/05/2025 7:01 AM EDT [facility] Blood Venous blood / Unknown 02/05/2025 5:24 AM EDT 02/05/2025 5:38 AM EDT us Raysa Mann MD LAB BLOOD ORDERABLES Final Result [address] [place] [address], [place] * (ABNORMAL) CBC auto differential (02/05/2025 5:24 AM EDT) WBC 11.3(H) 4 - 11 x10E9/L 02/05/2025 5:43 AM EDT [facility] RBC Count 3.01(L) 4.1 - 5.7 X10E12/L 02/05/2025 5:43 AM EDT [facility] Hemoglobin 7.7(L) 13 - 17 g/dL 02/05/2025 5:43 AM EDT [facility] Hematocrit 24.1(L) 39 - 50 % 02/05/2025 5:43 AM EDT [facility] MCV 80 80 - 100 fL 02/05/2025 5:43 AM EDT [facility] MCH 25.7(L) 27 - 34 pg 02/05/2025 5:43 AM EDT [facility] MCHC 32.1 32 - 36 g/dL 02/05/2025 5:43 AM EDT [facility] RDW 18.6(H) 11.5 - 15 % 02/05/2025 5:43 AM EDT [facility] Platelet Count 295 150 - 450 X10E9/L 02/05/2025 5:43 AM EDT [facility] MPV 7.0 7 - 12 fL 02/05/2025 5:43 AM EDT [facility] Neutrophils % 71.7 % 02/05/2025 5:43 AM EDT [facility] Lymphocytes % 20.2 % 02/05/2025 5:43 AM EDT [facility] Monocytes % 7.1 % 02/05/2025 5:43 AM EDT [facility] Eosinophils % 0.6 % 02/05/2025 5:43 AM EDT [facility] Basophils % 0.4 % 02/05/2025 5:43 AM EDT [facility] Neutrophils Absolute (A) 8.1(H) 1.5 - 6.6 10*3/uL 02/05/2025 5:43 AM EDT [facility] Lymphocytes Absolute 2.3 1.0 - 3.5 10*3/uL 02/05/2025 5:43 AM EDT [facility] Monocytes Absolute 0.8 0.0 - 0.9 10*3/uL 02/05/2025 5:43 AM EDT [facility] Eosinophils Absolute 0.1 0.0 - 0.4 10*3/uL 02/05/2025 5:43 AM EDT [facility] Basophils Absolute 0.0 0.0 - 0.2 10*3/uL 02/05/2025 5:43 AM EDT [facility] Differential Type AUTOMATED DIFFERENTIAL 02/05/2025 5:43 AM EDT [facility] Blood Venous blood / Unknown Venipuncture / Unknown 02/05/2025 5:24 AM EDT 02/05/2025 5:36 AM EDT us Diego Daniels DP LAB BLOOD ORDERABLES Final Result Performing Organization Address City/[facility]/ZIP Co de Phone Number [address] [place] [address], [place] * Magnesium (02/05/2025 5:24 AM EDT) MAGNESIUM 1.9 1.8 - 2.6 mg/dL 02/05/2025 5:55 AM EDT [facility] Blood Venous blood / Unknown Venipuncture / Unknown 02/05/2025 5:24 AM EDT 02/05/2025 5:36 AM EDT Diego Daniels DPM LAB BLOOD ORDERABLES Final Result Performing Organization Address City/[facility]/ZIP Co de Phone Number [address] [place] [address], [place] * (ABNORMAL) Comprehensive metabolic panel (02/05/2025 5:24 AM EDT) SODIUM 135 134 - 146 mmol/L 02/05/2025 5:55 AM EDT [facility] POTASSIUM 5.0 3.5 - 5.0 mmol/L 02/05/2025 5:55 AM EDT [facility] CHLORIDE 103 98 - 109 mmol/L 02/05/2025 5:55 AM EDT [facility] CARBON DIOXIDE 25 22 - 32 mmol/L 02/05/2025 5:55 AM EDT [facility] ANION GAP 7 5 - 15 mmol/L 02/05/2025 5:55 AM EDT [facility] BLOOD UREA NITROGEN 38(H) 5 - 27 mg/dL 02/05/2025 5:55 AM EDT [facility] CREATININE 1.56(H) 0.70 - 1.20 mg/dL 02/05/2025 5:55 AM EDT [facility] Comment:METHOD TRACEABLE TO IDMS STANDARD GLUCOSE 173(H) 65 - 99 mg/dL 02/05/2025 5:55 AM EDT [facility] CALCIUM 8.6 8.5 - 10.5 mg/dL 02/05/2025 5:55 AM EDT [facility] TOTAL PROTEIN 6.3 6.0 - 8.0 g/dL 02/05/2025 5:55 AM EDT [facility] ALBUMIN 2.3(L) 3.2 - 5.3 g/dL 02/05/2025 5:55 AM EDT [facility] ALKALINE PHOSPHATASE 85 39 - 130 U/L 02/05/2025 5:55 AM EDT [facility] AST 15 <=41 U/L 02/05/2025 5:55 AM EDT [facility] ALT 15 <=40 U/L 02/05/2025 5:55 AM EDT [facility] BILIRUBIN,TOTAL 0.4 0.3 - 1.2 mg/dL 02/05/2025 5:55 AM EDT [facility] EGFR Non-Race Dependent 45(L) >=60 ml/min/1.7 3sq.m 02/05/2025 5:55 AM EDT [facility] Comment: eGFR not reported due to non-numeric value for Creatinine. Reported eGFR is based on the CKD-EPI 2020 equation that does not use a race coefficient. Blood Venous blood / Unknown Venipuncture / Unknown 02/05/2025 5:24 AM EDT 02/05/2025 5:36 AM EDT us Diego Daniels DPM LAB BLOOD ORDERABLES Final Result Performing Organization Address City/[facility]/ZIP Co de Phone Number [address] [place] [address], [place] * (ABNORMAL) Bedside Glucose *Place/Obtain serum glucose if >500 per glucometer. (02/04/2025 9:06 PM EDT) Bedside Glucose (POC) 319(H) 65 - 99 mg/dL 02/04/2025 9:07 PM EDT [facility] arterial/capilla ry 02/04/2025 9:06 PM EDT 02/04/2025 9:07 PM EDT Raysa Mann MD POINT OF CARE TEST ORDERAB LES Final Result Performing Organization Address City/[facility]/ZIP Co de Phone Number [address] [place] [address], [place] * (ABNORMAL) Bedside Glucose *Place/Obtain serum glucose if >500 per glucometer. (02/04/2025 5:28 PM EDT) Bedside Glucose (POC) 288(H) 65 - 99 mg/dL 02/05/2025 4:34 PM EDT [facility] arterial/capilla ry 02/04/2025 5:28 PM EDT 02/05/2025 4:34 PM EDT Raysa Mann MD POINT OF CARE TEST ORDERAB LES Final Result [facility] [address] [place] [address], [place] * X-ray calcaneus right minimum 2 views (02/04/2025 1:36 PM EDT) Anatomical Region Laterality Modality Lower Extremities, MSK, Calcaneus Right Radio Fluoroscopy 02/04/2025 1:56 PM EDT Narrative 02/04/2025 1:57 PM EDT XR CALCANEOUS RT MIN 2 VWS Clinical history:sugery pain Comparison: None. Impression: Surgical fluoroscopic guidance provided for calcaneal fixation with fluoroscopic guidance. Reference air kerma was 0.3 mGy. Finalized by Edy Valdovinos MD on 02/04/2025 1:57 PM Procedure Note Edy Valdovinos MD - 02/04/2025 XR CALCANEOUS RT MIN 2 VWS Clinical history:sugery pain Comparison: None. Impression: Surgical fluoroscopic guidance provided for calcaneal fixation withfluoroscopic guidance. Reference air kerma was 0.3 mGy. 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], Osteomyelitis of ankle or foot, acute, 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], Tenosynovitis of right foot [M65.971] Narrative Organism Antibiotic Method Susceptibility Pseudomonas aeruginosa PIPERACIL/TAZOBACTAM 8.0: Susceptible Pseudomonas aeruginosa Cefepime 2.0: Susceptible Pseudomonas aeruginosa Meropenem <=0.25: Susceptible Pseudomonas aeruginosa Tobramycin <=1.0: Susceptible Pseudomonas aeruginosa Ciprofloxacin =0.25: Susceptible Pseudomonas aeruginosa Levofloxacin 1.0: Susceptible Methicillin-Resistant Staphylococcus aureus Clindamycin 0.25: Susceptible Comment:Inducible re sistance to Clindamycin NOT detected Methicillin-Resistant Staphylococcus aureus Daptomycin 0.5: Susceptible Methicillin-Resistant Staphylococcus aureus Doxycycline 4.0: Susceptible Methicillin-Resistant Staphylococcus aureus Oxacillin >=4.0: Resistant Methicillin-Resistant Staphylococcus aureus Trimethoprim + Sulfamethoxazole <=0.5: Susceptible Methicillin-Resistant Staphylococcus aureus Vancomycin <=0.5: Susceptible Methicillin-Resistant Staphylococcus aureus Cefazolin Resistant (deduced) Methicillin-Resistant Staphylococcus aureus Susceptibility Comment Diego Daniels [facility] MICROBIOLOGY - GENERAL ORDSujata OSBORN Final Result Performing Organization Address City/State/[facility] Co de Phone Number [facility] 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 [place] [address], [place] [phone] * EKG (02/04/2025 9:37 AM EDT) 02/04/2025 9:37 AM EDT Narrative [facility] - 02/04/2025 10:11 AM EDT us Carlos Sinclair MD ECG ORDERABLES Final Result [facility] * Light Blue Top (02/04/2025 5:31 AM EDT) Extra Tube Auto Resulted 02/04/2025 7:01 AM EDT [facility] Blood Venous blood / Unknown 02/04/2025 5:31 AM EDT 02/04/2025 6:03 AM EDT us Raysa Mann MD LAB BLOOD ORDERABLES Final Result Performing Organization Address City/[facility]/ZIP Co de Phone Number [facility] [address] [place] [address], * (ABNORMAL) CBC auto differential (02/04/2025 5:31 AM EDT) WBC 7.9 4 - 11 x10E9/L 02/04/2025 6:04 AM EDT [facility] RBC Count 2.88(L) 4.1 - 5.7 X10E12/L 02/04/2025 6:04 AM EDT [facility] Hemoglobin 7.5(L) 13 - 17 g/dL 02/04/2025 6:04 AM EDT [facility] Hematocrit 22.9(L) 39 - 50 % 02/04/2025 6:04 AM EDT [facility] MCV 80 80 - 100 fL 02/04/2025 6:04 AM EDT [facility] MCH 25.9(L) 27 - 34 pg 02/04/2025 6:04 AM EDT [facility] MCHC 32.6 32 - 36 g/dL 02/04/2025 6:04 AM EDT [facility] RDW 18.6(H) 11.5 - 15 % 02/04/2025 6:04 AM EDT [facility] Platelet Count 283 150 - 450 X10E9/L 02/04/2025 6:04 AM EDT [facility] MPV 7.0 7 - 12 fL 02/04/2025 6:04 AM EDT [facility] Neutrophils % 67.0 % 02/04/2025 6:04 AM EDT [facility] Lymphocytes % 23.1 % 02/04/2025 6:04 AM EDT [facility] Monocytes % 7.1 % 02/04/2025 6:04 AM EDT [facility] Eosinophils % 1.8 % 02/04/2025 6:04 AM EDT [facility] Basophils % 1.0 % 02/04/2025 6:04 AM EDT [facility] Neutrophils Absolute (A) 5.3 1.5 - 6.6 10*3/uL 02/04/2025 6:04 AM EDT [facility] Lymphocytes Absolute 1.8 1.0 - 3.5 10*3/uL 02/04/2025 6:04 AM EDT [facility] Monocytes Absolute 0.6 0.0 - 0.9 10*3/uL 02/04/2025 6:04 AM EDT [facility] Eosinophils Absolute 0.1 0.0 - 0.4 10*3/uL 02/04/2025 6:04 AM EDT [facility] Basophils Absolute 0.1 0.0 - 0.2 10*3/uL 02/04/2025 6:04 AM EDT [facility] Differential Type AUTOMATED DIFFERENTIAL 02/04/2025 6:04 AM EDT [facility] Blood Venous blood / Unknown Venipuncture / Unknown 02/04/2025 5:31 AM EDT 02/04/2025 5:57 AM EDT Diego Daniels DP LAB BLOOD ORDERABLES Final Result Performing Organization Address City/[facility]/ZIP Co de Phone Number [address] [place] [address], [place] * Magnesium (02/04/2025 5:31 AM EDT) MAGNESIUM 1.9 1.8 - 2.6 mg/dL 02/04/2025 6:19 AM EDT [facility] Blood Venous blood / Unknown Venipuncture / Unknown 02/04/2025 5:31 AM EDT 02/04/2025 5:56 AM EDT Diego Daniels [facility] LAB BLOOD ORDERABLES Final Result Performing Organization Address City/[facility] Co de Phone Number [address] [place] [address], [place] * (ABNORMAL) Comprehensive metabolic panel (02/04/2025 5:31 AM EDT) SODIUM 133(L) 134 - 146 mmol/L 02/04/2025 6:19 AM EDT [facility] POTASSIUM 4.9 3.5 - 5.0 mmol/L 02/04/2025 6:19 AM EDT [facility] CHLORIDE 102 98 - 109 mmol/L 02/04/2025 6:19 AM EDT [facility] CARBON DIOXIDE 24 22 - 32 mmol/L 02/04/2025 6:19 AM EDT [facility] ANION GAP 7 5 - 15 mmol/L 02/04/2025 6:19 AM EDT [facility] BLOOD UREA NITROGEN 36(H) 5 - 27 mg/dL 02/04/2025 6:19 AM EDT [facility] CREATININE 1.31(H) 0.70 - 1.20 mg/dL 02/04/2025 6:19 AM EDT [facility] Comment:METHOD TRACEABLE TO [facility] STANDARD GLUCOSE 108(H) 65 - 99 mg/dL 02/04/2025 6:19 AM EDT [facility] CALCIUM 8.5 8.5 - 10.5 mg/dL 02/04/2025 6:19 AM EDT [facility] TOTAL PROTEIN 6.1 6.0 - 8.0 g/dL 02/04/2025 6:19 AM EDT [facility] ALBUMIN 2.3(L) 3.2 - 5.3 g/dL 02/04/2025 6:19 AM EDT [facility] ALKALINE PHOSPHATASE 81 39 - 130 U/L 02/04/2025 6:19 AM EDT [facility] AST 16 <=41 U/L 02/04/2025 6:19 AM EDT [facility] ALT 14 <=40 U/L 02/04/2025 6:19 AM EDT [facility] BILIRUBIN,TOTAL 0.4 0.3 - 1.2 mg/dL 02/04/2025 6:19 AM EDT [facility] EGFR Non-Race Dependent 55(L) >=60 ml/min/1.7 3sq.m 02/04/2025 6:19 AM EDT [facility] Comment: eGFR not reported due to non-numeric value for Creatinine. Reported eGFR is based on the CKD-EPI 2020 equation that does not use a race coefficient. Blood Venous blood / Unknown Venipuncture / Unknown 02/04/2025 5:31 AM EDT 02/04/2025 5:56 AM EDT us Diego Daniels DPM LAB BLOOD ORDERABLES Final Result [facility] [address] [place] [place] [address], [place] * (ABNORMAL) Bedside Glucose *Place/Obtain serum glucose if >500 per glucometer. (02/04/2025 2:06 AM EDT) Bedside Glucose (POC) 136(H) 65 - 99 mg/dL 02/04/2025 2:07 AM EDT [facility] arterial/capilla ry 02/04/2025 2:06 AM EDT 02/04/2025 2:07 AM EDT Raysa Mann MD POINT OF CARE TEST ORDERAB LES Final Result Performing Organization Address City/[facility]/ZIP Co de Phone Number [address] [place] [address], [place] * (ABNORMAL) Bedside Glucose *Place/Obtain serum glucose if >500 per glucometer. (02/04/2025 12:33AM EDT) Bedside Glucose (POC) 193(H) 65 - 99 mg/dL 02/04/2025 12:35 AM EDT [facility] arterial/capilla ry 02/04/2025 12:33 AM EDT 02/04/2025 12:35 AM EDT us Raysa Mann MD POINT OF CARE TEST ORDERAB LES Final Result Performing Organization Address City/[facility]/ZIP Co de Phone Number [address] [place] [address], [place] * (ABNORMAL) Bedside Glucose *Place/Obtain serum glucose if >500 per glucometer. (02/04/2025 12:14AM EDT) Bedside Glucose (POC) 54(L) 65 - 99 mg/dL 02/04/2025 12:17 AM EDT [facility] arterial/capilla ry 02/04/2025 12:14 AM EDT 02/04/2025 12:17 AM EDT us Raysa Mann MD POINT OF CARE TEST ORDERAB LES Final Result [address] [place] [address], [place] * (ABNORMAL) Bedside Glucose *Place/Obtain serum glucose if >500 per glucometer. (02/04/2025 12:00AM EDT) Bedside Glucose (POC) 51(LL) 65 - 99 mg/dL 02/04/2025 12:03 AM EDT [facility] arterial/capillar y 02/04/2025 02/04/2025 12:03 AM EDT us Raysa Mann MD POINT OF CARE TEST ORDERAB LES Final Result Performing Organization Address City/[facility] Co de Phone Number [address] [place] [address], [place] * (ABNORMAL) Bedside Glucose *Place/Obtain serum glucose if >500 per glucometer. (02/03/2025 9:42 PM EDT) Bedside Glucose (POC) 152(H) 65 - 99 mg/dL 02/04/2025 2:07 AM EDT [facility] arterial/capilla ry 02/03/2025 9:42 PM EDT 02/04/2025 2:07 AM EDT us Raysa Mann MD POINT OF CARE TEST ORDERAB LES Final Result Performing Organization Address City/[facility] Co de Phone Number [address] [place] [address], [place] * X-ray foot right 2 views (02/03/2025 8:35 PM EDT) Anatomical Region Laterality Modality Lower Extremities, MSK, Foot Right Com puted Radiography 02/03/2025 8:44 PM EDT Narrative 02/03/2025 8:46 PM EDT EXAM: XR FOOT RT 2 VWS CLINICAL INFORMATION: evaluate for osteomyelitis of calcaneus. COMPARISON: None. FINDINGS: There is osteopenia. There is dorsal soft tissue irregularity and suspected ulceration overlying the calcaneus. There are focal lytic destructive changes of the dorsal calcaneus, compatible with osteomyelitis. There is subtotal absence of the first proximal phalanx, suspected postsurgical. IMPRESSION: 1. Dorsal soft tissue irregularity and ulceration with underlying lytic destructive changes of osteomyelitis involving the dorsal calcaneus. Finalized by Asher Jovel MD on 02/03/2025 8:46 PM Procedure Note Asher Jovel MD - 02/03/2025 EXAM: XR FOOT RT 2 VWS CLINICAL INFORMATION: evaluate for osteomyelitis of calcaneus. COMPARISON: None. FINDINGS: There is osteopenia. There is dorsal soft tissue irregularity andsuspected ulceration overlying the calcaneus. There are focal lyticdestructive changes of the dorsal calcaneus, compatible withosteomyelitis. There is subtotal absence of the first proximal phalanx,suspected postsurgical. IMPRESSION: 1. Dorsal soft tissue irregularity and ulceration with underlying lyticdestructive changes of osteomyelitis involving the dorsal calcaneus. Finalized by Asher Jovel MD on 02/03/2025 8:46 PM Jonh Cline MD IMG DIAGNOSTIC IMAGING ORDERA BLES Final Result * Blood culture #2 (02/03/2025 8:25 PM EDT) CULTURE RESULTS NO GROWTH 5 DAYS 02/09/2025 3:02 AM EDT [facility] Blood Venous blood / Unknown Venipuncture / Unknown 02/03/2025 8:25 PM EDT 02/03/2025 8:43 PM EDT us Jonh Cline MD MICROBIOLOGY - GENERAL ORDERA BLES Final Result [facility] [address] [place] [address], [place] [phone] * Blood culture #1 (02/03/2025 8:25 PM EDT) CULTURE RESULTS NO GROWTH 5 DAYS 02/09/2025 3:02 AM EDT [facility] Blood Venous blood / Unknown Venipuncture / Unknown 02/03/2025 8:25 PM EDT 02/03/2025 8:43 PM EDT us Jonh Cline MD MICROBIOLOGY - GENERAL ORDERA BLES Final Result [facility] [address] [place] [address], [place] [phone] * (ABNORMAL) Bedside Glucose *Place/Obtain serum glucose if >500 per glucometer. (02/03/2025 5:33 PM EDT) Bedside Glucose (POC) 156(H) 65 - 99 mg/dL 02/03/2025 5:38 PM EDT [facility] arterial/capilla ry 02/03/2025 5:33 PM EDT 02/03/2025 5:38 PM EDT us Raysa Mann MD POINT OF CARE TEST ORDERAB LES Final Result [facility] [address] [address], [place] * (ABNORMAL) Bedside Glucose *Place/Obtain serum glucose if >500 per glucometer. (02/03/2025 12:30PM EDT) Bedside Glucose (POC) 237(H) 65 - 99 mg/dL 02/03/2025 12:33 PM EDT [facility] arterial/capilla ry 02/03/2025 12:30 PM EDT 02/03/2025 12:33 PM EDT us Raysa Mann MD POINT OF CARE TEST ORDERAB LES Final Result [address] [place] [address], [place] * (ABNORMAL) Bedside Glucose *Place/Obtain serum glucose if >500 per glucometer. (02/03/2025 8:50 AM EDT) Pathologist [facility] Bedside Glucose (POC) 153(H) 65 - 99 mg/dL 02/03/2025 8:52 AM EDT [facility] arterial/capilla ry 02/03/2025 8:50 AM EDT 02/03/2025 8:52 AM EDT us Jerald Pineda DO POINT OF CARE TEST ORDERABLES Final Result Performing Organization Address City/[facility] Co de Phone Number [address] [place] [address], [place] * Thyroid profile includes TSH FT4 (02/03/2025 7:03 AM EDT) [facility] FREE T4 1.04 0.61 - 1.60 ng/dL 02/03/2025 3:22 PM EDT [facility] TSH 0.96 0.49 - 4.67 uIU/mL 02/03/2025 3:22 PM EDT [facility] Blood Venous blood / Unknown Venipuncture / Unknown 02/03/2025 7:03 AM EDT 02/03/2025 7:05 AM EDT us Mukul Flores [employer] LAB BLOOD ORDERABLES F inal Result [address] [place] [address], [place] * (ABNORMAL) Hemoglobin A1c (02/03/2025 7:03 AM EDT) [facility] HEMOGLOBIN A1C 6.2(H) 4.4 - 5.6 % 02/03/2025 2:30 PM EDT [facility] Comment: ADA Guidelines Result HgbA1c Normal : less than 5.7 % Prediabetes : 5.7 % to 6.4 % Diabetes : > 6.4 % Use with caution in patients with abnormal hemoglobin variants as the half-life of red blood cells and in vivo glycation rates are affected. EST. AVERAGE GLUCOSE 131 mg/dL 02/03/2025 2:30 PM EDT [facility] Blood Venous blood / Unknown Venipuncture / Unknown 02/03/2025 7:03 AM EDT 02/03/2025 7:05 AM EDT Mukul Flores [employer] SPECIALIST LAB BLOOD ORDERABLES F inal Result [facility] [address] [place] [address], [place] [phone] * Light Blue Top (02/03/2025 7:03 AM EDT) [facility] Extra Tube Auto Resulted 02/03/2025 9:01 AM EDT [facility] Blood Venous blood / Unknown 02/03/2025 7:03 AM EDT 02/03/2025 7:06 AM EDT Jerald Pineda DO LAB BLOOD ORDERABLES Final Re sult [facility] [address] [place] [address], [place] * (ABNORMAL) Erythrocyte Sedimentation Rate (ESR) (02/03/2025 7:03 AM EDT) Pathologist [facility] ESR, Erythrocyte Sedimentation Rate 94(H) 0 - 20 mm/h 02/03/2025 9:52 AM EDT [facility] Blood Venous blood / Unknown Venipuncture / Unknown 02/03/2025 7:03 AM EDT 02/03/2025 7:05 AM EDT Jerald Pineda DO LAB BLOOD ORDERABLES Final Re sult [facility] [address] [place] [address], [place] [phone] * (ABNORMAL) C-reactive protein (02/03/2025 7:03 AM EDT) C REACTIVE PROTEIN 4.7(H) <=0.7 mg/dL 02/03/2025 7:38 AM EDT [facility] Blood Venous blood / Unknown Venipuncture / Unknown 02/03/2025 7:03 AM EDT 02/03/2025 7:05 AM EDT [facility] LAB BLOOD ORDERABLES Final Re sult Performing Organization Address City/[facility]/ZIP Co de Phone Number [facility] [address] [place] [address], [place] * (ABNORMAL) Basic Metabolic Panel (02/03/2025 7:03 AM EDT) SODIUM 133(L) 134 - 146 mmol/L 02/03/2025 7:38 AM EDT [facility] POTASSIUM 4.9 3.5 - 5.0 mmol/L 02/03/2025 7:38 AM EDT [facility] CHLORIDE 105 98 - 109 mmol/L 02/03/2025 7:38 AM EDT [facility] CARBON DIOXIDE 22 22 - 32 mmol/L 02/03/2025 7:38 AM EDT [facility] ANION GAP 6 5 - 15 mmol/L 02/03/2025 7:38 AM EDT [facility] BLOOD UREA NITROGEN 50(H) 5 - 27 mg/dL 02/03/2025 7:38 AM EDT [facility] CREATININE 1.67(H) 0.70 - 1.20 mg/dL 02/03/2025 7:38 AM EDT [facility] Comment:METHOD TRACEABLE TO [facility] STANDARD GLUCOSE 92 65 - 99 mg/dL 02/03/2025 7:38 AM EDT [facility] CALCIUM 8.9 8.5 - 10.5 mg/dL 02/03/2025 7:38 AM EDT [facility] EGFR Non-Race Dependent 41(L) >=60 ml/min/1.7 3sq.m 02/03/2025 7:38 AM EDT [facility] Comment: eGFR not reported due to non-numeric value for Creatinine. Reported eGFR is based on the CKD-EPI 2020 equation that does not use a race coefficient. Blood Venous blood / Unknown Venipuncture / Unknown 02/03/2025 7:03 AM EDT 02/03/2025 7:05 AM EDT us Jerald Pineda DO LAB BLOOD ORDERABLES Final Re sult [facility] [address] [place] [address], * (ABNORMAL) CBC auto differential (02/03/2025 7:03 AM EDT) WBC 9.5 4 - 11 x10E9/L 02/03/2025 7:12 AM EDT [facility] RBC Count 3.13(L) 4.1 - 5.7 X10E12/L 02/03/2025 7:12 AM EDT [facility] Hemoglobin 8.2(L) 13 - 17 g/dL 02/03/2025 7:12 AM EDT [facility] Hematocrit 24.9(L) 39 - 50 % 02/03/2025 7:12 AM EDT [facility] MCV 80 80 - 100 fL 02/03/2025 7:12 AM EDT [facility] MCH 26.3(L) 27 - 34 pg 02/03/2025 7:12 AM EDT [facility] MCHC 33.1 32 - 36 g/dL 02/03/2025 7:12 AM EDT [facility] RDW 18.6(H) 11.5 - 15 % 02/03/2025 7:12 AM EDT [facility] Platelet Count 317 150 - 450 X10E9/L 02/03/2025 7:12 AM EDT [facility] MPV 6.8(L) 7 - 12 fL 02/03/2025 7:12 AM EDT [facility] Neutrophils % 78.5 % 02/03/2025 7:12 AM EDT [facility] Lymphocytes % 13.8 % 02/03/2025 7:12 AM EDT [facility] Monocytes % 6.4 % 02/03/2025 7:12 AM EDT [facility] Eosinophils % 0.7 % 02/03/2025 7:12 AM EDT [facility] Basophils % 0.6 % 02/03/2025 7:12 AM EDT [facility] Neutrophils Absolute (A) 7.5(H) 1.5 - 6.6 10*3/uL 02/03/2025 7:12 AM EDT [facility] Lymphocytes Absolute 1.3 1.0 - 3.5 10*3/uL 02/03/2025 7:12 AM EDT [facility] Monocytes Absolute 0.6 0.0 - 0.9 10*3/uL 02/03/2025 7:12 AM EDT [facility] Eosinophils Absolute 0.1 0.0 - 0.4 10*3/uL 02/03/2025 7:12 AM EDT [facility] Basophils Absolute 0.1 0.0 - 0.2 10*3/uL 02/03/2025 7:12 AM EDT [facility] Differential Type AUTOMATED DIFFERENTIAL 02/03/2025 7:12 AM EDT [facility] Blood Venous blood / Unknown Venipuncture / Unknown 02/03/2025 7:03 AM EDT 02/03/2025 7:05 AM EDT us Jerald Pineda DO LAB BLOOD ORDERABLES Final Re sult [facility] [address] [place] [address], documented in this encounter Visit Diagnoses Diagnosis Osteomyelitis of right foot, unspecified type ([facility])- Primary Osteomyelitis of right foot, unspecified type ([facility]) Hypoglycemia Hypoglycemia, unspecified Chronic kidney disease, unspecified CKD stage Type 2 diabetes mellitus with diabetic polyneuropathy, with long-term current use of insulin ([facility]) Hypoglycemia Hypoglycemia, unspecified CKD (chronic kidney disease) stage 4, GFR 15-29 ml/min ([facility]) Chronic kidney disease, Stage IV (severe) Diabetic peripheral neuropathy associated with type 2 diabetes mellitus ([facility]) S/P amputation of foot, left ([facility]) Peripheral vascular disease ([facility]) Unspecified peripheral vascular disease Hypertension Unspecified essential hypertension Hyperlipidemia Other and unspecified hyperlipidemia Anemia of chronic disease Anemia of other chronic disease Hypothyroidism Unspecified hypothyroidism Iron deficiency anemia Unspecified iron deficiency anemia documented in this encounter Admitting Diagnoses Diagnosis Osteomyelitis of right foot, unspecified type ([facility]) documented in this encounter Administered Medications Inactive Administered Medications - up to 3 most recent administrations Medication Order MAR Action Action Date Dose Rate Site acetaminophen (TYLENOL EXTRA STRENGTH) tablet 1,000 mg 1,000 mg, oral, Every 6 hours PRN, temperature greater than 38 C, moderate pain - pain scale 4-6, Starting on Darlene 02/03/25 at 0834 Given 02/07/2025 4:15 PM EDT 1,000 mg Given 02/04/2025 11:37 PM EDT 1,000 mg acetaminophen (TYLENOL EXTRA STRENGTH) tablet 500 mg 500 mg, oral, Every 6 hours PRN, mild pain - pain scale 1-3, Starting on Darlene 02/03/25 at 0834 Given 02/08/2025 7:36 AM EDT 500 mg allopurinoL (ZYLOPRIM) tablet 100 mg 100 mg, oral, Daily, First dose on 02/05/25 at 1030, Look-alike/sound-alike medication - verify indication for use. Given 02/08/2025 7:36 AM EDT 100 mg Given 02/07/2025 8:32 AM EDT 100 mg Given 02/06/2025 7:42 AM EDT 100 mg aspirin chewable tablet 81 mg 81 mg, oral, Daily, First dose on Fri02/06/25 at 0900 Given 02/08/2025 7:34 AM EDT 81 mg Given 02/07/2025 8:32 AM EDT 81 mg Given 02/06/2025 7:39 AM EDT 81 mg atorvastatin (LIPITOR) tablet 20 mg 20 mg, oral, Daily, First dose on 02/05/25 at 1030, Look-alike/sound-alike medication - verify indication for use. Given 02/08/2025 7:36 AM EDT 20 mg Given 02/07/2025 8:32 AM EDT 20 mg Given 02/06/2025 7:42 AM EDT 20 mg cefEPime (MAXIPIME) IVPB 1000 mg/50 mL in dextrose 5% duplex (20 mg/mL premix) 1,000 mg, intravenous, at 12.5 mL/hr, Administer over 4 Hours, Every 12 hours, First dose on Fri02/03/25 at 1900, Indication: Osteoarticular Rate/Dose Verify 02/03/2025 6:21 PM EDT 12.5 mL/hr New Bag 02/03/2025 6:20 PM EDT 1,000 mg 12.5 mL/hr cefEPime (MAXIPIME) IVPB 2000 mg/50 mL in dextrose 5% duplex (40 mg/mL premix) 2,000 mg, intravenous, at 100 mL/hr, Administer over 30 Minutes, Once, On Darlene 02/03/25 at 0655, For 1 dose, Indication: Skin and soft tissue infection New Bag 02/03/2025 7:12 AM EDT 2,000 mg 100 mL/hr cefEPime (MAXIPIME) IVPB 2000 mg/50 mL in dextrose 5% duplex (40 mg/mL premix) 2,000 mg, intravenous, at 100 mL/hr, Administer over 30 Minutes, Once, On Fri02/08/25 at 1000, For 1 dose, Indication: Osteoarticular New Bag 02/08/2025 10:23 AM EDT 2,000 mg 100 mL/hr ciprofloxacin HCl (CIPRO) tablet 500 mg 500 mg, oral, Every 12 hours scheduled, First dose (after last reorder) on Fri02/08/25 at 1315, Food-Drug Interaction Education Required May alter blood glucose or insulin requirements Administer at least 2 hours before or 6 hours after antacids, or products containing zinc, calcium, or iron Enteral Feeding Instructions: Hold tube feedings for ONE hour before and TWO hours after administration Do NOT give suspension through feeding tube Do NOT give any any oral dose form (tablet, suspension) through j-tube, Specific Use Criteria: Osteoarticular, Fluoroquinolones contain FDA Black Box warnings. Due to safety concerns, avoid use in acute bacterial sinusitis, acute bacterial exacerbation of chronic bronchitis, or acute uncomplicated cystitis if possible. Use alternative treatment if available. I acknowledge the Black Box warnings of fluoroquinolones. Given 02/08/2025 2:57 PM EDT 500 mg clopidogreL (PLAVIX) tablet 75 mg 75 mg, oral, Daily, First dose on Fri02/06/25 at 0900, Look-alike/sound-alike medication - verify indication for use. Given 02/08/2025 7:35 AM EDT 75 mg Given 02/07/2025 8:32 AM EDT 75 mg Given 02/06/2025 7:43 AM EDT 75 mg dextrose (GLUTOSE) 40 % gel 15 g 15 g, oral, As needed, low blood sugar, blood glucose less than 70 mg/dL, Starting on Fri02/03/25 at 0829, If patient conscious and taking PO. If blood glucose is not greater than 70 mg/dL after initial treatment, repeat treatment. dextrose 5 % (D5W) infusion 75 mL/hr, intravenous, Continuous, Starting on Fri02/04/25 at 0030, Use immediately following dextrose 50% or glucagon treatment for patients who are unconscious or NPO. Contact prescriber for additional orders. If blood glucose is not greater than 70 mg/dL after initial treatment, repeat treatment. New Bag 02/04/2025 12:40 AM EDT 75 mL/hr 75 mL/hr dextrose 50 % in water (D50W) 50% solution 25 mL 25 mL, intravenous, As needed, low blood sugar, blood glucose less than 70 mg/dL and unconscious or NPO with IV access, Starting on Darlene 02/03/25 at 0829, Push over 1-3 minutes STAT. If conscious and not NPO, immediately follow with meal tray or high protein (7 grams) snack if tray not available. If NPO, initiate 5% dextrose in water at 100 mL/hr and contact prescriber for additional orders. If blood glucose is not greater than 70 mg/dL after initial treatment, repeat treatment. VESICANT (RED) Warning: HYPERTONIC solution. Given 02/04/2025 12:25 AM EDT 25 mL docusate sodium (COLACE) capsule 100 mg 100 mg, oral, 2 times daily, First dose on 02/05/25 at 1030, Look-alike/sound-alike medication - verify indication for use. Given 02/08/2025 7:35 AM EDT 100 mg Given 02/07/2025 9:21 PM EDT 100 mg Given 02/07/2025 8:32 AM EDT 100 mg EPINEPHrine (ADRENALIN) 1 mg/mL injection FOR ANAPHYLAXIS 0.3 mg 0.3 mg, intramuscular, Every 5 min PRN, anaphylaxis, emergency use for dypsnea, wheezing, stridor, or hypotension (at least 30% decrease in systolic BP), Starting on 02/06/25 at 1314, For 3 doses, Scheduling/ADT, Give IM into the anterolateral aspect of the middle third of the thigh (preferred) up to 3 doses (0.9 mg). Activate Emergency response Look-alike/sound-alike medication - verify indication for use. finasteride (PROSCAR) tablet 5 mg 5 mg, oral, Daily, First dose on 02/05/25 at 1030, Look-alike/sound-alike medication - verify indication for use. Crushed or broken tablets should not be handled by a woman who is or may become because of the potential for absorption and the subsequent potential risk to fetus. Given 02/08/2025 7:36 AM EDT 5 mg Given 02/07/2025 8:32 AM EDT 5 mg Given 02/06/2025 7:43 AM EDT 5 mg glucagon HCL injection 1 mg 1 mg, intramuscular, As needed, low blood sugar, blood glucose less than 70 mg/dL and unconscious or NPO without IV access., Starting on Fri02/03/25 at 0829, If conscious and not NPO, immediately follow with meal tray or high protein (7Grams) snack if tray not available. If NPO, initiate IV 5% Dextrose/Water at 100 mL/hr and contact prescriber for additional orders. If blood glucose is not greater than 70 mg/dL after initial treatment, repeat treatment. insulin glargine (LANTUS, SEMGLEE) injection pen 10 Units 10 Units, subcutaneous, 2 times daily, First dose (after last modification) on Fri02/08/25 at 2100, Hold if finger stick blood sugar less than 70 Look-alike/sound-alike medication - verify indication for use. Prime with 2 units of insulin prior to administration. Basal (long acting) insulin for subcutaneous administration only. Do not mix with any other insulin. Pre-filled pens stable 28 days at room temperature., Indications: type 2 diabetes mellitusIndications:type 2 diabetes mellitus insulin glargine (LANTUS, SEMGLEE) injection pen 15 Units 15 Units, subcutaneous, 2 times daily, First dose on Fri02/05/25 at 1030, Hold if finger stick blood sugar less than 70 Look-alike/sound-alike medication - verify indication for use. Prime with 2 units of insulin prior to administration. Basal (long acting) insulin for subcutaneous administration only. Do not mix with any other insulin. Pre-filled pens stable 28 days at room temperature., Indications: type 2 diabetes mellitusIndications:type 2 diabetes mellitus Given 02/07/2025 9:21 PM EDT 15 Units Left Arm Given 02/07/2025 8:38 AM EDT 15 Units Le ft Arm Given 02/06/2025 9:47 PM EDT 15 Units Ab dominal Tissue insulin lispro (HumaLOG) injection 2-10 Units 2-10 Units, subcutaneous, 4 times daily with meals and nightly, First dose on Fri02/03/25 at 1200, For blood glucose 151-200 mg/dL, give 2 units. For blood glucose 201-250 mg/dL, give 4 units. For blood glucose 251-300 mg/dL, give 6 units. For blood glucose 301-350 mg/dL, give 8 units. For blood glucose 351-400 mg/dL, give 10 units. Give even if NPO or meals skipped. Do NOT give more often then every 4 hours when NPO. CHANGE TO Q 6 HRS IF NPO Notify prescriber if blood glucose greater than 400 mg/dL. Look-alike/sound-alike medication - verify indication for use. Prime with 2 units of insulin prior to administration. Prandial/supplemental Insulin. Pre-filled pens stable 28 days at room temperature. Insulin lispro should be administered within 15 minutes before or immediately after a meal. Given 02/08/2025 5:35 PM EDT 4 Units Left Arm Given 02/08/2025 12:20 PM EDT 4 Units L eft Arm Given 02/07/2025 9:21 PM EDT 4 Units Le ft Arm iron sucrose (VENOFER) 200 mg in sodium chloride 0.9 % 100 mL IVPB 200 mg, intravenous, at 440 mL/hr, Administer over 15 Minutes, Every other day, First dose on Fri02/06/25 at 1315, For 5 doses, Monitor patient for hypersensitivity reactions for at least 30 minutes after the infusion. AVOID the use of H1 antihistamines, such as diphenhydramine, as this may worsen hypersensitivity reactions. Have resuscitation equipment and medications available. New Bag 02/08/2025 8:56 AM EDT 200 mg 440 mL/h r New Bag 02/06/2025 3:28 PM EDT 200 mg 440 mL/hr lactated ringers infusion 50 mL/hr, intravenous, Continuous, Starting on Fri02/04/25 at 1115, Pre-op, If fluid restriction is not indicated, infuse at a rate up to 5 mL/kg/hr not to exceed the total replacement volume (2 ml/kg/hr) from the time NPO status was initiated. Continued by Anesthesia 02/04/2025 12:09 PM EDT 50 mL/hr New Bag 02/04/2025 11:25 AM EDT 50 mL/hr 50 mL/hr levothyroxine (SYNTHROID, LEVOTHROID) tablet 112 mcg 112 mcg, oral, Daily, First dose on Fri02/05/25 at 1030, Look-alike/sound-alike medication. Verify indication for use Administer on empty stomach at least ONE hour before or TWO hours after food Enteral Feeding: For 7 days or less of tube feeding- do NOT hold tube feedings, after 7 days- hold tube feedings ONE hour before and ONE hour after administration DOES NOT APPLY TO NEONATES Monitor thyroid function tests weekly Given 02/08/2025 5:09 AM EDT 112 mcg Given 02/07/2025 6:29 AM EDT 112 mcg Given 02/06/2025 6:25 AM EDT 112 mcg magnesium sulfate IVPB 2000 mg/50 mL in iso-osmotic water (40 mg/mL premix) 2,000 mg, intravenous, at 25 mL/hr, Administer over 120 Minutes, As needed, Magnesium level <1.8, Starting on [place]arlene 02/03/25 at 0829, Recheck magnesium level 4 hours after infusion complete. With each magnesium result continue the replacement orders as needed. methylPREDNISolone sod suc(PF) (Solu-MEDROL) injection 125 mg 125 mg, intravenous, As needed, emergency treatment for adverse reactions., Starting on [place] 02/06/25 at 1314, For 2 doses, Scheduling/ADT, Should not be used as initial management of anaphylaxis but may prevent a prolonged or recurrent reaction. May alter blood glucose or insulin requirements. Look-alike/sound-alike medication - verify indication for use. ondansetron (PF) (ZOFRAN) injection 4 mg 4 mg, intravenous, Every 4 hours PRN, nausea, vomiting, Starting on [place]ene 02/03/25 at 0829, Intravenous administration preferred to be given over 2-5 minutes. oxyCODONE-acetaminophen (PERCOCET) 5-325 mg per tablet 1 tablet 1 tablet, oral, Every 6 hours PRN, severe pain - pain scale 7-10, Starting on [facility] 02/03/25 at 0834, Look-alike/sound-alike medication - verify indication for use. Given 02/07/2025 7:30 AM EDT 1 ta blet Given 02/06/2025 7:42 AM EDT 1 tablet Given 02/05/2025 8:31 PM EDT 1 tablet potassium chloride (KAYCIEL) 20 mEq/15 mL solution 20-40 mEq 20-40 mEq, oral, As needed, Potassium Supplementation, Starting on [facility] 02/03/25 at 0830, Progress to oral potassium replacement when patient tolerating oral intake. If dose administered, recheck potassium level 4 hours after last dose. For potassium level 3.4 to 3.8 mmol/L and GFR less than 30 mL/min or dialysis=20 mEq. For potassium level 3.1 to 3.3 mmol/L and GFR less than 30 mL/min or dialysis=30 mEq. For potassium level 3 mmol/L or less and GFR less than 30 mL/min or dialysis=40 mEq. Must dilute before use - Mix in 3-8 ounces of water or juice before administration When administering in feeding tube, flush before and after per policy and monitor potassium levels potassium chloride (KLOR-CON M 20) CR tablet 20-40 mEq 20-40 mEq, oral, As needed, Potassium Supplementation, Starting on [place]ene 02/03/25 at 0830, Progress to oral potassium replacement when patient tolerating oral intake. If dose administered, recheck potassium level 4 hours after last dose. For potassium level 3.4 to 3.8 mmol/L and GFR less than 30 mL/min or dialysis=20 mEq. For potassium level 3.1 to 3.3 mmol/L and GFR less than 30 mL/min or dialysis=30 mEq. For potassium level 3 mmol/L or less and GFR less than 30 mL/min or dialysis=40 mEq. Do not crush or chew. potassium chloride IVPB 10 mEq/100 mL in water (0.1 mEq/mL premix) 10 mEq, intravenous, at 100 mL/hr, Administer over 60 Minutes, As needed, POTASSIUM REPLACEMENT, Starting on [place] 02/03/25 at 0830, IV if unable to use oral/enteral with the current dosing strategies Potassium level 3 mmol/L or less administer Potassium Chloride 40 mEq Potassium level 3.1 to 3.3 mmol/L administer Potassium Chloride 30 mEq Potassium level 3.4 to 3.8 mmol/L administer Potassium Chloride 20 mEq Use central line when applicable. Recheck potassium level 1 hour after total IVPB infusion complete, With each potassium result continue the replacement orders as needed VESICANT (YELLOW) Infuse each 10 mEq over a minimum of 1 hour. sennosides-docusate sodium (SENOKOT-S) 8.6-50 mg 1 tablet 1 tablet, oral, Every 12 hours PRN, constipation, Starting on [place]arlene 02/03/25 at 0829 sodium chloride 0.9 % bolus 150 mL, intravenous, at 900 mL/hr, Administer over 10 Minutes, As needed, For systolic blood pressure below 90, Starting on 02/06/25 at 1648, Scheduling/ADT sodium chloride 0.9 % flush 10 mL 10 mL, intravenous, Every 12 hours, First dose on Fri02/08/25 at 1345, PICC line. Administer 10 mL per lumen; 10 mL total (for single lumen flush) sodium chloride 0.9 % flush 10 mL 10 mL, intravenous, As needed, line care, Starting on Fri02/08/25 at 1343, PICC line. Administer 10 mL to each lumen before and after each use. Administer 10 mL per lumen; 10 mL total (for single lumen flush) sodium chloride 0.9 % flush 20 mL 20 mL, intravenous, As needed, line care, Starting on Fri02/08/25 at 1343, PICC line. Administer 20 mL to each lumen after lab draws, blood infusion, and meds known to precipitate. Administer 20 mL per lumen; 20 mL total (for single lumen flush) sodium chloride 0.9 % flush 3 mL 3 mL, intravenous, As needed, line care, before and after each intermittent use, Starting on [place]ene 02/03/25 at 0646 terazosin (HYTRIN) capsule 5 mg 5 mg, oral, Nightly, First dose on 02/05/25 at 2200, HOLD if systolic is less than 110 Given 02/06/2025 9:46 PM EDT 5 mg Given 02/05/2025 10:07 PM EDT 5 mg vancomycin (VANCOCIN) 1,000 mg in sodium chloride 0.9 % 250 mL IVPB W/ADAPTER 1,000 mg, intravenous, at 250 mL/hr, Administer over 60 Minutes, Every 36 hours, First dose (after last modification) on 02/07/25 at 0800, For Vial-2-Bag: Attach bag and vial to adapter - Use immediately after activating; dissolve drug prior to administration., Indication: Osteoarticular New Bag 02/08/2025 6:55 PM EDT 1,000 mg 250 mL/hr New Bag 02/07/2025 8:38 AM EDT 1,000 mg 250 mL/hr vancomycin (VANCOCIN) 1,250 mg in sodium chloride 0.9 % 250 mL IVPB W/ADAPTER 1,250 mg (rounded from 1,270 mg = 20 mg/kg 63.5 kg), intravenous, at 167 mL/hr, Administer over 90 Minutes, Once, On [place] 02/03/25 at 0655, For 1 dose, For Vial-2-Bag: Attach bag and vial to adapter - Use immediately after activating; dissolve drug prior to administration., Indication: Skin and soft tissue infection New Bag 02/03/2025 8:01 AM EDT 1,250 mg 167 m L/hr vancomycin (VANCOCIN) 750 mg in sodium chloride 0.9 % 250 mL IVPB W/ADAPTER 750 mg, intravenous, at 250 mL/hr, Administer over 60 Minutes, Every 24 hours, First dose on Fri02/04/25 at 0800, For Vial-2-Bag: Attach bag and vial to adapter - Use immediately after activating; dissolve drug prior to administration., Indication: Osteoarticular New Bag 02/06/2025 8:29 AM EDT 750 mg 250 mL/hr New Bag 02/05/2025 9:15 AM EDT 750 mg 250 mL/hr New Bag 02/04/2025 7:54 AM EDT 750 mg 250 mL/hr documented in this encounter Active and Recently Administered Medications Times are shown in EDT. Scheduled Medication Order 02/06/2025 02/07/2025 02/08/2025 allopurinoL (ZYLOPRIM) tablet 100 mg 100 mg, oral, Daily, First dose on 02/05/25 at 1030, Look-alike/sound-alike medication - verify indication for use. 0742 (Given - Provider: Lennie Acosta RN) 0832 (Given - Provider: Lila Larson RN) 0736 (Given - Provider: Nae Najera, CALI)0900 (Canceled Entry - Provider: Nae Najera, RN) aspirin chewable tablet 81 mg 81 mg, oral, Daily, First dose on Fri02/06/25 at 0900 0739 (Given - Provider: Lennie Acosta RN) 0832 (Given - Provider: Lila Larson, CALI) 0734 (Given - Provider: Nae Najera, RN)0900 (Canceled Entry - Provider: Nae Najera, CALI) atorvastatin (LIPITOR) tablet 20 mg 20 mg, oral, Daily, First dose on 8/16/25 at 1030, Look-alike/sound-alike medication - verify indication for use. 0742 (Given - Provider: Lennie Acosta RN) 0832 (Given - Provider: Lila Larson, CALI) 0736 (Given - Provider: Nae Najera RN)0900 (Canceled Entry - Provider: Nae Najera RN) cefEPime (MAXIPIME) IVPB 2000 mg/50 mL in dextrose 5% duplex (40 mg/mL premix) (COMPLETED) 2,000 mg, intravenous, at 100 mL/hr, Administer over 30 Minutes, Once, On Fri02/08/25 at 1000, For 1 dose, Indication: Osteoarticular 1023 (New Bag - Provider: Nae Najera RN)1053 (Stop Bag - Provider: Nae Najera RN) ciprofloxacin HCl (CIPRO) tablet 500 mg 500 mg, oral, Every 12 hours scheduled, First dose (after last reorder) on Fri02/08/25 at 1315, Food-Drug Interaction Education Required May alter blood glucose or insulin requirements Administer at least 2 hours before or 6 hours after antacids, or products containing zinc, calcium, or iron Enteral Feeding Instructions: Hold tube feedings for ONE hour before and TWO hours after administration Do NOT give suspension through feeding tube Do NOT give any any oral dose form (tablet, suspension) through j-tube, Specific Use Criteria: Osteoarticular, Fluoroquinolones contain FDA Black Box warnings. Due to safety concerns, avoid use in acute bacterial sinusitis, acute bacterial exacerbation of chronic bronchitis, or acute uncomplicated cystitis if possible. Use alternative treatment if available. I acknowledge the Black Box warnings of fluoroquinolones. 1457 (Given - Provid er: Nae Najera RN)2100 (Due) clopidogreL (PLAVIX) tablet 75 mg 75 mg, oral, Daily, First dose on Fri02/06/25 at 0900, Look-alike/sound-alike medication - verify indication for use. 0743 (Given - Provider: Lennie Acosta RN) 0832 (Given - Provider: Lila Larson RN) 0735 (Given - Provider: Nae Najera RN)0900 (Canceled Entry - Provider: Nae Najera RN) docusate sodium (COLACE) capsule 100 mg 100 mg, oral, 2 times daily, First dose on Fri02/05/25 at 1030, Look-alike/sound-alike medication - verify indication for use. 0743 (Given - Provider: Lennie Acosta RN)2146 (Given - Provider: Jane Mohamud RN) 0832 (Given - Provider: Lila Larson, CALI)212 (Given - Provider: Mercedes Vieyra RN) 0735 (Given - Provider: Nae Najera, CALI)0900 (Canceled Entry - Provider: Nae Najera RN)2100 (Due) finasteride (PROSCAR) tablet 5 mg 5 mg, oral, Daily, First dose on 02/05/25 at 1030, Look-alike/sound-alike medication - verify indication for use. Crushed or broken tablets should not be handled by a woman who is or may become because of the potential for absorption and the subsequent potential risk to fetus. 0743 (Given - Provider: Lennie Acosta RN) 0832 (Given - Provider: Lila Larson, CALI) 0736 (Given - Provider: Nae Najera, CALI)0900 (Canceled Entry - Provider: Nae Najera RN) insulin glargine (LANTUS, SEMGLEE) injection pen 10 Units 10 Units, subcutaneous, 2 times daily, First dose (after last modification) on Fri02/08/25 at 2100, Hold if finger stick blood sugar less than 70 Look-alike/sound-alike medication - verify indication for use. Prime with 2 units of insulin prior to administration. Basal (long acting) insulin for subcutaneous administration only. Do not mix with any other insulin. Pre-filled pens stable 28 days at room temperature., Indications: type 2 diabetes mellitus 2100 (Due) insulin glargine (LANTUS, SEMGLEE) injection pen 15 Units (CANCELED) 15 Units, subcutaneous, 2 times daily, First dose on Fri02/05/25 at 1030, Hold if finger stick blood sugar less than 70 Look-alike/sound-alike medication - verify indication for use. Prime with 2 units of insulin prior to administration. Basal (long acting) insulin for subcutaneous administration only. Do not mix with any other insulin. Pre-filled pens stable 28 days at room temperature., Indications: type 2 diabetes mellitus 0744 (Given - Provider: Lennie Acosta RN)214 (Given - Provider: Jane Mohamud, RN) 0838 (Given - Provider: Lila Larson, CALI)212 (Given - Provider: Mercedes Vieyra, RN) 0900 (Hold - Provider: Nae Najera RN - Reason: Contraindicated - Comment: glucose 54) insulin lispro (HumaLOG) injection 2-10 Units 2-10 Units, subcutaneous, 4 times daily with meals and nightly, First dose on [place] 02/03/25 at 1200, For blood glucose 151-200 mg/dL, give 2 units. For blood glucose 201-250 mg/dL, give 4 units. For blood glucose 251-300 mg/dL, give 6 units. For blood glucose 301-350 mg/dL, give 8 units. For blood glucose 351-400 mg/dL, give 10 units. Give even if NPO or meals skipped. Do NOT give more often then every 4 hours when NPO. CHANGE TO Q 6 HRS IF NPO Notify prescriber if blood glucose greater than 400 mg/dL. Look-alike/sound-alike medication - verify indication for use. Prime with 2 units of insulin prior to administration. Prandial/supplemental Insulin. Pre-filled pens stable 28 days at room temperature. Insulin lispro should be administered within 15 minutes before or immediately after a meal. 0800 (Not Given - Provider: Lennie Acosta RN - Reason: Order parameters not met - Comment: [phone] (Given - Provider: Lennie Acosta RN - Comment: [phone] (Given - Provider: Lennie Acosta RN - Comment: [phone] (Given - Provider: Jaen Mohamud RN) 0800 (Not Given - Provider: Lila Larson RN - Reason: Contraindicated)11 15 (Given - Provider: Lila Larson RN)1715 (Given - Provider: Jayshree Moore RN)212 (Given - Provider: Mercedes Vieyra, RN) 0800 (Not Given - Provider: Nae Najera RN - Reason: Contraindicated - Comment: glucose [phone] (Given - Provider: Nae Najera RN)1735 (Given - Provider: Nae Najera RN) iron sucrose (VENOFER) 200 mg in sodium chloride 0.9 % 100 mL IVPB 200 mg, intravenous, at 440 mL/hr, Administer over 15 Minutes, Every other day, First dose on Fri02/06/25 at 1315, For 5 doses, Monitor patient for hypersensitivity reactions for at least 30 minutes after the infusion. AVOID the use of H1 antihistamines, such as diphenhydramine, as this may worsen hypersensitivity reactions. Have resuscitation equipment and medications available. 1528 (New Bag - Provider: Lennie Acosta RN - Comment: med not available from pharmacy)1552 (Stop Bag - Provider: Lennie Acosta RN) 0856 (New Bag - Provider: Nae Najera RN)0911 (Stop Bag - Provider: Nae Najera RN) levothyroxine (SYNTHROID, LEVOTHROID) tablet 112 mcg 112 mcg, oral, Daily, First dose on Fri02/05/25 at 1030, Look-alike/sound-alike medication. Verify indication for use Administer on empty stomach at least ONE hour before or TWO hours after food Enteral Feeding: For 7 days or less of tube feeding- do NOT hold tube feedings, after 7 days- hold tube feedings ONE hour before and ONE hour after administration DOES NOT APPLY TO NEONATES Monitor thyroid function tests weekly 0625 (Given - Provider: Jane Mohamud RN) 0629 (Given - Provider: Jane Mohamud RN) 0509 (Given - Provider: Mercedes Vieyra RN) sodium chloride 0.9 % flush 10 mL(Linked Group 1) 10 mL, intravenous, Every 12 hours, First dose on Fri02/08/25 at 1345, PICC line. Administer 10 mL per lumen; 10 mL total (for single lumen flush) 1345 (Canceled Entry - Provider: Nae Najera RN) terazosin (HYTRIN) capsule 5 mg 5 mg, oral, Nightly, First dose on Fri02/05/25 at 2200, HOLD if systolic is less than 110 2146 (Given - Provider: Jane Mohamud RN) 2120 (Hold - Provider: Mercedes Vieyra RN - Reason: Order parameters not met) vancomycin (VANCOCIN) 1,000 mg in sodium chloride 0.9 % 250 mL IVPB W/ADAPTER 1,000 mg, intravenous, at 250 mL/hr, Administer over 60 Minutes, Every 36 hours, First dose (after last modification) on Fri02/07/25 at 0800, For Vial-2-Bag: Attach bag and vial to adapter - Use immediately after activating; dissolve drug prior to administration., Indication: Osteoarticular 0838 (New Bag - Provider: Lila Larson RN)0938 (Stop Bag - Provider: Lila Larson RN) 185 (New Bag - Provider: Nae Najera, CALI)1954 (Stop Bag - Provider: Anabela Worthy RN)1999 (Due - Provider: Marie Zarate [facility]) vancomycin (VANCOCIN) 750 mg in sodium chloride 0.9 % 250 mL IVPB W/ADAPTER (CANCELED) 750 mg, intravenous, at 250 mL/hr, Administer over 60 Minutes, Every 24 hours, First dose on Fri02/04/25 at 0800, For Vial-2-Bag: Attach bag and vial to adapter - Use immediately after activating; dissolve drug prior to administration., Indication: Osteoarticular 0829 (New Bag - Provider: Lennie Acosta RN)0932 (Stop Bag - Provider: Lennie Acosta RN) PRN Medication Order 02/06/2025 02/07/2025 02/08/2025 acetaminophen (TYLENOL EXTRA STRENGTH) tablet 1,000 mg 1,000 mg, oral, Every 6 hours PRN, temperature greater than 38 C, moderate pain - pain scale 4-6, Starting on [place] 02/03/25 at 0834 1615 (Given - Provider: Jayshree Moore RN) acetaminophen (TYLENOL EXTRA STRENGTH) tablet 500 mg 500 mg, oral, Every 6 hours PRN, mild pain - pain scale 1-3, Starting on [place] 02/03/25 at 0834 1614 (Not Given - Provider: Jayshree Moore RN - Reason: Other - Comment: gave 1000mg not 500mg per pain scale) 0736 (Given - Provider: Nae Najera RN) dextrose (GLUTOSE) 40 % gel 15 g 15 g, oral, As needed, low blood sugar, blood glucose less than 70 mg/dL, Starting on [facility] 02/03/25 at 0829, If patient conscious and taking PO. If blood glucose is not greater than 70 mg/dL after initial treatment, repeat treatment. dextrose 50 % in water (D50W) 50% solution 25 mL 25 mL, intravenous, As needed, low blood sugar, blood glucose less than 70 mg/dL and unconscious or NPO with IV access, Starting on [facility] 02/03/25 at 0829, Push over 1-3 minutes STAT. If conscious and not NPO, immediately follow with meal tray or high protein (7 grams) snack if tray not available. If NPO, initiate 5% dextrose in water at 100 mL/hr and contact prescriber for additional orders. If blood glucose is not greater than 70 mg/dL after initial treatment, repeat treatment. VESICANT (RED) Warning: HYPERTONIC solution. EPINEPHrine (ADRENALIN) 1 mg/mL injection FOR ANAPHYLAXIS 0.3 mg 0.3 mg, intramuscular, Every 5 min PRN, anaphylaxis, emergency use for dypsnea, wheezing, stridor, or hypotension (at least 30% decrease in systolic BP), Starting on [place] 02/06/25 at 1314, For 3 doses, Scheduling/ADT, Give IM into the anterolateral aspect of the middle third of the thigh (preferred) up to 3 doses (0.9 mg). Activate Emergency response Look-alike/sound-alike medication - verify indication for use. glucagon HCL injection 1 mg 1 mg, intramuscular, As needed, low blood sugar, blood glucose less than 70 mg/dL and unconscious or NPO without IV access., Starting on [facility] 02/03/25 at 0829, If conscious and not NPO, immediately follow with meal tray or high protein (7Grams) snack if tray not available. If NPO, initiate IV 5% Dextrose/Water at 100 mL/hr and contact prescriber for additional orders. If blood glucose is not greater than 70 mg/dL after initial treatment, repeat treatment. magnesium sulfate IVPB 2000 mg/50 mL in iso-osmotic water (40 mg/mL premix) 2,000 mg, intravenous, at 25 mL/hr, Administer over 120 Minutes, As needed, Magnesium level <1.8, Starting on [place] 02/03/25 at 0829, Recheck magnesium level 4 hours after infusion complete. With each magnesium result continue the replacement orders as needed. methylPREDNISolone sod suc(PF) (Solu-MEDROL) injection 125 mg 125 mg, intravenous, As needed, emergency treatment for adverse reactions., Starting on [place] 02/06/25 at 1314, For 2 doses, Scheduling/ADT, Should not be used as initial management of anaphylaxis but may prevent a prolonged or recurrent reaction. May alter blood glucose or insulin requirements. Look-alike/sound-alike medication - verify indication for use. ondansetron (PF) (ZOFRAN) injection 4 mg 4 mg, intravenous, Every 4 hours PRN, nausea, vomiting, Starting on [place] 02/03/25 at 0829, Intravenous administration preferred to be given over 2-5 minutes. oxyCODONE-acetaminophen (PERCOCET) 5-325 mg per tablet 1 tablet 1 tablet, oral, Every 6 hours PRN, severe pain - pain scale 7-10, Starting on [place] 02/03/25 at 0834, Look-alike/sound-alike medication - verify indication for use. 0742 (Given - Provider: Lennie Acosta, RN) 0730 (Given - Provider: Lila Larson RN) potassium chloride (KAYCIEL) 20 mEq/15 mL solution 20-40 mEq(Linked Group 2) 20-40 mEq, oral, As needed, Potassium Supplementation, Starting on [place]ene 02/03/25 at 0830, Progress to oral potassium replacement when patient tolerating oral intake. If dose administered, recheck potassium level 4 hours after last dose. For potassium level 3.4 to 3.8 mmol/L and GFR less than 30 mL/min or dialysis=20 mEq. For potassium level 3.1 to 3.3 mmol/L and GFR less than 30 mL/min or dialysis=30 mEq. For potassium level 3 mmol/L or less and GFR less than 30 mL/min or dialysis=40 mEq. Must dilute before use - Mix in 3-8 ounces of water or juice before administration When administering in feeding tube, flush before and after per policy and monitor potassium levels potassium chloride (KLOR-CON M 20) CR tablet 20-40 mEq(Linked Group 2) 20-40 mEq, oral, As needed, Potassium Supplementation, Starting on [facility] 02/03/25 at 0830, Progress to oral potassium replacement when patient tolerating oral intake. If dose administered, recheck potassium level 4 hours after last dose. For potassium level 3.4 to 3.8 mmol/L and GFR less than 30 mL/min or dialysis=20 mEq. For potassium level 3.1 to 3.3 mmol/L and GFR less than 30 mL/min or dialysis=30 mEq. For potassium level 3 mmol/L or less and GFR less than 30 mL/min or dialysis=40 mEq. Do not crush or chew. potassium chloride IVPB 10 mEq/100 mL in water (0.1 mEq/mL premix)(Linked Group 2) 10 mEq, intravenous, at 100 mL/hr, Administer over 60 Minutes, As needed, POTASSIUM REPLACEMENT, Starting on [facility] 02/03/25 at 0830, IV if unable to use oral/enteral with the current dosing strategies Potassium level 3 mmol/L or less administer Potassium Chloride 40 mEq Potassium level 3.1 to 3.3 mmol/L administer Potassium Chloride 30 mEq Potassium level 3.4 to 3.8 mmol/L administer Potassium Chloride 20 mEq Use central line when applicable. Recheck potassium level 1 hour after total IVPB infusion complete, With each potassium result continue the replacement orders as needed VESICANT (YELLOW) Infuse each 10 mEq over a minimum of 1 hour. sennosides-docusate sodium (SENOKOT-S) 8.6-50 mg 1 tablet 1 tablet, oral, Every 12 hours PRN, constipation, Starting on [facility] 02/03/25 at 0829 sodium chloride 0.9 % bolus 150 mL, intravenous, at 900 mL/hr, Administer over 10 Minutes, As needed, For systolic blood pressure below 90, Starting on Fri02/06/25 at 1648, Scheduling/ADT sodium chloride 0.9 % flush 10 mL(Linked Group 1) 10 mL, intravenous, As needed, line care, Starting on Fri02/08/25 at 1343, PICC line. Administer 10 mL to each lumen before and after each use. Administer 10 mL per lumen; 10 mL total (for single lumen flush) sodium chloride 0.9 % flush 20 mL(Linked Group 1) 20 mL, intravenous, As needed, line care, Starting on Fri02/08/25 at 1343, PICC line. Administer 20 mL to each lumen after lab draws, blood infusion, and meds known to precipitate. Administer 20 mL per lumen; 20 mL total (for single lumen flush) sodium chloride 0.9 % flush 3 mL 3 mL, intravenous, As needed, line care, before and after each intermittent use, Starting on [facility] 02/03/25 at 0646 sodium chloride 0.9 % infusion 20 mL/hr, intravenous, Continuous PRN, per policy for blood product transfusion, Starting on Fri02/07/25 at 1324, For 24 hours, Initiate prior to blood product transfusion. Continue before and after each blood product transfusion. Discontinue upon completion of blood product transfusion(s). Linked Groups Order Group 1: Consult PICC nurse (COMPLETED) Reason for consult? Insert PICC, Indication: Duration of therapy greater than 14 days to months, Number of Lumen(s): 1 Lumen And sodium chloride 0.9 % flush 10 mLJump to med 10 mL, intravenous, Every 12 hours, First dose on Fri02/08/25 at 1345, PICC line. Administer 10 mL per lumen; 10 mL total (for single lumen flush) And sodium chloride 0.9 % flush 10 mLJump to med 10 mL, intravenous, As needed, line care, Starting on Fri02/08/25 at 1343, PICC line. Administer 10 mL to each lumen before and after each use. Administer 10 mL per lumen; 10 mL total (for single lumen flush) And sodium chloride 0.9 % flush 20 mLJump to med 20 mL, intravenous, As needed, line care, Starting on Fri02/08/25 at 1343, PICC line. Administer 20 mL to each lumen after lab draws, blood infusion, and meds known to precipitate. Administer 20 mL per lumen; 20 mL total (for single lumen flush) Group 2: potassium chloride (KLOR-CON M 20) CR tablet 20-40 mEqJump to med 20-40 mEq, oral, As needed, Potassium Supplementation, Starting on [facility] 02/03/25 at 0830, Progress to oral potassium replacement when patient tolerating oral intake. If dose administered, recheck potassium level 4 hours after last dose. For potassium level 3.4 to 3.8 mmol/L and GFR less than 30 mL/min or dialysis=20 mEq. For potassium level 3.1 to 3.3 mmol/L and GFR less than 30 mL/min or dialysis=30 mEq. For potassium level 3 mmol/L or less and GFR less than 30 mL/min or dialysis=40 mEq. Do not crush or chew. Or potassium chloride (KAYCIEL) 20 mEq/15 mL solution 20-40 mEqJump to med 20-40 mEq, oral, As needed, Potassium Supplementation, Starting on [facility] 02/03/25 at 0830, Progress to oral potassium replacement when patient tolerating oral intake. If dose administered, recheck potassium level 4 hours after last dose. For potassium level 3.4 to 3.8 mmol/L and GFR less than 30 mL/min or dialysis=20 mEq. For potassium level 3.1 to 3.3 mmol/L and GFR less than 30 mL/min or dialysis=30 mEq. For potassium level 3 mmol/L or less and GFR less than 30 mL/min or dialysis=40 mEq. Must dilute before use - Mix in 3-8 ounces of water or juice before administration When administering in feeding tube, flush before and after per policy and monitor potassium levels Or potassium chloride IVPB 10 mEq/100 mL in water (0.1 mEq/mL premix)Jump to med 10 mEq, intravenous, at 100 mL/hr, Administer over 60 Minutes, As needed, POTASSIUM REPLACEMENT, Starting on [facility] 02/03/25 at 0830, IV if unable to use oral/enteral with the current dosing strategies Potassium level 3 mmol/L or less administer Potassium Chloride 40 mEq Potassium level 3.1 to 3.3 mmol/L administer Potassium Chloride 30 mEq Potassium level 3.4 to 3.8 mmol/L administer Potassium Chloride 20 mEq Use central line when applicable. Recheck potassium level 1 hour after total IVPB infusion complete, With each potassium result continue the replacement orders as needed VESICANT (YELLOW) Infuse each 10 mEq over a minimum of 1 hour. documented in this encounter Additional Health Concerns Assessment Noted Time PHQ-9 Depression Total Score: 0 05/20/20 22 9:00 AM EST documented as of this encounter Care Teams [employer] Marketing Relationship Specialty Start Date End Date Alejandrina Rivera MD [address] [facility], [address] [place] [phone] PCP - General Internal Medicine 09/27/24 documented as of this encounter
--- OUTSIDE RECORDS SUMMARY | 2025-02-04 12:00 | XMS_ITS | Encounter Summary ---
Author Organization [facility] [employer] [facility] tem Address [id number] [address] [place] [address] Care Team Providers Care Director Of Volunteer Services Name Role Phone Alejandrina Rivera MD Primary Care Provider [phone] Reason for Visit * Reason Comments Low [...] Diagnoses Osteomyelitis of right foot, unspecified type ([facility]) Raysa Mann MD [address] , [facility] [address] [place] [address] Phone: tel: fax: Referral ID Status Reason Start Date Expiration Date Visits Re quested Visits Authorized [id number] 1 1 Encounter Details Date Type Department Care Team (Late st Contact Info) Description 02/04/2025 12:00 PM EDT - 02/04/2025 1:55 PM EDT Surgery [facility] - Surgery [address] [place] [id number] Diego Daniels, DPMykel [address] [place] [address] EXCISION BONE PARTIAL CALCANEOUS OR TALUS [38437 (CPT )] Surgery Details Date/Time Status Location OR Service Patient Class Case Class Case Type Trauma Case? 02/04/2025 12:00 PM Posted [facility] Podiatry Inpatient Elective Panel 1 Procedure LRB Anes Op Region Wound Class Comments EXCISION BONE PARTIAL CALCANEOUS OR TALUS Right General Heel Dirty or Infected 1gm of vancomycin powder placed on operative site/ irrigated with 3000ml 0.9%ns, preveena wound vac placement Surgeon Surgeon Role Service Panel Diego Daniels DPM Primary Podiatry 1 documented in this encounter Social History Tobacco Use Types Packs/Day Years Used Date Smoking Tobacco: Former Smokeless Tobacco: Never Alcohol Use Standard Drinks/Week Comments No 0 (1 standard drink = 0.6 oz pur e alcohol) [facility] Utilities Answer Date Recorded In the past [...] Sign Reading Time Taken Comments Blood Pressure 139/73 02/04/2025 11:13 AM EDT Pulse 74 02/04/2025 11:13 AM EDT Temperature 36.6 C (97.8 F) 02/04/2025 11:13 AM EDT Respiratory Rate 13 02/04/2025 11:13 AM EDT Oxygen Saturation 100% 02/04/2025 11:13 AM EDT Inhaled Oxygen Concentration - - Weight 59.4 kg (131 lb) 02/04/2025 11:13 AM EDT Height 172.7 cm (5' 8 ) 02/04/2025 11:13 AM EDT Body Mass Index 21.64 02/04/2025 11:13 AM EDT documented in this encounter Functional Status documented as of this encounter Discharge Summaries * Sirena Batres MD - 02/08/2025 1:53 PM EDT Images from the original note were not included. [facility] [address] [phone] Hospital Medicine Discharge Summary Patient: Babar Barriga Date of : 1945 Room: [facility] Encounter date: 02/08/25 Hospital Day: 6 DATE OF ADMISSION: 02/03/2025 DATE OF DISCHARGE:02/08/2025 DISCHARGE DIAGNOSES Principal Problem: Osteomyelitis of right foot, unspecified type ([facility]) Active Problems: Peripheral vascular disease ([facility]) Hyperlipidemia Diabetic peripheral neuropathy associated with type 2 diabetes mellitus ([facility] S/P amputation of foot, left ([facility]) Hypertension CKD (chronic kidney disease) stage 4, GFR 15-29 ml/min ([facility]) Hypoglycemia Anemia of chronic disease Hypothyroidism Iron [...] Procedure Abnormality Status --------- ------ Light Blue Top[[id number]] Final result Please view results for these [...] medial oblique, lateral views are nonweightbearing. Reveals [id number] metatarsal resection. There is a bone fragment [...] number beside their name. DISCHARGE INSTRUCTION Disposition: prison facility Condition: Stable Activity: activity as tolerated [...] (line care per nursing agency protocol.). vancomycin 01831 mg recon soln Commonly known as: VANCOCIN [...] Your Medications These medications were sent to [facility] - [facility] [address] [facility] [address] [facility] [address] ciprofloxacin HCl 500 mg tablet heparin lock flush (porcine) 10 unit/mL injection heparin lock flush (porcine) injection 100 unit/mL solution sodium chloride injection You can get these medications from any pharmacy Bring a paper prescription for each of these medications vancomycin 06871 mg recon soln Information about where to get these medications is not yet available Ask your nurse or doctor about these medications insulin glargine 100 unit/mL injection >30 minutes were spent on discharging this patient. MONET Carpenter 02/08/2025 1:53 PM [facility] 7AM-7PM & 7PM-7AM: EpicChat or page through On-Call Finder. MONET Carpenter 02/08/25 4335 Physician Attestation I, SIRENA BATRES MD, personally [...] agency protocol.). 1 mL 02/08/2025 vancomycin (VANCOCIN) 75870 mg recon soln Infuse 750 mg into a venous catheter daily for 38 days. End Date 03/18/2025 1 each 02/08/2025 documented as of this encounter Progress Notes * Phoenix Blanco RPH - 02/08/2025 1:14 PM EDT [facility] Department of Pharmacy Pharmacist to Physician Communication The dose of Cipro has been changed to 500 mg every 12 hours per the [facility] approved renal dosing guidelines, based on an estimated creatinine clearance is 46.3 mL/min (by C-G formula based on SCr of 1.16 mg/dL). Thank you, Phoenix Blanco RPH * Phoenix Blanco RPH - 02/08/2025 9:12 AM EDT [facility] Department of Pharmacy Pharmacist to Physician Communication The dose of cefepime for Osteoarticular infection has been changed to a 2 gram loading dose infusedover 30 minutes followed by 2 grams infused every 12 hours by extended infusion over 4 hours per the [facility] approved extended-infusion beta- lactam dosing policy, based on an estimated creatinine clearance is 46.3 mL/min (by C-G formula based on SCr of 1.16 mg/dL). Thank you, Phoenix Blanco RPH * Sirena Batres MD - 02/07/2025 1:26 PM EDT Images from the original note were not included. [facility] [address] [id number] Hospital Medicine Progress Note Patient: Babar Barriga Date of : 1945 Room: [facility] PCP: Alejandrina Rivera MD Admission date: 02/03/2025 [...] Procedure Abnormality Status --------- ------ Light Blue Top[[id number]] Final result Please view results for these [...] Problem: Osteomyelitis of right foot, unspecified type ([facility]) Active Problems: Peripheral vascular disease ([facility]) Hyperlipidemia Diabetic peripheral neuropathy associated with type 2 diabetes mellitus ([facility]) S/P amputation of foot, left ([facility]) Hypertension CKD (chronic kidney disease) stage 4, GFR 15-29 ml/min ([facility]) Hypoglycemia Anemia of chronic disease Hypothyroidism Iron [...] chemoprophylaxis when cleared by podiatry. DC planning: group home facility pending above and placement. Medically Ready for Discharge: Anticipated 24-48 hours MONET Carpenter 02/07/2025 1:26 PM [facility] 7AM-7PM & 7PM-7AM: EpicChat or page through On-Call Finder. MONET Carpenter 02/07/25 1327 Physician Attestation I, SIRENA BATRES MD, personally [...] of Osteomyelitis of right foot, unspecified type ([facility]) PCP: Alejandrina Rivera MD Assessment Principal Problem: Osteomyelitis of right foot, unspecified type ([facility]) Active Problems: Peripheral vascular disease ([facility]) Hyperlipidemia Diabetic peripheral neuropathy associated with type 2 diabetes mellitus ([facility]) S/P amputation of foot, left ([facility]) Hypertension CKD (chronic kidney disease) stage 4, GFR 15-29 ml/min ([facility]) Hypoglycemia Anemia of chronic disease Hypothyroidism Iron [...] do not hesitate to contact me at [phone]. Interim History The patient is a 80 y.o. male who is admitted for osteomyelitis. Doing well without any issues overnight. Past Medical History: Past Medical History: Diagnosis Date Atherosclerosis of [place] arteries of left leg with ulceration of other part of foot ([facility]) 10/24/2022 Added automatically from request for surgery [id number] Chronic kidney disease Chronic osteomyelitis of left foot ([facility]) 09/27/2024 Dental disease Diabetes mellitus type 2, controlled ([facility]) Hyperlipidemia Hypertension MRSA bacteremia 09/28/2024 Osteomyelitis ([facility]) Shortness of breath Skin cancer melanoma Stage 3b chronic kidney disease ([facility]) 09/27/2024 Urinary incontinence Visual impairment Past Surgical History: Past Surgical History: Procedure Laterality Date 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 SKIN PLASTY TISSUE REARRANGEMENTn toe flap Left 10/25/2022 Performed by Diego Daniels DPM at [facility] TOE SURGERY Left Vascular Invasive Left lower extremity CO2 angiogram/pilot captain Left 10/30/2022 Performed by Delfino Lake MD at [facility]ATH [facility] Vascular Invasive- lower extremity angiogram with possible intervention with CO2 Right 11/29/2024 Performed by Delfino Lake MD at [facility] CATH [facility] Vascular Invasive- Right Lower Extremity Angiogram with possible intervention Right 01/24/2025 Performed by Delfino Lake MD at [facility] Medications Prior to Admission: [...] Component Value Date HGBA1C 6.2 (H) 02/03/2025 Hematology:@[id number](WBC:3,HGB:3,HCT:3,MCV:3,PLT:3)@ Chemistry: Lab Results Component Value Date K [...] Procedure Component Value Units Date/Time Anaerobic culture [[id number]] Collected: 02/04/25 131 Specimen: Bone from Foot, Right Updated: 02/05/25 1412 CULTURE RESULTS Culture in progress Bone culture [[id number]] Collected: 02/04/25 131 Specimen: Bone from Foot, Right Updated: 02/07/25 0954 CULTURE RESULTS Culture in progress Blood culture #1 [[id number]] Collected: 02/03/252024 Specimen: Blood, Venous Updated: 02/07/25 0301 CULTURE RESULTS NO GROWTH 3 DAYS Blood culture #2 [[id number]] Collected: 02/03/252024 Specimen: Blood, Venous Updated: 02/07/25 030 CULTURE RESULTS NO GROWTH 3 DAYS Imaging: [...] of Osteomyelitis of right foot, unspecified type ([facility]) PCP: Alejandrina Rivera MD Assessment Principal Problem: Osteomyelitis of right foot, unspecified type ([facility]) Active Problems: Peripheral vascular disease ([facility]) Hyperlipidemia Diabetic peripheral neuropathy associated with type 2 diabetes mellitus ([facility]) S/P amputation of foot, left ([facility]) Hypertension CKD (chronic kidney disease) stage 4, GFR 15-29 ml/min ([facility]) Hypoglycemia Anemia of chronic disease Hypothyroidism Plan [...] do not hesitate to contact me at [phone]. Interim History The patient is a 80 y.o. male who is admitted for osteomyelitis. Doing well without any issues overnight. Past Medical History: Past Medical History: Diagnosis Date Atherosclerosis of [place] arteries of left leg with ulceration of other part of foot ([facility]) 10/24/2022 Added automatically from request for surgery [id number] Chronic kidney disease Chronic osteomyelitis of left foot ([facility]) 09/27/2024 Dental disease Diabetes mellitus type 2, controlled ([facility]) Hyperlipidemia Hypertension MRSA bacteremia 09/28/2024 Osteomyelitis ([facility]) Shortness of breath Skin cancer melanoma Stage 3b chronic kidney disease ([facility]) 09/27/2024 Urinary incontinence Visual impairment Past Surgical History: Past Surgical History: Procedure Laterality Date 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 C[facility] CATH [facility]S SKIN PLASTY TISSUE REARRANGEMENTn toe flap Left 10/25/2022 Performed by Diego Daniels DPM at [facility] TOE SURGERY Left Vascular Invasive Left lower extremity CO2 angiogram/pilot captain Left 10/30/2022 Performed by Delfino Lake MD at [facility] CATH [facility]S Vascular Invasive- lower extremity angiogram with possible intervention with CO2 Right 11/29/2024 Performed by Delfino Lake MD at [facility] CATH [facility] Vascular Invasive- Right Lower Extremity Angiogram with possible intervention Right 01/24/2025 Performed by Delfino Lake MD at [facility]ATH [facility] Medications Prior to Admission: [...] Component Value Date HGBA1C 6.2 (H) 02/03/2025 Hematology:@[id number](WBC:3,HGB:3,HCT:3,MCV:3,PLT:3)@ Chemistry: Lab Results Component Value Date K [...] Procedure Component Value Units Date/Time Anaerobic culture [[id number]] Collected: 02/04/25 131 Specimen: Bone from Foot, Right Updated: 02/05/251411 CULTURE RESULTS Culture in progress Bone culture [[id number]] Collected: 02/04/25 131 Specimen: Bone from Foot, Right Updated: 02/05/251411 CULTURE RESULTS Culture in progress Blood culture #1 [[id number]] Collected: 02/03/252024 Specimen: Blood, Venous Updated: 02/06/25 030 CULTURE RESULTS NO GROWTH 2 DAYS Blood culture #2 [[id number]] Collected: 02/03/252024 Specimen: Blood, Venous Updated: 02/06/25 0301 CULTURE RESULTS NO GROWTH 2 DAYS Imaging: [...] from the original note were not included. [facility] [address] [id number] Hospital Medicine Progress Note Patient: Babar Barriga Date of : 1945 Room: 02 PCP: Alejandrina Rivera MD Admission date: 02/03/2025 [...] Problem: Osteomyelitis of right foot, unspecified type ([facility]) Active Problems: Peripheral vascular disease ([facility]) Hyperlipidemia Diabetic peripheral neuropathy associated with type 2 diabetes mellitus ([facility]) S/P amputation of foot, left ([facility]) Hypertension CKD (chronic kidney disease) stage 4, GFR 15-29 ml/min ([facility]) Hypoglycemia Anemia of chronic disease Hypothyroidism ASSESSMENT [...] chemoprophylaxis when cleared by podiatry. DC planning: group home facility pending above and placement. Medically Ready for Discharge: Anticipated 24-48 hours MONET Carpenter 02/06/2025 1:13 PM [facility] 7AM-7PM & 7PM-7AM: EpicChat [...] and Plavix no pharmacological DVT prophylaxis. * Ryasa Mann MD - 02/05/2025 10:18 AM EDT Images from the original note were not included. [facility] [address] [id number] Hospital Medicine Progress Note Patient: Babar Barriga Date of : 1945 Room: [facility] PCP: Alejandrina Rivera MD Admission date: 02/03/2025 [...] Procedure Abnormality Status --------- ------ Light Blue Top[[id number]] Final result SST TOP[[id number]] Final result Please view results for these [...] Problem: Osteomyelitis of right foot, unspecified type ([facility]) Active Problems: Peripheral vascular disease ([facility]) Hyperlipidemia Diabetic peripheral neuropathy associated with type 2 diabetes mellitus ([facility]) S/P amputation of foot, left ([facility]) Hypertension CKD (chronic kidney disease) stage 4, GFR 15-29 ml/min ([facility]) Hypoglycemia Anemia of chronic disease Hypothyroidism ASSESSMENT [...] chemoprophylaxis when cleared by podiatry. DC planning: group home facility pending above and placement. Medically Ready for Discharge: Anticipated 24-48 hours MONET WELCH 02/05/2025 2:01 PM [facility] 7AM-7PM & 7PM-7AM: EpicChat or [...] of Osteomyelitis of right foot, unspecified type ([facility]) PCP: Alejandrina Rivera MD Assessment Principal Problem: Osteomyelitis of right foot, unspecified type ([facility]) Active Problems: Peripheral vascular disease ([facility]) Hyperlipidemia Diabetic peripheral neuropathy associated with type 2 diabetes mellitus ([facility]) S/P amputation of foot, left ([facility]) Hypertension CKD (chronic kidney disease) stage 4, GFR 15-29 ml/min ([facility]) Hypoglycemia Anemia of chronic disease Hypothyroidism Plan [...] do not hesitate to contact me at [phone]. Interim History The patient is a 80 y.o. male who is admitted for osteomyelitis of the right calcaneus. Status postpartial calcanectomy and Achilles resection. Admits to some pain in the heel but otherwise doing well. Past Medical History: Past Medical History: Diagnosis Date Atherosclerosis of [place] arteries of left leg with ulceration of other part of foot ([facility]) 10/24/2022 Added automatically from request for surgery [id number] Chronic kidney disease Chronic osteomyelitis of left foot ([facility]) 09/27/2024 Dental disease Diabetes mellitus type 2, controlled ([facility] Hyperlipidemia Hypertension MRSA bacteremia 09/28/2024 Osteomyelitis ([facility]) Shortness of breath Skin cancer melanoma Stage 3b chronic kidney disease ([facility]) 09/27/2024 Urinary incontinence Visual impairment Past Surgical History: Past Surgical History: Procedure Laterality Date 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ATH [facility] SKIN PLASTY TISSUE REARRANGEMENTn toe flap Left 10/25/2022 Performed by Diego Daniels DPM at [facility] TOE SURGERY Left Vascular Invasive Left lower extremity CO2 angiogram/pilot captain Left 10/30/2022 Performed by Delfino Lake MD at [facility]ATH [facility] Vascular Invasive- lower extremity angiogram with possible intervention with CO2 Right 11/29/2024 Performed by Delfino Lake MD at [facility]ATH [facility] Vascular Invasive- Right Lower Extremity Angiogram with possible intervention Right 01/24/2025 Performed by Delfino Lake MD at [facility] Medications Prior to Admission: [...] Component Value Date HGBA1C 6.2 (H) 02/03/2025 Hematology:@[id number](WBC:3,HGB:3,HCT:3,MCV:3,PLT:3)@ Chemistry: Lab Results Component Value Date K [...] Procedure Component Value Units Date/Time Anaerobic culture [[id number]] Collected: 02/04/25 1315 Specimen: Bone from Foot, Right Updated: 02/04/25 1509 Bone culture [[id number]] Collected: 02/04/25 1315 Specimen: Bone from Foot, Right Updated: 02/04/259 Blood culture #1 [[id number]] Collected: 02/03/252024 Specimen: Blood, Venous Updated: 02/05/25 0301 CULTURE RESULTS NO GROWTH 1 DAY Blood culture #2 [[id number]] Collected: 02/03/252024 Specimen: Blood, Venous Updated: 02/05/25 0301 CULTURE RESULTS NO GROWTH 1 DAY Imaging: [...] Be Seen: Nutritional trigger = pressure injury pilot captain Hospital Occurrences: Pt admitted with osteomyelitis of the right foot, hx of PVD, Type 2 diabetes,CKD stage 4, anemia,s/p amputation of foot Admit Diagnosis: Patient Active Problem List Diagnosis Peripheral vascular disease ([facility]) Diabetes mellitus ([facility]) Hyperlipidemia Diabetic peripheral neuropathy associated with type 2 diabetes mellitus ([facility]) Difficulty walking Neurologic disorder associated with diabetes mellitus ([facility]) Acquired hammer toe of right foot Constipation, unspecified constipation type S/P amputation of foot, left ([facility]) Hypertension CKD (chronic kidney disease) stage 4, GFR 15-29 ml/min ([facility]) Chronic ischemic heart disease Exposure to Agent [place] Type 2 diabetes mellitus with mild nonproliferative diabetic retinopathy without macular edema, unspecified eye ([facility]) Sepsis ([facility]) Ulcer of left foot with bone involvement without evidence of necrosis ([facility]) Osteomyelitis of right foot, unspecified type ([facility]) Hypoglycemia Anemia of chronic disease Hypothyroidism Past Medical History: Past Medical History: Diagnosis Date Atherosclerosis of [place] arteries of left leg with ulceration of other part of foot ([facility] 10/24/2022 Added automatically from request for surgery [id number] Chronic kidney disease Chronic osteomyelitis of left foot ([facility] [place] 09/27/2024 Dental disease Diabetes mellitus type 2, controlled ([facility] [place] Hyperlipidemia Hypertension MRSA bacteremia 09/28/2024 Osteomyelitis ([facility] [place] [place] Shortness of breath Skin cancer melanoma Stage 3b chronic kidney disease ([facility] [place]) 09/27/2024 Urinary incontinence Visual impairment Past Surgical History: Past Surgical History: Procedure Laterality Date 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 CATH [facility]S SKIN PLASTY TISSUE REARRANGEMENTn toe flap Left 10/25/2022 Performed by Diego Daniels DPM at [facility] TOE SURGERY Left Vascular Invasive Left lower extremity CO2 angiogram/pilot captain Left 10/30/2022 Performed by Delfino Lake MD at [facility] CATH LABS Vascular Invasive- lower extremity angiogram with possible intervention with CO2 Right 11/29/2024 Performed by Delfino Lake MD at [facility] CATH [facility]S Vascular Invasive- Right Lower Extremity Angiogram with possible intervention Right 01/24/2025 Performed by Delfino Lake MD at [facility]ATH [facility] Diet History: pt reports a good appetite Allergies: Allergies Allergen Reactions Penicillins As a child Lisinopril Other (See Comments) Unsure of reaction Nutrition Focused Physical Findings-- No evidence of muscle wasting/malnutrition. As per nutrition flow sheet- Skin: Skin Color: [place] (02/04/25 1428) Skin Temp: Warm, Dry (02/04/25 1428) Wound: Wound 02/04/25 Incision Foot Right-Site Assessment: Unable to assess (02/04/25 1428) Wound 02/03/25 Diabetic Ulcer Achilles Right-Site Assessment: Unable to assess (02/04/25 1428) Wound 02/03/25 Foot Left;Lateral-Site Assessment: Dry, Pale, [...] fL 80 80 No results found for: [id number] No results found for: FOLATE No results [...] tablet 1,000 mg 1,000 mg oral Q6H PRN Mukul Flores APRN-JAMEL acetaminophen (TYLENOL EXTRA STRENGTH) tablet 500 mg 500 mg oral Q6H PRN Mukul MONET Curiel dextrose (GLUTOSE) 40 % gel 15 g 15 g oral PRN MONET Welch dextrose 5 % (D5W) infusion 75 mL/hr intravenous Continuous Kaylee LeyvaMONET 75 mL/hrat 02/04/25 0040 75 mL/hr at [...] tablet 1 tablet 1 tablet oral Q6H PRN MONET Welch potassium chloride (KLOR-CON M 20) CR tablet 20-40 mEq 20-40 mEq oral PRN MONET Welch Or potassium chloride (KAYCIEL) 20 mEq/15 mL solution 20-40 mEq 20-40 mEq oral PRN MONET Welch Or potassium chloride IVPB 10 mEq/100 mL in water (0.1 mEq/mL premix) 10 mEq intravenous PRN MONET Welch sennosides-docusate sodium (SENOKOT-S) 8.6-50 mg 1 tablet 1 tablet oral Q12H PRN MONET Welch sodium chloride 0.9 % flush 3 mL 3 mL intravenous PRN Jerald Pineda DO vancomycin (VANCOCIN) 750 mg in sodium chloride 0.9 % 250 mL IVPB W/ADAPTER 750 mg intravenous [id number] Pineda DO Stopped at 08/15/25 0854 Facility-Administered Medications Ordered in Other Encounters Medication Dose Route Frequency Provider Last Rate Last Admin dexAMETHasone (DECADRON) injection intravenous PRN Miles S Drown, GRAVURE PRESS OPERATOR-MEDICAL CLINIC MANAGER 4 mg at 02/04/25 1235 fentaNYL (SUBLIMAZE) injection intravenous PRN Miles S Drown, GRAVURE PRESS OPERATOR-MEDICAL CLINIC MANAGER 100 mcg at 02/04/25 1212 lidocaine PF (XYLOCAINE) 20 mg/mL (2 %) injection intravenous PRN Miles S Drown, GRAVURE PRESS OPERATOR-MEDICAL CLINIC MANAGER 100 mg at 02/04/25 1215 midazolam (VERSED) injection intravenous PRN Miles S Drown, GRAVURE PRESS OPERATOR-MEDICAL CLINIC MANAGER 2 mg at 02/04/25 1204 ondansetron (PF) (ZOFRAN) injection intravenous PRN Miles S Drown, GRAVURE PRESS OPERATOR-MEDICAL CLINIC MANAGER 4 mg at 02/04/25 1235 propofoL (DIPRIVAN) infusion intravenous PRN Miles S Drown, GRAVURE PRESS OPERATOR-MEDICAL CLINIC MANAGER 120 mg at 02/04/25 1215 Nutrition Findings/Summary: [...] (153 lb) 12/16/23 70.8 kg (156 lb) [place] Body Weight: 69.6 kg Percent [place] Body Weight: 85 % Body Mass Index: [...] <25% [] NPO [] Unable to assess [place] Body Weight (69.6 kg) used to estimate nutrition needs Estimated Energy Needs: ~1148-7481 kcals daily. Method and weight used: 25-30 kcal/kg IBW Estimated Protein Needs: ~83-139 grams daily. Method and weight used: 1.2-2.0 gm/kg IBW Estimated Fluid Needs: ~9649-2706 ml daily. Method Used: 1 ml/kcal Malnutrition [...] Goal achieved Cyndy Chapa RD.,LD. Clinical Dietitian [facility] [phone] 02/04/25 * Raysa Mann MD - 02/04/2025 10:51 AM EDT Images from the original note were not included. [facility] [address] [facility] [id number] Hospital Medicine Progress Note Patient: Babar Barriga Date of : 1945 Room: ROBERTA/ROBERTA PCP: Alejandrina Rivera MD Admission date: 02/03/2025 [...] Procedure Abnormality Status --------- ------ Light Blue Top[[id number]] Final result Please view results for these [...] Problem: Osteomyelitis of right foot, unspecified type ([facility] [place]) Active Problems: Peripheral vascular disease ([facility] [place]) Hyperlipidemia Diabetic peripheral neuropathy associated with type 2 diabetes mellitus ([facility] [place]) S/P amputation of foot, left ([facility] [place]) Hypertension CKD (chronic kidney disease) stage 4, GFR 15-29 ml/min ([facility] [place] Hypoglycemia Anemia of chronic disease Hypothyroidism ASSESSMENT [...] stable/baseline. Dyslipidemia, statin. Hypothyroidism, levothyroxine. DC planning: group home facility pending above. Medically Ready for Discharge: Anticipated Tomorrow MONET WELCH 02/04/2025 2:22 PM [facility] 7AM-7PM & 7PM-7AM: EpicChat or page through On-Call Finder. MONET Welch 02/04/25 1053 Physician Attestation I, Raysa Mann [...] risk for orthopedic surgery. * Hubert Pedro, [facility], [facility] - 02/03/2025 12:05 PM EDT Pharmacokinetic Consult [...] Silver RPH - 02/03/2025 11:09 AM EDT [facility] Department of Pharmacy Pharmacist to Physician Communication The dose of cefepime for osteomyelitis has been changed to 1 gram infused every 12 hours by extended infusion over 4 hours per the [facility] approved extended- infusion beta-lactam dosing policy, based on an estimated creatinine clearance is 29 mL/min (A) (by C-G formula based on SCr of 1.67 mg/dL (H)). Thank you, Miriam Silver RPH documented in this encounter H&P Notes * Diego Daniels DPM - 02/04/2025 12:02 PM EDT HISTORY AND PHYSICAL INTERVAL NOTE: Babar Barriga 1945 [id number] H&P reviewed. The patient was examined and there are no changes to the H&P. Diego Daniels DPM Source Note - Diego Daniels DPM - 02/03/2025 9:11 AM EDT Podiatry Consultation Note Admit Date: 02/03/2025 Bed/Room No. @ROOMBEDREFRESH@ Admitting Physician : @ATTENDING@ Code Status :Full Code Hospital Day: LOS: 0 days Patient is currently admitted for treatment of Osteomyelitis of right foot, unspecified type ([facility]) Reason for Consult: Osteomyelitis right foot Requesting [...] Past Medical History: Diagnosis Date Atherosclerosis of [place] arteries of left leg with ulceration of other part of foot ([facility] [place]) 10/24/2022 Added automatically from request for surgery [id number] Chronic kidney disease Chronic osteomyelitis of left foot ([facility] [place]) 09/27/2024 Dental disease Diabetes mellitus type 2, controlled ([facility] [place]) Hyperlipidemia Hypertension MRSA bacteremia 09/28/2024 Osteomyelitis ([facility] [place]) Shortness of breath Skin cancer melanoma Stage 3b chronic kidney disease ([facility] [place]) 09/27/2024 Urinary incontinence Visual impairment Past Surgical History: Past Surgical History: Procedure Laterality Date 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 CATH [facility]S SKIN PLASTY TISSUE REARRANGEMENTn toe flap Left 10/25/2022 Performed by Diego Daniels DPM at [facility] TOE SURGERY Left Vascular Invasive Left lower extremity CO2 angiogram/pilot captain Left 10/30/2022 Performed by Delfino Lake MD at [facility] CATH [facility]S Vascular Invasive- lower extremity angiogram with possible intervention with CO2 Right 11/29/2024 Performed by Delfino Lake MD at [facility] CATH [facility]S Vascular Invasive- Right Lower Extremity Angiogram with possible intervention Right 01/24/2025 Performed by Delfino Lake MD at [facility]ATH [facility] Medications Prior to Admission: [...] Component Value Date HGBA1C 8.3 (H) 10/25/2022 Hematology:@[id number](WBC:3,HGB:3,HCT:3,MCV:3,PLT:3)@ Chemistry: Lab Results Component Value Date K [...] Problem: Osteomyelitis of right foot, unspecified type ([facility] [place] Active Problems: Peripheral vascular disease ([facility] [place]) Hyperlipidemia Diabetic peripheral neuropathy associated with type 2 diabetes mellitus ([facility] [place]) S/P amputation of foot, left ([facility] [place]) Hypertension CKD (chronic kidney disease) stage 4, GFR 15-29 ml/min ([facility] [place]) Hypoglycemia Anemia of chronic disease Plan -patient examined and evaluated. He has known osteomyelitis of the right calcaneus with exposure ofthe Achilles tendon as well. He was scheduled for partial calcanectomy today. I will move his surgery to tomorrow anticipate surgery time 12:00 p.m. for partial calcanectomy and Achilles resection ofthe right lower extremity. He will likely require group home upon discharge as he may require a [...] do not hesitate to contact me at [phone]. Diego Daniels DPM 02/03/2025 * Raysa Mann MD - 02/03/2025 10:59 AM EDT Images from the original note were not included. [facility] [address] [facility] [id number] [facility] Medicine History & Physical Patient: Babar Barriga Date of : 1945 Room: [facility] [place] PCP: Alejandrina Rivera MD Admission date: 02/03/2025 [...] a past medical history of Atherosclerosis of [place] arteries of left leg with ulceration of other part of foot ([facility] [place]) (10/24/2022), Chronic kidney disease, Chronic osteomyelitis of left foot ([facility] [place]) (09/27/2024), Dental disease, Diabetes mellitus type 2, controlled ([facility] [place] Hyperlipidemia, Hypertension, MRSA bacteremia (09/28/2024), Osteomyelitis ([facility] [place] Shortness of breath,Skin cancer, Stage 3b chronic kidney disease ([facility] [place]) (09/27/2024), Urinary incontinence, and Visual impairment. Past [...] ear normal. Nose: Nose normal. Mouth/Throat: Lips: [place]. Mouth: Mucous membranes are moist. Pharynx: Oropharynx [...] Procedure Abnormality Status --------- ------ Light Blue Top[[id number]] Final result Please view results for these [...] medial oblique, lateral views are nonweightbearing. Reveals [id number] metatarsal resection. There is a bone fragment [...] Problem: Osteomyelitis of right foot, unspecified type ([facility] [place] Active Problems: Peripheral vascular disease ([facility] [place]) Hyperlipidemia Diabetic peripheral neuropathy associated with type 2 diabetes mellitus ([facility] [place] S/P amputation of foot, left ([facility] [place] Hypertension CKD (chronic kidney disease) stage 4, GFR 15-29 ml/min ([facility] [place] Hypoglycemia Anemia of chronic disease Hypothyroidism ASSESSMENT [...] Ready for Discharge: Anticipated in 2-4 Days MUKUL FLORES APRN-JAMEL 02/03/2025 2:14 PM [facility] Internal Medicine 7AM-7PM & 7PM-7AM: EpicChat [...] not included. PICC line placement note: Dynamic porcelain finish sprayer: CALI Gu Prescribed IV therapy: dual therapy [...] inserted into the right brachial vein Ref: [id number] Lot: [id number] Exp: 12/20/2025 Trimmed at 36 cm with 1 cm external Number of attempts: 1 CVR: 15% Dressed per protocol with statlock and CHG tegaderm Lidocaine used during procedure: intradermal administration conc 1% approximately 1mL Lot #: [id number] Exp: 08/21/2026 Following successful completion of procedure, all PICC kit components including sharps were accounted for, intact, and disposed of properly. Nae LEIVA aware PICC placed with ECG technology and is confirmed in the distal 1/3 SVC. PICC is immediately released for use. RN aware new IV tubing is required. documented in this encounter Consult Notes * Marie Zarate, [facility], [facility] - 02/06/2025 12:57 PM EDT Pharmacokinetic Consult [...] Procedure Component Value Units Date/Time Anaerobic culture [[id number]] Collected: 02/04/251314 Specimen: Bone from Foot, Right Updated: 02/05/25 1412 CULTURE RESULTS Culture in progress Bone culture [[id number]] Collected: 02/04/251314 Specimen: Bone from Foot, Right Updated: 02/06/25 1207 CULTURE RESULTS Culture in progress Blood culture #1 [[id number]] Collected: 02/03/252024 Specimen: Blood, Venous Updated: 02/06/25 0301 CULTURE RESULTS NO GROWTH 2 DAYS Blood culture #2 [[id number]] Collected: 02/03/252024 Specimen: Blood, Venous Updated: 02/06/25 [...] [facility] [address] [place] [address] CONSULTATION PATIENT NAME: Babar Barriga : 1945 [...] Past Medical History: Diagnosis Date Atherosclerosis of [place] arteries of left leg with ulceration of other part of foot ([facility] [place]) 10/24/2022 Added automatically from request for surgery [id number] Chronic kidney disease Chronic osteomyelitis of left foot ([facility] [place]) 09/27/2024 Dental disease Diabetes mellitus type 2, controlled ([facility] [place]) Hyperlipidemia Hypertension MRSA bacteremia 09/28/2024 Osteomyelitis ([facility] [place]) Shortness of breath Skin cancer melanoma Stage 3b chronic kidney disease ([facility] [place]) 09/27/2024 Urinary incontinence Visual impairment SURGICAL HISTORY [...] Units 02/04/25 0531 02/03/25 0703 01/28/25 1302 WBC x10E9/L 7.9 9.5 8.5 HEMOGLOBIN [...] %, 75 mL/hr, Last Rate: Stopped (02/03/25 3323) CV HISTORY: ECHO: Echo complete W/ contrast [...] This note was completed using a voice typewriter repairer system. Every effort was made to ensure accuracy. However, inadvertent computerized typewriter repairer errors may be present. * Diego Daniels DPM - 02/03/2025 9:11 AM EDTAssociated Order(s): IP CONSULT TO PODIATRY Podiatry Consultation Note Admit Date: 02/03/2025 Bed/Room No. @ROOMBEDREFRESH@ Admitting Physician : @ATTENDING@ Code Status :Full Code Hospital Day: LOS: 0 days Patient is currently admitted for treatment of Osteomyelitis of right foot, unspecified type ([facility] [place]) Reason for Consult: Osteomyelitis right foot Requesting [...] Past Medical History: Diagnosis Date Atherosclerosis of [place] arteries of left leg with ulceration of other part of foot ([facility] [place]) 10/24/2022 Added automatically from request for surgery [id number] Chronic kidney disease Chronic osteomyelitis of left foot ([facility] [place]) 09/27/2024 Dental disease Diabetes mellitus type 2, controlled ([facility] [place] Hyperlipidemia Hypertension MRSA bacteremia 09/28/2024 Osteomyelitis ([facility] [place]) Shortness of breath Skin cancer melanoma Stage 3b chronic kidney disease ([facility] [place]) 09/27/2024 Urinary incontinence Visual impairment Past Surgical History: Past Surgical History: Procedure Laterality Date 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 CATH [facility]S SKIN PLASTY TISSUE REARRANGEMENTn toe flap Left 10/25/2022 Performed by Diego Daniels DPM at [facility] TOE SURGERY Left Vascular Invasive Left lower extremity CO2 angiogram/pilot captain Left 10/30/2022 Performed by Delfino Lake MD at [facility] CATH [facility]S Vascular Invasive- lower extremity angiogram with possible intervention with CO2 Right 11/29/2024 Performed by Delfino Lake MD at [facility]ATH [facility]S Vascular Invasive- Right Lower Extremity Angiogram with possible intervention Right 01/24/2025 Performed by Delfino Lake MD at [facility] Medications Prior to Admission: [...] Component Value Date HGBA1C 8.3 (H) 10/25/2022 Hematology:@[id number](WBC:3,HGB:3,HCT:3,MCV:3,PLT:3)@ Chemistry: Lab Results Component Value Date K [...] Problem: Osteomyelitis of right foot, unspecified type ([facility] [place] Active Problems: Peripheral vascular disease ([facility] [place]) Hyperlipidemia Diabetic peripheral neuropathy associated with type 2 diabetes mellitus ([facility] [place]) S/P amputation of foot, left ([facility] [place]) Hypertension CKD (chronic kidney disease) stage 4, GFR 15-29 ml/min ([facility] [place] Hypoglycemia Anemia of chronic disease Plan -patient examined and evaluated. He has known osteomyelitis of the right calcaneus with exposure ofthe Achilles tendon as well. He was scheduled for partial calcanectomy today. I will move his surgery to tomorrow anticipate surgery time 12:00 p.m. for partial calcanectomy and Achilles resection ofthe right lower extremity. He will likely require group home upon discharge as he may require a [...] do not hesitate to contact me at [phone]. Diego Daniels DPM 02/03/2025 documented in this encounter Nursing Notes * Nae Najera RN - 02/08/2025 6:16 PM EDT Report called to [place], given to Leigh LEIVA. Updated on discharge time, at 2000 after dose ofVanco. All questions answered. documented in this encounter ED Notes * Jerald Pineda DO - 02/03/2025 6:47 AM EDT Images from the original note were not included. [facility] Pt Name: Babar Barriga Birthdate: [...] Dental disease Diabetes mellitus type 2, controlled ([facility]) Hyperlipidemia Hypertension Osteomyelitis ([facility]) Shortness of breath Skin cancer melanoma Urinary incontinence Visual impairment Past Surgical History: Past Surgical History: Procedure Laterality Date 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 C[facility] CATH LABS SKIN PLASTY TISSUE REARRANGEMENTn toe flap Left 10/25/2022 Performed by Diego Daniels DPM at [facility] TOE SURGERY Left Vascular Invasive Left lower extremity CO2 angiogram/pilot captain Left 10/30/2022 Performed by Delfino Lake MD at [facility] CATH LABS Vascular Invasive- lower extremity angiogram with possible intervention with CO2 Right 11/29/2024 Performed by Delfino Lake MD at [facility] CATH LABS Vascular Invasive- Right Lower Extremity Angiogram with possible intervention Right 01/24/2025 Performed by Delfino Lake MD at [facility] CATH LABS Family History: Family History [...] injury Osteomyelitis of right foot, unspecified type ([facility]): complicated acute illness or injury with [...] rhythm 80 beats per minute, respirations 16, [id number]% on room air. Patient's white count is [...] 90. 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 Amount and/or Complexity of Data Reviewed Independent Historian: Details: Son at bedside External Data Reviewed: notes. 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 [...] 0745 Osteomyelitis of right foot, unspecified type ([facility]) Hypoglycemia Chronic kidney disease, unspecified CKD stage . ED Disposition ED Disposition Admit Date/Time FriFeb 03, 2025 7:43 AM Comment At this [...] Resident Review (PASSR) PASSR completed via the [employer] Electronic Notification System) [employer] 7000 (short form) completed and submitted? yes Is a Level II Evaluation required? no SNF [facility] completion. yes CRF sent via [facility] yes Daughter is transporting patient (per private vehicle) after 2000 dose of IV Vancomycin. Claudia at [facility] notified via telephone. Picc line is to be placed around approximately 1615 per Ad Najera RN. Discharge Plan: Discharge to group home care at [facility] (accepted), and insurance authorization is received. Plan of Care: [facility] (SNF) [phone] Fax CRF at Discharge - My Varela RN 02/08/25 3:14 PM * PT/OT/BROOMCORN GRADER - Mary Caro PT - 02/08/2025 11:40 AM EDT Physical Therapy Treatment Discharge Recommendations for Safe Patient Transition OT Discharge Disposition Recommendation: Post acute - moderate OT Post Acute Moderate Rehab Needs: Recommend moderate intensity rehab, Tolerate 1-2 hrs of therapy3-5 days/wk, Subacute or chronic functional impairment Current Impairments Informing Therapy Recommendation: Ambulation status/safety, Fall risk, ADL status, Endurance level [employer] Support for-: Mobility Deficits, ADL Deficits 6 [...] LE Weight Bearing Status: NWB R LE Telemetry/Project Officer: No Other: fall risk, Bilteral LE wounds [...] PT Progressing Goal Note filed on 02/08/25 113 by Mary Caro PT Evaluation of progress towards goal: SBA [...] transfers Disciplines: PT Outcomes Date/Time User Outcome 02/08/257 Mary Caro SAMMIE Progressing Goal Note filed on 02/08/25 1137 [...] Problem: Osteomyelitis of right foot, unspecified type ([facility] Active Problems: Peripheral vascular disease ([facility]) Hyperlipidemia Diabetic peripheral neuropathy associated with type 2 diabetes mellitus ([facility]) S/P amputation of foot, left ([facility]) Hypertension CKD (chronic kidney disease) stage 4, GFR 15-29 ml/min ([facility] Hypoglycemia Anemia of chronic disease Hypothyroidism Iron deficiency anemia * Plan of Care - Nae Najera RN - 02/08/2025 10:02 AM EDT Problem: Knowledge Deficit Goal: Patient/patient manufacturer's representative demonstrates understanding of disease process, treatment [...] that there are some limitations compared to bxpe-xq-udeu evaluations. We elected to proceed. [facility] Infectious Diseases - Progress Note [facility] - TeleMedicine During Business Hours: Please use [employer] for communication. Patient name: Babar Barriga Patient [...] Visit was conducted via the Telemodality of [employer]. My impressions are as follows: Constitutional: Awake, [...] CHLORIDE mmol/L 104 104 105 CO2 mmol/L BUN mg/dL 33* 37* 37* CREATININE mg/dL [...] Procedure Component Value Units Date/Time Anaerobic culture [[id number]] Collected: 02/04/251314 Specimen: Bone from Foot, Right Updated: 02/08/25 0818 CULTURE RESULTS NO ANAEROBES ISOLATED AT 48 HOURS Bone culture [[id number]] (Abnormal) (Susceptibility) Collected: 02/04/251314 Specimen: Bone from [...] to Clindamycin NOT detected Blood culture #1 [[id number]] Collected: 02/03/252024 Specimen: Blood, Venous Updated: 02/08/25 0302 CULTURE RESULTS NO GROWTH 4 DAYS Blood culture #2 [[id number]] Collected: 02/03/252024 Specimen: Blood, Venous Updated: 02/08/25 0302 CULTURE RESULTS NO GROWTH 4 DAYS Medications: [...] FACP, FIDSA During Business Hours: Please use [employer] for communication. Pager (After Hours): General ID Clinic: Musculoskeletal ID Clinic: * PT/OT/BROOMCORN GRADER - Patrica Dunn, OTR/Farhat - 02/08/2025 8:49 AM EDT Occupational Therapy Treatment Discharge Recommendations for Safe Patient Transition OT Discharge Disposition Recommendation: Post acute - moderate OT Post Acute Moderate Rehab Needs: Recommend moderate intensity rehab, Tolerate 1-2 hrs of therapy3-5 days/wk, Subacute or chronic functional impairment Current Impairments Informing Therapy Recommendation: Ambulation status/safety, Cognition, Fall risk, Endurance level [employer] Support for-: Mobility Deficits, ADL Deficits 6 [...] LE Weight Bearing Status: NWB R LE Telemetry/Project Officer: No Oxygen Used: room air Other: fall [...] function Disciplines: OT Outcomes Date/Time User Outcome 02/08/2548 Patrica Dunn OTR/L Progressing Goal Note filed on 02/08/2548 by MARINA Sifuentes/Farhat Evaluation of progress towards goal: refer to [...] Progressing Goal Note filed on 02/08/25847 by MARINA Sifuentes/Farhat Evaluation of progress towards goal: refuses OOB [...] Problem: Osteomyelitis of right foot, unspecified type ([facility]) Active Problems: Peripheral vascular disease ([facility]) Hyperlipidemia Diabetic peripheral neuropathy associated with type 2 diabetes mellitus ([facility] [place]) S/P amputation of foot, left ([facility]) Hypertension CKD (chronic kidney disease) stage 4, GFR 15-29 ml/min ([facility] [place] [place]) Hypoglycemia Anemia of chronic disease Hypothyroidism Iron deficiency anemia * Plan of Care - Mercedes Vieyra RN - 02/07/2025 8:20 PM EDT Problem: Pain Goal: Patient goal is pain score less than 4, able to rest, and participant in treatment plan as appropriate Description: INTERVENTIONS: 1. Encourage patient or legal manufacturer's representative to report early pain and ask [...] per policy 9. Teach patient or legal manufacturer's representative interventions for comforting Outcome: Progressing Note: [...] hygiene technique. 7. Identify and instruct patient/patient manufacturer's representative in use of appropriate isolation precautionsfor identified infection/symptoms. 8. Provide and discuss with patient/patient manufacturer's representative on educational MDRO sheet. 9. Encourage and monitor nutritional status daily and consult conservation science officer if indicated. 10. Implement neutropenic guidelines as [...] that there are some limitations compared to avbm-bw-mgxg evaluations. We elected to proceed. [facility] Infectious Diseases - Progress Note [facility] - TeleMedicine During Business Hours: Please use [employer] for communication. Patient name: Babar Barriga Patient [...] Visit was conducted via the [employer]ality of [employer]. My impressions are as follows: Constitutional: Awake, [...] Procedure Component Value Units Date/Time Anaerobic culture [[id number]] Collected: 02/04/251314 Specimen: Bone from Foot, Right Updated: 02/05/25 1412 CULTURE RESULTS Culture in progress Bone culture [[id number]] Collected: 02/04/251314 Specimen: Bone from Foot, Right Updated: 02/07/25 0954 CULTURE RESULTS Culture in progress Blood culture #1 [[id number]] Collected: 02/03/252024 Specimen: Blood, Venous Updated: 02/07/25 0301 CULTURE RESULTS NO GROWTH 3 DAYS Blood culture #2 [[id number]] Collected: 02/03/252024 Specimen: Blood, Venous Updated: 02/07/25 0301 CULTURE RESULTS NO GROWTH 3 DAYS Medications: [...] with questions. Jonh Cline MD, MPH, FACP, [facility] During Business Hours: Please use [employer] for communication. Pager (After Hours): General ID Clinic: Musculoskeletal ID Clinic: * PT/OT/BROOMCORN GRADER - Latanya Aparicio, PT - 02/07/2025 11:31 AM EDT Physical Therapy Evaluation Discharge Recommendations for Safe Patient Transition PT Discharge Disposition Recommendation: Post acute - moderate PT Post Acute Moderate Rehab Needs: Recommend moderate intensity rehab, Tolerate 1-2 hrs of therapy3-5 days/wk, Subacute or chronic functional impairment Current Impairments Informing Therapy Recommendation: Ambulation status/safety, Fall risk, ADL status, Endurance level [employer] Support for-: Mobility Deficits, ADL Deficits 6 [...] from osteomyelitis of R. Foot requiring calcanectomy. ZACHERY MIGUEL Wound vac. PT Treatment/Interventions: ADL retraining, Bed [...] LE Weight Bearing Status: NWB R LE Telemetry/Project Officer: No Oxygen Used: room air Other: fall risk, Bilteral LE wounds satus post partial calcanectomy with Achilles resection right lower extremity. Subjective Physical Therapy Comments: I'm doing pretty well. I guess the [facility] os [facility] 20 [facility]. Pain Assessment Pain [...] Note filed on 02/07/25 143 by Latanya Aparicio PT Evaluation of progress towards goal: SBA [...] Note filed on 02/06/25 09 by Tanisha Olmos PT Evaluation of progress towards goal: pt [...] PT Progressing Goal Note filed on 02/07/25 5945 by Latanya Aparicio PT Evaluation of progress towards goal: MIN/CGA with use of RW. Physical Therapy Care Plan (Resolved) There are no resolved problems. Principal Problem: Osteomyelitis of right foot, unspecified type ([facility] [place] [place] Active Problems: Peripheral vascular disease ([facility] [place]) Hyperlipidemia Diabetic peripheral neuropathy associated with type 2 diabetes mellitus ([facility] [place]) S/P amputation of foot, left ([facility]) Hypertension CKD (chronic kidney disease) stage 4, GFR 15-29 ml/min ([facility]) Hypoglycemia Anemia of chronic disease Hypothyroidism Iron [...] Description: INTERVENTIONS: 1. Encourage patient or legal manufacturer's representative to report early pain and ask [...] per policy 9. Teach patient or legal manufacturer's representative interventions for comforting Outcome: Progressing Note: Evaluation of progress towards goal: Continue to assess for pain and address accordingly * Discharge Planning Note - Rizwana Streeter - 02/07/2025 9:13 AM EDT DISCHARGE PLANNING NOTE Prior Auth approved for admission to : [facility]/ [place], [place] (P# ; F# ) Approval # [id number] Valid for Dates: 02/07/2025 - 02/14/2025 * Discharge Planning Note - My Varela RN - 02/07/2025 8:46 AM EDT DISCHARGE PLANNING NOTE Babar Barriga Per chart review, patient is anticipated discharge today or tomorrow. He has been accepted at [facility] and he is required insurance approval to discharge to SNF. Wound and bone cultures are pending. Tasked prior authorization team to submit for insurance authorization. Discharge Plan: Discharge to group home care at [facility] (accepted), he is pending insurance authorization. Plan of Care: [facility] (SNF) [phone] Fax CRF at Discharge My Varela RN 02/07/25 8:49 AM Insurance authorization received. Provider notified. Discharge Plan: Discharge to group home care at [facility] (accepted), and insurance authorization is received. Plan of Care: [facility] ([facility]) [phone] Fax CRF at Discharge - My Varela RN 02/07/25 9:19 AM * PT/OT/BROOMCORN GRADER - Patrica Dunn, KETANR/L - 02/07/2025 7:55 AM EDT Occupational Therapy Evaluation Discharge Recommendations for Safe Patient Transition OT Discharge Disposition Recommendation: Post acute - moderate OT Post Acute Moderate Rehab Needs: Recommend moderate intensity rehab, Tolerate 1-2 hrs of therapy3-5 days/wk, Subacute or chronic functional impairment Current Impairments Informing Therapy Recommendation: Ambulation status/safety, Fall risk, ADL status, Endurance level [employer] Support for-: Mobility Deficits, ADL Deficits 6 [...] 09/30/2024 Performed by Diego Daniels DPM at [facility] AMPUTATION METATARSAL AND TOE partial Ray Left 10/25/2022 Performed by Diego Daniels DPM at [facility] CIRCUMCISION LENGTHENING TENDON ACHILLES Left 09/30/2024 Performed by Diego Daniels DPM at [facility] Percutaneous angioplasty/stent femoral-popliteal right Right 11/29/2024 Performed by Delfino Lake MD at [facility] CARDIAC CATH LABS SKIN PLASTY TISSUE REARRANGEMENTn toe flap Left 10/25/2022 Performed by Diego Daniels DPM at [facility] TOE SURGERY Left Vascular Invasive Left lower extremity CO2 angiogram/pilot captain Left 10/30/2022 Performed by Delfino Lake MD at [facility] CARDIAC CATH LABS Vascular Invasive- lower extremity angiogram with possible intervention with CO2 Right 11/29/2024 Performed by Delfino Lake MD at [facility] CARDIAC CATH LABS Vascular Invasive- Right Lower Extremity Angiogram with possible intervention Right 01/24/2025 Performed by Delfino Lake MD at [facility] CARDIAC CATH LABS Past Medical History: Diagnosis Date Atherosclerosis of [place] arteries of left leg with ulceration of other part of foot ([facility]) 10/24/2022 Added automatically from request for surgery [id number] Chronic kidney disease Chronic osteomyelitis of left foot ([facility]) 09/27/2024 Dental disease Diabetes mellitus type 2, controlled ([facility]) Hyperlipidemia Hypertension MRSA bacteremia 09/28/2024 Osteomyelitis ([facility]) Shortness of breath Skin cancer melanoma Stage 3b chronic kidney disease ([facility]) 09/27/2024 Urinary incontinence Visual impairment OT Treatment/Interventions: [...] LE Weight Bearing Status: NWB R LE Telemetry/Project Officer: No Oxygen Used: room air Other: fall [...] 4 Wheeled walker, Wheelchair- manual, Electric scooter, Registered Nurse Nursery, Sock aid, Long-handled shoehorn (sleeps in a recliner.) Prior Function Lives With: Alone Receives Help From: Family (son and daugther in law- all with 1/2 mile of patient. does not have 13/01 only PRN assist) Level of Mobility: Independent [...] post op dressing. did not assess) Other: typewriter repairer introduced self role and goals. pt is agreeable to session. sponge bath completed while seated on eddge of bed. reports using wheelchair to go to the bathroom wiht stand pivot transfers. further ADL assessment is based on clinical judgement and observation of pt's ability to complete ROM, strength, and endurance, sit and stand balance and functional mobility status Home Management - IADL Other: typewriter repairer introduced self role and goals. pt is [...] Problem: Osteomyelitis of right foot, unspecified type ([facility] Active Problems: Peripheral vascular disease ([facility]) Hyperlipidemia Diabetic peripheral neuropathy associated with type 2 diabetes mellitus ([facility] [place]) S/P amputation of foot, left ([facility]) Hypertension CKD (chronic kidney disease) stage 4, GFR 15-29 ml/min ([facility]) Hypoglycemia Anemia of chronic disease Hypothyroidism Iron deficiency anemia * Plan of Care - Jane Mohamud RN - 02/07/2025 3:04 AM EDT Problem: Pain Goal: Patient goal is pain score less than 4, able to rest, and participant in treatment plan as appropriate Description: INTERVENTIONS: 1. Encourage patient or legal manufacturer's representative to report early pain and ask [...] per policy 9. Teach patient or legal manufacturer's representative interventions for comforting Outcome: Progressing Note: [...] Description: INTERVENTIONS: 1. Encourage patient or legal manufacturer's representative to report early pain and ask [...] per policy 9. Teach patient or legal manufacturer's representative interventions for comforting Outcome: Progressing Note: [...] at the bedside 7. Instruct patient/ patient manufacturer's representative about use of safety devices 8. Include patient/ patient manufacturer's representative in decisions related to safety Outcome: [...] hygiene technique. 7. Identify and instruct patient/patient manufacturer's representative in use of appropriate isolation precautionsfor identified infection/symptoms. 8. Provide and discuss with patient/patient manufacturer's representative on educational MDRO sheet. 9. Encourage and monitor nutritional status daily and consult conservation science officer if indicated. 10. Implement neutropenic guidelines as needed. Outcome: Progressing Note: Evaluation of progress towards goal: Pt afebrile at this time, continue to monitor for signs infection Problem: Knowledge Deficit Goal: Patient/patient manufacturer's representative demonstrates understanding of disease process, treatment [...] Score of =/> 25 or indicated by [facility] Rehab Assessment Goal: Patient should be free from fall Description: Interventions: 1. [place] to environment 2. Hourly rounds addressing the [...] non-skid footwear 11. Teach patient and patient manufacturer's representative to maintain environment for safety and [...] (cane, walker) within reach 19. Request patient manufacturer's representative bring adaptive equipment/mobility aids from home or obtain and provide as needed 20. Consult pharmacy regarding effects of med's affecting mobility, cognition, and alternatives 21. Obtain physician order for PT if risk factors associated with mobility are present 22. Obtain physician order for OT as appropriate 23. Utilize diversional activities 24. Educate patient and patient manufacturer's representative how to maintain a safe environment during visitationtimes (notify nurse prior to leaving bedside) 25. Consider appropriateness of medical or non-medical researcher 26. Set up voiding schedule as appropriate [...] supplement as ordered 13. Collaborate with clinical conservation science officer 14. Include patient/ patient's manufacturer's representative in decisions related to nutrition Outcome: [...] Description: INTERVENTIONS: 1. Encourage patient or legal manufacturer's representative to report early pain and ask [...] per policy 9. Teach patient or legal manufacturer's representative interventions for comforting Outcome: Progressing Note: [...] at the bedside 7. Instruct patient/ patient manufacturer's representative about use of safety devices 8. Include patient/ patient manufacturer's representative in decisions related to safety Outcome: [...] hygiene technique. 7. Identify and instruct patient/patient manufacturer's representative in use of appropriate isolation precautionsfor identified infection/symptoms. 8. Provide and discuss with patient/patient manufacturer's representative on educational MDRO sheet. 9. Encourage and monitor nutritional status daily and consult conservation science officer if indicated. 10. Implement neutropenic guidelines as needed. Outcome: Progressing Note: Evaluation of progress towards goal: Pt afebrile at this time, continue to monitor for signs infection Problem: Knowledge Deficit Goal: Patient/patient manufacturer's representative demonstrates understanding of disease process, treatment [...] be free from fall Description: Interventions: 1. [place] to environment 2. Hourly rounds addressing the [...] non-skid footwear 11. Teach patient and patient manufacturer's representative to maintain environment for safety and [...] (cane, walker) within reach 19. Request patient manufacturer's representative bring adaptive equipment/mobility aids from home or obtain and provide as needed 20. Consult pharmacy regarding effects of med's affecting mobility, cognition, and alternatives 21. Obtain physician order for PT if risk factors associated with mobility are present 22. Obtain physician order for OT as appropriate 23. Utilize diversional activities 24. Educate patient and patient manufacturer's representative how to maintain a safe environment during visitationtimes (notify nurse prior to leaving bedside) 25. Consider appropriateness of medical or non-medical researcher 26. Set up voiding schedule as appropriate [...] supplement as ordered 13. Collaborate with clinical conservation science officer 14. Include patient/ patient's manufacturer's representative in decisions related to nutrition Outcome: [...] protectant applied as needed, labs monitored. * PT/OT/BROOMCORN GRADER - Tanisha Olmos PT - 02/06/2025 9:03 [...] Olmos, PT Evaluation of progress towards goal: SBA [...] Evaluation of progress towards goal: CGA for saety Physical Therapy Care Plan (Resolved) There are no resolved problems. Principal Problem: Osteomyelitis of right foot, unspecified type ([facility]) Active Problems: Peripheral vascular disease ([facility]) Hyperlipidemia Diabetic peripheral neuropathy associated with type 2 diabetes mellitus ([facility] S/P amputation of foot, left ([facility] Hypertension CKD (chronic kidney disease) stage 4, GFR 15-29 ml/min ([facility] Hypoglycemia Anemia of chronic disease Hypothyroidism * Plan of Care - Jane Mohamud RN - 02/06/2025 1:01 AM EDT Problem: Pain Goal: Patient goal is pain score less than 4, able to rest, and participant in treatment plan as appropriate Description: INTERVENTIONS: 1. Encourage patient or legal manufacturer's representative to report early pain and ask [...] per policy 9. Teach patient or legal manufacturer's representative interventions for comforting Outcome: Progressing Note: [...] that there are some limitations compared to eksg-dt-ejot evaluations. We elected to proceed. [facility] Infectious Diseases - Progress Note [facility] - TeleMedicine During Business Hours: Please use [employer] for communication. Patient name: Babar Barriga Patient [...] Visit was conducted via the Tele[facility] of [facility]. My impressions are as follows: Constitutional: [...] from last 7 days Lab Units 02/05/25 0502/04/25 0531 02/03/25 0703 SODIUM mmol/L 135 133* 133* POTASSIUM mmol/L 5.0 4.9 4.9 CHLORIDE mmol/L 103 102 105 CO2 mmol/L 24 22 BUN mg/dL 38* 36* 50* [...] Procedure Component Value Units Date/Time Anaerobic culture [[id number]] Collected: 02/04/251314 Specimen: Bone from Foot, Right Updated: 02/05/251411 CULTURE RESULTS Culture in progress Bone culture [[id number]] Collected: 02/04/251314 Specimen: Bone from Foot, Right Updated: 02/05/25 1412 CULTURE RESULTS Culture in progress Blood culture #1 [[id number]] Collected: 02/03/252024 Specimen: Blood, Venous Updated: 02/05/25 1501 CULTURE RESULTS NO GROWTH AT 36 HOURS Blood culture #2 [[id number]] Collected: 02/03/252024 Specimen: Blood, Venous Updated: 02/05/25 [...] FACP, FIDSA During Business Hours: Please use [employer] for communication. Pager (After Hours): Musculoskeletal ID Clinic: * Plan of Care - S. Yany Acosta RN - 02/05/2025 1:31 PM EDT Problem: Pain Goal: Patient goal is pain score less than 4, able to rest, and participant in treatment plan as appropriate Description: INTERVENTIONS: 1. Encourage patient or legal manufacturer's representative to report early pain and ask [...] per policy 9. Teach patient or legal manufacturer's representative interventions for comforting Outcome: Progressing Note: [...] at the bedside 7. Instruct patient/ patient manufacturer's representative about use of safety devices 8. Include patient/ patient manufacturer's representative in decisions related to safety Outcome: [...] hygiene technique. 7. Identify and instruct patient/patient manufacturer's representative in use of appropriate isolation precautionsfor identified infection/symptoms. 8. Provide and discuss with patient/patient manufacturer's representative on educational MDRO sheet. 9. Encourage and monitor nutritional status daily and consult conservation science officer if indicated. 10. Implement neutropenic guidelines as needed. Outcome: Progressing Note: Evaluation of progress towards goal: Patient VS WNL, remains afebrile for shift. Continue to monitor. Problem: Knowledge Deficit Goal: Patient/patient manufacturer's representative demonstrates understanding of disease process, treatment [...] Score of =/> 25 or indicated by [facility] Assessment Goal: Patient should be free from fall Description: Interventions: 1. [place] to environment 2. Hourly rounds addressing the [...] non-skid footwear 11. Teach patient and patient manufacturer's representative to maintain environment for safety and [...] (cane, walker) within reach 19. Request patient manufacturer's representative bring adaptive equipment/mobility aids from home or obtain and provide as needed 20. Consult pharmacy regarding effects of med's affecting mobility, cognition, and alternatives 21. Obtain physician order for PT if risk factors associated with mobility are present 22. Obtain physician order for OT as appropriate 23. Utilize diversional activities 24. Educate patient and patient manufacturer's representative how to maintain a safe environment during visitationtimes (notify nurse prior to leaving bedside) 25. Consider appropriateness of medical or non-medical researcher 26. Set up voiding schedule as appropriate [...] supplement as ordered 13. Collaborate with clinical conservation science officer 14. Include patient/ patient's manufacturer's representative in decisions related to nutrition Outcome: [...] Description: INTERVENTIONS: 1. Encourage patient or legal manufacturer's representative to report early pain and ask [...] per policy 9. Teach patient or legal manufacturer's representative interventions for comforting Outcome: Progressing Note: [...] at the bedside 7. Instruct patient/ patient manufacturer's representative about use of safety devices 8. Include patient/ patient manufacturer's representative in decisions related to safety Outcome: [...] hygiene technique. 7. Identify and instruct patient/patient manufacturer's representative in use of appropriate isolation precautionsfor identified infection/symptoms. 8. Provide and discuss with patient/patient manufacturer's representative on educational MDRO sheet. 9. Encourage and monitor nutritional status daily and consult conservation science officer if indicated. 10. Implement neutropenic guidelines as needed. Outcome: Progressing Note: Evaluation of progress towards goal: Patient VS WNL, remains afebrile for shift. Continue to monitor. Problem: Knowledge Deficit Goal: Patient/patient manufacturer's representative demonstrates understanding of disease process, treatment [...] Score of =/> 25 or indicated by [facility] Assessment Goal: Patient should be free from fall Description: Interventions: 1. [place] to environment 2. Hourly rounds addressing the [...] non-skid footwear 11. Teach patient and patient manufacturer's representative to maintain environment for safety and [...] (cane, walker) within reach 19. Request patient manufacturer's representative bring adaptive equipment/mobility aids from home or obtain and provide as needed 20. Consult pharmacy regarding effects of med's affecting mobility, cognition, and alternatives 21. Obtain physician order for PT if risk factors associated with mobility are present 22. Obtain physician order for OT as appropriate 23. Utilize diversional activities 24. Educate patient and patient manufacturer's representative how to maintain a safe environment during visitationtimes (notify nurse prior to leaving bedside) 25. Consider appropriateness of medical or non-medical researcher 26. Set up voiding schedule as appropriate [...] supplement as ordered 13. Collaborate with clinical conservation science officer 14. Include patient/ patient's manufacturer's representative in decisions related to nutrition Outcome: [...] protectant applied as needed, labs monitored. * PT/OT/BROOMCORN GRADER - Tanisha Olmos, PT - 02/05/2025 9:59 [...] 6 Clicks: Basic Mobility Raw Score: 15 [facility] G Code Modifier: CK Therapy Plan Need [...] Past Medical History: Diagnosis Date Atherosclerosis of [place] arteries of left leg with ulceration of other part of foot ([facility]) 10/24/2022 Added automatically from request for surgery [id number] Chronic kidney disease Chronic osteomyelitis of left foot ([facility] 09/27/2024 Dental disease Diabetes mellitus type 2, controlled ([facility]) Hyperlipidemia Hypertension MRSA bacteremia 09/28/2024 Osteomyelitis ([facility]) Shortness of breath Skin cancer melanoma Stage 3b chronic kidney disease ([facility]) 09/27/2024 Urinary incontinence Visual impairment Past Surgical History: Procedure Laterality Date 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 CARDIAC CATH LABS SKIN PLASTY TISSUE REARRANGEMENTn toe flap Left 10/25/2022 Performed by Diego Daniels DPM at [facility] TOE SURGERY Left Vascular Invasive Left lower extremity CO2 angiogram/pilot captain Left 10/30/2022 Performed by Delfino Lake MD at [facility] CARDIAC CATH LABS Vascular Invasive- lower extremity angiogram with possible intervention with CO2 Right 11/29/2024 Performed by Delfino Lake MD at [facility] CARDIAC CATH LABS Vascular Invasive- Right Lower Extremity Angiogram with possible intervention Right 01/24/2025 Performed by Delfino Lake MD at [facility] CARDIAC CATH LABS PT Treatment/Interventions: ADL retraining, [...] vac Weight Bearing Status: NWB R LE Telemetry/Project Officer: Yes Subjective Physical Therapy Comments: pt states [...] Problem: Osteomyelitis of right foot, unspecified type ([facility]) Active Problems: Peripheral vascular disease ([facility]) Hyperlipidemia Diabetic peripheral neuropathy associated with type 2 diabetes mellitus ([facility]) S/P amputation of foot, left ([facility]) Hypertension CKD (chronic kidney disease) stage 4, GFR 15-29 ml/min ([facility]) Hypoglycemia Anemia of chronic disease Hypothyroidism * Plan of Care - Anupama Burnett RN - 02/04/2025 8:24 PM EDT Problem: Pain Goal: Patient goal is pain score less than 4, able to rest, and participant in treatment plan as appropriate Description: INTERVENTIONS: 1. Encourage patient or legal manufacturer's representative to report early pain and ask [...] per policy 9. Teach patient or legal manufacturer's representative interventions for comforting Outcome: Progressing Note: [...] at the bedside 7. Instruct patient/ patient manufacturer's representative about use of safety devices 8. Include patient/ patient manufacturer's representative in decisions related to safety Outcome: [...] treatment team. Pt back from Surgery. Per [facility] can accept at [place] upon insurance approval. Will need PT/OT evaluations in order to submit for insurance approval. Sawmilling Operator met with pt & son Babar, informed on acceptance at [facility] upon insurance approval; explained insurance approval process, informed will be submitted to insurance provider on Friday. opportunity provided to ask questions, pt nor son do not endorse any at this time. Operation report sent to [facility]. Will need to submit for insurance approval on Friday; will need insurance approval to DC to SNF along with completed . Sticky note on [...] facility-based provider. See Discharge Disposition Discharge Disposition [facility] SNF Name [facility] Accepted? Yes Patient choice offered Patient declined List Provided Patient declined Patient Declined Other (must state reason) [patient said his daughter in law works at [facility] & she is checking into arrangements, pt said he was at [facility] previously] DC Planning Complete Discharge Milestones Yes * Op Note - Diego Daniels DPM - 02/04/2025 12:09 PM EDT Surgeon: Diego Daniels DPM Assist: Malt House Supervisor Primary: Karime Oliva RN Ag Equipment Field Service Technician: Gm Rodriguez Scrub Person: Bobbi Caldwell Sports Medicine Coordinator: Phoenix Noel Procedure: Partial calcanectomy right foot- CPT 69499 Achilles tendon resection - CPT 10505 Intraoperative fluoroscopy use and interpretation-CPT 59266 Preop diagnosis: Osteomyelitis right foot Tenosynovitis, right Achilles Postop diagnosis: Same as above Anesthesia Provider: Anesthesiologist: Rosendo Medellin MD MEDICAL CLINIC MANAGER: Latanya Messina APRN-MEDICAL CLINIC MANAGER; LAURA Stone Anesthesia type: general Hemostasis: pneumatic [...] distally and laterally along the posterior calcaneus. Thewound was excised in its entirety directly down [...] the tissue was fibro necrotic debris. A teno mary kay was performed of the Achilles tendon proximal to the skin incision to remove all the nonviableaspect of the tendon. The calcaneal tuber was exposed and care was taken to retract the medial neurovascular bundle to prevent iatrogenic damage. Once complete exposure was obtained intraoperative flu oroscopy was utilized to plan the amputation site. This was done just posterior to the subtalar joint posterior facet. The amputation was beveled anteriorly to reduce any prominence along the plantarposterior aspect of the calcaneus to reduce the risk of ray ulceration. The calcaneal tuber was amputated at this level and passed from the surgical site. A reciprocating rasp was utilized to smooth all edges and create a round contour of the calcaneus to try and prevent prominent areas postoperatively. Intraoperative fluoroscopy confirmed excellent contour of the remaining calcaneus. At this time the surgical site was flushed with 3000 cc of normal saline utilizing gravity dilution pressure. The tourniquet was deflated. There was a sluggish response of capillary fill time. There was minimal bleeding encountered at the surgical site and minimal [...] able to get primary closure with minimal tension on the incision Utilizing a combination of 2-0, [...] Description: INTERVENTIONS: 1. Encourage patient or legal manufacturer's representative to report early pain and ask [...] per policy 9. Teach patient or legal manufacturer's representative interventions for comforting Outcome: Progressing Note: [...] at the bedside 7. Instruct patient/ patient manufacturer's representative about use of safety devices 8. Include patient/ patient manufacturer's representative in decisions related to safety Outcome: [...] hygiene technique. 7. Identify and instruct patient/patient manufacturer's representative in use of appropriate isolation precautionsfor identified infection/symptoms. 8. Provide and discuss with patient/patient manufacturer's representative on educational MDRO sheet. 9. Encourage and monitor nutritional status daily and consult conservation science officer if indicated. 10. Implement neutropenic guidelines as needed. Outcome: Progressing Note: Evaluation of progress towards goal: Isolation precautions followed per protocol. Equipment cleaned between patients. Handwashing protocol followed. Problem: Knowledge Deficit Goal: Patient/patient manufacturer's representative demonstrates understanding of disease process, treatment [...] Score of =/> 25 or indicated by [facility] Assessment Goal: Patient should be free from fall Description: Interventions: 1. [place] to environment 2. Hourly rounds addressing the [...] non-skid footwear 11. Teach patient and patient manufacturer's representative to maintain environment for safety and [...] (cane, walker) within reach 19. Request patient manufacturer's representative bring adaptive equipment/mobility aids from home or obtain and provide as needed 20. Consult pharmacy regarding effects of med's affecting mobility, cognition, and alternatives 21. Obtain physician order for PT if risk factors associated with mobility are present 22. Obtain physician order for OT as appropriate 23. Utilize diversional activities 24. Educate patient and patient manufacturer's representative how to maintain a safe environment during visitationtimes (notify nurse prior to leaving bedside) 25. Consider appropriateness of medical or non-medical researcher 26. Set up voiding schedule as appropriate (every 2 hours) Outcome: Progressing Note: Evaluation of progress towards goal: Preformed hourly rounds addressing the 4 P's (Pain, Positioning, Possessions, Potty). Cleared area of hazards (spills, clutter, electrical cords, unnecessary equipment). * PT/OT/BROOMCORN GRADER - Latanya Aparicio PT - 02/04/2025 9:55 AM EDT Physical Therapy PT Type of Visit: Medical deferral Reason For Medical Deferral: Medical procedure ongoing Medical Procedure Ongoing: (Scheduled for calcanectomy today with Dr. Daniels.) Provider Input Needed: (Will need updated weightbearing status and precautions post-op) * PT/OT/BROOMCORN GRADER - Patrica Dunn OTR/L - 02/04/2025 9:43 AM EDT Occupational Therapy [...] Description: INTERVENTIONS: 1. Encourage patient or legal manufacturer's representative to report early pain and ask [...] per policy 9. Teach patient or legal manufacturer's representative interventions for comforting Outcome: Progressing Note: [...] at the bedside 7. Instruct patient/ patient manufacturer's representative about use of safety devices 8. Include patient/ patient manufacturer's representative in decisions related to safety Outcome: Progressing Note: Evaluation of progress towards goal: patient remains free from falls/injuries. * Discharge Planning Note - Dameon Guevara - 02/03/2025 3:56 PM EDT DISCHARGE PLANN[facility] [place] [facility] ; F[facility] ) * Plan of Care - Toni Loredo RN - 02/03/2025 3:25 PM EDT Problem: Pain Goal: Patient goal is pain score less than 4, able to rest, and participant in treatment plan as appropriate Description: INTERVENTIONS: 1. Encourage patient or legal manufacturer's representative to report early pain and ask [...] per policy 9. Teach patient or legal manufacturer's representative interventions for comforting Outcome: Progressing Note: [...] at the bedside 7. Instruct patient/ patient manufacturer's representative about use of safety devices 8. Include patient/ patient manufacturer's representative in decisions related to safety Outcome: [...] hygiene technique. 7. Identify and instruct patient/patient manufacturer's representative in use of appropriate isolation precautionsfor identified infection/symptoms. 8. Provide and discuss with patient/patient manufacturer's representative on educational MDRO sheet. 9. Encourage and monitor nutritional status daily and consult conservation science officer if indicated. 10. Implement neutropenic guidelines as needed. Outcome: Progressing Note: Evaluation of progress towards goal: Isolation precautions followed per protocol. Equipment cleaned between patients. Handwashing protocol followed. Problem: Knowledge Deficit Goal: Patient/patient manufacturer's representative demonstrates understanding of disease process, treatment [...] Moderate - High Risk Fall Score Description: [place] Fall Score of =/> 25 or indicated by [facility] Assessment Goal: Patient should be free from fall Description: Interventions: 1. [place] to environment 2. Hourly rounds addressing the [...] non-skid footwear 11. Teach patient and patient manufacturer's representative to maintain environment for safety and [...] (cane, walker) within reach 19. Request patient manufacturer's representative bring adaptive equipment/mobility aids from home or obtain and provide as needed 20. Consult pharmacy regarding effects of med's affecting mobility, cognition, and alternatives 21. Obtain physician order for PT if risk factors associated with mobility are present 22. Obtain physician order for OT as appropriate 23. Utilize diversional activities 24. Educate patient and patient manufacturer's representative how to maintain a safe environment during visitationtimes (notify nurse prior to leaving bedside) 25. Consider appropriateness of medical or non-medical researcher 26. Set up voiding schedule as appropriate [...] Care Services No Community Agencies Currently Utilized [facility]] Community Referrals / Resources Provided Denies needs [facility] [Mail order pharmacy & clinic] [...] Caregiver/Support System Limitations Patient/Caregiver Goals Patient/Caregiver Goals Half-Way Care Skilled Nuring Care Skilled Care (Short [...] said his daughter in law works at [facility] & she is checking into arrangements, pt said he was at [facility] previously] DC Planning Complete Discharge Milestones Yes [...] said his daughter in law works at [facility] & she is checking into arrangements; pt said he was at [facility] previously) DC Planning Complete Discharge Milestones: Yes Patient Goals: Patient/Caregiver Goals Patient/Caregiver Goals: Half-Way Care Skilled Nuring Care: Skilled Care (Short [...] heat, cooling & electric inthe home. Negative Mccreary screen. Pt family has been providing transportation since September due to pt foot. Pt is independent in/out ofthe home, performs own household tasks, meal preparation Pt relayed his children & family provide natural supports. Patient's preferred [facility]. Educated pt on available community resources including meals on wheels & on benefits of Home Health Care. Pt said plan will be to likely DC to [facility] or one of the [facility] SNF's if [facility] does not have a bed available. Pt said his daughter in law works at [facility] & is checkinginto beds. Informed pt that SNF will need referral from hospital to review. Offered [facility] SNF list, pt declined. Pt agreeable to typewriter repairer sending referral to [facility]. Pt said he would be in hospital until Friday. Pt does not endorse any current DC needs. Opportunity provided to ask questions, pt does not endorse any at this time. Tasked [facility] to send referral to [facility]; await acceptance. Plan to prevent readmission is [...] Cline MD Consult ordered by: Mukul Flores APRN-SPECIAL EVENTS PLANNER Reason for consult: diabetic foot ulcer. Tele-Infectious [...] andthat there are some limitations compared to [id number] evaluations. We elected to proceed. [facility] Infectious Diseases - Initial Consult Note [facility] - TeleMedicine During Business Hours: Please use [employer] for communication. Patient name: Babar Barriga Patient [...] need for wound VAC postoperatively and probable group home facility placement for wound care. Currently receiving [...] as a blood blister while in the [facility]. At a wound care clinic visit one [...] Past Medical History: Diagnosis Date Atherosclerosis of [place] arteries of left leg with ulceration of other part of foot ([facility] 10/24/2022 Added automatically from request for surgery [id number] Chronic kidney disease Chronic osteomyelitis of left foot ([facility]) 09/27/2024 Dental disease Diabetes mellitus type 2, controlled ([facility] Hyperlipidemia Hypertension MRSA bacteremia 09/28/2024 Osteomyelitis ([facility]) Shortness of breath Skin cancer melanoma Stage 3b chronic kidney disease ([facility]) 09/27/2024 Urinary incontinence Visual impairment Past Surgical History: Past Surgical History: Procedure Laterality Date 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 CARDIAC CATH LABS SKIN PLASTY TISSUE REARRANGEMENTn toe flap Left 10/25/2022 Performed by Diego Daniels DPM at [facility] TOE SURGERY Left Vascular Invasive Left lower extremity CO2 angiogram/pilot captain Left 10/30/2022 Performed by Delfino Lake MD at [facility] CARDIAC CATH LABS Vascular Invasive- lower extremity angiogram with possible intervention with CO2 Right 11/29/2024 Performed by Delfino Lake MD at [facility] CARDIAC CATH LABS Vascular Invasive- Right Lower Extremity Angiogram with possible intervention Right 01/24/2025 Performed by Delfino Lake MD at [facility] CARDIAC CATH LABS Medications: cefepime (MAXIPIME) IV, [...] Visit was conducted via the [employer]. My impressions are as follows: Constitutional: Awake, [...] andthat there are some limitations compared to [id number] evaluations. We elected to proceed. Thank you for allowing us to participate in the care of this patient. Please call with questions. Jonh Cline MD, MPH, FACP, FIDSA * PT/OT/BROOMCORN GRADER - Patrica Dunn, OTR/L - 02/03/2025 10:36 AM EDT Occupational Therapy OT Type of Visit: Medical deferral Reason For Medical Deferral: Medical procedure ongoing Medical Procedure Ongoing: (Scheduled for podiatry procedure tomorrow with Dr. Daniels. Cancelled today do to hypoglycemia.) * PT/OT/BROOMCORN GRADER - Latanya Aparicio PT - 02/03/2025 10:17 AM EDT Physical [...] [facility] [address] [place] [address] Delfino Lake MD [address] [place] [address] Scheduled Orders Name Type Priority Associated Diagnoses [...] Diagnoses Order Schedule [facility] [place], [place] Outpatient Referral Routine Osteomyelitis of right foot, unspecified type ([facility]) 1 Occurrences starting 02/08/2025 until 02/08/2026 [...] CULTURE Routine 02/04/2025 1:1 5 PM EDT MD PART REMV TALUS OR CALCANEUS 02/04/2025 12:09 [...] - 99 mg/dL 02/08/2025 4:28 PM EDT [facility] arterial/capilla ry 02/08/2025 4:15 PM EDT 02/08/2025 4:28 PM EDT Sirena Batres MD POINT OF CARE TEST ORDERABLES Final Result Performing Organization Address [facility] Co de Phone Number [address] [place] [address], [place] * (ABNORMAL) Bedside Glucose *Place/Obtain serum glucose if >500 per glucometer. (02/08/2025 3:42 PM EDT) Bedside Glucose (POC) 191(H) 65 - 99 mg/dL 02/08/2025 4:22 PM EDT [facility] arterial/capilla ry 02/08/2025 3:42 PM EDT 02/08/2025 4:22 PM EDT Sirena Batres MD POINT OF CARE TEST ORDERABLES Final Result Performing Organization Address [facility] Co de Phone Number [address] [place] [address], [place] * (ABNORMAL) Hemoglobin and hematocrit, blood (02/08/2025 12:42 PM EDT) Hemoglobin 8.0(L) 13 - 17 g/dL 02/08/2025 1:03 PM EDT [facility] Hematocrit 24.2(L) 39 - 50 % 02/08/2025 1:03 PM EDT [facility] Blood Venous blood / Unknown Venipuncture / Unknown 02/08/2025 12:42 PM EDT 02/08/2025 12:45 PM EDT Raysa Mann MD LAB BLOOD ORDERABLES Final Result Performing Organization Address [facility] Co de Phone Number [address] [place] [address], [place] * (ABNORMAL) Bedside Glucose *Place/Obtain serum glucose if >500 per glucometer. (02/08/2025 12:18PM EDT) Bedside Glucose (POC) 242(H) 65 - 99 mg/dL 02/08/2025 4:22 PM EDT [facility] arterial/capilla ry 02/08/2025 12:18 PM EDT 02/08/2025 4:22 PM EDT us Sirena Batres MD POINT OF CARE TEST ORDERABLES Final Result Performing Organization Address [facility] Co de Phone Number [address] [place] [address], [place] * (ABNORMAL) Bedside Glucose *Place/Obtain serum glucose if >500 per glucometer. (02/08/2025 8:51 AM EDT) Bedside Glucose (POC) 108(H) 65 - 99 mg/dL 02/08/2025 4:22 PM EDT [facility] arterial/capilla ry 02/08/2025 8:51 AM EDT 02/08/2025 4:22 PM EDT us Sirena Batres MD POINT OF CARE TEST ORDERABLES Final Result Performing Organization Address [facility] Co de Phone Number [address] [place] [address], [place] * (ABNORMAL) Bedside Glucose *Place/Obtain serum glucose if >500 per glucometer. (02/08/2025 7:31 AM EDT) Bedside Glucose (POC) 54(L) 65 - 99 mg/dL 02/08/2025 7:36 AM EDT [facility] arterial/capilla ry 02/08/2025 7:31 AM EDT 02/08/2025 7:36 AM EDT us Sirena Batres MD POINT OF CARE TEST ORDERABLES Final Result [facility] [address] [place] [address], [place] * (ABNORMAL) CBC auto differential (02/08/2025 5:44 AM EDT) Pathologist [facility] [place] WBC 10.6 4 - 11 x10E9/L 02/08/2025 7:06 AM EDT [facility] RBC Count 3.29(L) 4.1 - 5.7 X10E12/L 02/08/2025 7:06 AM EDT [facility] Hemoglobin 8.8(L) 13 - 17 g/dL 02/08/2025 7:06 AM EDT [facility] Hematocrit 26.2(L) 39 - 50 % 02/08/2025 7:06 AM EDT [facility] MCV 80 80 - 100 fL 02/08/2025 7:06 AM EDT [facility] MCH 26.6(L) 27 - 34 pg 02/08/2025 7:06 AM EDT [facility] MCHC 33.4 32 - 36 g/dL 02/08/2025 7:06 AM EDT [facility] RDW 18.9(H) 11.5 - 15 % 02/08/2025 7:06 AM EDT [facility] Platelet Count 250 150 - 450 X10E9/L 02/08/2025 7:06 AM EDT [facility] MPV 7.0 7 - 12 fL 02/08/2025 7:06 AM EDT [facility] Neutrophils % 69.0 % 02/08/2025 7:06 AM EDT [facility] Lymphocytes % 22.7 % 02/08/2025 7:06 AM EDT [facility] Monocytes % 7.1 % 02/08/2025 7:06 AM EDT [facility] Eosinophils % 1.0 % 02/08/2025 7:06 AM EDT [facility] Basophils % 0.2 % 02/08/2025 7:06 AM EDT [facility] Neutrophils Absolute (A) 7.3(H) 1.5 - 6.6 10*3/uL 02/08/2025 7:06 AM EDT [facility] Lymphocytes Absolute 2.4 1.0 - 3.5 10*3/uL 02/08/2025 7:06 AM EDT [facility] Monocytes Absolute 0.7 0.0 - 0.9 10*3/uL 02/08/2025 7:06 AM EDT [facility] Eosinophils Absolute 0.1 0.0 - 0.4 10*3/uL 02/08/2025 7:06 AM EDT [facility] Basophils Absolute 0.0 0.0 - 0.2 10*3/uL 02/08/2025 7:06 AM EDT [facility] Differential Type AUTOMATED DIFFERENTIAL 02/08/2025 7:06 AM EDT [facility] Blood Venous blood / Unknown Venipuncture / Unknown 02/08/2025 5:44 AM EDT 02/08/2025 6:02 AM EDT us Diego Daniels DPM LAB BLOOD ORDERABLES Final Result [facility] [address] [place] [address], [place] * Magnesium (02/08/2025 5:44 AM EDT) MAGNESIUM 1.8 1.8 - 2.6 mg/dL 02/08/2025 6:57 AM EDT [facility] Blood Venous blood / Unknown Venipuncture / Unknown 02/08/2025 5:44 AM EDT 02/08/2025 6:02 AM EDT us Diego Daniels DP LAB BLOOD ORDERABLES Final Result [facility] [address] [facility] [place] [address], * (ABNORMAL) Comprehensive metabolic panel (02/08/2025 5:44 AM EDT) SODIUM 135 134 - 146 mmol/L 02/08/2025 6:57 AM EDT [facility] POTASSIUM 4.5 3.5 - 5.0 mmol/L 02/08/2025 6:57 AM EDT [facility] CHLORIDE 104 98 - 109 mmol/L 02/08/2025 6:57 AM EDT [facility] CARBON DIOXIDE 25 22 - 32 mmol/L 02/08/2025 6:57 AM EDT [facility] ANION GAP 6 5 - 15 mmol/L 02/08/2025 6:57 AM EDT [facility] BLOOD UREA NITROGEN 33(H) 5 - 27 mg/dL 02/08/2025 6:57 AM EDT [facility] CREATININE 1.16 0.70 - 1.20 mg/dL 02/08/2025 6:57 AM EDT [facility] Comment:METHOD TRACEABLE TO IDMS STANDARD GLUCOSE 63(L) 65 - 99 mg/dL 02/08/2025 6:57 AM EDT [facility] CALCIUM 8.8 8.5 - 10.5 mg/dL 02/08/2025 6:57 AM EDT [facility] TOTAL PROTEIN 6.2 6.0 - 8.0 g/dL 02/08/2025 6:57 AM EDT [facility] ALBUMIN 2.4(L) 3.2 - 5.3 g/dL 02/08/2025 6:57 AM EDT [facility] ALKALINE PHOSPHATASE 78 39 - 130 U/L 02/08/2025 6:57 AM EDT [facility] AST 17 <=41 U/L 02/08/2025 6:57 AM EDT [facility] ALT 16 <=40 U/L 02/08/2025 6:57 AM EDT [facility] BILIRUBIN,TOTAL 0.6 0.3 - 1.2 mg/dL 02/08/2025 6:57 AM EDT [facility] EGFR Non-Race Dependent 64 >=60 ml/min/1.7 3sq.m 02/08/2025 6:57 AM EDT [facility] Comment: eGFR not reported due to non-numeric value for Creatinine. Reported eGFR is based on the CKD-EPI 2020 equation that does not use a race coefficient. Blood Venous blood / Unknown Venipuncture / Unknown 02/08/2025 5:44 AM EDT 02/08/2025 6:02 AM EDT us Diego Daniels DPMykel LAB BLOOD ORDERABLES Final Result [facility] [address] [place] [address], * (ABNORMAL) Bedside Glucose *Place/Obtain serum glucose if >500 per glucometer. (02/07/2025 8:42 PM EDT) Bedside Glucose (POC) 246(H) 65 - 99 mg/dL 02/07/2025 8:50 PM EDT [facility] arterial/capilla ry 02/07/2025 8:42 PM EDT 02/07/2025 8:50 PM EDT us Sirena Batres MD POINT OF CARE TEST ORDERABLES Final Result Performing Organization Address [facility] Co de Phone Number [address] [place] [address], [place] * (ABNORMAL) Hematocrit (02/07/2025 6:50 PM EDT) Hematocrit 24.9(L) 39 - 50 % 02/07/2025 8:16 PM EDT [facility] Blood Venous blood / Unknown Venipuncture / Unknown 02/07/2025 6:50 PM EDT 02/07/2025 6:58 PM EDT Sirena Batres MD LAB BLOOD ORDERABLES Final Re sult Performing Organization Address [facility] Co de Phone Number [address] [place] [address], [place] * (ABNORMAL) Hemoglobin (02/07/2025 6:50 PM EDT) Hemoglobin 8.1(L) 13 - 17 g/dL 02/07/2025 7:11 PM EDT [facility] Blood Venous blood / Unknown Venipuncture / Unknown 02/07/2025 6:50 PM EDT 02/07/2025 6:58 PM EDT us Poonam Hobson [employer] OPERATOR[employer]NER LAB BLOOD ORDERABLES Marion l Result Performing Organization Address [facility] Co de Phone Number [address] [place] [address], [place] * Transfuse RBC:1 Unit (02/07/2025 5:44 PM EDT) us Poonam Hobson G[employer] OPERATOR[employer] EVENTS [employer]NER BLOOD TRANSFUSION ORDERAB LES Final Result * Transfuse RBC:1 Unit (02/07/2025 5:44 PM EDT) us Poonam Hobson G[employer]VURE [employer]ESS OPERATOR[employer] EVENTS PLANNER BLOOD TRANSFUSION ORDERAB LES Final Result * (ABNORMAL) Bedside Glucose *Place/Obtain serum glucose if >500 per glucometer. (02/07/2025 5:07 PM EDT) Bedside Glucose (POC) 201(H) 65 - 99 mg/dL 02/07/2025 5:12 PM EDT [facility] arterial/capilla ry 02/07/2025 5:07 PM EDT 02/07/2025 5:12 PM EDT us Sirena Batres MD POINT OF CARE TEST ORDERABLES Final Result [address] [place] [address], [place] * (ABNORMAL) Hemoglobin and hematocrit, blood (02/07/2025 1:15 PM EDT) Hemoglobin 7.0(L) 13 - 17 g/dL 02/07/2025 1:30 PM EDT [facility] Hematocrit 21.7(L) 39 - 50 % 02/07/2025 1:30 PM EDT [facility] Blood Venous blood / Unknown Venipuncture / Unknown 02/07/2025 1:15 PM EDT 02/07/2025 1:18 PM EDT us Raysa Mann MD LAB BLOOD ORDERABLES Final Result Performing Organization Address City/[facility]/ZIP Co de Phone Number [address] [place] [address], [place] * (ABNORMAL) Bedside Glucose *Place/Obtain serum glucose if >500 per glucometer. (02/07/2025 11:14AM EDT) Bedside Glucose (POC) 250(H) 65 - 99 mg/dL 02/07/2025 11:19 AM EDT [facility] arterial/capilla ry 02/07/2025 11:14 AM EDT 02/07/2025 11:19 AM EDT us Sirena Batres MD POINT OF CARE TEST ORDERABLES Final Result Performing Organization Address [facility]/ZIP Co de Phone Number [address] [place] [address], [place] * Light Blue Top (02/07/2025 4:31 AM EDT) Extra Tube Auto Resulted 02/07/2025 6:03 AM EDT [facility] Blood Venous blood / Unknown 02/07/2025 4:31 AM EDT 02/07/2025 5:38 AM EDT us Raysa Mann MD LAB BLOOD ORDERABLES Final Result Performing Organization Address [facility] Co de Phone Number [address] [place] [address], [place] * (ABNORMAL) CBC auto differential (02/07/2025 4:31 AM EDT) WBC 8.8 4 - 11 x10E9/L 02/07/2025 5:06 AM EDT [facility] RBC Count 2.70(L) 4.1 - 5.7 X10E12/L 02/07/2025 5:06 AM EDT [facility] Hemoglobin 7.0(L) 13 - 17 g/dL 02/07/2025 5:06 AM EDT [facility] Hematocrit 21.3(L) 39 - 50 % 02/07/2025 5:06 AM EDT [facility] MCV 79(L) 80 - 100 fL 02/07/2025 5:06 AM EDT [facility] MCH 26.0(L) 27 - 34 pg 02/07/2025 5:06 AM EDT [facility] MCHC 32.8 32 - 36 g/dL 02/07/2025 5:06 AM EDT [facility] RDW 19.2(H) 11.5 - 15 % 02/07/2025 5:06 AM EDT [facility] Platelet Count 232 150 - 450 X10E9/L 02/07/2025 5:06 AM EDT [facility] MPV 7.1 7 - 12 fL 02/07/2025 5:06 AM EDT [facility] Neutrophils % 70.3 % 02/07/2025 5:06 AM EDT [facility] Lymphocytes % 18.6 % 02/07/2025 5:06 AM EDT [facility] Monocytes % 9.1 % 02/07/2025 5:06 AM EDT [facility] Eosinophils % 1.4 % 02/07/2025 5:06 AM EDT [facility] Basophils % 0.6 % 02/07/2025 5:06 AM EDT [facility] Neutrophils Absolute (A) 6.2 1.5 - 6.6 10*3/uL 02/07/2025 5:06 AM EDT [facility] Lymphocytes Absolute 1.6 1.0 - 3.5 10*3/uL 02/07/2025 5:06 AM EDT [facility] Monocytes Absolute 0.8 0.0 - 0.9 10*3/uL 02/07/2025 5:06 AM EDT [facility] Eosinophils Absolute 0.1 0.0 - 0.4 10*3/uL 02/07/2025 5:06 AM EDT [facility] Basophils Absolute 0.1 0.0 - 0.2 10*3/uL 02/07/2025 5:06 AM EDT [facility] Differential Type AUTOMATED DIFFERENTIAL 02/07/2025 5:06 AM EDT [facility] Blood Venous blood / Unknown Venipuncture / Unknown 02/07/2025 4:31 AM EDT 02/07/2025 4:38 AM EDT Diego Daniels DPM LAB BLOOD ORDERABLES Final Result Performing Organization Address [facility]/ZIP Co de Phone Number [facility] [address] [place] [address] [place] [address], [place] * Magnesium (02/07/2025 4:31 AM EDT) MAGNESIUM 1.8 1.8 - 2.6 mg/dL 02/07/2025 5:03 AM EDT [facility] Blood Venous blood / Unknown Venipuncture / Unknown 02/07/2025 4:31 AM EDT 02/07/2025 4:38 AM EDT us Diego Daniels DP LAB BLOOD ORDERABLES Final Result Performing Organization Address [facility] Co de Phone Number [address] [place] [address], [place] * (ABNORMAL) Comprehensive metabolic panel (02/07/2025 4:31 AM EDT) SODIUM 134 134 - 146 mmol/L 02/07/2025 5:03 AM EDT [facility] POTASSIUM 4.4 3.5 - 5.0 mmol/L 02/07/2025 5:03 AM EDT [facility] CHLORIDE 104 98 - 109 mmol/L 02/07/2025 5:03 AM EDT [facility] CARBON DIOXIDE 24 22 - 32 mmol/L 02/07/2025 5:03 AM EDT [facility] ANION GAP 6 5 - 15 mmol/L 02/07/2025 5:03 AM EDT [facility] BLOOD UREA NITROGEN 37(H) 5 - 27 mg/dL 02/07/2025 5:03 AM EDT [facility] CREATININE 1.31(H) 0.70 - 1.20 mg/dL 02/07/2025 5:03 AM EDT [facility] Comment:METHOD TRACEABLE TO IDMS STANDARD GLUCOSE 95 65 - 99 mg/dL 02/07/2025 5:03 AM EDT [facility] CALCIUM 8.5 8.5 - 10.5 mg/dL 02/07/2025 5:03 AM EDT [facility] TOTAL PROTEIN 5.7(L) 6.0 - 8.0 g/dL 02/07/2025 5:03 AM EDT [facility] ALBUMIN 2.1(L) 3.2 - 5.3 g/dL 02/07/2025 5:03 AM EDT [facility] ALKALINE PHOSPHATASE 69 39 - 130 U/L 02/07/2025 5:03 AM EDT [facility] AST 13 <=41 U/L 02/07/2025 5:03 AM EDT [facility] ALT 13 <=40 U/L 02/07/2025 5:03 AM EDT [facility] BILIRUBIN,TOTAL 0.5 0.3 - 1.2 mg/dL 02/07/2025 5:03 AM EDT [facility] EGFR Non-Race Dependent 55(L) >=60 ml/min/1.7 3sq.m 02/07/2025 5:03 AM EDT [facility] Comment: eGFR not reported due to non-numeric value for Creatinine. Reported eGFR is based on the CKD-EPI 2020 equation that does not use a race coefficient. Blood Venous blood / Unknown Venipuncture / Unknown 02/07/2025 4:31 AM EDT 02/07/2025 4:38 AM EDT us Diego Daniels DPMykel LAB BLOOD ORDERABLES Final Result [facility] [address] [facility] [place] [address], * Occult blood x 1, stool (02/07/2025 2:46 AM EDT) FECAL OCCULT BLOOD Negative Negative 02/07/2025 3:33 AM EDT [facility] Stool Feces / Unknown 02/07/2025 2 :46 AM EDT 02/07/2025 3:18 AM EDT us Raysa Mann MD BODY FLUIDS AND STOOLS ORD ERABLES Final Result Performing Organization Address [facility]/ZIP Co de Phone Number [address] [place] [address], [place] * (ABNORMAL) Hemoglobin and hematocrit, blood (02/06/2025 8:45 PM EDT) Hemoglobin 7.4(L) 13 - 17 g/dL 02/06/2025 9:00 PM EDT [facility] Hematocrit 22.4(L) 39 - 50 % 02/06/2025 9:00 PM EDT [facility] Blood Venous blood / Unknown Venipuncture / Unknown 02/06/2025 8:45 PM EDT 02/06/2025 8:50 PM EDT us Raysa Mann MD LAB BLOOD ORDERABLES Final Result Performing Organization Address [facility] Co de Phone Number [address] [place] [address], [place] * (ABNORMAL) Bedside Glucose *Place/Obtain serum glucose if >500 per glucometer. (02/06/2025 8:36 PM EDT) Bedside Glucose (POC) 170(H) 65 - 99 mg/dL 02/07/2025 12:49 AM EDT [facility] arterial/capilla ry 02/06/2025 8:36 PM EDT 02/07/2025 12:49 AM EDT us Raysa Mann MD POINT OF CARE TEST ORDERAB LES Final Result Performing Organization Address [facility]/ZIP Co de Phone Number [address] [place] [address], [place] * (ABNORMAL) Bedside Glucose *Place/Obtain serum glucose if >500 per glucometer. (02/06/2025 4:02 PM EDT) Bedside Glucose (POC) 190(H) 65 - 99 mg/dL 02/06/2025 4:11 PM EDT [facility] arterial/capilla ry 02/06/2025 4:02 PM EDT 02/06/2025 4:11 PM EDT us Raysa Mann MD POINT OF CARE TEST ORDERAB LES Final Result [address] [place] [address], [place] * ABO Rh Repeat (02/06/2025 1:56 PM EDT) ABO B 02/06/2025 2:28 PM EDT [facility] RH Negative 02/06/2025 2:28 PM EDT [facility] Blood Venous blood / Unknown Venipuncture / Unknown 02/06/2025 1:56 PM EDT 02/06/2025 1:57 PM EDT us Raysa Mann MD BLOOD BANK TEST ORDERABLES Final Result [address] [place] [address], [place] [address] [place] [address], [place] * Type and screen (02/06/2025 1:26 PM EDT) ABO B 02/06/2025 2:28 PM EDT [facility] RH Negative 02/06/2025 2:28 PM EDT [facility] Antibody Screen Negative 02/06/2025 2:28 PM EDT [facility] Blood Venous blood / Unknown Venipuncture / Unknown 02/06/2025 1:26 PM EDT 02/06/2025 1:29 PM EDT us Raysa Mann MD BLOOD BANK TEST ORDERABLES Edited Result - Final [facility] [address] [place] [address], [facility] [address] [place] [address], [place] * Ferritin (02/06/2025 1:26 PM EDT) FERRITIN 204 24 - 336 ng/mL 02/06/2025 10:03 PM EDT [facility] Blood Venous blood / Unknown Venipuncture / Unknown 02/06/2025 1:26 PM EDT 02/06/2025 1:29 PM EDT us Raysa Mann MD LAB BLOOD ORDERABLES Final Result [facility] [address] [place] [address], * (ABNORMAL) Iron and TIBC (02/06/2025 1:26 PM EDT) IRON <10(L) 50 - 212 ug/dL 02/06/2025 10:03 PM EDT [facility] TRANSFERRIN 90(L) 168 - 336 mg/dL 02/06/2025 10:03 PM EDT [facility] IRON BINDING 126(L) 250 - 425 ug/dL 02/06/2025 10:03 PM EDT [facility] IRON SATURATION <8(L) 20 - 50 % SATURATION 02/06/2025 10:03 PM EDT [facility] Blood Venous blood / Unknown Venipuncture / Unknown 02/06/2025 1:26 PM EDT 02/06/2025 1:29 PM EDT us Raysa Mann MD LAB BLOOD ORDERABLES Final Result [facility] [address] [place] [address], [place] [phone] * Crossmatch RBC:Number of Units: 1 (02/06/2025 1:00 PM EDT) Blood component type [id number] [facility] Unit number [id number] MD [facility] Unit ABO O [facility] Unit RH NEG [facility] Crossmatch Compatible [facility] Status of unit TRANSFUSED PROM [facility] Expiration Date [facility] BB Type Barcode [id number] [facility] Blood Venous blood / Unknown 02/06/2025 1:00 PM EDT 02/06/2025 1:38 PM EDT us oPonam Hobson [employer] OPERATOR[employer]NER BLOOD BANK PRODUCT ORDERA BLES Edited Result - Final Performing Organization Address [facility]/ZIP Co de Phone Number [facility] [address] [place] [address] [place] [address], [place] * (ABNORMAL) Bedside Glucose *Place/Obtain serum glucose if >500 per glucometer. (02/06/2025 10:52AM EDT) Bedside Glucose (POC) 156(H) 65 - 99 mg/dL 02/06/2025 10:58 AM EDT [facility] arterial/capilla ry 02/06/2025 10:52 AM EDT 02/06/2025 10:58 AM EDT us Raysa Mann MD POINT OF CARE TEST ORDERAB LES Final Result Performing Organization Address [facility]/ZIP Co de Phone Number [facility] [address] [place] [address] [place] [address], [place] * Vancomycin, peak (02/06/2025 10:48 AM EDT) VANCOMYCIN PEAK 30.6 30.0 - 40.0 ug/mL 02/06/2025 11:46 AM EDT [facility] Blood Venous blood / Unknown Venipuncture / Unknown 02/06/2025 10:48 AM EDT 02/06/2025 10:55 AM EDT us Raysa Mann MD LAB BLOOD ORDERABLES Final Result [address] [place] [address], [place] * (ABNORMAL) CBC auto differential (02/06/2025 7:09 AM EDT) Pathologist [facility] [place] WBC 10.0 4 - 11 x10E9/L 02/06/2025 7:30 AM EDT [facility] RBC Count 2.78(L) 4.1 - 5.7 X10E12/L 02/06/2025 7:30 AM EDT [facility] Hemoglobin 7.3(L) 13 - 17 g/dL 02/06/2025 7:30 AM EDT [facility] Hematocrit 22.2(L) 39 - 50 % 02/06/2025 7:30 AM EDT [facility] MCV 80 80 - 100 fL 02/06/2025 7:30 AM EDT [facility] MCH 26.2(L) 27 - 34 pg 02/06/2025 7:30 AM EDT [facility] MCHC 32.9 32 - 36 g/dL 02/06/2025 7:30 AM EDT [facility] RDW 18.7(H) 11.5 - 15 % 02/06/2025 7:30 AM EDT [facility] Platelet Count 250 150 - 450 X10E9/L 02/06/2025 7:30 AM EDT [facility] MPV 7.1 7 - 12 fL 02/06/2025 7:30 AM EDT [facility] Neutrophils % 67.9 % 02/06/2025 7:30 AM EDT [facility] Lymphocytes % 22.6 % 02/06/2025 7:30 AM EDT [facility] Monocytes % 7.6 % 02/06/2025 7:30 AM EDT [facility] Eosinophils % 1.3 % 02/06/2025 7:30 AM EDT [facility] Basophils % 0.6 % 02/06/2025 7:30 AM EDT [facility] Neutrophils Absolute (A) 6.8(H) 1.5 - 6.6 10*3/uL 02/06/2025 7:30 AM EDT [facility] Lymphocytes Absolute 2.3 1.0 - 3.5 10*3/uL 02/06/2025 7:30 AM EDT [facility] Monocytes Absolute 0.8 0.0 - 0.9 10*3/uL 02/06/2025 7:30 AM EDT [facility] Eosinophils Absolute 0.1 0.0 - 0.4 10*3/uL 02/06/2025 7:30 AM EDT [facility] Basophils Absolute 0.1 0.0 - 0.2 10*3/uL 02/06/2025 7:30 AM EDT [facility] Differential Type AUTOMATED DIFFERENTIAL 02/06/2025 7:30 AM EDT [facility] Blood Venous blood / Unknown Venipuncture / Unknown 02/06/2025 7:09 AM EDT 02/06/2025 7:21 AM EDT us Diego Daniels DPM LAB BLOOD ORDERABLES Final Result [facility] [address] [place] [address], [place] * Magnesium (02/06/2025 7:08 AM EDT) MAGNESIUM 1.9 1.8 - 2.6 mg/dL 02/06/2025 8:03 AM EDT [facility] Blood Venous blood / Unknown Venipuncture / Unknown 02/06/2025 7:08 AM EDT 02/06/2025 7:21 AM EDT us Diego Daniels DP LAB BLOOD ORDERABLES Final Result [facility] [address] [place] [address], * (ABNORMAL) Comprehensive metabolic panel (02/06/2025 7:08 AM EDT) SODIUM 133(L) 134 - 146 mmol/L 02/06/2025 8:03 AM EDT [facility] POTASSIUM 4.8 3.5 - 5.0 mmol/L 02/06/2025 8:03 AM EDT [facility] CHLORIDE 105 98 - 109 mmol/L 02/06/2025 8:03 AM EDT [facility] CARBON DIOXIDE 25 22 - 32 mmol/L 02/06/2025 8:03 AM EDT [facility] ANION GAP 3(L) 5 - 15 mmol/L 02/06/2025 8:03 AM EDT [facility] BLOOD UREA NITROGEN 37(H) 5 - 27 mg/dL 02/06/2025 8:03 AM EDT [facility] CREATININE 1.27(H) 0.70 - 1.20 mg/dL 02/06/2025 8:03 AM EDT [facility] Comment:METHOD TRACEABLE TO IDMS STANDARD GLUCOSE 98 65 - 99 mg/dL 02/06/2025 8:03 AM EDT [facility] CALCIUM 8.3(L) 8.5 - 10.5 mg/dL 02/06/2025 8:03 AM EDT [facility] TOTAL PROTEIN 6.2 6.0 - 8.0 g/dL 02/06/2025 8:03 AM EDT [facility] ALBUMIN 2.3(L) 3.2 - 5.3 g/dL 02/06/2025 8:03 AM EDT [facility] ALKALINE PHOSPHATASE 74 39 - 130 U/L 02/06/2025 8:03 AM EDT [facility] AST 15 <=41 U/L 02/06/2025 8:03 AM EDT [facility] ALT 12 <=40 U/L 02/06/2025 8:03 AM EDT [facility] BILIRUBIN,TOTAL 0.3 0.3 - 1.2 mg/dL 02/06/2025 8:03 AM EDT [facility] EGFR Non-Race Dependent 57(L) >=60 ml/min/1.7 3sq.m 02/06/2025 8:03 AM EDT [facility] Comment: Reported eGFR is based on the CKD-EPI 2020 equation that does not use a race coefficient. Blood Venous blood / Unknown Venipuncture / Unknown 02/06/2025 7:08 AM EDT 02/06/2025 7:21 AM EDT us Diego Daniels DPMykel LAB BLOOD ORDERABLES Final Result [facility] [address] [place] [address], * Vancomycin, trough To be drawn prior to the 4th dose (02/06/2025 7:08 AM EDT) VANCOMYCIN TROUGH 18.1 5.0 - 20.0 ug/mL 02/06/2025 8:03 AM EDT [facility] Blood Venous blood / Unknown Venipuncture / Unknown 02/06/2025 7:08 AM EDT 02/06/2025 7:21 AM EDT us Raysa Romanhammad MD LAB BLOOD ORDERABLES Final Result Performing Organization Address City/[facility]/ZIP Co de Phone Number [address] [place] [address], [place] * (ABNORMAL) Bedside Glucose *Place/Obtain serum glucose if >500 per glucometer. (02/05/2025 9:34 PM EDT) Bedside Glucose (POC) 201(H) 65 - 99 mg/dL 02/05/2025 9:45 PM EDT [facility] arterial/capilla ry 02/05/2025 9:34 PM EDT 02/05/2025 9:45 PM EDT us Raysa Mann MD POINT OF CARE TEST ORDERAB LES Final Result Performing Organization Address [facility] Co de Phone Number [address] [place] [address], [place] * (ABNORMAL) Bedside Glucose *Place/Obtain serum glucose if >500 per glucometer. (02/05/2025 4:36 PM EDT) Bedside Glucose (POC) 133(H) 65 - 99 mg/dL 02/05/2025 4:43 PM EDT [facility] arterial/capilla ry 02/05/2025 4:36 PM EDT 02/05/2025 4:43 PM EDT Raysa Mann MD POINT OF CARE TEST ORDERAB LES Final Result Performing Organization Address [facility]/ZIP Co de Phone Number [address] [place] [address], [place] * (ABNORMAL) Bedside Glucose *Place/Obtain serum glucose if >500 per glucometer. (02/05/2025 11:31AM EDT) Bedside Glucose (POC) 170(H) 65 - 99 mg/dL 02/05/2025 11:37 AM EDT [facility] arterial/capilla ry 02/05/2025 11:31 AM EDT 02/05/2025 11:36 AM EDT us Raysa Mann MD POINT OF CARE TEST ORDERAB LES Final Result Performing Organization Address City/[facility]/ZIP Co de Phone Number [address] [place] [address], [place] * SST TOP (02/05/2025 5:24 AM EDT) Extra Tube Auto Resulted 02/05/2025 7:01 AM EDT [facility] Blood Venous blood / Unknown 02/05/2025 5:24 AM EDT 02/05/2025 5:38 AM EDT us Raysa Mann MD LAB BLOOD ORDERABLES Final Result Performing Organization Address City/[facility]/ZIP Co de Phone Number [address] [place] [address], [place] * Light Blue Top (02/05/2025 5:24 AM EDT) Extra Tube Auto Resulted 02/05/2025 7:01 AM EDT [facility] Blood Venous blood / Unknown 02/05/2025 5:24 AM EDT 02/05/2025 5:38 AM EDT us Raysa Mann MD LAB BLOOD ORDERABLES Final Result Performing Organization Address City/[facility]/ZIP Co de Phone Number [address] [place] [address], [place] * (ABNORMAL) CBC auto differential (02/05/2025 5:24 AM EDT) WBC 11.3(H) 4 - 11 x10E9/L 02/05/2025 5:43 AM EDT [facility] RBC Count 3.01(L) 4.1 - 5.7 X10E12/L 02/05/2025 5:43 AM EDT [facility] Hemoglobin 7.7(L) 13 - 17 g/dL 02/05/2025 5:43 AM EDT [facility] Hematocrit 24.1(L) 39 - 50 % 02/05/2025 5:43 AM EDT [facility] MCV 80 80 - 100 fL 02/05/2025 5:43 AM EDT [facility] MCH 25.7(L) 27 - 34 pg 02/05/2025 5:43 AM EDT [facility] MCHC 32.1 32 - 36 g/dL 02/05/2025 5:43 AM EDT [facility] RDW 18.6(H) 11.5 - 15 % 02/05/2025 5:43 AM EDT [facility] Platelet Count 295 150 - 450 X10E9/L 02/05/2025 5:43 AM EDT [facility] MPV 7.0 7 - 12 fL 02/05/2025 5:43 AM EDT [facility] Neutrophils % 71.7 % 02/05/2025 5:43 AM EDT [facility] Lymphocytes % 20.2 % 02/05/2025 5:43 AM EDT [facility] Monocytes % 7.1 % 02/05/2025 5:43 AM EDT [facility] Eosinophils % 0.6 % 02/05/2025 5:43 AM EDT [facility] Basophils % 0.4 % 02/05/2025 5:43 AM EDT [facility] Neutrophils Absolute (A) 8.1(H) 1.5 - 6.6 10*3/uL 02/05/2025 5:43 AM EDT [facility] Lymphocytes Absolute 2.3 1.0 - 3.5 10*3/uL 02/05/2025 5:43 AM EDT [facility] Monocytes Absolute 0.8 0.0 - 0.9 10*3/uL 02/05/2025 5:43 AM EDT [facility] Eosinophils Absolute 0.1 0.0 - 0.4 10*3/uL 02/05/2025 5:43 AM EDT [facility] Basophils Absolute 0.0 0.0 - 0.2 10*3/uL 02/05/2025 5:43 AM EDT [facility] Differential Type AUTOMATED DIFFERENTIAL 02/05/2025 5:43 AM EDT [facility] Blood Venous blood / Unknown Venipuncture / Unknown 02/05/2025 5:24 AM EDT 02/05/2025 5:36 AM EDT Diego Daniels DPM LAB BLOOD ORDERABLES Final Result Performing Organization Address City/[facility]/ZIP Co de Phone Number [facility] [address] [place] [address] [place] [address], [place] * Magnesium (02/05/2025 5:24 AM EDT) MAGNESIUM 1.9 1.8 - 2.6 mg/dL 02/05/2025 5:55 AM EDT [facility] Blood Venous blood / Unknown Venipuncture / Unknown 02/05/2025 5:24 AM EDT 02/05/2025 5:36 AM EDT Diego Daniels DPM LAB BLOOD ORDERABLES Final Result Performing Organization Address [facility]/ZIP Co de Phone Number [facility] [address] [place] [address], [place] * (ABNORMAL) Comprehensive metabolic panel (02/05/2025 5:24 AM EDT) SODIUM 135 134 - 146 mmol/L 02/05/2025 5:55 AM EDT [facility] POTASSIUM 5.0 3.5 - 5.0 mmol/L 02/05/2025 5:55 AM EDT [facility] CHLORIDE 103 98 - 109 mmol/L 02/05/2025 5:55 AM EDT [facility] CARBON DIOXIDE 25 22 - 32 mmol/L 02/05/2025 5:55 AM EDT [facility] ANION GAP 7 5 - 15 mmol/L 02/05/2025 5:55 AM EDT [facility] BLOOD UREA NITROGEN 38(H) 5 - 27 mg/dL 02/05/2025 5:55 AM EDT [facility] CREATININE 1.56(H) 0.70 - 1.20 mg/dL 02/05/2025 5:55 AM EDT [facility] Comment:METHOD TRACEABLE TO IDKS STANDARD GLUCOSE 173(H) 65 - 99 mg/dL 02/05/2025 5:55 AM EDT [facility] CALCIUM 8.6 8.5 - 10.5 mg/dL 02/05/2025 5:55 AM EDT [facility] TOTAL PROTEIN 6.3 6.0 - 8.0 g/dL 02/05/2025 5:55 AM EDT [facility] ALBUMIN 2.3(L) 3.2 - 5.3 g/dL 02/05/2025 5:55 AM EDT [facility] ALKALINE PHOSPHATASE 85 39 - 130 U/L 02/05/2025 5:55 AM EDT [facility] AST 15 <=41 U/L 02/05/2025 5:55 AM EDT [facility] ALT 15 <=40 U/L 02/05/2025 5:55 AM EDT [facility] BILIRUBIN,TOTAL 0.4 0.3 - 1.2 mg/dL 02/05/2025 5:55 AM EDT [facility] EGFR Non-Race Dependent 45(L) >=60 ml/min/1.7 3sq.m 02/05/2025 5:55 AM EDT [facility] Comment: eGFR not reported due to non-numeric value for Creatinine. Reported eGFR is based on the CKD-EPI 2020 equation that does not use a race coefficient. Blood Venous blood / Unknown Venipuncture / Unknown 02/05/2025 5:24 AM EDT 02/05/2025 5:36 AM EDT us Diego Daniels DP LAB BLOOD ORDERABLES Final Result Performing Organization Address City/[facility] Co de Phone Number [address] [place] [address], [place] * (ABNORMAL) Bedside Glucose *Place/Obtain serum glucose if >500 per glucometer. (02/04/2025 9:06 PM EDT) Bedside Glucose (POC) 319(H) 65 - 99 mg/dL 02/04/2025 9:07 PM EDT [facility] arterial/capilla ry 02/04/2025 9:06 PM EDT 02/04/2025 9:07 PM EDT us Raysa Mann MD POINT OF CARE TEST ORDERAB LES Final Result Performing Organization Address [facility] de Phone Number [address] [place] [address], [place] * (ABNORMAL) Bedside Glucose *Place/Obtain serum glucose if >500 per glucometer. (02/04/2025 5:28 PM EDT) Bedside Glucose (POC) 288(H) 65 - 99 mg/dL 02/05/2025 4:34 PM EDT [facility] arterial/capilla ry 02/04/2025 5:28 PM EDT 02/05/2025 4:34 PM EDT Raysa Mann MD POINT OF CARE TEST ORDERAB LES Final Result Performing Organization Address City[facility] Co de Phone Number [address] [place] [address], [place] * X-ray calcaneus right minimum 2 [...] Valdovinos MD on 02/04/2025 1:57 PM Diego REAL IM DIAGNOSTIC IMAGING HECTOR OSBORN Final Result * (ABNORMAL) Bone culture (02/04/2025 1:15 PM EDT) CULTURE RESULTS Pseudomonas aeruginosa(A) 02/08/2025 12:02 PM EDT [facility] CULTURE RESULTS Methicillin-Resis tant Staphylococcus aureus(A) 02/08/2025 12:02 PM EDT [facility] Bone Structure of right foot [...] Methicillin-Resistant Staphylococcus aureus Susceptibility Comment Diego Daniels [facility] MICROBIOLOGY - GENERAL ORDE [facility] Final Result Performing Organization Address City/[facility] Co de Phone Number [facility] 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 [place] [address], * EKG (02/04/2025 9:37 AM EDT) 02/04/2025 9:37 AM EDT Narrative [facility] - 02/04/2025 10:11 AM EDT us Carlos Sinclair MD ECG ORDERABLES Final Result [facility] * Light Blue Top (02/04/2025 5:31 AM EDT) Extra Tube Auto Resulted 02/04/2025 7:01 AM EDT [facility] Blood Venous blood / Unknown 02/04/2025 5:31 AM EDT 02/04/2025 6:03 AM EDT us Raysa Mann MD LAB BLOOD ORDERABLES Final Result Performing Organization Address [facility]/ZIP Co de Phone Number [facility] [address] [place] [address], [place] * (ABNORMAL) CBC auto differential (02/04/2025 5:31 AM EDT) WBC 7.9 4 - 11 x10E9/L 02/04/2025 6:04 AM EDT [facility] RBC Count 2.88(L) 4.1 - 5.7 X10E12/L 02/04/2025 6:04 AM EDT [facility] Hemoglobin 7.5(L) 13 - 17 g/dL 02/04/2025 6:04 AM EDT [facility] Hematocrit 22.9(L) 39 - 50 % 02/04/2025 6:04 AM EDT [facility] MCV 80 80 - 100 fL 02/04/2025 6:04 AM EDT [facility] MCH 25.9(L) 27 - 34 pg 02/04/2025 6:04 AM EDT [facility] MCHC 32.6 32 - 36 g/dL 02/04/2025 6:04 AM EDT [facility] RDW 18.6(H) 11.5 - 15 % 02/04/2025 6:04 AM EDT [facility] Platelet Count 283 150 - 450 X10E9/L 02/04/2025 6:04 AM EDT [facility] MPV 7.0 7 - 12 fL 02/04/2025 6:04 AM EDT [facility] Neutrophils % 67.0 % 02/04/2025 6:04 AM EDT [facility] Lymphocytes % 23.1 % 02/04/2025 6:04 AM EDT [facility] Monocytes % 7.1 % 02/04/2025 6:04 AM EDT [facility] Eosinophils % 1.8 % 02/04/2025 6:04 AM EDT [facility] Basophils % 1.0 % 02/04/2025 6:04 AM EDT [facility] Neutrophils Absolute (A) 5.3 1.5 - 6.6 10*3/uL 02/04/2025 6:04 AM EDT [facility] Lymphocytes Absolute 1.8 1.0 - 3.5 10*3/uL 02/04/2025 6:04 AM EDT [facility] Monocytes Absolute 0.6 0.0 - 0.9 10*3/uL 02/04/2025 6:04 AM EDT [facility] Eosinophils Absolute 0.1 0.0 - 0.4 10*3/uL 02/04/2025 6:04 AM EDT [facility] Basophils Absolute 0.1 0.0 - 0.2 10*3/uL 02/04/2025 6:04 AM EDT [facility] Differential Type AUTOMATED DIFFERENTIAL 02/04/2025 6:04 AM EDT [facility] Blood Venous blood / Unknown Venipuncture / Unknown 02/04/2025 5:31 AM EDT 02/04/2025 5:57 AM EDT Diego S Rusher DPM LAB BLOOD ORDERABLES Final Result Performing Organization Address City/[facility]/ZIP Co de Phone Number [address] [place] [address], [place] * Magnesium (02/04/2025 5:31 AM EDT) MAGNESIUM 1.9 1.8 - 2.6 mg/dL 02/04/2025 6:19 AM EDT [facility] Blood Venous blood / Unknown Venipuncture / Unknown 02/04/2025 5:31 AM EDT 02/04/2025 5:56 AM EDT Diego Daniels DPM LAB BLOOD ORDERABLES Final Result Performing Organization Address [facility]/ZIP Co de Phone Number [address] [place] [address], [place] * (ABNORMAL) Comprehensive metabolic panel (02/04/2025 5:31 AM EDT) SODIUM 133(L) 134 - 146 mmol/L 02/04/2025 6:19 AM EDT [facility] POTASSIUM 4.9 3.5 - 5.0 mmol/L 02/04/2025 6:19 AM EDT [facility] CHLORIDE 102 98 - 109 mmol/L 02/04/2025 6:19 AM EDT [facility] CARBON DIOXIDE 24 22 - 32 mmol/L 02/04/2025 6:19 AM EDT [facility] ANION GAP 7 5 - 15 mmol/L 02/04/2025 6:19 AM EDT [facility] BLOOD UREA NITROGEN 36(H) 5 - 27 mg/dL 02/04/2025 6:19 AM EDT [facility] CREATININE 1.31(H) 0.70 - 1.20 mg/dL 02/04/2025 6:19 AM EDT [facility] Comment:METHOD TRACEABLE TO IDMS STANDARD GLUCOSE 108(H) 65 - 99 mg/dL 02/04/2025 6:19 AM EDT [facility] CALCIUM 8.5 8.5 - 10.5 mg/dL 02/04/2025 6:19 AM EDT [facility] TOTAL PROTEIN 6.1 6.0 - 8.0 g/dL 02/04/2025 6:19 AM EDT [facility] ALBUMIN 2.3(L) 3.2 - 5.3 g/dL 02/04/2025 6:19 AM EDT [facility] ALKALINE PHOSPHATASE 81 39 - 130 U/L 02/04/2025 6:19 AM EDT [facility] AST 16 <=41 U/L 02/04/2025 6:19 AM EDT [facility] ALT 14 <=40 U/L 02/04/2025 6:19 AM EDT [facility] BILIRUBIN,TOTAL 0.4 0.3 - 1.2 mg/dL 02/04/2025 6:19 AM EDT [facility] EGFR Non-Race Dependent 55(L) >=60 ml/min/1.7 3sq.m 02/04/2025 6:19 AM EDT [facility] Comment: eGFR not reported due to non-numeric value for Creatinine. Reported eGFR is based on the CKD-EPI 2020 equation that does not use a race coefficient. Blood Venous blood / Unknown Venipuncture / Unknown 02/04/2025 5:31 AM EDT 02/04/2025 5:56 AM EDT us Diego Daniels DPM LAB BLOOD ORDERABLES Final Result [facility] [address] [place] [address], * (ABNORMAL) Bedside Glucose *Place/Obtain serum glucose if >500 per glucometer. (02/04/2025 2:06 AM EDT) Bedside Glucose (POC) 136(H) 65 - 99 mg/dL 02/04/2025 2:07 AM EDT [facility] arterial/capilla ry 02/04/2025 2:06 AM EDT 02/04/2025 2:07 AM EDT Raysa Mann MD POINT OF CARE TEST ORDERAB LES Final Result Performing Organization Address City/[facility]/ZIP Co de Phone Number [address] [place] [address], [place] * (ABNORMAL) Bedside Glucose *Place/Obtain serum glucose if >500 per glucometer. (02/04/2025 12:33AM EDT) Bedside Glucose (POC) 193(H) 65 - 99 mg/dL 02/04/2025 12:35 AM EDT [facility] arterial/capilla ry 02/04/2025 12:33 AM EDT 02/04/2025 12:35 AM EDT us Raysa Mann MD POINT OF CARE TEST ORDERAB LES Final Result Performing Organization Address [facility]/ZIP Co de Phone Number [address] [place] [address], [place] * (ABNORMAL) Bedside Glucose *Place/Obtain serum glucose if >500 per glucometer. (02/04/2025 12:14AM EDT) Bedside Glucose (POC) 54(L) 65 - 99 mg/dL 02/04/2025 12:17 AM EDT [facility] arterial/capilla ry 02/04/2025 12:14 AM EDT 02/04/2025 12:17 AM EDT us Raysa Mann MD POINT OF CARE TEST ORDERAB LES Final Result Performing Organization Address [facility]/ZIP Co de Phone Number [address] [place] [address], [place] * (ABNORMAL) Bedside Glucose *Place/Obtain serum glucose if >500 per glucometer. (02/04/2025 12:00AM EDT) Bedside Glucose (POC) 51(LL) 65 - 99 mg/dL 02/04/2025 12:03 AM EDT [facility] arterial/capillar y 02/04/2025 02/04/2025 12:03 AM EDT Raysa Mann MD POINT OF CARE TEST ORDERAB LES Final Result Performing Organization Address [facility] Co de Phone Number [address] [place] [address], [place] * (ABNORMAL) Bedside Glucose *Place/Obtain serum glucose if >500 per glucometer. (02/03/2025 9:42 PM EDT) Bedside Glucose (POC) 152(H) 65 - 99 mg/dL 02/04/2025 2:07 AM EDT [facility] arterial/capilla ry 02/03/2025 9:42 PM EDT 02/04/2025 2:07 AM EDT us Raysa Mann MD POINT OF CARE TEST ORDERAB LES Final Result Performing Organization Address [facility] Co de Phone Number [address] [place] [address], [place] * X-ray foot right 2 views [...] GROWTH 5 DAYS 02/09/2025 3:02 AM EDT [facility] Blood Venous blood / Unknown Venipuncture / Unknown 02/03/2025 8:25 PM EDT 02/03/2025 8:43 PM EDT us Jonh Cline MD MICROBIOLOGY - GENERAL ORDERA BLES Final Result [facility] [address] [place] [address], [place] [phone] * Blood culture #1 (02/03/2025 8:25 PM EDT) CULTURE RESULTS NO GROWTH 5 DAYS 02/09/2025 3:02 AM EDT [facility] Blood Venous blood / Unknown Venipuncture / Unknown 02/03/2025 8:25 PM EDT 02/03/2025 8:43 PM EDT us Jonh Cline MD MICROBIOLOGY - GENERAL ORDERA BLES Final Result [facility] [address] [place] [address], [place] [phone] * (ABNORMAL) Bedside Glucose *Place/Obtain serum glucose if >500 per glucometer. (02/03/2025 5:33 PM EDT) Bedside Glucose (POC) 156(H) 65 - 99 mg/dL 02/03/2025 5:38 PM EDT [facility] arterial/capilla ry 02/03/2025 5:33 PM EDT 02/03/2025 5:38 PM EDT us Raysa Mann MD POINT OF CARE TEST ORDERAB LES Final Result Performing Organization Address [facility]/ZIP Co de Phone Number [address] [place] [address], [place] * (ABNORMAL) Bedside Glucose *Place/Obtain serum glucose if >500 per glucometer. (02/03/2025 12:30PM EDT) Bedside Glucose (POC) 237(H) 65 - 99 mg/dL 02/03/2025 12:33 PM EDT [facility] arterial/capilla ry 02/03/2025 12:30 PM EDT 02/03/2025 12:33 PM EDT us Raysa Mann MD POINT OF CARE TEST ORDERAB LES Final Result Performing Organization Address City/[facility]/ZIP Co de Phone Number [facility] [address] [place] [address] [place] [address], [place] * (ABNORMAL) Bedside Glucose *Place/Obtain serum glucose if >500 per glucometer. (02/03/2025 8:50 AM EDT) Bedside Glucose (POC) 153(H) 65 - 99 mg/dL 02/03/2025 8:52 AM EDT [facility] arterial/capilla ry 02/03/2025 8:50 AM EDT 02/03/2025 8:52 AM EDT Jerald Pineda DO POINT OF CARE TEST ORDERABLES Final Result Performing Organization Address City/[facility]/ZIP Co de Phone Number [address] [place] [address], [place] * Thyroid profile includes TSH FT4 (02/03/2025 7:03 AM EDT) Pathologist [facility] [place] FREE T4 1.04 0.61 - 1.60 ng/dL 02/03/2025 3:22 PM EDT [facility] TSH 0.96 0.49 - 4.67 uIU/mL 02/03/2025 3:22 PM EDT [facility] Blood Venous blood / Unknown Venipuncture / Unknown 02/03/2025 7:03 AM EDT 02/03/2025 7:05 AM EDT Mukul Flores G[employer]ESS OPERATOR[employer] LAB BLOOD ORDERABLES F inal Result [address] [place] [address], [place] * (ABNORMAL) Hemoglobin A1c (02/03/2025 7:03 AM EDT) HEMOGLOBIN A1C 6.2(H) 4.4 - 5.6 % 02/03/2025 2:30 PM EDT [facility] Comment: ADA Guidelines Result HgbA1c Normal : less than 5.7 % Prediabetes : 5.7 % to 6.4 % Diabetes : > 6.4 % Use with caution in patients with abnormal hemoglobin variants as the half-life of red blood cells and in vivo glycation rates are affected. EST. 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 [place] [address], [place] [phone] * Light Blue Top (02/03/2025 7:03 AM EDT) Extra Tube Auto Resulted 02/03/2025 9:01 AM EDT [facility] Blood Venous blood / Unknown 02/03/2025 7:03 AM EDT 02/03/2025 7:06 AM EDT Jerald Pineda DO LAB BLOOD ORDERABLES Final Re sult [facility] [address] [place] [address], [place] * (ABNORMAL) Erythrocyte Sedimentation Rate (ESR) (02/03/2025 7:03 AM EDT) ESR, Erythrocyte Sedimentation Rate 94(H) 0 - 20 mm/h 02/03/2025 9:52 AM EDT [facility] Blood Venous blood / Unknown Venipuncture / Unknown 02/03/2025 7:03 AM EDT 02/03/2025 7:05 AM EDT us Jerald Pineda DO LAB BLOOD ORDERABLES Final Re sult [facility] [address] [place] [address], * (ABNORMAL) C-reactive protein (02/03/2025 7:03 AM EDT) C REACTIVE PROTEIN 4.7(H) <=0.7 mg/dL 02/03/2025 7:38 AM EDT [facility] Blood Venous blood / Unknown Venipuncture / Unknown 02/03/2025 7:03 AM EDT 02/03/2025 7:05 AM EDT Jerald Pineda DO LAB BLOOD ORDERABLES Final Re sult [facility] [address] [place] [address], [place] * (ABNORMAL) Basic Metabolic Panel (02/03/2025 7:03 AM EDT) SODIUM 133(L) 134 - 146 mmol/L 02/03/2025 7:38 AM EDT [facility] POTASSIUM 4.9 3.5 - 5.0 mmol/L 02/03/2025 7:38 AM EDT [facility] CHLORIDE 105 98 - 109 mmol/L 02/03/2025 7:38 AM EDT [facility] CARBON DIOXIDE 22 22 - 32 mmol/L 02/03/2025 7:38 AM EDT [facility] ANION GAP 6 5 - 15 mmol/L 02/03/2025 7:38 AM EDT [facility] BLOOD UREA NITROGEN 50(H) 5 - 27 mg/dL 02/03/2025 7:38 AM EDT [facility] CREATININE 1.67(H) 0.70 - 1.20 mg/dL 02/03/2025 7:38 AM EDT [facility] Comment:METHOD TRACEABLE TO IDMS STANDARD GLUCOSE 92 65 - 99 mg/dL 02/03/2025 7:38 AM EDT [facility] CALCIUM 8.9 8.5 - 10.5 mg/dL 02/03/2025 7:38 AM EDT [facility] EGFR Non-Race Dependent 41(L) >=60 ml/min/1.7 3sq.m 02/03/2025 7:38 AM EDT [facility] Comment: eGFR not reported due to non-numeric value for Creatinine. Reported eGFR is based on the CKD-EPI 2020 equation that does not use a race coefficient. Blood Venous blood / Unknown Venipuncture / Unknown 02/03/2025 7:03 AM EDT 02/03/2025 7:05 AM EDT us Jerald Pineda DO LAB BLOOD ORDERABLES Final Re sult [facility] [address] [place] [address], * (ABNORMAL) CBC auto differential (02/03/2025 7:03 AM EDT) WBC 9.5 4 - 11 x10E9/L 02/03/2025 7:12 AM EDT [facility] RBC Count 3.13(L) 4.1 - 5.7 X10E12/L 02/03/2025 7:12 AM EDT [facility] Hemoglobin 8.2(L) 13 - 17 g/dL 02/03/2025 7:12 AM EDT [facility] Hematocrit 24.9(L) 39 - 50 % 02/03/2025 7:12 AM EDT [facility] MCV 80 80 - 100 fL 02/03/2025 7:12 AM EDT [facility] MCH 26.3(L) 27 - 34 pg 02/03/2025 7:12 AM EDT [facility] MCHC 33.1 32 - 36 g/dL 02/03/2025 7:12 AM EDT [facility] RDW 18.6(H) 11.5 - 15 % 02/03/2025 7:12 AM EDT [facility] Platelet Count 317 150 - 450 X10E9/L 02/03/2025 7:12 AM EDT [facility] MPV 6.8(L) 7 - 12 fL 02/03/2025 7:12 AM EDT [facility] Neutrophils % 78.5 % 02/03/2025 7:12 AM EDT [facility] Lymphocytes % 13.8 % 02/03/2025 7:12 AM EDT [facility] Monocytes % 6.4 % 02/03/2025 7:12 AM EDT [facility] Eosinophils % 0.7 % 02/03/2025 7:12 AM EDT [facility] Basophils % 0.6 % 02/03/2025 7:12 AM EDT [facility] Neutrophils Absolute (A) 7.5(H) 1.5 - 6.6 10*3/uL 02/03/2025 7:12 AM EDT [facility] Lymphocytes Absolute 1.3 1.0 - 3.5 10*3/uL 02/03/2025 7:12 AM EDT [facility] Monocytes Absolute 0.6 0.0 - 0.9 10*3/uL 02/03/2025 7:12 AM EDT [facility] Eosinophils Absolute 0.1 0.0 - 0.4 10*3/uL 02/03/2025 7:12 AM EDT [facility] Basophils Absolute 0.1 0.0 - 0.2 10*3/uL 02/03/2025 7:12 AM EDT [facility] Differential Type AUTOMATED DIFFERENTIAL 02/03/2025 7:12 AM EDT [facility] Blood Venous blood / Unknown Venipuncture / Unknown 02/03/2025 7:03 AM EDT 02/03/2025 7:05 AM EDT Jerald Pineda DO LAB BLOOD ORDERABLES Final Re sult [facility] [address] [place] [address], documented in this encounter Visit Diagnoses Not on filedocumented in this encounter Admitting Diagnoses Diagnosis Osteomyelitis of right foot, unspecified type (CMS-HCC) documented in this encounter Administered Medications Inactive [...] 81 mg, oral, Daily, First dose on 02/06/25 at 0900 Given 02/08/2025 7:34 AM EDT [...] Given 02/06/2025 7:42 AM EDT 20 mg chlorhexidine (HIBICLENS) 4 % liquid As needed, Starting on Fri02/04/25 at 1302, Intra-op Given 02/04/2025 1:02 PM EDT 1 Application Operative Site ciprofloxacin HCl (CIPRO) tablet 500 mg 500 [...] or NPO with IV access, Starting on Fri02/03/25 at 0829, Push over 1-3 minutes STAT. [...] or NPO without IV access., Starting on [place] 02/03/25 at 0829, If conscious and not [...] 2 diabetes mellitusIndications:type 2 diabetes mellitus insulin lispro (HumaLOG) injection 2-10 Units 2-10 [...] 3:28 PM EDT 200 mg 440 mL/hr levothyroxine (SYNTHROID, LEVOTHROID) tablet 112 mcg 112 mcg, oral, Daily, First dose on 02/05/25 at 1030, Look-alike/sound-alike medication. Verify indication for [...] emergency treatment for adverse reactions., Starting on [place] 02/06/25 at 1314, For 2 doses, Scheduling/ADT, [...] 8:38 AM EDT 1,000 mg 250 mL/hr documented in this encounter [...] 81 mg, oral, Daily, First dose on 02/06/25 at 0900 0739 (Given - Provider: Lennie Acosta RN) 0832 (Given - Provider: Lila Larson RN) 0734 (Given - Provider: Nae Najera, CALI)0900 (Canceled Entry - Provider: Nae Najera, RN) atorvastatin (LIPITOR) tablet 20 mg 20 mg, oral, Daily, First dose on 02/05/25 at 1030, Look-alike/sound-alike medication - verify indication for use. 0742 (Given - Provider: Lennie Acosta RN) 0832 (Given - Provider: Lila Larson RN) 0736 (Given - Provider: Nae Najera, CALI)0900 (Canceled Entry - Provider: Nae Najera, CALI) cefEPime (MAXIPIME) IVPB 2000 mg/50 mL in [...] 0832 (Given - Provider: Lila Larson, CALI) 0735 (Given - Provider: Nae Najera RN)0900 (Canceled Entry - Provider: Nae Najera RN) docusate sodium (COLACE) capsule 100 mg 100 mg, oral, 2 times daily, First dose on 02/05/25 at 1030, Look-alike/sound-alike medication - verify indication for use. 0743 (Given - Provider: Lennie Acosta RN)2146 (Given - Provider: Jane Mohamud RN) 0832 (Given - Provider: Lila Larson RN)2120 (Given - Provider: Mercedes Vieyra RN) 0735 (Given - Provider: Nae Najera RN)0900 (Canceled Entry - Provider: Nae Najera RN)2100 (Due) finasteride (PROSCAR) tablet 5 mg 5 mg, oral, Daily, First dose on Fri02/05/25 at [...] room temperature., Indications: type 2 diabetes mellitus 2099 (Due) insulin glargine (LANTUS, SEMGLEE) injection pen [...] mellitus 0744 (Given - Provider: Lennie Acosta RN)2146 (Given - Provider: Jane Mhoamud RN) 0838 (Given - Provider: Lila Larson RN)212 (Given - Provider: Mercedes Vieyra RN) 0900 (Hold - Provider: Nae Najera [...] RN - Comment: 190)2148 (Given - Provider: Jane Mohamud, CALI) 0800 (Not Given - Provider: Lila Larson RN - Reason: Contraindicated)11 15 (Given - Provider: Lila Larson RN)1715 (Given - Provider: Jayshree Moore, CALI)2121 (Given - Provider: Mercedes Vieyra RN) 0800 (Not Given - Provider: Nae Najera RN - Reason: Contraindicated - Comment: glucose 56)1220 (Given - Provider: Nae Najera, CALI)1735 (Given - Provider: Nae Najera, CALI) iron sucrose (VENOFER) 200 mg in sodium chloride 0.9 % 100 mL IVPB 200 mg, intravenous, at 440 mL/hr, Administer over 15 Minutes, Every other day, First dose on [place] 02/06/25 at 1315, For 5 doses, Monitor patient [...] Mohamud RN) 0509 (Given - Provider: Mercedes Vieyra, RN) sodium chloride 0.9 % flush 10 [...] (Stop Bag - Provider: Lila Larson RN) 1855 (New Bag - Provider: Nae Najera RN)1954 (Stop Bag - Provider: Anabela Worthy RN)1999 (Due - Provider: [facility]) vancomycin (VANCOCIN) 750 mg in sodium chloride 0.9 % 250 mL IVPB W/ADAPTER (CANCELED) 750 mg, intravenous, at 250 mL/hr, Administer over 60 Minutes, Every 24 hours, First dose on Fri02/04/25 at 0800, For Vial-2-Bag: Attach bag and vial to adapter - Use immediately after activating; dissolve drug prior to administration., Indication: Osteoarticular 828 (New Bag - Provider: Lennie Acosta RN)931 (Stop Bag - Provider: Lennie Acosta RN) PRN Medication Order 02/06/2025 02/07/2025 02/08/2025 acetaminophen (TYLENOL EXTRA STRENGTH) tablet 1,000 mg 1,000 mg, oral, Every 6 hours PRN, temperature greater than 38 C, moderate pain - pain scale 4-6, Starting on Fri02/03/25 at 0834 1615 (Given - Provider: Jayshree Moore RN) acetaminophen (TYLENOL EXTRA STRENGTH) tablet 500 mg 500 mg, oral, Every 6 hours PRN, mild pain - pain scale 1-3, Starting on Fri02/03/25 at 0834 1614 (Not Given - Provider: Jayshree Moore RN - Reason: Other - Comment: gave 1000mg not 500mg per pain scale) 0736 (Given - Provider: Nae Najera RN) dextrose (GLUTOSE) 40 % gel 15 g 15 g, oral, As needed, low blood sugar, blood glucose less than 70 mg/dL, Starting on [place] 02/03/25 at 0829, If patient conscious and [...] 30% decrease in systolic BP), Starting on [place] 02/06/25 at 1314, For 3 doses, Scheduling/ADT, [...] or NPO without IV access., Starting on [facility] 02/03/25 at 0829, If conscious and [...] As needed, Magnesium level <1.8, Starting on [facility] 02/03/25 at 0829, Recheck magnesium level 4 hours after infusion complete. With each magnesium result continue the replacement orders as needed. methylPREDNISolone sod suc(PF) (Solu-MEDROL) injection 125 mg 125 mg, intravenous, As needed, emergency treatment for adverse reactions., Starting on [place] 02/06/25 at 1314, For 2 doses, Scheduling/ADT, [...] 0742 (Given - Provider: Lennie Acosta RN) 0730 (Given - Provider: Lila Larson [...] documented as of this encounter Care Teams Director Of Volunteer Services Relationship Specialty Start Date End Date Alejandrina Rivera MD [address], [address] [place] [address] PCP - General Internal Medicine 09/27/24 documented as of this encounter
--- OUTSIDE RECORDS SUMMARY | 2025-02-04 12:09 | XMS_ITS | Encounter Summary ---
Author Organization [facility] tem Address [id number] [address] [place] [address] Care Team Providers Care Brain Surgeon Name Role Phone Alejandrina Rivera MD Primary Care Provider [phone] Reason for Visit * Auth/Cert Specialty Diagnoses / Procedures Referred By Leif graham Referred To Contact Diagnoses Osteomyelitis of right foot, unspecified type ([facility]) Raysa Mann MD [address] , [address] [address] Phone: tel: fax: Referral ID Status Reason Start Date Expiration Date Visits Re quested Visits Authorized [id number] 1 1 Encounter Details Date Type Department Care Team (Late Contact Info) Description 02/04/2025 12:09 PM EDT Anesthesia Event [facility] - Surgery [address] [place] [address] Rosendo Medellin MD [address] [place] [id number] Anesthesia Record Procedure Summary Procedure Name Responsible Anesthesiologist Anesthesia Start Time Anesthesia Stop Time EXCISION BONE PARTIAL CALCANEOUS OR TALUS (Right: Heel) Rosendo Medellin MD 02/04/25 1209 02/04/25 1403 Events Date Time Event Comment 02/04/2025 1144 1209 An Start 1210 An Start Data 1212 an rafael now Patient on sche duled vanco. No antibiotics indicated. 1213 An Induction The patient was reevaluated immediately before moderate or deep sedation use and before anesthesia induction. 1215 An LMA 1217 Patient Ready for Surgeon 1217 Position 1221 an rafael now Patient being p ositioned on OR table with the assistance of Dr. Daniels 1230 an rafael now Temp is being m onitored by a skin probe. 96.8 1314 Anes Handoff 1359 Airway Removed 1403 An Stop 1403 Handoff to RN Transported to :PACU, Spontaneous Ventilation, O2 per Nasal Cannula, 3 LPM Pt. Tolerated procedure well, vital signs stable and document on nursing record Care transferred to receiving RN 02/05/2025 1940 an stop data Meds Name Total propofol (DIPRIVAN) injection 120 mg lidocaine PF (XYLOCAINE) local injection 2% 100 mg midazolam (VERSED) injection 2 mg/2 mL 2 mg fentaNYL (SUBLIMAZE) injection 100 mcg ondansetron PF (ZOFRAN) 2 mg/mL injectio n 4 mg dexAMETHasone (DECADRON) injection 4 mg/ mL 4 mg lactated ringers infusion 0 mL * Agents Name Sevoflurane Inspired Sevoflurane * Blood No blood administrations on file. Lines, Drains, and Airways Type Details Placement Removal Wound 10/25/22; 0814; Incision; Foot; Left; xeroform, 4x4. cast padding, gilberto wrap 10/25/22 0814 by Nichole Dacosta RN Wound 09/30/24; 1101; Incision; Foot; Left; Prevena Wound Vac applied; xeroform, 4X4, cast padding, gilberto wrap 09/30/24 1101 by Serafin Le RN Wound 02/03/25; 1300; Y; Diabetic ulc; Achilles; Right 02/03/25 1300 by Toni Loredo RN Wound 02/03/25; 1300; Y; F oot; Left, Lateral 02/03/25 1300 by Toni Loredo RN Peripheral IV Placement Date: 02/04/25; Placement Time: 1120; Catheter Size: 22 G; Orientation: Left, Posterior; Location: Hand; Site Prep: Chlorhexadine and isopropyl alcohol; Inserted by: CALI Oconnor; Insertion Attempts: 2; Patient Tolerance: Tolerated well 02/04/25 1121 by Anisha Gonzalez RN Negative Pressure Wound Therapy 02/04/25; 1347; 1; dr. daniels; OR; Standard precautions, Surgical cap, Hand hygiene, Sterile gloves, Sterile gown, Sterile drape, Sterile field, Face shield, Mask; Diabetic foot ulcer; Heel (right heel, preveena wound vac) 02/04/25 1347 by Karime Oliva RN Wound 02/04/25; 1359; Incision; Foot; Right; preveena wound vac, cast padding, 4x4's, plaster roll, gilberto wrap 02/04/25 1359 by Karime Oliva RN Peripheral IV Placement Date: 02/03/25; Placement Time: 0655; Catheter Size: 20 G; Orientation: Left; Location: Antecubital; Site Prep: Chlorhexadine; Inserted by: Fausto; Insertion Attempts: 1; Patient Tolerance: Tolerated well; Removal Date: 02/07/25; Removal Time: 1721; Removal Reason: Leaking 02/03/25 0655 by Josh Jiménez Jr., RN 02/07/25 1721 by Jayshree Moore RN Supraglottic Airway Placement Date: 02/04/25; Placement Time: 1215 (created via procedure documentation); Size: 5; Insertion Attempts: 1; Placement Verify: Auscultation, End tidal CO2; Removal Date: 02/04/25; Removal Time: 1359 02/04/25 1215 by LAURA Stone 02/04/25 1359 by LAURA Monteiro documented in this encounter Social History Tobacco Use Types Packs/Day Years Used Date Smoking Tobacco: Former Smokeless Tobacco: Never Alcohol Use Standard Drinks/Week Comments No 0 (1 standard drink = 0.6 oz pur e alcohol) [facility] Utilities Answer Date Recorded In the past 12 months has e [email or web address], gas, oil, or water [employer] threatened to shut off services in your [...] on file documented as of this encounter Mental Status * Question Answer Entry Date Author Overall Cognitive Status WFL 02/05/2025 7:37 AM EDT Tanisha Olmos, PT documented in this encounter OR Notes * Anesthesia Postprocedure Evaluation - Rosendo Medellin MD - 02/05/2025 7:38 PM EDT ANESTHESIA POST-EVALUATION [facility] Procedure Summary Date: 02/04/25 Room / Location: [facility] OR [address] [place] [address] SURGERY Anesthesia Start: 1209 Anesthesia Stop: Procedure: EXCISION BONE PARTIAL CALCANEOUS OR TALUS (Right: Heel) Diagnosis: (Ulcer of right heel,with necrosis of bone ([facility]) [L97.414], Osteomyelitis of ankle or foot, acute, right ([facility]) [M86.171], Tenosynovitis of right foot [M65.971]) Surgeons: Diego Daniels DPM Responsible Provider: Rosendo Medellin MD Anesthesia Type: general LMA ASA Status: 3 Vitals: 02/05/25 1136 BP: 90/52 Pulse: 80 Resp: 20 Temp: 36.7 ??C (98 ??F) SpO2: Patient Evaluated: PACU Patient Participation: Complete - patient participated Patient Level of Consciousness: Awake Pain Score: 1 Pain Management: Adequate Airway Patency: Patent Anesthetic Complications: No Cardiovascular Status: Hemodynamically Stable and Returned to baseline Respiratory Status: Stable/Baseline, Nonlabored Ventilation and Room Air Post-op Hydration: Euvolemic Final Anesthesia Type: LMA Does patient meet criteria to D/C from PACU?: Yes Is patient sedated pharmacologically at PACU D/C?: No No notable events documented. * Anesthesia Procedure Notes - LAURA Stone - 02/04/2025 12:36 PM EDTAssociated Order(s): Airway Airway Patient location during procedure: OR Urgency: Elective Date/Time: 02/04/2025 12:15 PM Airway not difficult IV In Situ: Peripheral General Information and Staff Service Provider: LAURA Stone Placed by: LAURA Stone Patient Identified, IV Checked, Risks and Benefits Discussed, Surgical Consent, Monitors and Equipment Checked, Pre-op Evaluation and Timeout Performed Fire Risk Assessment Score: 0 Consent for Emergent Airway (if performed for an anesthetic, see related documentation for consents) Risks and benefits: risks, benefits and alternatives were discussed Indications and Patient Condition Sedation level: Deep Preoxygenated: yesPatient position: Supine and Sniffing MILS maintained throughout Mask difficulty assessment: Not Attempted Indications for airway management: Anesthesia Complications: No Complicating Factors: No Final Airway Details Final airway type: Supraglottic Airway Successful Airway: I GelOral SGA size: 5 No Bite Block Placed Post Intubation Trauma? No Placement verified by: chest auscultation, capnography and symmetrical chest wall movement Number of attempts at approach: 1 Airway Brand: I Gel * Anesthesia Preprocedure Evaluation - Rosendo Medellin MD - 02/04/2025 11:43 AM EDT Images from the original note were not included. ANESTHESIA PRE-PROCEDURE EVALUATION [facility] Procedure(s): EXCISION BONE PARTIAL CALCANEOUS OR TALUS ANESTHESIA PHYSICAL EXAM Patient summary reviewed and nursing notes reviewed. Echocardiogram reviewed Airway Mallampati: II TM distance: >3 FB Neck ROM: full Patient is not intubated Patient does not have tracheostomy Dental (+) Edentulous Pulmonary : exam normal Cardiovascular : exam normal ECG reviewed Neuro Abdominal : exam normal Other Findings ANESTHESIA PLAN ASA 3 Anesthesia Type: general LMA Induction: Intravenous Anesthetic risks, plan and alternatives discussed with Patient and Spouse. Use of blood products discussed with who consented to blood products. Plan discussed with Attending and MEDICAL VOUCHER CLERK. Airway Management: LMA Post op Pain Management: IV Analgesics Transfer to PACU PONV: Intermediate Risk Total Score: 2 Non-smoker Intended opioid administration Criteria that do not apply: Female patient History of PONV and/or Motion Sickness RCRI: Low Risk: Score of 0 = 3.9% (2.8-5.4%) Risk of major cardiac event Score of 1 = 6.0% (4.9-7.4%) Risk of major cardiac event Total Score: 1 Ischemic Heart Disease Criteria that do not apply: Cerebrovascular Disease Congestive Heart Failure Elevated Risk Surgery Pre-operative Treatment with Insulin Pre-operative Creatinine >2 mg/dL / 176.8 mol/L Patient Active Problem List Diagnosis Peripheral vascular disease ([facility]) Diabetes mellitus ([facility]) Hyperlipidemia Diabetic peripheral neuropathy associated with type 2 diabetes mellitus ([facility]) Difficulty walking Neurologic disorder associated with diabetes mellitus ([facility]) Acquired hammer toe of right foot Constipation, unspecified constipation type S/P amputation of foot, left ([facility]) Hypertension CKD (chronic kidney disease) stage 4, GFR 15-29 ml/min ([facility]) Chronic ischemic heart disease Exposure to Agent [place] Type 2 diabetes mellitus with mild nonproliferative diabetic retinopathy without macular edema, unspecified eye ([facility]) Sepsis ([facility]) Ulcer of left foot with bone involvement without evidence of necrosis ([facility]) Osteomyelitis of right foot, unspecified type ([facility]) Hypoglycemia Anemia of chronic disease Hypothyroidism documented in this encounter Plan of Treatment Upcoming Encounters Date Type Department Care Team (Late st Contact Info) Description 03/08/2025 3:20 PM EDT Office Visit [facility] [address] [place] [address] Delfino Lake MD [address] [place] [address] documented as of this encounter Goals Goal Patient Goal Type Associated Problems Recent Progress Patient-Stated? Author SNF General Yes Desire Wilhelm LSW Note: Evaluation of progress towards goal: await surgery, possibly tomorrow documented as of this encounter Procedures Procedure Name Priority Date/Time Associated Diagnosis Comments ANESTHESIA INTUBATION Routine 02/04/2025 12:15 PM EDT documented in this encounter Results * WI AN ELECTIVE SUPRAGLOTTIC AIRWAY (02/04/2025 12:15 PM EDT) Narrative Miles Merida APRN-CRNA - 02/04/2025 12:15 PM EDT LAURA Stone 02/04/2025 12:36 PM Airway Patient location during procedure: OR Urgency: Elective Date/Time: 02/04/2025 12:15 PM Airway not difficult IV In Situ: Peripheral General Information and Staff Service Provider: LAURA Stone Placed by: LAURA Stone Patient Identified, IV Checked, Risks and Benefits Discussed, Surgical Consent, Monitors and Equipment Checked, Pre-op Evaluation and Timeout Performed Fire Risk Assessment Score: 0 Consent for Emergent Airway (if performed for an anesthetic, see related documentation for consents) Risks and benefits: risks, benefits and alternatives were discussed Indications and Patient Condition Sedation level: Deep Preoxygenated: yesPatient position: Supine and Sniffing MILS maintained throughout Mask difficulty assessment: Not Attempted Indications for airway management: Anesthesia Complications: No Complicating Factors: No Final Airway Details Final airway type: Supraglottic Airway Successful Airway: I GelOral SGA size: 5 No Bite Block Placed Post Intubation Trauma? No Placement verified by: chest auscultation, capnography and symmetrical chest wall movement Number of attempts at approach: 1 Airway Brand: I Gel us Rosendo Medellin MD ANESTHESIA ORDERABLES Final R esult documented in this encounter Visit Diagnoses Not on filedocumented in this encounter Administered Medications Inactive Administered Medications - up to 3 most recent administrations Medication Order MAR Action Action Date Dose Rate Site dexAMETHasone (DECADRON) injection intravenous, As needed, Starting on Fri02/04/25 at 1235, Anesthesia Intra-op Given 02/04/2025 12:35 PM EDT 4 mg fentaNYL (SUBLIMAZE) injection intravenous, As needed, Starting on Fri02/04/25 at 1212, Anesthesia Intra-op Given 02/04/2025 12:12 PM EDT 100 mcg lactated ringers infusion 50 mL/hr, intravenous, Continuous, Starting on Fri02/04/25 at 1115, Pre-op, If fluid restriction is not indicated, infuse at a rate up to 5 mL/kg/hr not to exceed the total replacement volume (2 ml/kg/hr) from the time NPO status was initiated. Continued by Anesthesia 02/04/2025 12:09 PM EDT 50 mL/hr New Bag 02/04/2025 11:25 AM EDT 50 mL/hr 50 mL/hr lidocaine PF (XYLOCAINE) 20 mg/mL (2 %) injection intravenous, As needed, Starting on Fri02/04/25 at 1215, Anesthesia Intra-op Given 02/04/2025 12:15 PM EDT 100 mg midazolam (VERSED) injection intravenous, As needed, Starting on Fri02/04/25 at 1204, Anesthesia Intra-op Given 02/04/2025 12:04 PM EDT 2 mg ondansetron (PF) (ZOFRAN) injection intravenous, As needed, Starting on Fri02/04/25 at 1235, Anesthesia Intra-op Given 02/04/2025 12:35 PM EDT 4 mg propofoL (DIPRIVAN) infusion intravenous, As needed, Starting on Fri02/04/25 at 1215, Anesthesia Intra-op Given 02/04/2025 12:15 PM EDT 120 mg documented in this encounter Additional Health Concerns Assessment Noted Time PHQ-9 Depression Total Score: 0 05/20/20 22 9:00 AM EST documented as of this encounter Care Teams Brain Surgeon Relationship Specialty Start Date End Date Alejandrina Rievra MD [address] [facility] [place] [address] PCP - General Internal Medicine 09/27/24 documented as of this encounter
--- OUTSIDE RECORDS SUMMARY | 2025-02-09 16:15 | XMS_ITS | Encounter Summary ---
Author Organization [facility] Address [address] [place] [address] Care Team Providers Care Psychologist Social Name Role Phone Lb, Lilo Rosa SWIMMING POOL ATTENDANT Unavailable [phone] Reason for Visit * Reason Comments Post Op#1 Babar Barriga is a 80 y.o. male who presents for Post Op#1. DOS 02/04/2025. Patient relates he was admitted to [facility] last night.. BS 238. * Consultation (Routine) - Closed Specialty Diagnoses / Procedures Referred By Leif t Referred To Contact Podiatry Diagnoses Osteomyelitis of right foot, unspecified type (HCC) Procedures 221 ([email or web address]) - [facility] - Miguelito DE Poonam Hobson MD [address] [place] [address] Phone: tel: fax: Diego Daniels DPM [address] [place] [address] Phone: tel: fax: Referral ID Status Reason Start Date Expiration Date Visits Re quested Visits Authorized [id number] Closed 02/08/2025 02/08/2026 1 1 Encounter Details Date Type Department Care Team (Late st Contact Info) Description 02/09/2025 4:15 PM EDT Office Visit [facility] [address] [place] [address] Diego Daniels DPM [address] [place] [address] S/P foot surgery (Primary Dx); Charcot's joint of left ankle; Peripheral vascular disease; Diabetic peripheral neuropathy associated with type 2 diabetes mellitus (HCC) Social History Tobacco Use Types Packs/Day Years Used Date Smoking Tobacco: Former Cigarettes 1 30 0 06/23/1964 - 06/23/1994 Tobacco Cessation:Counseling Given: Not Answered Alcohol Use Standard Drinks/Week Comments Not Currently 0 (1 standard drink = 0.6 oz pure alcohol) Caffeine intake: 1-2 cups per day Sex and Gender Information Value Date Recorded Sex Assigned at Not on file Legal Sex Male 7:33 PM EDT Gender Identity Not on file Sexual Orientation Not on file documented as of this encounter Last Filed Vital Signs Vital Sign Reading Time Taken Comments Blood Pressure - - Pulse - - Temperature 36.8 C (98.3 F) 02/09/2025 3:49 PM EDT Respiratory Rate - - Oxygen Saturation - - Inhaled Oxygen Concentration - - Weight 68 kg (150 lb) 02/09/2025 3:49 PM EDT Height 172.7 cm (5' 8 ) 02/09/2025 3:49 PM EDT Body Mass Index 22.81 02/09/2025 3:49 PM EDT documented in this encounter Progress Notes * Diego Daniels DPM - 02/09/2025 4:15 PM EDT Images from the original note were not included. Subjective Patient ID: Babar Barriga is a 80 y.o. male who presents for Post Op#1 ( Babar Barriga is a 80 y.o. male who presents for Post Op#1. DOS 02/04/2025. Patient relates he was admitted to [facility] last night.. BS 238. ). HPI Date of surgery 02/04/2025: Partial calcanectomy and Achilles tendon resection, right lower extremity Patient presents to clinic postoperatively. He was discharged to [facility] yesterday. He is on IVvancomycin and oral Cipro for closing cultures consistent with MRSA and Pseudomonas following partial calcanectomy on the right foot. He has an incisional wound VAC intact. He also is here with knownCharcot neuroarthropathy of the left foot and sinus tract over the lateral aspect of the left foot.Nursing has been applying compression wraps and a foam pad. Review of Systems Constitutional: Positive for activity change and fatigue. Negative for appetite change. Respiratory: Negative for chest tightness and shortness of breath. Cardiovascular: Positive for leg swelling. Negative for chest pain. Musculoskeletal: Positive for gait problem. Negative for arthralgias. Skin: Negative for color change and wound. Neurological: Positive for numbness. Negative for weakness. Psychiatric/Behavioral: Negative for agitation and behavioral problems. Hematological: Does not bruise/bleed easily. Endocrine: Negative for cold intolerance and heat intolerance. Allergic/Immunologic: Negative for immunocompromised state. Medications Current Outpatient Medications: allopurinol (Zyloprim) 100 MG tablet, Take 100 mg by mouth in the morning., Disp: , Rfl: alpha tocopherol (Vitamin E) 400 units capsule, , Disp: , Rfl: amLODIPine (Norvasc) 2.5 MG tablet, Take 2.5 mg by mouth in the morning., Disp: , Rfl: ascorbic acid (Vitamin C) 250 MG chewable tablet, 1 (one) time each day at the same time, Disp: , Rfl: aspirin 81 MG EC tablet, 1 (one) time each day at the same time, Disp: , Rfl: clopidogrel (Plavix) 75 MG tablet, Take 75 mg by mouth in the morning., Disp: , Rfl: docusate sodium (Colace) 100 MG capsule, 1 (one) time each day at the same time, Disp: , Rfl: doxazosin (Cardura) 8 MG tablet, Take 4 mg by mouth at bedtime, Disp: , Rfl: doxycycline (Vibramycin) 100 MG capsule, TAKE 1 CAPSULE EVERY MORNING AND 1 CAPSULE EVERY NIGHT AT BEDTIME FOR 10 DAYS. TAKE WITH 8 OUNCES OF WATER AND DO NOT LIE DOWN FOR 30 MINUTES, Disp: 20 capsule, Rfl: 0 glipiZIDE (Glucotrol) 5 MG tablet, Take 5 mg by mouth in the morning and 5 mg in the evening. Take with meals., Disp: , Rfl: insulin glargine (Lantus) 100 UNIT/ML injection, Inject 35 Units under the skin in the morning., Disp: , Rfl: levothyroxine (Tirosint) 112 MCG capsule, Take 112 mcg by mouth in the morning., Disp: , Rfl: lisinopril 2.5 MG tablet, 1 (one) time each day at the same time, Disp: , Rfl: Methylcobalamin (S65-Oqjgao) 1 MG chewable tablet, , Disp: , Rfl: omadacycline (Nuzyra) 150 MG tablet tablet, Take 3 tablets on day 1 and day 2, then take 2 tablets daily for 12 days., Disp: 30 tablet, Rfl: 0 pantoprazole (ProtoNix) 20 MG EC tablet, Take 20 mg by mouth in the morning., Disp: , Rfl: Semaglutide (OZEMPIC, 0.25 OR 0.5 MG/DOSE, SC), Inject under the skin, Disp: , Rfl: senna-docusate (Alejandra-Colace) 8.6-50 MG tablet, Take 1 tablet by mouth in the morning and 1 tablet in the evening., Disp: , Rfl: simvastatin (Zocor) 40 MG tablet, 1 (one) time each day at the same time, Disp: , Rfl: No current facility-administered medications for this visit. Allergies Penicillins Past Surgical History Past Surgical History: Procedure Laterality Date EYE SURGERY Left OTHER SURGICAL HISTORY Skin Lesionectomy TOE AMPUTATION Right 4th toe TOE AMPUTATION Left left 5th toe Family History Family History Problem Relation Name Age of Onset Diabetes Father Cancer Father Objective Physical Exam Constitutional: General: He is not in acute distress. Appearance: He is not diaphoretic. Comments: Presents to clinic nonweightbearing in a wheelchair. Accompanied by his son. AO splint onthe right lower extremity. Cardiovascular: Comments: DP pulse: 0/4 PT pulse: 0/4 Skin temperature is cool to cold bilaterally Edema: +1 pitting left lower extremity. Mild nonpitting right lower extremity. Resting heart rate 80 Pulmonary: Effort: Pulmonary effort is normal. Comments: Tachypneic. Musculoskeletal: Cervical back: Neck supple. No rigidity. Comments: Right foot: Incisional VAC intact with adequate seal. There is a small area of fluid collection along the lateral aspect of the drape. I drained this today in the underlying skin was intactwithout irritation. I was able to reapply new drape re along the lateral portion and adequate seal was obtained again. Skin: Capillary Refill: Capillary refill takes 2 to 3 seconds. Comments: Left foot sinus tract test completely epithelialized. Significantly less edema and erythema in the left lower extremity. Neurological: Mental Status: He is alert. Comments: Protective sensation intact at 3/10 pedal sites Vibratory sensation diminished at the 1st MTP bilaterally. Psychiatric: Mood and Affect: Mood normal. Behavior: Behavior normal. Assessment/Plan ICD-10-CM 1. S/P foot surgery Z98.890 2. Charcot's joint of left ankle M14.672 3. Peripheral vascular disease I73.9 4. Diabetic peripheral neuropathy associated with type 2 diabetes mellitus (HCC) E11.42 Patient examined and evaluated. He did have some fluid buildup along the lateral aspect of his incisional wound VAC. I was able to cut through the drapery in this area to drain the fluid and apply new drape re with adequate seal. The wound VAC will stay in place for an additional week for a total of 2 weeks therapy. He will continue IV antibiotics per Infectious Disease and oral antibiotics per Infectious Disease. In regards to the left foot the sinus tract has completely healed over. I recommend Tubigrip on the left side as well as Alvarado wrap as necessary to manage fluid buildup over the area.The sinus tract test completely healed and I would only recommend covering this with a foam dressing if there is repeated drainage. As long as we manage of the fluid over this area it is unlikely that the sinus tract will reopen. Follow up in 1 week. This note was created with the assistance of a speech recognition program. While intending to generate a timely document that accurately reflects the content of the visit, no guarantee can be provided that every grammatical or spelling mistake has been or will be identified or corrected. Thank you for your understanding. Diego Daniels DPM documented in this encounter Plan of Treatment Upcoming Encounters Date Type Department Care Team (Late st Contact Info) Description 02/23/2025 4:00 PM EDT Office Visit [facility] [address] [place] [id number] Diego Daniels DPM [address] [facility] [place] [address] 03/02/2025 4:15 PM EDT Office Visit [facility] [address] [place] [address] Diego Daniels DPM [address] [place] [address] 03/07/2025 4:15 PM EDT Office Visit [facility] [address] [place] [address] Diego Daniels DPM [address] [place] [address] 03/14/2025 4:15 PM EDT [facility] [address] [place] [address] Diego Daniels DPM [address] [place] [address] documented as of this encounter Visit Diagnoses Diagnosis S/P foot surgery- Primary Other postprocedural status Charcot's joint of left ankle Peripheral vascular disease Unspecified peripheral vascular disease 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
--- OUTSIDE RECORDS SUMMARY | 2025-02-16 11:00 | XMS_ITS | Encounter Summary ---
Author Organization [facility] Address [address] [place] [address] Care Team Providers Care Cardroom Drawing Runner Name Role Phone Lb, Lilo Rosa SR. OPERATIONS MANAGER Unavailable [phone] Alejandrina Rivera MD Primary Care Provider [phone] Encounter Details Date Type Department Care Team (Late st Contact Info) Description 02/16/2025 11:00 AM EDT [facility] [address] [place] [phone] Diego Daniels DPM [address] [place], [place] [id number] Dehiscence of incision, initial encounter (Primary Dx); Ulcer of right heel and midfoot with fat layer exposed (HCC); S/P foot surgery; Charcot's joint of left ankle; Peripheral vascular disease Social History Tobacco Use Types Packs/Day Years Used Date Smoking Tobacco: Former Cigarettes 1 30 0 06/23/1964 - 06/23/1994 Alcohol Use Standard Drinks/Week Comments Not Currently 0 (1 standard drink = 0.6 oz pure alcohol) Caffeine intake: 1-2 cups per day Sex and Gender Information Value Date Recorded Sex Assigned at Not on file Legal Sex Male 7:33 PM EDT Gender Identity Not on file Sexual Orientation Not on file documented as of this encounter Progress Notes * Diego Daniels DPM - 02/16/2025 11:00 AM EDT Images from the original note were not included. Subjective Patient ID: Babar Barriga is a 80 y.o. male who presents for No chief complaint on file.. HPI Date of surgery 02/04/2025: Partial calcanectomy and Achilles tendon resection, right lower extremity Patient presents to clinic postoperatively. He has been nonweightbearing. He continues IV antibiotics per Infectious Disease. He is scheduled to see vascular in 2 weeks. Review of Systems Constitutional: Positive for activity [...] the same time, Disp: , Rfl: Methylcobalamin (G51-Oaqfem) 1 MG chewable tablet, , Disp: , [...] at the same time, Disp: , Rfl: Allergies Penicillins Past Surgical History Past Surgical History: Procedure Laterality Date EYE SURGERY Left FOOT SURGERY Left 02/04/2025 calcanectomy OTHER SURGICAL HISTORY Skin Lesionectomy TOE AMPUTATION [...] Neck supple. No rigidity. Comments: Right foot: Partial calcanectomy. Sutures intact. After removal large dehiscence noted distally measuring 9 x 1 x 1 cm. It does probe quite deep. There is no cellulitis or purulence encountered. Wound bed appears slightly granular with some necrotic slough. Skin: Capillary Refill: Capillary refill takes 2 to 3 seconds. Comments: Left foot sinus tract test completely epithelialized. Neurological: Mental Status: He is alert. Comments: Protective sensation intact at 3/10 pedal sites Vibratory sensation diminished at the 1st MTP bilaterally. Psychiatric: Mood and Affect: Mood normal. Behavior: Behavior normal. Assessment/Plan ICD-10-CM 1. Dehiscence of incision, initial encounter T81.31XA 2. Ulcer of right heel and midfoot with fat layer exposed ([facility]) L97.412 3. S/P foot surgery Z98.890 4. Charcot's joint of left ankle M14.672 5. Peripheral vascular disease I73.9 Patient examined and evaluated. Sutures removed in office. Complete dehiscence of the incision distally. Wound bed appears slightly granular with some necrotic slough. There does not seem to be any cellulitis or purulence. He will continue IV antibiotics per Infectious Disease. Today I placed a dressing including silver alginate and light compression from the base of the toes to the knee. I did provide orders for this to be changed every other day. I will order a wound VAC for him as I anticipate that he will have to try and granulate this dehisced area in. Anticipate multiple grafts to try and get this ulceration healed as well. I would like to see him back next week for follow up. This note was created with the assistance [...] Description 02/23/2025 4:00 PM EDT Office Visit [facility] [address] [place] [address] Diego Daniels DPM [address] [place], [place] [id number] 03/02/2025 4:15 PM EDT Office Visit [facility] [address] [place] [address] Diego Daniels DPM [address] [place] [address] 03/07/2025 4:15 PM EDT Office Visit [facility] [address] [place] [address] Diego Daniels DPM [address] [place] [address] 03/14/2025 4:15 PM EDT [facility] [address] [facility] [place] [address] Diego Daniels DPM [address] [place] [address] documented as of this encounter Visit Diagnoses Diagnosis Dehiscence of incision, initial encounter- Primary Ulcer of right heel and midfoot with fat layer exposed (HCC) S/P foot surgery Other postprocedural status Charcot's joint of left ankle Peripheral vascular disease Unspecified peripheral vascular disease documented in this encounter Care Teams Cardroom Drawing Runner Relationship Specialty Start Date End Date Lilo Asher NP [address] [facility] [address] [place] [address] PCP - Billy SHAH 11/21/24 Alejandrina Rivera MD [address] [place] [address] PCP - General Family Medicine 02/16/25 documented as of this encounter
--- OUTSIDE RECORDS SUMMARY | 2025-02-17 20:29 | XMS_ITS | Encounter Summary ---
Author Organization [facility] Address [address] [place] [address] Care Team Providers Care Floor Worker Transfer [place] Name Role Phone Anastasia Hammond MD Primary Care Provider Anastasia Hammond MD Unavailable Anastasia Hammond MD Primary Care Provider [phone] Unallocated, Lorenzo Provider Primary Care Provi bjorn WonderAnastasia arredondo MD Unavailable Lilo Asher BLENDER CONVEYOR OPERATOR Unavailable [phone] Alejandrina Rivera MD Primary Care Provider Encounter Details Date Type Department Care Team (Late st Contact Info) Description 10/30/2022 [facility] [address] [place] [address] Anastasia Hammond MD Social History Tobacco Use Types Packs/Day Years Used Date Smoking Tobacco: Never Assessed Sex and Gender Information Value Date Recorded Sex Assigned at Not on file Legal Sex Male 7:33 PM EDT Gender Identity Not on file Sexual Orientation Not on file documented as of this encounter Plan of Treatment Upcoming Encounters Date Type Department Care Team (Late st Contact Info) Description 02/23/2025 4:00 PM EDT [facility] [address] [place] [address] Diego Daniels, DPM [address] [place] [address] 03/02/2025 4:15 PM EDT Office [facility] [address] [place] [address] Diego Daniels DPM [address] [place] [address] 03/07/2025 4:15 PM EDT Office [facility] [address] [place] [address] Diego Daniels DPM [address] [place] [address] 03/14/2025 4:15 PM EDT Office Visit [facility] [address] [place] [address] Diego Daniels DPM [address] [place] [address] documented as of this encounter Visit Diagnoses Not on filedocumented in this encounter Care Teams Floor Worker Transfer [place] Relationship Specialty Start Date End Date Anastasia Hammond MD PCP - General Family Medicine 11/14/22 11/19/22 Anastasia Hammond MD PCP - ACO Reach 08/22/23 07/29/24 Anastasia Hammond MD PCP - General Family Medicine 11/19/23 11/19/23 Unallocated, Lorenzo Ruggiero MD [address] [place] [address] PCP - General Family Medicine 11/20/23 01/12/25 Anastasia Hammond MD PCP - ACO Reach 08/06/24 09/23/24 Lilo Asher NP [address] [place] [address] [address] [place] [address] PCP - Billy SHAH 11/21/24 Alejandrina Rivera MD [address] [place], [place] [id number] PCP - General Family Medicine 02/16/25 documented as of this encounter
--- OUTSIDE RECORDS SUMMARY | 2025-02-17 20:29 | XMS_ITS | Encounter Summary ---
Author Organization [facility] Address [id number] [address] [place] [address] Care Team Providers Care Helicopter Utility Aircrewman Name Role Phone Alejandrina Rivera MD Primary Care Provider [phone] Encounter Details Date Type Department Care Team (Late Contact Info) Description 01/20/2025 Orders Only [facility] [address] [place] [address] External, Scanning Provider Social History Tobacco Use Types Packs/Day Years Used Date Smoking Tobacco: Former Smokeless Tobacco: Never Alcohol Use Standard Drinks/Week Comments No 0 (1 standard drink = 0.6 oz pur e alcohol) [facility] Utilities Answer Date Recorded In the past 12 months has e electric, gas, oil, or water company threatened to shut off services in your home? No 09/27/2024 PHQ-2 Answer Date Recorded Total Score 0 05/20/2022 PRAPARE - Transportation Answer Date Re corded In the past 12 months, has l ack of transportation kept you from medical appointments or from getting medications? No 12/2024 In the past 12 months, has l ack of transportation kept you from meetings, work, or from getting things needed for daily living? No 09/27/2024 Housing Instability Answer Date Recorde d Are you worried or concerned that in the next two months you may not have stable housing that you own, rent or stay in as a part of a household? No 09/27/2024 Childcare Answer Date Recorded Childcare Unknown 12/02/2018 Employment Answer Date Recorded Employment Unknown 12/02/2018 Hunger Screening Answer Date Recorded Within the past 12 months we worried whether our food would run out before we got money to buy more. Never True 09/27/2024 Within the past 12 months th e food we bought just didn't last and we didn't have money to get more. Never True 09/27/2024 Purpose - Life Answer Date Recorded Purpose [...] [facility] [address] [place] [address] Delfino Lake MD [address] [place] [address] documented as of this encounter Procedures Procedure Name Priority Date/Time Associated Diagnosis Comments VASC VENOUS DUPLEX LOWER BILATERAL Routine 01/18/2025 10:34 AM EDT documented in this encounter Results * Vas venous duplex lwr bilateral (01/18/2025 10:34 AM EDT) Anatomical Region Laterality Modality Vascular Bilateral Ultrasound us Scanning Provider External CV VASCULAR ORDERABLE S Final Result documented in this encounter Visit Diagnoses Not on filedocumented in this encounter Additional Health Concerns Assessment Noted Time PHQ-9 Depression Total Score: 0 05/20/20 22 9:00 AM EST documented as of this encounter Care Teams Helicopter Utility Aircrewman Relationship Specialty Start Date End Date Alejandrina Rivera MD [address] [place] [address] PCP - General Internal Medicine 09/27/24 documented as of this encounter
--- OUTSIDE RECORDS SUMMARY | 2025-02-17 20:31 | XMS_ITS | Encounter Summary ---
Author Organization [facility] Address [address] [place] [address] Care Team Providers Care Flash Welding Machine Operator Name Role Phone Unallocated, Noms Provider Primary Care Provi bjorn Lilo Asher PET CARE ASSISTANT Unavailable [phone] Alejandrina Rivera MD Primary Care Provider [phone] Encounter Details Date Type Department Care Team (Late st Contact Info) Description 11/29/2024 Abstract [facility] [address] [place] [address] Diego Daniels DPM [address] [place] [address] Social History Tobacco Use Types Packs/Day Years [...] EDT Office Visit [facility] [address] [place] [address] Diego Daniels DPM [address] [place] [address] 03/02/2025 4:15 PM EDT Office Visit [facility] [address] [place] [address] Diego Daniels DPM [address] [place] [address] 03/07/2025 4:15 PM EDT Office Visit [facility] [address] [place] [address] Diego Daniels DPM [address] [place] [address] 03/14/2025 4:15 PM EDT Office Visit [facility] [address] [place] [address] Diego Daniels DPM [address] [place] [address] documented as of this encounter Visit Diagnoses Not on filedocumented in this encounter Care Teams Flash Welding Machine Operator Relationship Specialty Start Date End Date Unallocated, Luis E Ruggiero MD [address] [place] [address] PCP - General Family Medicine 11/20/23 01/12/25 Lilo Asher PET CARE ASSISTANT [address] [facility] [address] [place] [address] PCP - Billy SHAH 11/21/24 Alejandrina Rivera MD [address] [place] [address] PCP - General Family Medicine 02/16/25 documented as of this encounter
--- OUTSIDE RECORDS SUMMARY | 2025-02-17 20:31 | XMS_ITS | Encounter Summary ---
Author Organization [employer] Sys tem Address [id number] [address] [place] [address] Care Team Providers Care Saddle Tree Stitcher Name Role Phone Alejandrina Rivera MD Primary Care Provider [phone] Reason for Visit * Reason Onset Date Comments clearance for surgery tomorrow 02/02/2025 Encounter Details Date Type Department Care Team (Late st Contact Info) Description 02/02/2025 [facility] [address] [place] [address] Ariella Hubbard, CALI clearance for surgery tomorrow Social History Tobacco Use Types Packs/Day Years Used Date Smoking Tobacco: Former Smokeless Tobacco: Never Alcohol Use Standard Drinks/Week Comments No 0 (1 standard drink = 0.6 oz pur e alcohol) [facility] Utilities Answer Date Recorded In the past 12 months has [employer], gas, oil, or water [employer] threatened to shut off services in your [...] on file documented as of this encounter Miscellaneous Notes * Telephone Encounter - Ariella Hubbard RN - 02/02/2025 8:53 AM EDT R/c'd call from [facility] (P: [phone], F:[phone]) about clearance for surgery tomorrow. Vascular patient, RN off today. Message to T to advise * Telephone Encounter - Zeina Grace PA-C - 02/02/2025 8:53 AM EDT I do not see anything scanned in his chart about preop clearance, but we are aware for plans for this procedure. Do they need recs about holding meds? Or just vascular clearance? * Telephone Encounter - Zeina Grace PA-C - 02/02/2025 8:53 AM EDT He's cleared from vascular standpoint Thank you! * Telephone Encounter - Ariella Hubbard RN - 02/02/2025 8:53 AM EDT Clearance called to Dr. Daniels's office and sent via fax. * Telephone Encounter - Venus Martins RN - 02/02/2025 8:53 AM EDT Received a call from Magda at [facility] podiatry. She states anesthesia cancelled case as patient BS wastoo high and they are now requesting cardiac clearance. Patient does not see [facility] for [facility]ology. Unsure if patient sees [place] [facility]. Per Magda, Dr Danielswould call Dr Lake to advise if he would be willing to give cardiac clearance to patient as they want to do the procedure tomorrow. Clearance should be faxed to: [phone] and [phone] ATTN: Julia documented in this encounter Plan of Treatment Upcoming Encounters Date Type Department Care Team (Late st Contact Info) Description 03/08/2025 3:20 PM EDT Office Visit [facility] [address] [place] [address] Delfino Lake MD [address] [place] [address] documented as of this encounter Goals Goal Patient Goal Type Associated Problems Recent Progress Patient-Stated? Author SN[facility] General Yes Desire Wilhelm LSW Note: Evaluation of progress towards goal: await surgery, possibly tomorrow documented as of this encounter Visit Diagnoses Not on filedocumented in this encounter Additional Health Concerns Assessment Noted Time PHQ-9 Depression Total Score: 0 05/20/20 22 9:00 AM EST documented as of this encounter Care Teams Saddle Tree Stitcher Relationship Specialty Start Date End Date Alejandrina Rivera MD [address] [place] [address] PCP - General Internal Medicine 4/7/25 documented as of this encounter
--- OUTSIDE RECORDS SUMMARY | 2025-02-17 20:31 | XMS_ITS | Encounter Summary ---
Author Organization [facility] [email or web address] Sys tem Address [facility] [id number] [address] [place] [address] Care Team Providers Care Forest Practices Field Coordinator Name Role Phone Alejandrina Rivera MD Primary Care Provider [phone] Encounter Details Date Type Department Care Team (Late Contact Info) Description 12/28/2024 Results Follow-Up [facility] [address] [place] [address] Venus Martins, CALI Vas art doppler lwr bilat mult lev/PVR Social History Tobacco Use Types Packs/Day Years Used Date Smoking Tobacco: Former Smokeless Tobacco: Never Alcohol Use Standard Drinks/Week Comments No 0 (1 standard drink = 0.6 oz pur e alcohol) [facility] Utilities Answer Date Recorded In the past 12 months has e [employer], gas, oil, or water [employer] threatened to shut off services in your [...] [facility] [address] [place] [address] Delfino Lake MD [address] [place] [address] documented as of this encounter Visit Diagnoses Not on filedocumented in this encounter Additional Health Concerns Assessment Noted Time PHQ-9 Depression Total Score: 0 05/20/20 22 9:00 AM EST documented as of this encounter Care Teams Forest Practices Field Coordinator Relationship Specialty Start Date End Date Alejandrina Rivera MD [address], [address] [place] [address] PCP - General Internal Medicine 09/27/24 documented as of this encounter
--- OUTSIDE RECORDS SUMMARY | 2025-02-17 20:31 | XMS_ITS | Encounter Summary ---
Author Organization [employer] Address [facility] [id number] [address] [place] [address] Care Team Providers Care Maintenance Analyst Name Role Phone Alejandrina Rivera MD Primary Care Provider [phone] Encounter Details Date Type Department Care Team (Latest Contact Info) Description 02/03/2025 Travel Social History Tobacco Use Types Packs/Day Years Used Date Smoking Tobacco: Former Smokeless Tobacco: Never Alcohol Use Standard Drinks/Week Comments No 0 (1 standard drink = 0.6 oz pur e alcohol) [facility] Utilities Answer Date Recorded In the [...] on file documented as of this encounter Functional Status documented as of this encounter Plan of Treatment Upcoming Encounters Date Type Department Care Team (Late st Contact Info) Description 03/08/2025 3:20 PM EDT Office Visit [facility] [address] [place] [address] Delfino Lake MD [address] [place] [address] documented as of this encounter Goals Goal [...] documented as of this encounter Care Teams Maintenance Analyst Relationship Specialty Start Date End Date Alejandrina Rivera MD [address], [address] [place] [address] PCP - General Internal Medicine 09/27/24 documented as of this encounter
--- OUTSIDE RECORDS SUMMARY | 2025-02-17 20:31 | XMS_ITS | Encounter Summary ---
Author Organization [facility] Address [address] [place] [address] Care Team Providers Care Cafeteria Manager Name Role Phone Wondermaria elenaAnastasia MD Unavailable Anastasia Hammond MD Primary Care Provider [phone] Unallocated, Lorenzo Ruggiero MD Primary Care Provi bjorn WonderAnastasia arredondo MD Unavailable [phone] Lilo Asher ADVERTISING DISPATCH CLERKS SUPERVISOR Unavailable [phone] Alejandrina Rivera MD Primary Care Provider [phone] Encounter Details Date Type Department Care Team (Late Contact Info) Description 12/05/2022 Abstract [facility] [address] [place] [address] Diego Daniels, DPMykel [address] [place], [place] [id number] Social History Tobacco Use Types Packs/Day Years [...] Encounters Date Type Department Care Team (Late Contact Info) Description 02/23/2025 4:00 PM EDT [facility] [address] [place] [address] Diego Daniels DPM [address] [place] [address] 03/02/2025 4:15 PM EDT Office Visit [facility] [address] [place] [address] Diego Daniels DPM [address] [place] [address] 03/07/2025 4:15 PM EDT Office Visit [facility] [address] [place] [address] Diego Daniels DPM [address] [place] [address] 03/14/2025 4:15 PM EDT Office Visit [facility] [address] [place] [address] Diego Daniels DPM [address] [place] [address] documented as of this encounter Visit Diagnoses Not on filedocumented in this encounter Care Teams Cafeteria Manager Relationship Specialty Start Date End Date Anastasia Hammond MD PCP - ACO Reach 08/22/23 07/29/24 Anastasia Hammond MD PCP - General Family Medicine 11/19/23 11/19/23 Unallocated, Lorenzo Ruggiero MD [address] [place] [address] PCP - General Family Medicine 11/20/23 01/12/25 Anastasia Hammond MD PCP - ACO Reach 08/06/24 09/23/24 Lilo Asher NP [address] [place] [address] [address] [place] [address] PCP - Billy SHAH 11/21/24 Alejandrina Rivera MD [facility] [address] [address] PCP - General Family Medicine 02/16/25 documented as of this encounter
--- OUTSIDE RECORDS SUMMARY | 2025-02-17 20:31 | XMS_ITS | Encounter Summary ---
Author Organization [facility] [employer] s tem Address [id number] [address] [place] [address] Care Team Providers Care Finishing Machine Operator Name Role Phone Alejandrina Rivera MD Primary Care Provider [phone] Encounter Details Date Type Department Care Team (Latest Contact Info) Description 02/01/2025 Results [facility] [address] [place] [address] Venus Martins, CALI CBC auto differential Social History Tobacco Use Types Packs/Day Years Used Date Smoking Tobacco: Former Smokeless Tobacco: Never Alcohol Use Standard Drinks/Week Comments No 0 (1 standard drink = 0.6 oz pur e alcohol) [facility] Utilities Answer Date Recorded In the past 12 months has e [employer], gas, oil, or water company threatened to [...] [facility] [address] [place] [address] Delfino Lake MD [address] [place] [address] documented as of this encounter Goals Goal [...] documented as of this encounter Care Teams Finishing Machine Operator Relationship Specialty Start Date End Date Alejandrina Rivera MD [address], [address] [place] [address] PCP - General Internal Medicine 09/27/24 documented as of this encounter
--- OUTSIDE RECORDS SUMMARY | 2025-02-17 20:31 | XMS_ITS | Encounter Summary ---
Author Organization [facility] Address [facility] [id number] [address] [place] [address] Care Team Providers Care Seat Builder Name Role Phone Alejandrina Rivera MD Primary Care Provider [phone] Encounter Details Date Type Department Care Team (Latest Contact Info) Description 11/22/2024 Lab Requisition [facility] [address] [place] [address] Delfino Lake MD [address] [place] [address] Encounter for other preprocedural examination Social History Tobacco Use Types Packs/Day Years Used Date Smoking Tobacco: Former Smokeless Tobacco: Never Alcohol Use Standard Drinks/Week Comments No 0 (1 standard drink = 0.6 oz pur e alcohol) [facility] Utilities Answer Date Recorded In [...] Description 03/08/2025 3:20 PM EDT Office Visit [facility] [address] [place] [address] Delfino Lake MD [address] [place] [address] documented as of this encounter Procedures Procedure Name Priority Date/Time Associated Diagnosis Comments CBC (NO DIFF) Routine 11/22/2024 10:15 AM EDT Encounter for other preprocedural examination BASIC METABOLIC PANEL Routine 11/22/2024 10:15 AM EDT Encounter for other preprocedural examination documented in this encounter Results * (ABNORMAL) CBC without diff (11/22/2024 10:15 AM EDT) WBC 9.6 4 - 11 x10E9/L 11/22/2024 11:51 AM EDT [facility] RBC Count 2.93(L) 4.1 - 5.7 X10E12/L 11/22/2024 11:51 AM EDT [facility] Hemoglobin 8.4(L) 13 - 17 g/dL 11/22/2024 11:51 AM EDT [facility] Hematocrit 24.9(L) 39 - 50 % 11/22/2024 11:51 AM EDT [facility] MCV 85 80 - 100 fL 11/22/2024 11:51 AM EDT [facility] MCH 28.8 27 - 34 pg 11/22/2024 11:51 AM EDT [facility] MCHC 33.9 32 - 36 g/dL 11/22/2024 11:51 AM EDT [facility] RDW 14.3 11.5 - 15 % 11/22/2024 11:51 AM EDT [facility] Platelet Count 321 150 - 450 X10E9/L 11/22/2024 11:51 AM EDT [facility] MPV 7.9 7 - 12 fL 11/22/2024 11:51 AM EDT [facility] Blood Venous blood / Unknown 11/22/2024 10:15 AM EDT 11/22/2024 11:20 AM EDT us Delfino Lake MD LAB BLOOD ORDERABLES Final Res ult [facility] [address] [place] [address], [place] * (ABNORMAL) Basic Metabolic Panel (11/22/2024 10:15 AM EDT) SODIUM 131(L) 134 - 146 mmol/L 11/22/2024 11:34 AM EDT [facility] POTASSIUM 4.0 3.5 - 5.0 mmol/L 11/22/2024 11:34 AM EDT [facility] CHLORIDE 100 98 - 109 mmol/L 11/22/2024 11:34 AM EDT [facility] CARBON DIOXIDE 23 22 - 32 mmol/L 11/22/2024 11:34 AM EDT [facility] ANION GAP 8 5 - 15 mmol/L 11/22/2024 11:34 AM EDT [facility] BLOOD UREA NITROGEN 32(H) 5 - 27 mg/dL 11/22/2024 11:34 AM EDT [facility] CREATININE 2.22(H) 0.70 - 1.20 mg/dL 11/22/2024 11:34 AM EDT [facility] Comment:METHOD TRACEABLE TO IDOH STANDARD GLUCOSE 169(H) 65 - 99 mg/dL 11/22/2024 11:34 AM EDT [facility] CALCIUM 8.6 8.5 - 10.5 mg/dL 11/22/2024 11:34 AM EDT [facility] EGFR Non-Race Dependent 29(L) >=60 ml/min/1.7 3sq.m 11/22/2024 11:34 AM EDT [facility] Comment: eGFR not reported due to non-numeric value for Creatinine. Reported eGFR is based on the CKD-EPI 2020 equation that does not use a race coefficient. Blood Venous blood / Unknown 11/22/2024 10:15 AM EDT 11/22/2024 11:20 AM EDT us Delfino Lake MD LAB BLOOD ORDERABLES Final Res ult [facility] [address] [place] [address], documented in this encounter Visit Diagnoses Diagnosis Encounter for other preprocedural examination documented in this encounter Additional Health Concerns Assessment Noted Time PHQ-9 Depression Total Score: 0 05/20/20 22 9:00 AM EST documented as of this encounter Care Teams Seat Builder Relationship Specialty Start Date End Date Alejandrian Rivera MD [address] [facility], 1st [place] [address] PCP - General Internal Medicine 09/27/24 documented as of this encounter
--- OUTSIDE RECORDS SUMMARY | 2025-02-17 20:31 | XMS_ITS | Encounter Summary ---
Author Organization [facility] Address [address] [place] [address] Care Team Providers Care Machine Assembler Name Role Phone Unallocated, Noms Provider Primary Care Provi bjorn Lilo Asher SALES SUPPORT ASSOCIATE Unavailable [phone] Alejandrina Rivera MD Primary Care Provider [phone] Encounter Details Date Type Department Care Team (Late st Contact Info) Description 10/20/2024 Abstract [facility] [address] [place] [address] Unallocated, Noms Provider, [address] [place] [address] Social History Tobacco Use Types Packs/Day Years [...] Description 02/23/2025 4:00 PM EDT Office Visit [facility] [address] [place] [address] Diego Daniels, DPM [address] [place] [address] 03/02/2025 4:15 PM EDT Office Visit [facility] [address] [place] [address] Diego Daniels DPM [address] [place] [address] 03/07/2025 4:15 PM EDT Office Visit [facility] [address] [place] [address] Diego Daniels DPM [address] [place] [address] 03/14/2025 4:15 PM EDT Office Visit [facility] [address] [place] [address] Diego Daniels DPM [address] [place] [address] documented as of this encounter Visit Diagnoses Not on filedocumented in this encounter Care Teams Machine Assembler Relationship Specialty Start Date End Date Unallocated, Lorenzo Ruggiero MD [address] [place] [address] PCP - General Family Medicine 11/20/23 01/12/25 Lilo Asher, SALES SUPPORT ASSOCIATE [address] [place] [address] PCP - Billy SHAH 11/21/24 Alejandrina Rivera MD [address] [place] [address] PCP - General Family Medicine 02/16/25 documented as of this encounter
--- OUTSIDE RECORDS SUMMARY | 2025-02-17 20:31 | XMS_ITS | Encounter Summary ---
Author Organization [facility] Address [address] [place] [address] Care Team Providers Care Diamond Picker Name Role Phone Unallocated, Noms Provider Primary Care Provi bjorn Lilo Asher COAL CAGER Unavailable [phone] Alejandrina Rivera MD Primary Care Provider [phone] Encounter Details Date Type Department Care Team (Late st Contact Info) Description 10/06/2024 Abstract [facility] [address] [place] [address] Diego Daniels DPM [address] [place] [address] Social History Tobacco Use Types [...] Visit [facility] [address] [place] [address] Diego Daniels DPM [address] [place] [address] 03/02/2025 4:15 PM EDT Office Visit [facility] [address] [place] [address] Diego Daniels DPM [address] [place] [address] 03/07/2025 4:15 PM EDT Office Visit [facility] [address] [place] [address] Diego Daniels DPM [address] [place] [address] 03/14/2025 4:15 PM EDT Office Visit [facility] [address] [place] [address] Diego Daniels DPM [address] [place] [address] documented as of this encounter Visit Diagnoses Not on filedocumented in this encounter Care Teams Diamond Picker Relationship Specialty Start Date End Date Unallocated, Luis E Ruggiero MD [address] [place] [address] PCP - General Family Medicine 11/20/23 01/12/25 Lilo Asher COAL CAGER [address] [facility] [address] [place] [address] PCP - Billy SHAH 11/21/24 Alejandrina Rivera MD [address] [place] [address] PCP - General Family Medicine 02/16/25 documented as of this encounter
--- OUTSIDE RECORDS SUMMARY | 2025-02-17 20:31 | XMS_ITS | Encounter Summary ---
Author Organization [facility] Address [address] [place] [address] Care Team Providers Care Shirt Closer Name Role Phone Unallocated, Noms Provider Primary Care Provi bjorn Lilo Asher AGRICULTURAL MECHANIC Unavailable [phone] Alejandrina Rivera MD Primary Care Provider [phone] Encounter Details Date Type Department Care Team (Late st Contact Info) Description 10/13/2024 Abstract [facility] [address] [place] [address] Diego Daniels DPM [address] [place] [address] Social History Tobacco Use Types [...] Visit [facility] [address] [place] [address] Diego Daniels DPM [address] [place] [address] 03/02/2025 4:15 PM EDT Office Visit [facility] [address] [place] [address] Diego Daniels DPM [address] [place] [address] 03/07/2025 4:15 PM EDT Office Visit [facility] [address] [place] [address] Diego Daniels DPM [address] [place] [address] 03/14/2025 4:15 PM EDT Office Visit [facility] [address] [place] [address] Diego Daniels DPM [address] [place] [address] documented as of this encounter Visit Diagnoses Not on filedocumented in this encounter Care Teams Shirt Closer Relationship Specialty Start Date End Date Unallocated, Luis E Ruggiero MD [address] [place] [address] PCP - General Family Medicine 11/20/23 01/12/25 Lilo Asher AGRICULTURAL MECHANIC [address] [facility] [address] [place] [address] PCP - Billy SHAH 11/21/24 Alejandrina Rivera MD [address] [place] [address] PCP - General Family Medicine 02/16/25 documented as of this encounter
--- OUTSIDE RECORDS SUMMARY | 2025-02-17 20:32 | XMS_ITS | Encounter Summary ---
Author Organization [facility] Address [address] [place] [address] Care Team Providers Care Buffing Wheel Operator Name Role Phone ChinoAnastasia arredondo MD Unavailable [phone] Unallocated, Luis E Ruggiero MD Primary Care Provi bjorn Anastasia Hammond MD Unavailable Lilo Asher NP Unavailable [phone] Alejandrina Rivera MD Primary Care Provider [phone] Encounter Details Date Type Department Care Team (Late st Contact Info) Description 01/26/2024 Abstract [facility] [address] [place] [address] Diego Daniels, DPM [address] [place], [place] [address] Social History Tobacco Use Types Packs/Day Years [...] 02/23/2025 4:00 PM EDT Office Visit [facility] [address] [place] [address] Diego Daniels DPM [address] [place] [address] 03/02/2025 4:15 PM EDT Office Visit [facility] [address] [place] [address] Diego Daniels DPM [address] [place] [address] 03/07/2025 4:15 PM EDT Office Visit [facility] [address] [place] [address] Diego Daniels DPM [address] [place] [address] 03/14/2025 4:15 PM EDT Office Visit [facility] [address] [place] [address] Diego Daniels DPM [address] [place] [address] documented as of this encounter Visit Diagnoses Not on filedocumented in this encounter Care Teams Buffing Wheel Operator Relationship Specialty Start Date End Date Anastasia Hammond MD PCP - ACO Reach 08/22/23 07/29/24 Unallocated, Luis E Ruggiero MD [address] [place] [address] PCP - General Family Medicine 11/20/23 01/12/25 Anastasia Hammond MD PCP - ACO Reach 08/06/24 09/23/24 Lilo Asher, HARDIK [address] [place] [address] [address] [place] [address] PCP - Billy SHAH 11/21/24 Alejandrina Rivera MD [address] [place] [address] PCP - General Family Medicine 02/16/25 documented as of this encounter
--- OUTSIDE RECORDS SUMMARY | 2025-02-17 20:32 | XMS_ITS | Encounter Summary ---
Author Organization [facility] [facility] tem Address [id number] [address] [place] [address] Care Team Providers Care Radio Intelligence Operator Name Role Phone Alejandrina Rivera MD Primary Care Provider [phone] Reason for Visit * Reason Onset Date Comments Transition Of Care 10/24/2022 Encounter Details Date Type Department Care Team (Late st Contact Info) Description 10/24/2022 Telephone [facility] [address] [place] [address] [place] [address] Aubree Whitten RN Transition Of Care Social History Tobacco Use Types Packs/Day Years Used Date Smoking Tobacco: Former Smokeless Tobacco: Never Alcohol Use Standard Drinks/Week Comments No 0 (1 standard drink = 0.6 oz pur e alcohol) PHQ-2 Answer Date Recorded Total Score 0 05/20/2022 Childcare Answer Date Recorded Childcare Unknown 12/02/2018 Employment Answer Date Recorded Employment Unknown 12/02/2018 Purpose - Life Answer Date Recorded Purpose and direction in life Unknown Sex and Gender Information Value Date Recorded Sex Assigned at Not on file Legal Sex Male 11:54 AM EDT Gender Identity Not on file Sexual Orientation Not on file documented as of this encounter Functional Status documented as of this encounter Miscellaneous Notes * Telephone Encounter - Aubree Whitten RN - 10/24/2022 9:50 AM EDT Transition of Care Additional Questions/Concerns Requiring PCP Follow-Up: Patient reports he will call and schedule a hosp f/u appt with Anthony MCCULLOUGH after the surgery. This documentation is being used for Transition of Care purposes: Yes Goal: Patient will demonstrate a safe transition from Hospital to Home Diagnosis on Discharge: Constipation Abdominal Pain Discharge Specialty: Gastroenterology Name of Discharging Facility: [facility] Date of Facility Discharge: 10/22/2022 - 10/23/2022 Date of Interactive Contact and Name of Correctional Counselor/Case Manager: 5.4 at 9:51 CN spoke to patient regarding his care, health and medications Medication Review Completed: Pending provider review Yes - Medications ordered obtained and reviewed. Patient verbalizes appropriate use of START taking: GLYCOLAX ASK how to take: LANTUS 100 unit/mL injection METFORMIN 500 mg tablet Medication Reconciliation Questions/Concerns: None at this time. Follow Up Appointments with Providers: Primary: MONET Carranza Specialty: Office visit with Anthony MCCULLOUGH 5.30 at 9:45 Specialty: Amputation with Dr. Daniels (DP) 5.5 Review of Pending Lab/Diagnostic Tests and Plan for Completion: No pending lab/diagnostic test noted in the discharge summary. Assessment and Support of Treatment Regimen Adherence and Medication Management: Patient states I am doing as well as can be expected . Informed schedule for ulceration of part of left foot surgery tomorrow. Informed no BM today but had several loose stool last night. He has not checked a BS yet this AM. We discussed importance of checking BS AC and HS and recordingand taking record to physician's office appointments Long-term effects of controlled DM on the body discussed with the patient. Eating, drinking and urinating without any complications. Instruct on a heart healthy diet and increase fluids/fibers. Says he has no issue financially with being able to obtain medications or foods. Patient is independent with her medications and treatment regimen. Education Provided by [facility] to Support Self-Management, Independent Living and ADLs: Education given on stroke, CP, meds, diet, infection prevention, safety and fall precautions, follow-up appt and d/cinstruction reviewed Patient given the Contact information for the office Contact Manager Navigator Dunia Gamboa RN . Explained that [facility] will be available to provide assistance for a minimum of 30 days post discharge.Encouraged patient to call for assistance as needed. Instruct to call 911 for CP, Severe SOB or symptoms of CVA. Communication with Home Health Agencies and Other Services Utilized/Needed by the Patient: Patient discharge home self-care and support of family. documented in this encounter Plan of Treatment Upcoming Encounters Date Type Department Care Team (Late st Contact Info) Description 03/08/2025 3:20 PM EDT Office Visit [facility] [address] [place] [address] Delfino Lake MD [address] [place] [address] documented as of this encounter Visit Diagnoses Not on filedocumented in this encounter Additional Health Concerns Assessment Noted Time PHQ-9 Depression Total Score: 0 05/20/20 22 9:00 AM EST documented as of this encounter Care Teams Radio Intelligence Operator Relationship Specialty Start Date End Date Alejandrina Rivera MD [address] [place] [address] PCP - General Internal Medicine 09/27/24 documented as of this encounter
--- OUTSIDE RECORDS SUMMARY | 2025-02-17 20:32 | XMS_ITS | Encounter Summary ---
Author Organization [facility] tem Address [id number] [address] [place] [address] Care Team Providers Care Cardiographer Name Role Phone Alejandrina Rivera MD Primary Care Provider [phone] Encounter Details Date Type Department Care Team ([facility] Contact Info) Description 05/16/2021 Orders Only [facility] [address] [place] [address] [place] [address] Ref Prov, [place] [address] Social History Tobacco Use Types Packs/Day Years Used Date Smoking Tobacco: Former Smokeless Tobacco: Never Alcohol Use Standard Drinks/Week Comments No 0 (1 standard drink = 0.6 oz pur e alcohol) PHQ-2 Answer Date Recorded Total Score 0 05/15/2021 Childcare Answer Date Recorded Childcare Unknown 12/02/2018 Employment Answer Date Recorded Employment Unknown 12/02/2018 Purpose - Life Answer Date Recorded Purpose and direction in life Unknown Sex and Gender Information Value Date Recorded Sex Assigned at Not on file Legal Sex Male 11:54 AM EDT Gender Identity Not on file Sexual Orientation Not on file COVID-19 Exposure Response Date Recorded In the last month, have you been in contact with someone who was confirmed or suspected to have Coronavirus / COVID-19? No / Unsure 05/15/2021 3:12 PM EST documented as of this encounter Plan of Treatment Upcoming Encounters Date Type Department Care Team ([facility] Contact Info) Description 03/08/2025 3:20 PM EDT Office Visit [facility] [address] [place] [address] Delfino Lake MD [address] [place] [address] documented as of this encounter Procedures Procedure Name Priority Date/Time Associated Diagnosis Comments MULTIPLE LABS Routine 05/16/2021 documented in this encounter Results * Multiple labs (05/16/2021) us Not In System Ref Prov MD IMAGING Final Res ult MANUALLY TRANSCRIBED RESULTS documented in this encounter Visit Diagnoses Not on filedocumented in this encounter Additional Health Concerns Assessment Noted Time PHQ-9 Depression Total Score: 0 05/15/20 21 3:34 PM EST documented as of this encounter Care Teams Cardiographer Relationship Specialty Start Date End Date Alejandrina Rivera MD [address] [place] [address] PCP - General Internal Medicine 09/27/24 documented as of this encounter
--- OUTSIDE RECORDS SUMMARY | 2025-02-17 20:32 | XMS_ITS | Encounter Summary ---
Author Organization [facility] Address [address] [place] [address] Care Team Providers Care Minor League Baseball Player Name Role Phone Lb, Lilo Rosa MOLD TECHNICIAN Unavailable [phone] Alejandrina Rivera MD Primary Care Provider [phone] Encounter Details Date Type Department Care Team (Late st Contact Info) Description 02/16/2025 Bamboo flowsheet [facility] [address] [place] [address] Diego Daniels DPM [address] [place], [place] [id number] Social History Tobacco Use Types Packs/Day Years [...] 02/23/2025 4:00 PM EDT Office [facility] [address] [place] [address] Diego Daniels DPM [address] [place], [place] [id number] 03/02/2025 4:15 PM EDT Office Visit [facility] [address] [place] [address] Diego Daniels DPM [address] [place] [address] 03/07/2025 4:15 PM EDT Office Visit [facility] [address] [place] [address] Diego Daniels DPM [address] [place] [address] 03/14/2025 4:15 PM EDT Office Visit [facility] [address] [place] [address] Dieog Daniels DPM [address] [place] [address] documented as of this encounter Visit Diagnoses Not on filedocumented in this encounter Care Teams Minor League Baseball Player Relationship Specialty Start Date End Date Lilo Asher MOLD TECHNICIAN [address] [facility] [address] [place] [address] PCP - Billy SHAH 11/21/24 Alejandrina Rivera MD [address] [place] [address] PCP - General Family Medicine 02/16/25 documented as of this encounter
--- OUTSIDE RECORDS SUMMARY | 2025-02-17 20:32 | XMS_ITS | Clinical Summary ---
Author Organization [facility] Address [address] [place] [address], [address] [place] [address] Care Team Providers Care Heel Seam Rubber Name Role Phone Unavailable Primary Care Provider Unavailabl e Social History Tobacco Use Types Packs/Day Years Used Date Smoking Tobacco: Never Assessed Sex and Gender Information Value Date Recorded Sex Assigned at Not on file Legal Sex Male 11:35 AM EST Gender Identity Not on file Sexual Orientation Not on file Plan of Treatment Not on file
--- OUTSIDE RECORDS SUMMARY | 2025-02-17 20:32 | XMS_ITS | Encounter Summary ---
Author Organization [facility] Address [address] [place] [address] Care Team Providers Care Body Sander Name Role Phone Lb, Lilo Rosa CLERK FUNERAL DETAIL Unavailable [phone] Alejandrina Rivera MD Primary Care Provider [phone] Encounter Details Date Type Department Care Team (Late st Contact Info) Description 02/16/2025 Abstract [facility] [address] [place] [address] Diego Daniels DPM [address] [place], [place] [id number] Social History Tobacco Use Types Packs/Day Years [...] Visit [facility] [address] [place] [address] Diego Daniels DPM [address] [place], [place] [phone] 03/02/2025 4:15 PM EDT Office Visit [facility] [address] [place] [address] Diego Daniels DPM [address] [place] [address] 03/07/2025 4:15 PM EDT Office Visit [facility] [address] [place] [address] Diego Daniels DPM [address] [place] [address] 03/14/2025 4:15 PM EDT Office Visit [facility] [address] [place] [address] Diego Daniels DPM [address] [place] [address] documented as of this encounter Visit Diagnoses Not on filedocumented in this encounter Care Teams Body Sander Relationship Specialty Start Date End Date Lilo Asher CLERK FUNERAL DETAIL [address] [facility] [address] [place] [address] PCP - Billy SHAH 11/21/24 Alejandrina Rivera MD [address] [place] [address] PCP - General Family Medicine 02/16/25 documented as of this encounter
--- OUTSIDE RECORDS SUMMARY | 2025-02-17 20:32 | XMS_ITS | Encounter Summary ---
Author Organization [facility] Address [address] [place] [address] Care Team Providers Care Solvent Recoverer Name Role Phone ChinoAnastasia arredondo MD Unavailable Unallocated, Luis E Ruggiero MD Primary Care Provi bjorn Anastasia Hammodn MD Unavailable Lilo Asher NP Unavailable [phone] Alejandrina Rivera MD Primary Care Provider Encounter Details Date Type Department Care Team (Late st Contact Info) Description 02/03/2024 Abstract [facility] [address] [place] [address] Diego Daniels, DPM [address] [place], [place] [phone] Social History Tobacco Use Types Packs/Day Years [...] 02/23/2025 4:00 PM EDT Office Visit [facility] [address] [place] [address] Diego Daniels DPM [address] [place] [address] 03/02/2025 4:15 PM EDT Office Visit [facility] [address] [place] [address] Diego Daniels DPM [address] [place] [address] 03/07/2025 4:15 PM EDT Office Visit [facility] [address] [place] [address] Diego Daniels DPM [address] [place] [address] 03/14/2025 4:15 PM EDT Office Visit [facility] [address] [place] [address] Diego Daniels DPM [address] [place] [address] documented as of this encounter Visit Diagnoses Not on filedocumented in this encounter Care Teams Solvent Recoverer Relationship Specialty Start Date End Date Anastasia Hammond MD PCP - ACO Reach 08/22/23 07/29/24 Unallocated, Luis E Ruggiero MD [address] [place] [address] PCP - General Family Medicine 11/20/23 01/12/25 Anastasia Hammond MD PCP - ACO Reach 08/06/24 09/23/24 Lilo Asher, HARDIK [address] [place] [address] [address] [place] [address] PCP - Billy SHAH 11/21/24 Alejandrina Rivera MD [address] [place] [address] PCP - General Family Medicine 02/16/25 documented as of this encounter
--- OUTSIDE RECORDS SUMMARY | 2025-02-17 20:32 | XMS_ITS | Encounter Summary ---
Author Organization [facility] Address [address] [place] [address] Care Team Providers Care Chief Of Internal Medicine Name Role Phone Lb, Lilo Rosa SUPERVISOR MIXING Unavailable [phone] Encounter Details Date Type Department Care Team (Latest Contact Info) Description 02/09/2025 Travel Social History Tobacco Use Types Packs/Day [...] 4:00 PM EDT Office Visit [facility] [address] [place] [address] Diego Daniels DPM [address] [place], [place] [address] 03/02/2025 4:15 PM EDT Office Visit [facility] [address] [place] [address] Diego Daniels DPM [address] [facility] [place], [place] [address] 03/07/2025 4:15 PM EDT Office Visit [facility] [address] [facility] [place] [address] Diego Daniels, DPM [address] [place], [place] [address] 03/14/2025 4:15 PM EDT Office Visit [facility] [address] [place] [address] Diego Daniels, ADDIE [address] [place], [place] [address] documented as of this encounter Visit Diagnoses Not on filedocumented in this encounter Care Teams Chief Of Internal Medicine Relationship Specialty Start Date End Date Lilo Asher NP 112 [facility] 110 [place] [address] PCP - Billy SHAH 11/21/24 documented as of this encounter
--- OUTSIDE RECORDS SUMMARY | 2025-02-17 20:32 | XMS_ITS | Encounter Summary ---
Author Organization [facility] Address [address] [place] [address] Care Team Providers Care Pharmacy Consultant Name Role Phone Lb, Lilo Rosa KINDERGARTEN ASSISTANT Unavailable [phone] Encounter Details Date Type Department Care Team (Latest Contact Info) Description 02/08/2025 Travel Social History Tobacco Use Types Packs/Day [...] [facility] [address] [place] [address] Diego Daniels DPM [address] [place], [place] [address] 03/02/2025 4:15 PM EDT Office Visit [facility] [address] [place] [address] Diego Daniels DPM [address] [facility] [place], [place] [address] 03/07/2025 4:15 PM EDT Office Visit [facility] [address] [facility] [place] [address] Diego Daniels, DPM [address] [place], [place] [address] 03/14/2025 4:15 PM EDT Office Visit [facility] [address] [place] [address] Diego Daniels, ADDIE [address] [place], [place] [address] documented as of this encounter Visit Diagnoses Not on filedocumented in this encounter Care Teams Pharmacy Consultant Relationship Specialty Start Date End Date Lilo Asher NP 112 [facility] 110 [place] [address] PCP - Billy SHAH 11/21/24 documented as of this encounter
--- OUTSIDE RECORDS SUMMARY | 2025-02-17 20:32 | XMS_ITS | Encounter Summary ---
Author Organization [facility] Address [address] [place] [address] Care Team Providers Care Meat Cutting Teacher Name Role Phone Lb, Lilo Rosa SLEEVE BASTER Unavailable [phone] Alejandrina Rivera MD Primary Care Provider [phone] Encounter Details Date Type Department Care Team (Latest Contact Info) Description 02/16/2025 Travel Social History Tobacco Use Types Packs/Day [...] Visit [facility] [address] [place] [address] Diego Daniels DPM [address] [place], [place] [address] 03/02/2025 4:15 PM EDT Office Visit [facility] [address] [place] [address] Diego Daniels DPM [address] [place], [place] [address] 03/07/2025 4:15 PM EDT Office Visit [facility] [address] [place] [address] Diego Daniels, DPM [address] [place], [place] [address] 03/14/2025 4:15 PM EDT Office Visit [facility] [address] [place] [address] Diego Daniels DP [address] [place], [place] [address] documented as of this encounter Visit Diagnoses Not on filedocumented in this encounter Care Teams Meat Cutting Teacher Relationship Specialty Start Date End Date Lilo Asher SLEEVE BASTER [address] [address] PCP - Billy SHAH 11/21/24 Alejandrina Rivera MD [address] [place] [address] PCP - General Family Medicine 02/16/25 documented as of this encounter
--- OUTSIDE RECORDS SUMMARY | 2025-02-17 20:32 | XMS_ITS | Encounter Summary ---
Author Organization [facility] Address [address] [place] [address] Care Team Providers Care Grid Trimmer Name Role Phone Lb, Lilo Rosa KNOTTING MACHINE OPERATOR PORTABLE Unavailable [phone] Reason for Visit * Reason Onset Date Comments Advice Only 02/14/2025 Wound vac questi ons Encounter Details Date Type Department Care Team (Late st Contact Info) Description 02/14/2025 Telephone [facility] [address] [place] [address] Diego Daniels, DPMykel [address] [place], [place] [address] Advice Only (Wound vac questions ) Social History Tobacco Use Types Packs/Day Years [...] encounter Miscellaneous Notes * Telephone Encounter - Anisha Burnham - 02/14/2025 8:28 AM EDT Babar called on Friday saying the wound batter went at 3:15 PM on Friday. He also said [employer] never showed up and the light went out. documented in this encounter Plan of Treatment Upcoming Encounters Date Type Department Care Team (Late st Contact Info) Description 02/23/2025 4:00 PM EDT Office Visit [facility] [address] [place] [address] Diego Daniels DPM [address] [place] [address] 03/02/2025 4:15 PM EDT Office Visit [facility] [address] [place] [address] Diego Daniels DPM [address] [place] [address] 03/07/2025 4:15 PM EDT Office Visit [facility] [address] [place] [address] Diego Daniels DPM [address] [place] [address] 03/14/2025 4:15 PM EDT Office Visit [facility] [address] [place] [address] Diego Daniels DPM [address] [place] [address] documented as of this encounter Visit Diagnoses Not on filedocumented in this encounter Care Teams Grid Trimmer Relationship Specialty Start Date End Date Lilo Asher NP [address] [place] [address] PCP - Billy SHAH 11/21/24 documented as of this encounter
--- OUTSIDE RECORDS SUMMARY | 2025-02-17 20:32 | XMS_ITS | Clinical Summary ---
Author Organization [facility] Address [address] [place] [address] Care Team Providers Care Vest Busheler Name Role Phone Lb, Lilo Rosa DEVELOPER RELATIONS MANAGER Unavailable [phone] Alejandrina Rivera MD Primary Care Provider [phone] Allergies Active Allergy Reactions Criticality Noted Date Comments Penicillins Unknown 07/30/2016 As a child Medications ascorbic acid (Vitamin C) 250 MG chewable tablet 1 (one) time each day at the same time Active allopurinol (Zyloprim) 100 MG tablet Take 100 mg by mouth in the morning. Active amLODIPine (Norvasc) 2.5 MG tablet Take 2.5 mg by mouth in the morning. Active aspirin 81 MG EC tablet 1 (one) time each day at the same time Active clopidogrel (Plavix) 75 MG tablet Take 75 mg by mouth in the morning. 3 Active docusate sodium (Colace) 100 MG capsule 1 (one) time each day at the same time Active doxazosin (Cardura) 8 MG tablet Take 4 mg by mouth at bedtime Active glipiZIDE (Glucotrol) 5 MG tablet Take 5 mg by mouth in the morning and 5 mg in the evening. Take with meals. 3 Active insulin glargine (Lantus) 100 UNIT/ML injection Inject 35 Units under the skin in the morning. 3 Active levothyroxine (Tirosint) 112 MCG capsule Take 112 mcg by mouth in the morning. Active lisinopril 2.5 MG tablet 1 (one) time each day at the same time Active Methylcobalami n (F02-Iihozf) 1 MG chewable tablet Active pantoprazole (ProtoNix) 20 MG EC tablet Take 20 mg by mouth in the morning. 3 Active senna-docusate (Alejandra-Colace) 8.6-50 MG tablet Take 1 tablet by mouth in the morning and 1 tablet in the evening. 3 Active simvastatin (Zocor) 40 MG tablet 1 (one) time each day at the same time Active alpha tocopherol (Vitamin E) 400 units capsule Active Semaglutide (OZEMPIC, 0.25 OR 0.5 MG/DOSE, SC) Inject under the skin Active omadacycline (Nuzyra) 150 MG tablet tabletIndicati ons:Cellulitis of left foot Take 3 tablets on day 1 and day 2, then take 2 tablets daily for 12 days. 30 tablet 5 Active doxycycline (Vibramycin) 100 MG capsuleIndicat ions:Celluliti s of right foot TAKE 1 CAPSULE EVERY MORNING AND 1 CAPSULE EVERY NIGHT AT BEDTIME FOR 10 DAYS. TAKE WITH 8 OUNCES OF WATER AND DO NOT LIE DOWN FOR 30 MINUTES 20 capsule 5 Active doxycycline (Vibramycin) 100 MG capsuleIndicat ions:Celluliti s of right foot Take 1 capsule (100 mg) by mouth in the morning and 1 capsule (100 mg) before bedtime. Do all this for 10 days. Take with at least 8 ounces (large glass) of water, do not lie down for 30 minutes after. 20 capsule 5 02/01/20 25 Discontinued Active Problems Problem Noted Date Diagnosed Date CKD (chronic kidney disease) stage 4, GFR 15-29 ml/min 11/14/2022 Other acquired deformities of left foot 11/15/19 Hypertension 11/14/2022 S/P amputation of foot, left 10/25/2022 Constipation 10/22/2022 Acquired hammer toe of right foot 05/20/2022 Diabetic peripheral neuropat hy associated with type 2 diabetes mellitus 05/15/2021 Difficulty walking 05/15/2021 Diabetes mellitus 10/23/2016 Hyperlipidemia 10/23/2016 Peripheral vascular disease 10/23/2016 Resolved Problems Problem Noted Date Diagnosed Date Resolved Date Other chronic osteomyelitis, left ankle and foot 11/14/2022 11/20/2022 Ulcer of foot due to type 2 diabetes mellitus 11/15/1911/20/2022 Atherosclerosis of [place] of left leg with ulceration of other part of foot 10/24/2022 11/20/2022 Overview (11/14/2022): Added automatically from request for surgery [id number] Encounters Date Type Department Care Team Description 02/16/2025 11:00 AM EDT Office Visit [facility] [address] [place] [address] Diego Daniels DPM Dehiscence of incision, initial encounter (Primary Dx); Ulcer of right heel and midfoot with fat layer exposed (HCC); S/P foot surgery; Charcot's joint of left ankle; Peripheral vascular disease 02/16/2025 Abstract [facility] [address] [place] [address] Diego Daniels DPM 02/16/2025 Bamboo flowsheet [facility] [address] [place] [address] Diego Daniels DPM 02/16/2025 Travel 02/15/2025 [facility] [address] [facility] [address] [place] [id number] Unallocated, Lorenzo Ruggiero MD 02/14/2025 Telephone [facility] [address] [place] [address] Diego Daniels DPM Advice Only (Wound vac questions ) 02/10/2025 Telephone [facility] [address] [place] [address] Diego Daniels DPM Advice Only (Medication) 02/09/2025 4:15 PM EDT Office Visit [facility] [address] [place] [address] Diego Daniels DPM S/P foot surgery (Primary Dx); Charcot's joint of left ankle; Peripheral vascular disease; Diabetic peripheral neuropathy associated with type 2 diabetes mellitus (HCC) 02/09/2025 Abstract [facility] [address] [place] [address] Diego Daniels DPM 02/09/2025 Bamboo flowsheet [facility] [address] [place] [address] Diego Daniels DPM 02/09/2025 Travel 02/08/2025 Travel 02/01/2025 Telephone [facility] [address] [place] [address] Diego Daniels DPM Advice Only (Post op hospital stay duration ) 01/28/2025 Refill [facility] [address] [place] [address] Diego Daniels DPM Cellulitis of right foot 01/25/2025 5:50 PM EDT Ancillary Procedure [facility] [address] [place] [address] 01/25/2025 4:00 PM EDT Office Visit [facility] [address] [place] [address] Diego Daniels DPM 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) (Primary Dx); Acute osteomyelitis of right ankle or foot (HCC); Peripheral vascular disease; Ulcer of left foot with bone involvement without evidence of necrosis (HCC); Tenosynovitis of right foot; Charcot's joint of left ankle 01/25/2025 Bamboo flowsheet [facility] [address] [place] [address] Diego Daniels DPM 01/25/2025 Travel 01/24/2025 3:30 PM EDT Ancillary Procedure [facility] [address] [place] [address] 01/24/2025 Travel 01/17/2025 3:15 PM EDT Office Visit [facility] [address] [place] [address] Diego Daniels DPM 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) (Primary Dx); Peripheral vascular disease; Acute osteomyelitis of right ankle or foot (HCC); Cellulitis of right foot 01/17/2025 Aquacueo Svbtleheet [facility] [address] [place] [address] Diego Daniels DPM 01/17/2025 Travel 01/14/2025 Travel 01/13/2025 Travel 01/03/2025 4:15 PM EDT Office Visit [facility] [address] [place] [address] Diego Daniels DPM Ulcer of right heel and midfoot with fat layer exposed (HCC) (Primary Dx); Pressure injury of right heel, stage 1; Pressure injury of deep tissue of dorsum of left foot; Peripheral vascular disease; Onychomycosis; Onychodystrophy; Diabetic peripheral neuropathy associated with type 2 diabetes mellitus (HCC) 01/03/2025 OnAir3Gheet [facility] [address] [place] [address] Diego Daniels DPM 01/03/2025 Travel 12/15/2024 4:00 PM EDT Office Visit [facility] [address] [place] [address] Diego Daniels DPM Ulcer of right heel and midfoot with fat layer exposed (HCC) (Primary Dx); Pressure injury of right heel, stage 1; S/P foot surgery; Pressure injury of deep tissue of dorsum of left foot 12/15/2024 Aquacueo flowsheet [facility] [address] [place] [address] Diego Daniels DPM 12/15/2024 Travel 12/14/2024 Travel 12/10/2024 Telephone [facility] [address] [place] [address] Diego Daniels DPM Advice Only (walking) 12/01/2024 4:15 PM EDT Office Visit [facility] [address] [place] [address] Diego Daniels DPM Ulcer of right heel and midfoot with fat layer exposed (HCC) (Primary Dx); Pressure injury of right heel, stage 1; Pressure injury of deep tissue of dorsum of left foot; Peripheral vascular disease 12/01/2024 Bamboo flowsheet [facility] [address] [place] [address] Diego Daniels DPM 12/01/2024 Travel 11/30/2024 Travel 11/29/2024 Abstract [facility] [address] [place] [address] Diego Daniels DPM 11/18/2024 Telephone [facility] [address] [place] [address] Diego Daniels DPM 11/18/2024 Orders Only [facility] [address] [place] [address] Magda Burnett MA 11/17/2024 4:15 PM EDT Office Visit [facility] [address] [place] [address] Diego Daniels DPM Peripheral vascular disease (Primary Dx); Ulcer of right heel and midfoot with fat layer exposed (HCC); Pressure injury of right heel, stage 1; Pressure injury of deep tissue of dorsum of left foot; Ulcer of left foot with fat layer exposed (HCC) 11/17/2024 Travel 11/17/2024 Telephone [facility] [address] [place] [address] Diego Daniels DPM Advice Only (Vascular testing results fax to [place] ) from Last 3 Months Immunizations Immunization Administration Dates Next Due Influenza, High Dose Seasona l, Preservative Free 03/29/2024,05/15/2021 Influenza, High-dose Seasona l, Quadrivalent, Preservative Free 06/13/2023,04/10/2020 Influenza, Seasonal, Quadriv alent, Adjuvanted 04/11/2022 Influenza, Unspecified 03/23/2021,2015,03/21/2015,07/09,06/25/2010,04/23/2009,03/21/2009 Influenza, injectable, quadr ivalent, preservative free 03/23/2020,07/15/2018,04/14/2017 Influenza, trivalent, adjuvanted 04/15/2019 Moderna SARS-CoV-2 Vaccination 08/11/2020,2020 Pneumococcal Conjugate PCV 13 05/11/2019 Pneumococcal Conjugate PCV 20 02/03/2023 Pneumococcal Polysaccharide PPSV23 05/15/2021, Pneumococcal, Unspecified 11/20/2005 Tdap 02/03/2023 Zoster, Recombinant 08/18/2023,02/03/2023 Family History Medical History Relation Name Comments Cancer Father Diabetes Father Relation Name Status Comments Father Mother Social History Tobacco Use Types Packs/Day Years [...] on file Sexual Orientation Not on file Last Filed Vital Signs Vital Sign Reading Time Taken Comments Blood Pressure 141/72 11/11/2022 9:00 AM EDT Pulse 73 11/11/2022 9:00 AM EDT Temperature 36.8 C (98.3 F) 02/09/2025 3:49 PM EDT Respiratory Rate 18 11/11/2022 9:00 AM EDT Oxygen Saturation 98% 11/11/2022 9:00 AM EDT Inhaled Oxygen Concentration - - Weight 68 kg (150 lb) 02/09/2025 3:49 PM EDT Height 172.7 cm (5' 8 ) 02/09/2025 3:49 PM EDT Body Mass Index 22.81 02/09/2025 3:49 PM EDT Plan of Treatment Upcoming Encounters Date Type Department Care Team (Late st Contact Info) Description 02/23/2025 4:00 PM EDT Office Visit [facility] [address] [place] [address] Diego Daniels DPM [address] [place] [address] 03/02/2025 4:15 PM EDT Office Visit [facility] [address] [place] [address] Diego Daniels DPM [address] [place] [address] 03/07/2025 4:15 PM EDT Office Visit [facility] [address] [place] [address] Diego Daniels DPM [address] [place] [address] 03/14/2025 4:15 PM EDT Office Visit [facility] [address] [place] [address] Diego Daniels DPM [address] [place] [address] Health Maintenance Due Date Last Done Comments Medicare Annual Wellness (AWV) 05/20/2023 1 07/20/2021, 05/15/2021, 05/11/2019, Additional history exists Influenza Vaccine (#1) 2025 , 06/13/2023, 04/11/2022, Additional history exists Diabetes: Hemoglobin A1C 05/06/2025 02/03/2025 Diabetes: Retinopathy Screening 06/10/2025 Diabetes: Urine Protein Screening 06/10/2025 024 Pneumococcal Vaccine: 65+ Years Completed 02/03/2023, 05/15/2021, 08/27/2019, Additional history exists Procedures Procedure Name Priority Date/Time Associated Diagnosis Comments XR FOOT 3+ VIEWS LEFT Routine 01/25/2025 5:49 PM EDT Ulcer of left foot with bone involvement without evidence of necrosis (HCC) Charcot's joint of left ankle MR FOOT RIGHT WO IV CONTRAST STAT 01/24/2025 4:00 PM EDT 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 Reveals interval 5th metatarsal resection. There is a bone fragment consistent with possible remnant of the 5th metatarsal. There has been complete destruction of the naviculocuneiform joint as well as the tarsometatarsal joints. I do not see any significant collapse of the midfoot. There is also significant erosion of the navicular with a almost complete destruction of the lateral and intermediate cuneiforms consistent with Charcot neuroarthropathy. Decreased bone mineralization. Significant degenerative changes of the 1st MTP, interphalangeal joint. Enthesophyte at the insertion of the plantar fascia. us Diego Daniels DPM IMG XR PROCEDURES Final Res ult * MR foot right wo IV contrast (01/24/2025 4:00 PM EDT) Anatomical Region Laterality Modality Lower Extremities, Foot Right Magnetic Resonance 01/24/2025 4:29 PM EDT Impressions 01/24/2025 4:34 PM EDT Signal abnormality of the posterior two thirds of the calcaneus most compatible with osteomyelitis. Tear of the distal Achilles tendon as detailed. ELECTRONICALLY SIGNED BY: Sean Frias DO Narrative 01/24/2025 4:34 PM EDT EXAM: MR FOOT RIGHT WO IV CONTRAST HISTORY: Chronic ulceration right calcaneus. Exposed bone and Achilles tendon. Osteomyelitis COMPARISON : Foot radiographs October 16, 2022 TECHNIQUE: Multiplanar multisequence MRI of the foot was performed without contrast. FINDINGS: Soft tissue ulcer along the posterior margin of the calcaneus measures approximately 3 cm. Full-thickness tear of distal lateral and mid fibers of the Achilles tendon at the level of the attachment of the calcaneus with medial fibers remaining intact (in total full-thickness tear of approximately three fourths of the [...] soft tissue fluid collection to suggest abscess. Procedure Note Sean Frais, - 01/24/2025 EXAM: MR FOOT RIGHT WO IV CONTRAST HISTORY: Chronic ulceration right calcaneus. Exposed bone and Achillestendon. Osteomyelitis COMPARISON : Foot radiographs October 16, 2022 TECHNIQUE: Multiplanar multisequence MRI of the foot was performed withoutcontrast. FINDINGS: Soft tissue ulcer along the posterior margin of the calcaneus measuresapproximately 3 cm. Full-thickness tear of distal lateral and mid fibersof the Achilles tendon at the level of the attachment of the calcaneuswith medial fibers remaining intact (in total full-thickness tear ofapproximately three fourths of the Achilles tendon). Patchy hyperintenseT2 signal is present within the posterior calcaneus to the level of theanterior margin of the posterior subtalar joint with correspondinghypointense T1 signal. The plantar fascia appears intact. Flexor andextensor tendons appear intact. Full-thickness tear of the anteriortalofibular ligament hyperintense T2 signal of the musculature of the footis most likely secondary to chronic denervation. Diffuse subcutaneous softtissue edema. No soft tissue fluid collection to suggest abscess. IMPRESSION: Signal abnormality of the posterior two thirds of the calcaneus mostcompatible with osteomyelitis. Tear of the distal Achilles tendon as detailed. ELECTRONICALLY SIGNED BY: Sean Frias DO Diego Daniels DPMykel IMG MRI PROCEDURES Final Re sult from Last 3 Months Insurance [employer] Care Teams Vest Busheler Relationship Specialty Start Date End Date Lilo Asher DEVELOPER RELATIONS MANAGER [address] [address] PCP - Billy SHAH 11/21/24 Alejandrina Rivera MD [address] [place] [address] PCP - General Family Medicine 02/16/25
--- OUTSIDE RECORDS SUMMARY | 2025-02-17 20:32 | XMS_ITS | Encounter Summary ---
Author Organization [facility] Address [address] [place] [address] Care Team Providers Care Ranger Aide Name Role Phone ChinoAnastasia arredondo MD Unavailable Unallocated, Luis E Ruggiero MD Primary Care Provi bjorn Anastasia Hammond MD Unavailable Lilo Asher NP Unavailable [phone] Alejandrina Rivera MD Primary Care Provider [phone] Encounter Details Date Type Department Care Team (Late st Contact Info) Description 12/29/2023 Abstract [facility] [address] [place] [address] Diego Daniels, DPM [address] [place], [place] [id number] Social History Tobacco Use Types Packs/Day Years [...] 02/23/2025 4:00 PM EDT Office Visit [facility] [address] [place] [address] Diego Daniels DPM [address] [place] [address] 03/02/2025 4:15 PM EDT Office Visit [facility] [address] [place] [address] Diego Daniels DPM [address] [place] [address] 03/07/2025 4:15 PM EDT Office Visit [facility] [address] [place] [address] Diego Daniels DPM [address] [place] [address] 03/14/2025 4:15 PM EDT Office Visit [facility] [address] [place] [address] Diego Daniels DPM [address] [place] [address] documented as of this encounter Visit Diagnoses Not on filedocumented in this encounter Care Teams Ranger Aide Relationship Specialty Start Date End Date Anastasia Hammond MD PCP - ACO Reach 08/22/23 07/29/24 Unallocated, Luis E Ruggiero MD [address] [place] [address] PCP - General Family Medicine 11/20/23 01/12/25 Anastasia Hammond MD PCP - ACO Reach 08/06/24 09/23/24 Lilo Asher, HARDIK [address] [place] [address] [address] [place] [address] PCP - Billy SHAH 11/21/24 Alejandrina Rivera MD [address] [place] [address] PCP - General Family Medicine 02/16/25 documented as of this encounter
--- OUTSIDE RECORDS SUMMARY | 2025-02-17 20:32 | XMS_ITS | Encounter Summary ---
Author Organization [employer] [facility] tem Address [id number] [address] [place] [address] Care Team Providers Care Solar Energy Specialist Name Role Phone Alejandrina Rivera MD Primary Care Provider [phone] Encounter Details Date Type Department Care Team ([facility] Contact Info) Description [facility]/17[facility]2023 [facility] [address] [place] [address] [place] [address] Sean Dickerson CMA Social History Tobacco Use Types Packs/Day Years [...] encounter Miscellaneous Notes * Telephone Encounter - Sean Dickerson CMA - 01/17/2023 2:25 PM EDT Patient was called to change providers, he stated he was just going to hang tight without a provider for now documented in this encounter Plan of Treatment Upcoming Encounters Date Type Department Care Team (Late st Contact Info) Description 03/08/2025 3:20 PM EDT Office Visit [facility] [address] [place] [address] Delfino Lake MD [address] [place] [address] documented as of this encounter Visit Diagnoses Not on filedocumented in this encounter Additional Health Concerns Assessment Noted Time PHQ-9 Depression Total Score: 0 05/20/20 22 9:00 AM EST documented as of this encounter Care Teams Solar Energy Specialist Relationship Specialty Start Date End Date Alejandrina Rivera MD [address] [place] [address] PCP - General Internal Medicine 09/27/24 documented as of this encounter
--- OUTSIDE RECORDS SUMMARY | 2025-02-17 20:32 | XMS_ITS | Encounter Summary ---
Author Organization [facility] Address [address] [place] [address] Care Team Providers Care Chimney Construction Supervisor Name Role Phone Lb, Lilo Rosa DISHWASHER Unavailable [phone] Alejandrina Rivera MD Primary Care Provider [phone] Encounter Details Date Type Department Care Team (Late st Contact Info) Description 02/09/2025 Abstract [facility] [address] [place] [address] Diego Daniels DPM [address] [place], [place] [phone] Social History Tobacco Use Types Packs/Day Years [...] Visit [facility] [address] [place] [address] Diego Daniels DPM [address] [place], [place] [phone] 03/02/2025 4:15 PM EDT Office Visit [facility] [address] [place] [address] Diego Daniels DPM [address] [place] [address] 03/07/2025 4:15 PM EDT Office Visit [facility] [address] [place] [address] Diego Daniels DPM [address] [place] [address] 03/14/2025 4:15 PM EDT Office Visit [facility] [address] [place] [address] Diego Daniels DPM [address] [place] [address] documented as of this encounter Visit Diagnoses Not on filedocumented in this encounter Care Teams Ch[employer]ney Construction Supervisor Relationship Specialty Start Date End Date Lilo Asher DISHWASHER [address] [facility] [address] [place] [address] PCP - Billy SHAH 11/21/24 Alejandrina Rivera MD [address] [place] [address] PCP - General Family Medicine 02/16/25 documented as of this encounter
--- OUTSIDE RECORDS SUMMARY | 2025-02-17 20:32 | XMS_ITS | Encounter Summary ---
Author Organization [facility] Address [address] [place] [address] Care Team Providers Care [employer] Truck Driver Name Role Phone Lb, Lilo Rosa NEWS PRODUCER Unavailable [phone] Reason for Visit * Reason Onset Date Comments Advice Only 02/10/2025 Medication Encounter Details Date Type Department Care Team (Late st Contact Info) Description 02/10/2025 Telephone [facility] [address] [place] [address] Diego Daniels, DPMykel [address] [place], [place] [phone] Advice Only (Medication) Social History Tobacco Use Types Packs/Day Years [...] Miscellaneous Notes * Telephone Encounter - Anisha Wynn - 02/10/2025 10:28 AM EDT Faxing over office note from yesterday * Telephone Encounter - Anisha Wynn - 02/10/2025 10:20 AM EDT Nurse Savannah from [facility] called stating she called yesterday that I spoke with and she stated to write the information on the return referral form to send back to [facility] regarding the Vancomycin. Who is going to manage that for the patient? And how often will the patient be taking that? Savannah [phone] documented in this encounter Plan of Treatment Upcoming Encounters Date Type Department Care Team (Late st Contact Info) Description 02/23/2025 4:00 PM EDT Office Visit [facility] [place] [facility] [address] [place] [address] Diego Daniels DPM [address] [place] [place] [address] 03/02/2025 4:15 PM EDT Office Visit [facility] [address] [place] [address] Diego Daniels DPM [address] [place] [address] 03/07/2025 4:15 PM EDT Office Visit [facility] [place] [facility] [address] [place] [address] Diego Daniels DPM [address] [place] [place] [address] 03/14/2025 4:15 PM EDT Office Visit [facility] [place] [facility] [address] [place] [address] Diego Daniels DPM [address] [place] [address] documented as of this encounter Visit Diagnoses Not on filedocumented in this encounter Care Teams [employer] Truck Driver Relationship Specialty Start Date End Date Lilo Asher NP [address] [facility] [address] [place] [id number] PCP - Billy SHAH 11/21/24 documented as of this encounter
--- OUTSIDE RECORDS SUMMARY | 2025-02-17 20:32 | XMS_ITS | Encounter Summary ---
Author Organization [facility] Address [address] [place] [address] Care Team Providers Care Hot Box Operator Name Role Phone Wondermaria elenaAnastasia MD Unavailable Anastasia Hammond MD Primary Care Provider Unallocated, Luis E Ruggiero MD Primary Care Provi bjorn WonderAnastasia arredondo MD Unavailable [phone] Lilo Asher AUTOMOTIVE SPECIALTY TECHNICIAN Unavailable [phone] Alejandrina Rivera MD Primary Care Provider [phone] Encounter Details Date Type Department Care Team (Late st Contact Info) Description 11/19/2023 Abstract [facility] [address] [place] [address] Diego Daniels, DPMykel [address] [place], [place] [id number] Social History Tobacco Use Types Packs/Day Years [...] 02/23/2025 4:00 PM EDT Office Visit [facility] [address] [place] [address] Diego Daniels DPM [address] [place] [address] 03/02/2025 4:15 PM EDT Office Visit [facility] [address] [place] [address] Diego Daniels DPM [address] [place] [address] 03/07/2025 4:15 PM EDT Office Visit [facility] [address] [place] [address] Diego Daniels DPM [address] [place] [address] 03/14/2025 4:15 PM EDT Office Visit [facility] [address] [place] [address] Diego Daniels DPM [address] [place] [address] documented as of this encounter Visit Diagnoses Not on filedocumented in this encounter Care Teams Hot Box Operator Relationship Specialty Start Date End Date Anastasia Hammond MD PCP - ACO Reach 08/22/23 07/29/24 Anastasia Hammond MD PCP - General Family Medicine 11/19/23 11/19/23 Unallocated, Luis E Ruggiero MD [address] [place] [address] PCP - General Family Medicine 11/20/23 01/12/25 Anastasia Hammond MD PCP - ACO Reach 08/06/24 09/23/24 Lilo Asher NP [address] [place] [address] [address] [place] [address] PCP - Billy SHAH 11/21/24 Alejandrina Rivera MD [address] [place] [address] PCP - General Family Medicine 02/16/25 documented as of this encounter
--- OUTSIDE RECORDS SUMMARY | 2025-02-17 20:32 | XMS_ITS | Encounter Summary ---
Author Organization [facility] Address [address] [place] [address] Care Team Providers Care Exhibit Preparator Name Role Phone Lb, Lilo Rosa MALL MANAGER Unavailable [phone] Alejandrina Rivera MD Primary Care Provider [phone] Encounter Details Date Type Department Care Team (Late st Contact Info) Description 02/15/2025 Abstract [facility] [address] [facility] [address] [place] [address] Unallocated, Noms Provider, [address] [place], [place] [id number] Social History Tobacco Use Types Packs/Day Years [...] Office Visit [facility] [address] [place] [address] Diego Daniels DPM [address] [place] [address] 03/02/2025 4:15 PM EDT Office Visit [facility] [address] [place] [address] Diego Daniels DPM [address] [place] [address] 03/07/2025 4:15 PM EDT Office Visit [facility] [address] [place] [address] Diego Daniesl DPM [address] [place] [address] 03/14/2025 4:15 PM EDT Office Visit [facility] [address] [place] [address] Diego Daniels DPM [address] [place] [address] documented as of this encounter Visit Diagnoses Not on filedocumented in this encounter Care Teams Exhibit Preparator Relationship Specialty Start Date End Date Lilo Asher MALL MANAGER [address] [facility] [address] [place] [address] PCP - Billy SHAH 11/21/24 Alejandrina Rivera MD [address] [place] [address] PCP - General Family Medicine 02/16/25 documented as of this encounter
--- OUTSIDE RECORDS SUMMARY | 2025-02-17 20:32 | XMS_ITS | Encounter Summary ---
Author Organization [facility] Address [address] [place] [address] Care Team Providers Care Level Vial Grinder Name Role Phone Lb, Lilo Rosa FENCE POST CUTTER Unavailable Encounter Details Date Type Department Care Team (Late st Contact Info) Description 02/09/2025 Bamboo flowsheet [facility] [address] [place] [address] Diego Daniels DPM [address] [place], [place] [phone] Social History Tobacco Use Types Packs/Day Years [...] PM EDT Office Visit [facility] [address] [place] [address] Diego Daniels DPM [address] [place], [place] [phone] 03/02/2025 4:15 PM EDT Office Visit [facility] [address] [place] [address] Diego Daniels DPM [address] [place] [address] 03/07/2025 4:15 PM EDT Office Visit [facility] [address] [place] [address] Diego Daniels DPM [address] [place] [address] 03/14/2025 4:15 PM EDT Office Visit [facility] [address] [place] [address] Diego Daniels DPM [address] [place] [address] documented as of this encounter Visit Diagnoses Not on filedocumented in this encounter Care Teams Level Vial Grinder Relationship Specialty Start Date End Date Lilo Asher, FENCE POST CUTTER [address] [facility] [address] [place] [address] PCP - Billy SHAH 11/21/24 documented as of this encounter
--- OUTSIDE RECORDS SUMMARY | 2025-02-17 20:32 | XMS_ITS | Encounter Summary ---
Author Organization [facility] tem Address [id number] [address] [place] [address] Care Team Providers Care Supervisor Central Supply Name Role Phone Alejandrina Rivera MD Primary Care Provider [phone] Encounter Details Date Type Department Care Team ([facility] Contact Info) Description 04/25/2020 [facility] [address] [place] [address] [place] [address] Beck Pineda CMA Social History Tobacco Use Types Packs/Day Years Used Date Smoking Tobacco: Former Smokeless Tobacco: Never Alcohol Use Standard Drinks/Week Comments No 0 (1 standard drink = 0.6 oz pur e alcohol) PHQ-2 Answer Date Recorded Total Score 0 05/11/2019 Childcare Answer Date Recorded Childcare Unknown 12/02/2018 Employment Answer Date Recorded Employment Unknown 12/02/2018 Sex and Gender Information Value Date Recorded Sex Assigned at Not on file Legal Sex Male 11:54 AM EDT Gender Identity Not on file Sexual Orientation Not on file documented as of this encounter Miscellaneous Notes * Telephone Encounter - Beck Cardozo CMA - 04/25/2020 11:33 AM EST Sent last diabetic exam note to patient's Er Nurse at 11:30am on 04/25/2020 Beck Cardozo CMA 04/25/20 1135 documented in this encounter Plan of Treatment Upcoming Encounters Date Type Department Care Team (Late st Contact Info) Description 03/08/2025 3:20 PM EDT Office Visit [facility] [address] [place] [address] Delfino Lake MD [address] [place] [address] documented as of this encounter Visit Diagnoses Not on filedocumented in this encounter Additional Health Concerns Assessment Noted Time PHQ-9 Depression Total Score: 0 05/11/20 19 10:00 AM EST documented as of this encounter Care Teams Supervisor Central Supply Relationship Specialty Start Date End Date Alejandrina Rivera MD [address] [place] [address] PCP - General Internal Medicine 09/27/24 documented as of this encounter
--- OUTSIDE RECORDS SUMMARY | 2025-02-17 20:32 | XMS_ITS | Encounter Summary ---
Author Organization [facility] tem Address [id number] [address] [place] [address] Care Team Providers Care Category Development Analyst Name Role Phone Alejandrina Rivera MD Primary Care Provider [phone] Encounter Details Date Type Department Care Team ([facility] Contact Info) Description 11/19/2022 [facility]phone [facility] [address] [place] [address] [place] [address] Dunia Gamboa, CALI Social History Tobacco Use Types Packs/Day Years [...] encounter Miscellaneous Notes * Telephone Encounter - Dunia Gamboa RN - 11/19/2022 1:29 PM EDT Transition of Care Additional Questions/Concerns Requiring PCP Follow-Up: This documentation is being used for Transition of Care purposes: Yes Goal: Patient will demonstrate a safe transition from facility to home. 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 S/P amputation of foot, left (CMS/HCC)?? Difficulty walking?? Difficulty in walking?? CKD (chronic kidney disease) stage 4, GFR 15-29 ml/min (CMS/HCC)?? Chronic kidney disease, Stage IV (severe)?? Peripheral vascular disease (CMS/HCC)?? Unspecified peripheral vascular disease?? Atherosclerosis of [place] arteries of left leg with ulceration of other part of foot ([facility])?? Discharge Specialty: Vascular Name of Discharging Facility: [place] Date of Facility Discharge: 11/12/22 Date of Interactive Contact and Name of Dish Room Worker: Attempt x 2. Left message for return call back. Medication Review Completed: No Medication Reconciliation Questions/Concerns: Glipizide 5mg in AM and LEXI with meals Metformin 500 mg take 2 tablets daily BID with meals Plavix 75 mg daily in AM Pantoprazole 20 mg in the AM Follow Up Appointments with Providers: Primary: MONET Carranza 12/04/22 @ 1:15 PM Specialty: Dr Lake- 11/19/22 at 2:30 PM Specialty: Dr Daniels 11/20/22 @ 09:30 AM Specialty: Review of Pending Lab/Diagnostic Tests and Plan for Completion: 10/25/22 Dr Daniels completed a left amputation of metatarsal 10/30/22 scheduled angiogram with possible stents to right leg- Dr Lake Assessment and Support of Treatment Regimen Adherence and Medication Management: not able to reach patient Education Provided by [facility] to Support Self-Management, Independent Living and ADLs: Diet: Cardiac, low fat, low cholesterol ??? IMMEDIATELY. ??? Persistent tenderness/pain or swelling, discoloration; numbness/tingling, coolness or pain in the extremity when walking. MILD bruising/discoloration and/or tenderness is common during the healing process. ??? Signs of infection: swelling, warmth around the wound, rash/redness, drainage, or fever greaterthan or equal to 100.4??F and/or chills ??? Call 02-21- if you have signs or symptoms of a stroke, chest pain/angina, difficulty breathing, you become very pale, dominguez/blue or if you become confused and cannot be easily awakened Communication with Home Health Agencies and Other Services Utilized/Needed by the Patient: Discharged home with [facility] documented in this encounter Plan of Treatment Upcoming Encounters Date Type Department Care Team (Late st Contact Info) Description 03/08/2025 3:20 PM EDT Office Visit [facility] [address] [place] [address] Delfino Lake MD [address] [place] [address] documented as of this encounter Visit Diagnoses Not on filedocumented in this encounter Additional Health Concerns Assessment Noted Time PHQ-9 Depression Total Score: 0 05/20/20 22 9:00 AM EST documented as of this encounter Care Teams Category Development Analyst Relationship Specialty Start Date End Date Alejandrina Rivera MD [address] [place] [address] PCP - General Internal Medicine 09/27/24 documented as of this encounter
--- OUTSIDE RECORDS SUMMARY | 2025-02-17 20:32 | XMS_ITS | Clinical Summary ---
Author Organization Earlier Media tem Address [id number] [address] [place] [address] Care Team Providers Care Electronics Warfare Technician Name Role Phone Alejandrina Rivera MD Primary Care Provider [phone] Allergies Active Allergy Reactions Criticality Noted Date Comments Lisinopril Other (See Comments) Low 11/15/2021 Unsure of reaction Penicillins 07/30/2016 As a child Medications allopurinol (ZYLOPRIM) 100 mg tablet Take 1 tablet (100 mg total) by mouth in the morning. Active levothyroxine sodium (TIROSINT) 112 mcg capsule Take 1 capsule (112 mcg total) by mouth in the morning. Active doxazosin (CARDURA) 8 mg tablet Take 0.5 tablets (4 mg total) by mouth nightly. Active docusate sodium (COLACE) 100 mg capsule Take 1 capsule (100 mg total) by mouth in the morning and 1 capsule (100 mg total) before bedtime. Active atorvastatin (LIPITOR) 20 mg tablet Take 1 tablet (20 mg total) by mouth in the morning. Active OZEMPIC 0.25 mg or 0.5 mg(2 mg/1.5 mL) pen injector Inject under the skin once a week. wednesdays Active folic acid (FOLVITE) 1 mg tablet Take 1 tablet (1 mg total) by mouth in the morning. Active finasteride (PROSCAR) 5 mg tablet Take 1 tablet (5 mg total) by mouth in the morning. Active cyanocobalamin (vitamin B-12) 100 MCG tablet Take 10 tablets (1,000 mcg total) by mouth in the morning. Active aspirin 81 mg chewable tablet Chew 1 tablet (81 mg total) and swallow in the morning. 90 tablet 11/30/19 25 Active clopidogreL (PLAVIX) 75 mg tablet Take 1 tablet (75 mg total) by mouth in the morning. 90 tablet 11/30/19 25 Active ciprofloxacin HCl (CIPRO) 500 mg tablet Take 1.5 tablets (750 mg total) by mouth every 12 (twelve) hours for 42 days. 126 tablet 02/09/20 25 025 Active heparin lock flush, porcine, 10 unit/mL injection Infuse 1-5 mL (10-50 Units total) into a venous catheter as needed (line care per nursing agency protocol.). 1 mL 02/09/20 25 Active heparin lock flush, porcine, injection 100 unit/mL solution Infuse 1-5 mL (100-500 Units total) into a venous catheter as needed (line care per nursing agency protocol.). 1 mL 02/09/20 25 Active sodium chloride injection Infuse 10-20 mL into a venous catheter as needed for line care (line care per nursing agency protocol.). 1 mL 02/09/20 25 Active vancomycin (VANCOCIN) 97676 mg recon soln Infuse 750 mg into a venous catheter daily for 38 days. End Date 03/18/2025 1 each 02/09/20 25 025 Active insulin glargine (LANTUS) 100 unit/mL injectionIndic ations:type 2 diabetes mellitus Inject 0.1 mL (10 Units total) under the skin in the morning and 0.1 mL (10 Units total) before bedtime. Indications: type 2 diabetes mellitus. 02/09/20 25 Active insulin glargine (LANTUS) 100 unit/mL injectionIndic ations:type 2 diabetes mellitus Inject 0.35 mL (35 Units total) under the skin in the morning. Indications: type 2 diabetes mellitus. 10/29/19 23 025 Discontinued cilostazoL (PLETAL) 50 mg tablet Take 1 tablet (50 mg total) by mouth in the morning and 1 tablet (50 mg total) before bedtime. 180 tablet 2 01/25/20 25 025 Discontinued(Si de effects) doxycycline (VIBRAMYCIN) 100 mg capsule Take 1 capsule (100 mg total) by mouth in the morning and 1 capsule (100 mg total) before bedtime. 025 Discontinued Active Problems Patient Care Coordination No te Formatting of this note migh t be different from the original. 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, unspecified eye 06/03/2024 S/P amputation of foot, left 10/25/2022 Constipation, unspecified constipation type 0 07/2022 Acquired hammer toe of right foot 05/20/2022 Diabetic peripheral neuropat hy associated with type 2 diabetes mellitus 05/15/2021 Difficulty walking 05/15/2021 Neurologic disorder associated with diabetes denise litus 05/15/2021 Peripheral vascular disease 10/23/2016 Diabetes mellitus 10/23/2016 Hyperlipidemia 10/23/2016 Hypertension CKD (chronic kidney disease) stage 4, GFR 15-29 ml/min Resolved Problems Problem Noted Date Diagnosed Date Resolved Date MRSA bacteremia 09/28/2024 02/03/2025 Stage 3b chronic kidney disease 09/27/2024 02/03/2025 Chronic osteomyelitis of left foot 09/27/2024 02/03/2025 Atherosclerosis of yuhaaviatam ar teries of left leg with ulceration of other part of foot 10/24/2022 02/03/2025 Overview (10/24/2022): Added automatically from request for surgery [id number] Skin ulcer of left foot, li ited to breakdown of skin 05/15/2021 05/20/2022 Chronic osteomyelitis involv ing ankle and foot 05/15/2021 05/20/2022 Ulcer of foot due to type 2 diabetes mellitus 05/15/20 21 05/20/2022 Encounters Date Type Department Care Team Description 02/04/2025 12:09 PM EDT Anesthesia Event [facility] - [facility] [address] [facility] [address] Rosendo Medellin MD 02/04/2025 12:00 PM EDT - 02/04/2025 1:55 PM EDT Surgery [facility] - Surgery [address] [facility] [address] Diego Daniels DPM EXCISION BONE PARTIAL CALCANEOUS OR TALUS [14523 (CPT )] 02/03/2025 6:45 AM EDT - 02/08/2025 9:00 PM EDT Hospital Encounter [facility] - Acute Care [address] [place] [address] Jerald Pineda, Raysa Angeles MD Banerjee, Sunita, MD Osteomyelitis of right foot, unspecified type ([facility]) (Primary Dx); Hypoglycemia; Chronic kidney disease, unspecified CKD stage; Type 2 diabetes mellitus with diabetic polyneuropathy, with long-term current use of insulin ([facility]) Discharge Disposition: [facility] Facility-Medicare Cert 02/03/2025 6:12 AM EDT - 02/03/2025 6:30 AM EDT Hospital Encounter [facility] - Surgery [address] [place] [address] Diego Daniels DPM Discharge Disposition: Still a Patient 02/03/2025 Travel 02/02/2025 Telephone [facility] [address] [place] [address] Ariella Hubbard, CALI clearance for surgery tomorrow 02/01/2025 Results Follow-Up [facility] [address] [place] [address] Venus Martins, CALI CBC auto differential 01/28/2025 12:45 PM EDT Procedure visit [facility] - Pre Admit [address] [place] [phone] Preop examination (Primary Dx); Peripheral vascular disease ([facility]); Primary hypertension; CKD (chronic kidney disease) stage 4, GFR 15-29 ml/min ([facility]); 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, with long-term current use of insulin, unspecified laterality ([facility]) 01/28/2025 Travel 01/27/2025 Telephone [facility] [address] [place] [address] Venus Martins RN 01/24/2025 7:50 AM EDT - 01/24/2025 8:50 AM EDT Surgery [facility] - Cardiac Cath [address] [place] [address] Delfino Lake MD Vascular Invasive- Right Lower Extremity Angiogram with possible intervention 01/24/2025 6:19 AM EDT - 01/24/2025 12:09 PM EDT Hospital Encounter [facility] - CVU-IVU [address] [place] [phone] Delfino Lake MD Peripheral vascular disease; Peripheral vascular disease ([facility]); Type 2 diabetes mellitus with foot ulcer, unspecified whether nursing home insulin use ([facility]) Discharge Disposition: Home 01/24/2025 Travel 01/21/2025 Results Follow-Up [facility] [address] [place] [address] Venus Martins, RN Vas art duplex lwr single right, Vas art doppler lwr bilat mult lev/PVR 01/21/2025 Telephone [facility] [address] [place] [address] Venus Martins RN 01/20/2025 Orders Only [facility] [address] [place] [address] External, Scanning Provider 01/20/2025 Documentation [facility] - Vascular [address] [place] [address] Kandis Cyrandra, T 01/18/2025 3:40 PM EDT [facility] [place] [address] [place] [address] Delfino Lake MD 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 ([facility]) (Primary Dx); Primary hypertension; Mixed hyperlipidemia; CKD (chronic kidney disease) stage 4, GFR 15-29 ml/min (CMS-HCC) 01/18/2025 1:54 PM EDT - 01/18/2025 11:59 PM EDT [facility] [place] [address] [place] [address] 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 ([facility]) Discharge Disposition: Home 01/18/2025 1:54 PM EDT - 01/18/2025 11:59 PM EDT Hospital Encounter [facility] [address] [place] [address] 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 ([facility]) Discharge Disposition: Home 01/18/2025 Travel 12/28/2024 Results [facility]Up [facility] [address] [place] [address] Venus Martins, RN Vas art doppler lwr bilat mult lev/PVR 12/23/2024 2:58 PM EDT - 12/23/2024 11:59 PM EDT Hospital Encounter [facility] - Vascular [address] [place] [phone] Zeina Grace, VINCENT-C 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 ([facility]) Discharge Disposition: Home 12/23/2024 2:56 PM EDT - 12/23/2024 2:57 PM EDT Hospital Encounter [facility] - Vascular [address] [place] [phone] Zeina Grace, PA-C 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 ([facility]) Discharge Disposition: Home 12/23/2024 Travel 12/09/2024 Telephone [facility] [address] [place] [address] Venus Martins RN 12/07/2024 10:00 AM EDT Office Visit [facility] [address] [place] [address] Zeina Grace PA-C 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 ([facility]) (Primary Dx); Primary hypertension; Mixed hyperlipidemia; CKD (chronic kidney disease) stage 4, GFR 15-29 ml/min ([facility]) 12/07/2024 Travel 11/29/2024 11:30 AM EDT - 11/29/2024 1:30 PM EDT Surgery [facility] - Cardiac Cath [address] [place] [phone] Delfino Lake MD Vascular Invasive- lower extremity angiogram with possible intervention with CO2 11/29/2024 8:08 AM EDT - 11/29/2024 7:07 PM EDT Hospital Encounter [facility] - CVU-IVU [address] [place] [phone] Delfino Lake MD Peripheral vascular disease; Peripheral vascular disease ([facility]); Diabetic peripheral neuropathy associated with type 2 diabetes mellitus ([facility]); CKD (chronic kidney disease) stage 4, GFR 15-29 ml/min ([facility]) Discharge Disposition: Home 11/29/2024 Travel 11/22/2024 Lab Requisition [facility] - Lab [address] [place] [phone] Delfino Lake MD Encounter for other preprocedural examination from Last 3 Months Immunizations Immunization Administration Dates Next Due Influenza High Dose Preservative Free IM 021 Influenza, Injectable, quadrivalent (PF) 020,07/15/2018 Pneumococcal Conjugate 13-Valent 05/11/2019 Pneumococcal Polysaccharide 05/15/2021 Family History Medical History Relation Name Comments Diabetes Father Ovarian cancer Mother Relation Name Status Comments Father Mother Social History Tobacco Use Types Packs/Day Years Used Date Smoking Tobacco: Former Smokeless Tobacco: Never Tobacco Cessation:Counseling Given: Not Answered Alcohol Use Standard Drinks/Week Comments No 0 (1 standard drink = 0.6 oz pur e alcohol) [facility] Utilities Answer Date Recorded In the past [...] Mass Index 21.64 02/04/2025 11:13 AM EDT Plan of Treatment Upcoming Encounters Date Type Department Care Team (Late st Contact Info) Description 03/08/2025 3:20 PM EDT Office Visit [facility] [address] [place] [phone] Delfino Lake MD [address] [place] [address] Health Maintenance Due Date Last Done Comments Depression Screening 05/20/2023 05/20/2022 Fall Risk Screening 05/20/2023 05/20/2022 COVID-19 Vaccine (2023-2 5 season) 2024 03/29/2024, 06/13/2023, 07/04/2021, Additional history exists Influenza Vaccine 02/21/2025 03/29/2024, , 04/11/2022, Additional history exists Tobacco Screening 02/04/2026 02/04/2025 DTaP,Tdap and Td Vaccines (2 - Td or Tdap) 02/03/2033 02/03/2023 Abdominal Aortic Aneurysm (A AA) Screen Completed 10/31/2017 Zoster (Shingles) Vaccine Completed 08/18/2023, Goals Goal Patient Goal Type Associated Problems Recent Progress Patient-Stated? Author SN[facility] General Yes Desire Wilhelm LSW Note: Evaluation of progress towards goal: await surgery, possibly tomorrow Medical Devices Implanted Type Area Deer Farmer Device Identifier Shelf Expiration Date Model / Serial / Lot Stent Vsc 7mm 150mm 130cm Drg [employer]lv Sys Sandi - [id number] Implanted:Qty: 1 on 11/29/2024 by Delfino Lake MD at [facility] Stent [employer] [id number] 10/29/2025 [id number] / / [id number] Stent Vsc 7mm 150mm 130cm Drg [employer] Dlv Syjose cruz Junior - [id number] Implanted:Qty: 1 on 11/29/2024 by Delfino Lake MD at [facility] [employer] [id number] 07/02/2026 [id number] / / [id number] Procedures Procedure Name Priority Date/Time Associated Diagnosis [...] BEDSIDE GLUCOSE Routine 02/07/2025 8:42 PM EDT HEMATOCRIT Routine 02/07/2025 6:50 PM EDT HEMOGLOBIN Routine 02/07/2025 6:50 PM EDT BEDSIDE GLUCOSE [...] REPEATED ABORH Routine 02/06/2025 1:56 PM EDT TYPE AND SCREEN Routine 02/06/2025 1:26 PM EDT FERRITIN Add-On 02/06/2025 1:26 PM EDT IRON AND TIBC Add-On 02/06/2025 1:26 PM EDT CROSSMATCH RBC Routine 02/06/2025 1:00 PM EDT BEDSIDE GLUCOSE Routine 02/06/2025 10:52 AM EDT VANCOMYCIN, PEAK Routine 02/06/2025 10:4 8 AM EDT CBC WITH AUTO DIFFERENTIAL Routine 02/06/2025 7:09 AM EDT VANCOMYCIN, TROUGH Routine 02/06/2025 7: 08 AM EDT MAGNESIUM Routine 02/06/2025 7:08 AM EDT COMPREHENSIVE METABOLIC PANEL Routine 02/06/2025 [...] CULTURE Routine 02/04/2025 1:1 5 PM EDT ANESTHESIA INTUBATION Routine 02/04/2025 12:15 PM EDT VT PART REMV TALUS OR CALCANEUS 02/04/2025 12:09 PM EDT Ulcer of right heel, with necrosis of bone ([facility]) [L97.414], Osteomyelitis of ankle or foot, acute, [...] BLUE TOP Routine 02/03/2025 7:03 AM EDT THYROID PROFILE INCLUDES TSH FT4 Add-On 02/03/2025 7:03 AM EDT HEMOGLOBIN A1C Add-On 02/03/2025 7:03 AM EDT EXTRA TUBES Routine 02/03/2025 7:03 AM EDT ERYTHROCYTE SEDIMENTATION RATE (ESR) STAT 02/03/2025 7:03 AM EDT C-REACTIVE PROTEIN STAT 02/03/2025 7: 03 AM EDT BASIC METABOLIC PANEL STAT 02/03/2025 7:03 AM EDT CBC WITH AUTO DIFFERENTIAL STAT 02/03/2025 7:03 AM EDT BEDSIDE GLUCOSE Routine 02/03/2025 6:36 AM EDT BEDSIDE GLUCOSE Routine 02/03/2025 6:24 AM EDT CBC WITH AUTO DIFFERENTIAL Routine 01/28/2025 1:02 PM EDT Peripheral vascular disease PROTIME & INR Routine 01/28/2025 1:02 PM EDT Preop examination Peripheral vascular disease ([facility]) Primary hypertension CKD (chronic kidney disease) stage 4, GFR 15-29 ml/min ([facility]) 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, with long-term current use of insulin, unspecified laterality ([facility]) BASIC METABOLIC PANEL Routine 01/28/2025 1:02 PM EDT Preop examination Peripheral vascular disease ([facility]) Primary hypertension CKD (chronic kidney disease) stage 4, GFR 15-29 ml/min (CMS-HCC) 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, with long-term current use of insulin, unspecified laterality (CMS-HCC) VASCULAR INVASIVE Routine 01/24/2025 8:4 2 AM EDT Peripheral vascular disease PORTABLE GLUCOSE Routine 01/24/2025 7:13 AM EDT POCT BUN, CREAT Routine 01/24/2025 7:13 AM EDT VASC ARTERIAL DOPPLER LOWER BILATERAL MULTI LEVEL/PVR Routine 01/18/2025 2:46 PM EDT 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 (CMS-HCC) VASC ARTERIAL DUPLEX LOWER SINGLE RIGHT Routine 01/18/2025 2:46 PM EDT 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 (CMS-HCC) VASC VENOUS DUPLEX LOWER BILATERAL Routine 01/18/2025 10:34 AM EDT VASC ARTERIAL DOPPLER LOWER BILATERAL MULTI LEVEL/PVR Routine 12/23/2024 3:57 PM EDT 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 (CMS-HCC) VASC ARTERIAL DUPLEX LOWER SINGLE RIGHT Routine 12/23/2024 3:57 PM EDT 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 (CMS-HCC) VASCULAR INVASIVE Routine 11/29/2024 1: 50 PM EDT Peripheral vascular disease VASCULAR INVASIVE Routine 11/29/2024 1:5 0 PM EDT Peripheral vascular disease POCT HMCHRN CLOT TIME LR Routine 11/29/2024 1:49 PM EDT POCT HMCHRN CLOT TIME LR Routine 11/29/2024 1:12 PM EDT POCT HMCHRN CLOT TIME LR Routine 11/29/2024 12:35 PM EDT BEDSIDE GLUCOSE Routine 11/29/2024 11:37 AM EDT BEDSIDE GLUCOSE Routine 11/29/2024 9:08 AM EDT CBC (NO DIFF) Routine 11/22/2024 10:15 AM EDT Encounter for other preprocedural examination BASIC METABOLIC PANEL Routine 11/22/2024 10:15 AM EDT Encounter for other preprocedural examination VASC AAA SCREENING Routine 10/31/2017 8: 18 AM EDT Smoking hx from Last 3 Months or Most Recently Relevant to Health Maintenance Results * (ABNORMAL) Bedside Glucose *Place/Obtain serum glucose if >500 per glucometer. (02/08/2025 4:15 PM EDT) Only the most recent of28 resultswithin the time period is included. Bedside Glucose (POC) 213(H) 65 - 99 mg/dL 02/08/2025 4:28 PM EDT [facility] arterial/capilla ry 02/08/2025 4:15 PM EDT 02/08/2025 4:28 PM EDT us Sirena Samayoa MD POINT OF CARE TEST ORDERABLES Final Result [facility] [address] [place] [address], * (ABNORMAL) Hemoglobin and hematocrit, blood (02/08/2025 12:42 PM EDT) Only the most recent of3 resultswithin the time period is included. Hemoglobin 8.0(L) 13 - 17 g/dL 02/08/2025 1:03 PM EDT [facility] Hematocrit 24.2(L) 39 - 50 % 02/08/2025 1:03 PM EDT [facility] Blood Venous blood / Unknown Venipuncture / Unknown 02/08/2025 12:42 PM EDT 02/08/2025 12:45 PM EDT us Raysa Mann MD LAB BLOOD ORDERABLES Final Result [facility] [address] [place] [address], [place] * (ABNORMAL) CBC auto differential (02/08/2025 5:44 AM EDT) Only the most recent of7 resultswithin the time period is included. WBC 10.6 4 - 11 x10E9/L 02/08/2025 7:06 AM EDT [facility] RBC Count 3.29(L) 4.1 - 5.7 X10E12/L 02/08/2025 7:06 AM EDT [facility] Hemoglobin 8.8(L) 13 - 17 g/dL 02/08/2025 7:06 AM EDT [facility] Hematocrit 26.2(L) 39 - 50 % 02/08/2025 7:06 AM EDT [facility] MCV 80 80 - 100 fL 02/08/2025 7:06 AM EDT [facility] MCH 26.6(L) 27 - 34 pg 02/08/2025 7:06 AM EDT [facility] MCHC 33.4 32 - 36 g/dL 02/08/2025 7:06 AM EDT [facility] RDW 18.9(H) 11.5 - 15 % 02/08/2025 7:06 AM EDT [facility] Platelet Count 250 150 - 450 X10E9/L 02/08/2025 7:06 AM EDT [facility] MPV 7.0 7 - 12 fL 02/08/2025 7:06 AM EDT [facility] Neutrophils % 69.0 % 02/08/2025 7:06 AM EDT [facility] Lymphocytes % 22.7 % 02/08/2025 7:06 AM EDT [facility] Monocytes % 7.1 % 02/08/2025 7:06 AM EDT [facility] Eosinophils % 1.0 % 02/08/2025 7:06 AM EDT [facility] Basophils % 0.2 % 02/08/2025 7:06 AM EDT [facility] Neutrophils Absolute (A) 7.3(H) 1.5 - 6.6 10*3/uL 02/08/2025 7:06 AM EDT [facility] Lymphocytes Absolute 2.4 1.0 - 3.5 10*3/uL 02/08/2025 7:06 AM EDT [facility] Monocytes Absolute 0.7 0.0 - 0.9 10*3/uL 02/08/2025 7:06 AM EDT [facility] Eosinophils Absolute 0.1 0.0 - 0.4 10*3/uL 02/08/2025 7:06 AM EDT [facility] Basophils Absolute 0.0 0.0 - 0.2 10*3/uL 02/08/2025 7:06 AM EDT [facility] Differential Type AUTOMATED DIFFERENTIAL 02/08/2025 7:06 AM EDT [facility] Blood Venous blood / Unknown Venipuncture / Unknown 02/08/2025 5:44 AM EDT 02/08/2025 6:02 AM EDT us Diego Daniels DPM LAB BLOOD ORDERABLES Final Result [facility] [address] [place] [address], [place] * Magnesium (02/08/2025 5:44 AM EDT) Only the most recent of5 resultswithin the time period is included. MAGNESIUM 1.8 1.8 - 2.6 mg/dL 02/08/2025 6:57 AM EDT [facility] Blood Venous blood / Unknown Venipuncture / Unknown 02/08/2025 5:44 AM EDT 02/08/2025 6:02 AM EDT us Diego Daniels DPM LAB BLOOD ORDERABLES Final Result [facility] [address] [place] [address], * (ABNORMAL) Comprehensive metabolic panel (02/08/2025 5:44 AM EDT) Only the most recent of5 resultswithin the time period is included. SODIUM 135 134 - 146 mmol/L 02/08/2025 6:57 AM EDT [facility] POTASSIUM 4.5 3.5 - 5.0 mmol/L 02/08/2025 6:57 AM EDT [facility] CHLORIDE 104 98 - 109 mmol/L 02/08/2025 6:57 AM EDT [facility] CARBON DIOXIDE 25 22 - 32 mmol/L 02/08/2025 6:57 AM EDT [facility] ANION GAP 6 5 - 15 mmol/L 02/08/2025 6:57 AM EDT [facility] BLOOD UREA NITROGEN 33(H) 5 - 27 mg/dL 02/08/2025 6:57 AM EDT [facility] CREATININE 1.16 0.70 - 1.20 mg/dL 02/08/2025 6:57 AM EDT [facility] Comment:METHOD TRACEABLE TO IDMS STANDARD GLUCOSE 63(L) 65 - 99 mg/dL 02/08/2025 6:57 AM EDT [facility] CALCIUM 8.8 8.5 - 10.5 mg/dL 02/08/2025 6:57 AM EDT [facility] TOTAL PROTEIN 6.2 6.0 - 8.0 g/dL 02/08/2025 6:57 AM EDT [facility] ALBUMIN 2.4(L) 3.2 - 5.3 g/dL 02/08/2025 6:57 AM EDT [facility] ALKALINE PHOSPHATASE 78 39 - 130 U/L 02/08/2025 6:57 AM EDT [facility] AST 17 <=41 U/L 02/08/2025 6:57 AM EDT [facility] ALT 16 <=40 U/L 02/08/2025 6:57 AM EDT [facility] BILIRUBIN,TOTAL 0.6 0.3 - 1.2 mg/dL 02/08/2025 6:57 AM EDT [facility] EGFR Non-Race Dependent 64 >=60 ml/min/1.7 3sq.m 02/08/2025 6:57 AM EDT [facility] Comment: eGFR not reported due to non-numeric value for Creatinine. Reported eGFR is based on the CKD-EPI 2020 equation that does not use a race coefficient. Blood Venous blood / Unknown Venipuncture / Unknown 02/08/2025 5:44 AM EDT 02/08/2025 6:02 AM EDT us Diego Daniels DPM LAB BLOOD ORDERABLES Final Result [facility] [address] [place] [address], * (ABNORMAL) Hemoglobin (02/07/2025 6:50 PM EDT) Hemoglobin 8.1(L) 13 - 17 g/dL 02/07/2025 7:11 PM EDT [facility] Blood Venous blood / Unknown Venipuncture / Unknown 02/07/2025 6:50 PM EDT 02/07/2025 6:58 PM EDT us Poonam Hobson PROJECTS MANAGER-SPLICING MACHINE OPERATOR LAB BLOOD ORDERABLES Marion l Result Performing Organization Address City/[facility]/ZIP Co de Phone Number [address] [place] [address], [place] * (ABNORMAL) Hematocrit (02/07/2025 6:50 PM EDT) Hematocrit 24.9(L) 39 - 50 % 02/07/2025 8:16 PM EDT [facility] Blood Venous blood / Unknown Venipuncture / Unknown 02/07/2025 6:50 PM EDT 02/07/2025 6:58 PM EDT us Sirena Samayoa MD LAB BLOOD ORDERABLES Final Re sult Performing Organization Address [facility] Co de Phone Number [address] [place] [address], [place] * Transfuse RBC:1 Unit (02/07/2025 5:44 PM EDT) us Poonam Hobson PROJECTS MANAGER-SPLICING MACHINE OPERATOR BLOOD TRANSFUSION ORDERAB LES Final Result * Light Blue Top (02/07/2025 4:31 AM EDT) Only the most recent of4 resultswithin the time period is included. Extra Tube Auto Resulted 02/07/2025 6:03 AM EDT [facility] Blood Venous blood / Unknown 02/07/2025 4:31 AM EDT 02/07/2025 5:38 AM EDT us Raysa Mann MD LAB BLOOD ORDERABLES Final Result Performing Organization Address City/[facility]/ZIP Co de Phone Number [address] [place] [address], [place] * Occult blood x 1, stool (02/07/2025 2:46 AM EDT) FECAL OCCULT BLOOD Negative Negative 02/07/2025 3:33 AM EDT [facility] Stool Feces / Unknown 02/07/2025 2 :46 AM EDT 02/07/2025 3:18 AM EDT Raysa Mann MD BODY FLUIDS AND STOOLS ORD ERABLES Final Result Performing Organization Address City/[facility]/ZIP Co de Phone Number [address] [place] [address], [place] * ABO Rh Repeat (02/06/2025 1:56 PM EDT) ABO B 02/06/2025 2:28 PM EDT [facility] RH Negative 02/06/2025 2:28 PM EDT [facility] Blood Venous blood / Unknown Venipuncture / Unknown 02/06/2025 1:56 PM EDT 02/06/2025 1:57 PM EDT Raysa Mann MD BLOOD BANK TEST ORDERABLES Final Result Performing Organization Address City/[facility] Co de Phone Number [facility] [address] [place] [address] [place] [address], [address] [place] [address], [place] * (ABNORMAL) Iron and TIBC (02/06/2025 1:26 PM EDT) IRON <10(L) 50 - 212 ug/dL 02/06/2025 10:03 PM EDT [facility] TRANSFERRIN 90(L) 168 - 336 mg/dL 02/06/2025 10:03 PM EDT [facility] IRON BINDING 126(L) 250 - 425 ug/dL 02/06/2025 10:03 PM EDT [facility] IRON SATURATION <8(L) 20 - 50 % SATURATION 02/06/2025 10:03 PM EDT [facility] Blood Venous blood / Unknown Venipuncture / Unknown 02/06/2025 1:26 PM EDT 02/06/2025 1:29 PM EDT us Raysa Mann MD LAB BLOOD ORDERABLES Final Result [facility] [address] [place] [address], [place] [phone] * Type and screen (02/06/2025 1:26 PM EDT) ABO B 02/06/2025 2:28 PM EDT [facility] RH Negative 02/06/2025 2:28 PM EDT [facility] Antibody Screen Negative 02/06/2025 2:28 PM EDT [facility] Blood Venous blood / Unknown Venipuncture / Unknown 02/06/2025 1:26 PM EDT 02/06/2025 1:29 PM EDT Raysa Mann MD BLOOD BANK TEST ORDERABLES Edited Result - Final Performing Organization Address City/[facility]/ZIP Co de Phone Number [facility] [address] [place] [address], [facility] [address] [place] [address] [place] [address], [place] * Ferritin (02/06/2025 1:26 PM EDT) FERRITIN 204 24 - 336 ng/mL 02/06/2025 10:03 PM EDT [facility] Blood Venous blood / Unknown Venipuncture / Unknown 02/06/2025 1:26 PM EDT 02/06/2025 1:29 PM EDT us Raysa Mann MD LAB BLOOD ORDERABLES Final Result [facility] [address] [place] [address], [place] [phone] * Crossmatch RBC:Number of Units: 1 (02/06/2025 1:00 PM EDT) [facility] Blood component type [id number] [facility] Unit number [id number] [place] OG [facility] Unit ABO O [facility] Unit RH NEG [facility] Crossmatch Compatible [facility] Status of unit TRANSFUSED [facility] Expiration Date [id number] [facility] BB Type Barcode 9500 [facility] Blood Venous blood / Unknown 02/06/2025 1:00 PM EDT 02/06/2025 1:38 PM EDT us Poonam Hobson PROJECTS MANAGER-SPLICING MACHINE OPERATOR BLOOD BANK PRODUCT ORDERA BLES Edited Result - Final Performing Organization Address City/[facility]/ZIP Co de Phone Number [address] [place] [address], [place] * Vancomycin, peak (02/06/2025 10:48 AM EDT) [facility] VANCOMYCIN PEAK 30.6 30.0 - 40.0 ug/mL 02/06/2025 11:46 AM EDT [facility] Blood Venous blood / Unknown Venipuncture / Unknown 02/06/2025 10:48 AM EDT 02/06/2025 10:55 AM EDT us Raysa Mann MD LAB BLOOD ORDERABLES Final Result Performing Organization Address City/[facility]/ZIP Co de Phone Number [address] [address], [place] * Vancomycin, trough To be drawn prior to the 4th dose (02/06/2025 7:08 AM EDT) [facility] VANCOMYCIN TROUGH 18.1 5.0 - 20.0 ug/mL 02/06/2025 8:03 AM EDT [facility] Blood Venous blood / Unknown Venipuncture / Unknown 02/06/2025 7:08 AM EDT 02/06/2025 7:21 AM EDT us Raysa Mann MD LAB BLOOD ORDERABLES Final Result Performing Organization Address City/[facility]/ZIP Co de Phone Number [address] [place] [address], [place] * SST TOP (02/05/2025 5:24 AM EDT) Extra Tube Auto Resulted 02/05/2025 7:01 AM EDT [facility] Blood Venous blood / Unknown 02/05/2025 5:24 AM EDT 02/05/2025 5:38 AM EDT Raysa Mann MD LAB BLOOD ORDERABLES Final Result Performing Organization Address [facility] de Phone Number [address] [place] [address], [place] * X-ray calcaneus right minimum 2 [...] Diego Daniels DPM IMG DIAGNOSTIC IMAGING ORDE RABAHSAN Final Result * (ABNORMAL) Bone culture (02/04/2025 1:15 PM EDT) CULTURE RESULTS Pseudomonas aeruginosa(A) 02/08/2025 12:02 PM EDT [facility] CULTURE RESULTS Methicillin-Resis tant Staphylococcus aureus(A) 02/08/2025 12:02 PM EDT [facility] Bone Structure of right foot / Unknown 02/04/2025 1:15 PM EDT 02/04/2025 3:09 PM EDT Comment:Pre-op diagnosis: Ulcer of right heel, with necrosis of bone ([facility]) [L97.414], Osteomyelitis of ankle or foot, acute, right ([facility]) [M86.171], Tenosynovitis of right foot [M65.971] Narrative [...] Methicillin-Resistant Staphylococcus aureus Susceptibility Comment Diego Daniels DPM MICROBIOLOGY - GENERAL ORDE RABLES Final Result [facility] [address] [place] [address], [place] [phone] * Anaerobic culture (02/04/2025 1:15 PM EDT) CULTURE RESULTS NO ANAEROBIC ORGANISMS ISOLATED 02/09/2025 9:19 AM EDT [facility] Bone Structure of right foot / Unknown 02/04/2025 1:15 PM EDT 02/04/2025 3:09 PM EDT Comment:Pre-op diagnosis: Ulcer of right heel, with necrosis of bone ([facility]) [L97.414], Osteomyelitis of ankle or foot, acute, right ([facility]) [M86.171], Tenosynovitis of right foot [M65.971] Diego Daniels DPM MICROBIOLOGY - GENERAL ORDE ANURAG Final Result [facility] [address] [place] [address], * [place] AN ELECTIVE SUPRAGLOTTIC AIRWAY (02/04/2025 12:15 PM [...] at approach: 1 Airway Brand: I Gel Rosendo Medellin MD ANESTHESIA ORDERABLES Final R esult * EKG (02/04/2025 9:37 AM EDT) 02/04/2025 9:37 AM EDT Narrative TRACEMASTERVUE - 02/04/2025 10:11 AM EDT Carlos Lloyd MD ECG ORDERABLES Final Result TRACEPABLOSTERVDESTINI * X-ray foot right 2 views (02/03/2025 [...] Asher Jovel MD on 02/03/2025 8:46 PM us Jonh Cline MD IMG DIAGNOSTIC IMAGING ORDERA BLES Final Result * Blood culture #2 (02/03/2025 8:25 PM EDT) Only the most recent of2 resultswithin the time period is included. [facility] CULTURE RESULTS NO GROWTH 5 DAYS 02/09/2025 3:02 AM EDT [facility] Blood Venous blood / Unknown Venipuncture / Unknown 02/03/2025 8:25 PM EDT 02/03/2025 8:43 PM EDT us Jonh Cline MD MICROBIOLOGY - GENERAL ORDERA BLES Final Result Performing Organization Address City/[facility]/ZIP Co de Phone Number [facility] [address] [place] [address], * (ABNORMAL) Erythrocyte Sedimentation Rate (ESR) (02/03/2025 7:03 AM EDT) [facility] ESR, Erythrocyte Sedimentation Rate 94(H) 0 - 20 mm/h 02/03/2025 9:52 AM EDT [facility] Blood Venous blood / Unknown Venipuncture / Unknown 02/03/2025 7:03 AM EDT 02/03/2025 7:05 AM EDT Jerald Pineda [facility] BLOOD ORDERABLES Final Re sult [facility] [address] [place] [address], * Thyroid profile includes TSH FT4 (02/03/2025 7:03 AM EDT) [facility] FREE T4 1.04 0.61 - 1.60 ng/dL 02/03/2025 3:22 PM EDT [facility] TSH 0.96 0.49 - 4.67 uIU/mL 02/03/2025 3:22 PM EDT [facility] Blood Venous blood / Unknown Venipuncture / Unknown 02/03/2025 7:03 AM EDT 02/03/2025 7:05 AM EDT Mukul Flores PROJECTS MANAGER-SPLICING MACHINE OPERATOR LAB BLOOD ORDERABLES F inal Result Performing Organization Address City/[facility]/ZIP Co de Phone Number [address] [place] [address], [place] * (ABNORMAL) C-reactive protein (02/03/2025 7:03 AM EDT) C REACTIVE PROTEIN 4.7(H) <=0.7 mg/dL 02/03/2025 7:38 AM EDT [facility] Blood Venous blood / Unknown Venipuncture / Unknown 02/03/2025 7:03 AM EDT 02/03/2025 7:05 AM EDT Jerald Pineda DO LAB BLOOD ORDERABLES Final Re sult Performing Organization Address [facility] Co de Phone Number [address] [place] [address], [place] * (ABNORMAL) Hemoglobin A1c (02/03/2025 7:03 AM EDT) HEMOGLOBIN A1C 6.2(H) 4.4 - 5.6 % 02/03/2025 2:30 PM EDT [facility] Comment: ADA Guidelines Result HgbA1c Normal : less than 5.7 % Prediabetes : 5.7 % to 6.4 % Diabetes : > 6.4 % Use with caution in patients with abnormal hemoglobin variants as the half-life of red blood cells and in vivo glycation rates are affected. EST. AVERAGE GLUCOSE 131 mg/dL 02/03/2025 2:30 PM EDT [facility] Blood Venous blood / Unknown Venipuncture / Unknown 02/03/2025 7:03 AM EDT 02/03/2025 7:05 AM EDT us Mukul Flores PROJECTS MANAGER-SPLICING MACHINE OPERATOR LAB BLOOD ORDERABLES F inal Result [facility] [address] [place] [address], [place] [phone] * (ABNORMAL) Basic Metabolic Panel (02/03/2025 7:03 AM EDT) Only the most recent of3 resultswithin the time period is included. SODIUM 133(L) 134 - 146 mmol/L 02/03/2025 7:38 AM EDT [facility] POTASSIUM 4.9 3.5 - 5.0 mmol/L 02/03/2025 7:38 AM EDT [facility] CHLORIDE 105 98 - 109 mmol/L 02/03/2025 7:38 AM EDT [facility] CARBON DIOXIDE 22 22 - 32 mmol/L 02/03/2025 7:38 AM EDT [facility] ANION GAP 6 5 - 15 mmol/L 02/03/2025 7:38 AM EDT [facility] BLOOD UREA NITROGEN 50(H) 5 - 27 mg/dL 02/03/2025 7:38 AM EDT [facility] CREATININE 1.67(H) 0.70 - 1.20 mg/dL 02/03/2025 7:38 AM EDT [facility] Comment:METHOD TRACEABLE TO IDMS STANDARD GLUCOSE 92 65 - 99 mg/dL 02/03/2025 7:38 AM EDT [facility] CALCIUM 8.9 8.5 - 10.5 mg/dL 02/03/2025 7:38 AM EDT [facility] EGFR Non-Race Dependent 41(L) >=60 ml/min/1.7 3sq.m 02/03/2025 7:38 AM EDT [facility] Comment: eGFR not reported due to non-numeric value for Creatinine. Reported eGFR is based on the CKD-EPI 2020 equation that does not use a race coefficient. Blood Venous blood / Unknown Venipuncture / Unknown 02/03/2025 7:03 AM EDT 02/03/2025 7:05 AM EDT us Jerald Pineda DO LAB BLOOD ORDERABLES Final Re sult Performing Organization Address City/[facility]/ZIP Co de Phone Number [facility] [address] [place] [address], * (ABNORMAL) Protime & INR (01/28/2025 1:02 PM EDT) PROTIME 13.5(H) 9.8 - 13.2 sec 01/28/2025 6:18 PM EDT [facility] INR 1.2 0.9 - 1.2 01/28/2025 6:18 PM EDT [facility] Blood Venous blood / Unknown Venipuncture / Unknown 01/28/2025 1:02 PM EDT 01/28/2025 1:02 PM EDT Rosendo Medellin MD LAB BLOOD ORDERABLES Final Re sult Performing Organization Address City/[facility]/ZIP Co de Phone Number [facility] [address] [place] [address], [place] [phone] * VASCULAR INVASIVE (01/24/2025 8:42 AM EDT) Anatomical Region Laterality Modality X-Ray Angiograph y Narrative 01/24/2025 8:53 AM EDT Patent SFA stents with a patent posterior tibial artery with adequate right heel wound blush Recommendations: Continue medical therapy. Recommendations per limb preservation board Procedure Details Prior to the procedure, the risks, benefits, and alternatives to the planned procedure were discussed in detail, including the risk of exposure to COVID-19 within the facility. All questions pertaining to the procedure and these risks were answered, and the patient agreed to proceed. After routine ultrasound-guided access with the images saved in PACS, 4 Algerian sheath was inserted in the left common femoral artery retrograde fashion without difficulty. Four Algerian omni flush was advanced into descending aorta abdominal aortogram performed. Over glidewire 4 Algerian multipurpose catheter was advanced into right common femoral artery angiogram performed. Pressure measured. Then over Versacore wire, 4 Algerian multipurpose catheter was advanced to the right popliteal artery angiogram performed. Findings Right common iliac artery 30 40% stenosis stenosis. Right external iliac artery 30% stenosis. Right internal iliac artery no significant disease. Right common femoral artery no significant disease. Right SFA patent stents. Right popliteal artery 30 40% stenosis without significant pressure gradient. Right TP trunk no significant disease. Right peroneal artery no disease. Right posterior tibial artery is patent with adequate balloon blood and terminates in medial and lateral plantar branch with mild disease. Right anterior tibial artery moderate diffuse disease with very distal dorsalis pedis occluded Delfino Lake MD CV CARDIAC CATH ORDERABLES Fin al Result * (ABNORMAL) Portable Glucose Istat (01/24/2025 7:13 AM EDT) [facility] POC Glucose 106(H) 65 - 99 mg/dL 01/24/2025 11:26 AM EDT [facility] 01/24/2025 7:13 AM EDT 01/24/2025 11:26 AM EDT Delfino Lake MD POINT OF CARE TEST ORDERABLES Final Result [facility] [address] [place] [address], [place] * (ABNORMAL) POCT BUN, creat (01/24/2025 7:13 AM EDT) Pathologist [facility] POC BUN 36(H) 6 - 27 mg/dL 01/24/2025 11:26 AM EDT [facility] POC Creatinine 1.8(H) 0.7 - 1.2 mg/dL 01/24/2025 11:26 AM EDT [facility] POC EGFR Non-Race Dependent 38(L) >=60 ml/min/1.7 3sq.m 01/24/2025 11:26 AM EDT [facility] Comment: Reported eGFR is based on the CKD-EPI 2020 equation that does not use a race coefficient. 01/24/2025 7:13 AM EDT 01/24/2025 11:26 AM EDT us Delfino Lake MD POINT OF CARE TEST ORDERABLES Final Result [facility] [address] [place] [address], [place] * Vas art doppler lwr bilat mult lev/PVR (01/18/2025 2:46 PM EDT) Only the most recent of2 resultswithin the time period is included. Anatomical Region Laterality Modality Vascular Bilateral Ultrasound 01/18/2025 2:54 PM EDT Narrative 01/20/2025 10:10 AM EDT Previous: Previous lower extremity arterial physiological exam performed: 12/23/2024; Highest VALE: Right: VALE is falsely elevated suggesting medial calcinosis; TBI is consistent with mild to moderate arterial disease. Left VALE is falsely elevated suggesting medial calcinosis; TBI is consistent with mild to moderate arterial disease. History of left REMI angioplasty on 10/30/2022. History of right SFA angioplasty and stent on 11/29/2024. Right: Mildly abnormal PVR waveform contour at all cuff levels. Calf waveform augmentation noted. PT VALE is CNO DP VALE is CNO. TBI is 0.42. Multiphasic with diastolic flow reversal common femoral, hyperemic DP and monophasic PT CW Doppler waveforms. Left: Mildly abnormal PVR waveform contour at all [...] at the phone number beside their name. Procedure Note Berto De La Rosa DO - 01/20/2025 Previous: Previous lower extremity arterial physiological exam performed:12/23/2024; Highest VALE: Right: VALE is falsely elevated suggesting medialcalcinosis; TBI is consistent with mild to moderate arterial disease. LeftABI is falsely elevated suggesting medial calcinosis; TBI is consistent with mild to moderatearterial disease. History of left REMI angioplasty on 10/30/2022. History ofright SFA angioplasty and stent on 11/29/2024. Right: Mildly abnormal PVR waveform contour at all cuff levels. Calfwaveform augmentation noted. PT VALE is CNO DP VALE is CNO. TBI is 0.42.Multiphasic with diastolic flow reversal common femoral, hyperemic DP andmonophasic PT CW Doppler waveforms. Left: Mildly abnormal PVR waveform contour at all cuff levels. Calfwaveform augmentation noted. PT VALE is CNO DP VALE is CNO. TBI is 0.61.Multiphasic with diastolic flow reversal common femoral, DP and hyperemicPT CW Doppler waveforms. Conclusions: BILATERAL: VALE is falsely elevated suggesting medialcalcinosis and non-compressible vessels; TBI is consistent with mild tomoderate arterial disease.When compared to previous report no significantchanges were noted. Recommendations: Any questions prior to finalization, please call thereading physician during normal business hours at the phone number besidetheir name. us Zeina Grace PA-C CV VASCULAR ORDERABLES Fin al Result * Vas art duplex lwr single right (01/18/2025 2:46 PM EDT) Only the most recent of2 resultswithin the time period is included. Anatomical Region Laterality Modality Vascular Right Ultrasound 01/18/2025 3:01 PM EDT Narrative 01/20/2025 10:08 AM EDT Previous: Previous lower extremity arterial duplex exam performed 12/23/2024 Right No hemodynamically significant stenosis (<50%), lower extremity superficial femoral artery stent. Arterial plaque with no hemodynamically significant stenosis of the lower extremity. History of left REMI angioplasty on 10/30/2022. History of right SFA angioplasty [...] at the phone number beside their name. Procedure Note Berto De La Rosa DO - 01/20/2025 Previous: Previous lower extremity arterial duplex exam [id number]/03/2025 Right No hemodynamically significant stenosis (<50%), lowerextremity superficial femoral artery stent. Arterial plaque with nohemodynamically significant stenosis of the lower extremity. History of left REMI angioplasty on 10/30/2022. History of rightSFA angioplasty and stenting on 11/29/2024. Right: Plaque and spectral waveforms with diastolic flow reversal noted inthe external iliac, common femoral, deep femoral, popliteal anteriortibial, hyperemic posterior tibial and peroneal artery without significantcolor flow disturbance. Spectral waveforms with diastolic flow reversal noted in the superficial femoralartery stent without significant color flow disturbance. Conclusions: RIGHT: Arterial plaque with no hemodynamically significantstenosis of the lower extremity. No hemodynamically significant stenosis(<50%), lower extremity arterial stent.When compared to previous report nosignificant changes were noted. Recommendations: Any questions prior to finalization, please call thereading physician during normal business hours at the phone number besidetheir name. us Zeina Grace PA-C CV VASCULAR ORDERABLES Fin al Result * Vas venous duplex lwr bilateral (01/18/2025 10:34 AM EDT) Anatomical Region Laterality Modality Vascular Bilateral Ultrasound us Scanning Provider External CV VASCULAR ORDERABLE S Final Result * VASCULAR INVASIVE, VELVET STEAMER/STENT FEM-POP RT (CV) (11/29/2024 1:50 PM EDT) Anatomical Region Laterality Modality X-Ray Angiograph y Narrative 11/29/2024 2:04 PM EDT Successful angioplasty and stenting of the right SFA through antegrade and retrograde pedal approach with 2 drug-eluting stent 1st drug-eluting stent unable to fully deploy and was noted to be elongated. An additional stent was deployed inside the stent as detailed above. Discussed with the patient and family Recommendations: Aspirin 81 mg daily Plavix 75 mg daily Procedure Details Prior to the procedure, the risks, benefits, and alternatives to the planned procedure were discussed in detail, including the risk of exposure to COVID-19 within the facility. All questions pertaining to the procedure and these risks were answered, and the patient agreed to proceed. After routine ultrasound-guided access with the images saved in PACS, 4 Algerian sheath was inserted in the left common femoral artery retrograde fashion without difficulty. Four Algerian omni was advanced into the abdominal aorta abdominal aortogram with CO2 angiography performed. Pressures measured in the distal aorta as well as in the left common femoral artery without significant pressure gradient. Then stiff angled glide was used to wire the right iliac system into the right proximal SFA. NaviCross was advanced to the right common femoral artery pressure measured angiogram with CO2 angiography performed. Noted occluded mid to distal right SFA. After therapeutic anticoagulation, 5 Algerian sheath was exchanged into 6 Algerian 55 cm [place] sheath over Versacore wire and advanced to the right common femoral artery. Attempted to cross the proximal SFA with 0.018 command wire with a Navicross angled support without success due to blunt cap escalated to modified tip JR4 that was cut on the back table with a stiff angled glide still unable to cross the proximal cap. Lower extremity runoff performed and with ultrasound-guided access 0.018 command wire was advanced with a CXI support in the anterior tibial artery followed by a CXI. CXI advanced into right popliteal artery angiogram performed and image the right lower extremity. 0.018 command wire was advanced into the occluded segment however noted to be in the subintimal space escalated to glide gold without ability to cross back to true lumen. 6 x 40 mm balloon inflated in the mid SFA in reverse cart technique and glide gold was able to penetrate back in follow-up with a CXI. CXI advanced to the right proximal SFA angiogram performed confirmed true lumen. Wire was snared and externalized. Angioplasty of the right SFA performed with a 6 x 100 mm balloon inflated at 8 and 10 atmospheres multiple inflations. 7 x 150 mm [place] stent was advanced into the mid to distal SFA and deployed however partially deployed and unable to fully deploy the stent through unsheathing. [employer] rep in the lab, multipel attempts performed. However stent with a not fully deployed, after opening the handle attempted to pullback on the stent and noted to be elongated however eventually the full deployed in the proximal right SFA. Wire was exchanged into a nightmute plus wire. Sheath was advanced into the proximal end of the stent and another 7 x 150 mm Sandi stent was deployed in the area of the stent that was elongated n as I did not believe the radial force would be adequate. Stents were post dilated with a 7 by 150 mm balloon inflated at 8 and 10 atmospheres inflations. Angiogram noted excellent angiographic results with two-vessel runoff the distal leg. Sheath was pulled back into the left external iliac artery angiogram performed with contrast angiography and image the left lower extremity. Findings Abdominal aorta no aneurysm. Right common iliac artery right external iliac artery, right internal iliac artery, right common femoral artery, right profundus artery no significant disease. Right SFA occluded in the mid to distal segment. Right popliteal artery mild disease. Right anterior tibial artery occluded in the mid to distal segment. Right TP trunk posterior tibial artery and peroneal artery no significant disease. Left common iliac artery, left internal iliac artery, left external iliac artery, left common femoral artery, left profundus artery no disease. Left SFA 60% distal stenosis. Left posterior tibial artery no significant disease. Left anterior tibial artery not fully opacify however likely mid to distal disease. Left peroneal artery patent us Delfino Lake MD CV CARDIAC CATH ORDERABLES Triston bettie Result - Final * (ABNORMAL) [facility] Clot Time LR (11/29/2024 1:49 PM EDT) Only the most recent of3 resultswithin the time period is included. [facility] Activated Clotting Time LR 357(H) 89 - 169 s 11/30/2024 7:17 AM EDT [facility] Blood 11/29/2024 1:49 PM EDT 11/30/2024 7:17 AM EDT us Delfino Lake MD POINT OF CARE TEST ORDERABLES Final Result [facility] [address] [place] [address], [place] * (ABNORMAL) CBC without diff (11/22/2024 10:15 AM EDT) WBC 9.6 4 - 11 x10E9/L 11/22/2024 11:51 AM EDT [facility] RBC Count 2.93(L) 4.1 - 5.7 X10E12/L 11/22/2024 11:51 AM EDT [facility] Hemoglobin 8.4(L) 13 - 17 g/dL 11/22/2024 11:51 AM EDT [facility] Hematocrit 24.9(L) 39 - 50 % 11/22/2024 11:51 AM EDT [facility] MCV 85 80 - 100 fL 11/22/2024 11:51 AM EDT [facility] MCH 28.8 27 - 34 pg 11/22/2024 11:51 AM EDT [facility] MCHC 33.9 32 - 36 g/dL 11/22/2024 11:51 AM EDT [facility] RDW 14.3 11.5 - 15 % 11/22/2024 11:51 AM EDT [facility] Platelet Count 321 150 - 450 X10E9/L 11/22/2024 11:51 AM EDT [facility] MPV 7.9 7 - 12 fL 11/22/2024 11:51 AM EDT [facility] Blood Venous blood / Unknown 11/22/2024 10:15 AM EDT 11/22/2024 11:20 AM EDT us Delfino Lake MD LAB BLOOD ORDERABLES Final Res ult [facility] [address] [place] [address], [place] * Vas AAA Screening (10/31/2017 8:18 AM EDT) Anatomical Region Laterality Modality Vascular N/A Ultrasound 10/31/2017 8:26 AM EDT Narrative 11/01/2017 8:41 AM EDT Aorta: Limited-AAA screening exam: Maximum aortic diameter is: 1.9 cm. Conclusions: No evidence of abdominal aortic aneurysm (AAA). Recommendations: Any questions prior to finalization, please call the reading physician during normal business hours at the phone number beside their name. Procedure Note Brennen Cardenas MD - 11/01/2017 Aorta: Limited-AAA screening exam: Maximum aortic diameter is: 1.9 cm. Conclusions: No evidence of abdominal aortic aneurysm (AAA). Recommendations: Any questions prior to finalization, please call thereading physician during normal business hours at the phone number besidetheir name. Marifer Cruz PROJECTS MANAGER-SPLICING MACHINE OPERATOR CV VASCULAR ORDERABLES F inal Result from Last 3 Months or Most Recently Relevant to Health Maintenance Insurance [facility] [employer] MEDICARE Advance Directives * Full Code (Latest Code Status on File) Date Activated Date Inactivated Comments 02/03/2025 8:31 AM 02/08/2025 11:02 PM * Full Code Date Activated Date Inactivated Comments 09/27/2024 2:40 PM 10/01/2024 5:39 PM * Full Code Date Activated Date Inactivated Comments 10/25/2022 10:50 AM 10/28/2022 5:00 PM Care Teams Electronics Warfare Technician Relationship Specialty Start Date End Date Alejandrina Rivera MD [address] [facility] [place] [address] PCP - General Internal Medicine 09/27/24
--- OUTSIDE RECORDS SUMMARY | 2025-02-17 20:32 | XMS_ITS | Encounter Summary ---
Author Organization [employer] [facility] tem Address [id number] [address] [place] [address] Care Team Providers Care Milieu Technician Name Role Phone Alejandrina Rivera MD Primary Care Provider [phone] Encounter Details Date Type Department Care Team (Late Contact Info) Description 08/03/2021 Telephone [facility] [address] [place] [address] [place] [address] Mary Ann Ferreira CMA Social History Tobacco Use Types Packs/Day [...] Department Care Team (Late Contact Info) Description 03/08/2025 3:20 PM EDT Office Visit [facility] [address] [place] [address] Delfino Lake MD [address] [place] [address] documented as of this encounter Visit Diagnoses Not on filedocumented in this encounter Additional Health Concerns Assessment Noted Time PHQ-9 Depression Total Score: 0 05/15/20 21 3:34 PM EST documented as of this encounter Care Teams Milieu Technician Relationship Specialty Start Date End Date Alejandrina Rivera MD [address] [place] [address] PCP - General Internal Medicine 09/27/24 documented as of this encounter
== END 2025-02-17 20:11 | disposition home or self-care (01) ==
LOC: LAB 20:10
PROVIDERS: PCP Family Medicine; Visit Provider Registered Nurse
DX: Z51.81 Encounter for therapeutic drug level monitoring (principal); Z16.22 Resistance to vancomycin related antibiotics
CPT/HCPCS: 36415; 80202

== ENCOUNTER 2025-03-12 14:49 | Outpatient (REF) | payer MEDICARE, SELFPAY | END 2025-03-12 14:50 | LOC: LAB 14:49 | PROVIDERS: PCP Family Medicine; Visit Provider Family Medicine | DX: Z51.81 Encounter for therapeutic drug level monitoring (principal) | CPT/HCPCS: 36415; 80202 ==